=== PATIENT | male | born 1935 | race Caucasian/White ===

== ENCOUNTER → 2018-09-05 14:28 | Outpatient (CLI) | payer MEDICARE, OTHER, SELFPAY ==
[2018-09-05 14:57] LABS: Basophils % 0.4 % (0.1-2.0); Eosinophils # 0.2 K/mm3 (0.0-0.4); Eosinophils % 2.6 % (0.1-12.0); Hematocrit 44.5 % (42.0-52.0); Hemoglobin 15.3 g/dL (14.1-18.0); Lymphocytes # 1.6 K/mm3 (0.7-4.5); Lymphocytes % 26.3 % (10-50); Mean Corpuscular HGB Conc 34.3 g/dL (31.8-35.4); Mean Corpuscular Hemoglobin 29.5 pg (27.0-31.2); Mean Platelet Volume 7.3 fl (7.4-10.4); Monocytes # 0.4 K/mm3 (0.1-1.0); Monocytes % 6.8 % (1.7-9.3); Neutrophils % 63.9 % (37.0-80.0); Platelet Count 265 K/mm3 (142-424); Red Blood Count 5.18 M/mm3 (4.60-6.20); Red Cell Distribution Width 13.3 % (11.5-17.5); White Blood Count 6.2 K/mm3 (4.8-10.8)
== END ==
PROVIDERS: Visit Provider Otolaryngology
DX: Z01.818 Encounter for other preprocedural examination (principal); J35.8 Other chronic diseases of tonsils and adenoids
CPT/HCPCS: 36415; 85025; 93005

== ENCOUNTER 2021-12-20 19:02 | Observation (INO) | payer MEDICARE, SELFPAY ==
[2021-12-20 19:05] VITALS: BP 153/77; PULSE 71; RESP 24; TEMP 36.5; O2SAT 97; BMI 25.8
--- NOTE | 2021-12-20 19:18 | XR_ITS ---
PROCEDURE INFORMATION: Exam: XR Chest Exam date and time: 12/20/2021 7:20 PM Age: 86 years old Clinical indication: Other: Generalized weakness TECHNIQUE: Imaging protocol: XR of the chest. Views: 1 view. COMPARISON: No relevant prior studies available. FINDINGS: Airway: Patent Lungs: Low lung volumes causes crowding of the bronchovascular structures. No acute interstitial or airspace disease. Pleural spaces: Unremarkable. No pleural effusion. No pneumothorax. Heart/Mediastinum: The heart is moderately enlarged. Vasculature: Calcified aortic knob. Bones/joints: No acute skeletal abnormality or aggressive osseous lesion. IMPRESSION: No acute thoracic pathology.
--- NOTE | 2021-12-20 19:18 | ECG_ITS ---
APPROVED REPORT Exam: Resting ECG HR:66 bpm ECG Measurements Heart Rate 66 AXES QRSd 153 QRS 62 QT 450 T 37 QTc 463 Conclusion ATRIAL FIBRILLATION RIGHT BUNDLE BRANCH BLOCK [120+ ms QRS DURATION, UPRIGHT V1, 40+ ms S IN I/aVL/V4/V5/V6] ABNORMAL ECG UNCONFIRMED REPORT Electronically signed by : Artis Krause MD 12/21/2021 07:04:08
[2021-12-20 19:43] LABS: Basophils # 0.1 K/mm3 (0-0.2); Basophils % 1.3 % (0.1-2.0); Eosinophils % 0.6 % (0.1-12.0); Hematocrit 45.6 % (42.0-52.0); Hemoglobin 15.7 g/dL (14.1-18.0); Lymphocytes # 1.3 K/mm3 (0.7-4.5); Lymphocytes % 17.5 % (10-50); Mean Corpuscular HGB Conc 34.5 g/dL (31.8-35.4); Mean Corpuscular Hemoglobin 30.8 pg (27.0-31.2); Mean Corpuscular Volume 89.3 fl (80-94); Mean Platelet Volume 8.3 fl (7.4-10.4); Monocytes # 0.6 K/mm3 (0.1-1.0); Monocytes % 7.6 % (1.7-9.3); Neutrophils # 5.4 K/mm3 (1.8-7.8); Platelet Count 296 K/mm3 (142-424); Red Cell Distribution Width 13.7 % (11.5-17.5); White Blood Count 7.4 K/mm3 (4.8-10.8)
[2021-12-20 19:50] LABS: Alanine Aminotransferase 34 U/L (12-78); Albumin Level 4.2 g/dl (3.5-5.0); Albumin/Globulin Ratio 1.4 (1.1-1.8); Alkaline Phosphatase 104 U/L (38-126); Anion Gap 14.2 mEq/L (5-15); Aspartate Amino Transferase 40 U/L (17-59); Bilirubin,Total 0.3 mg/dl (0.2-1.3); Blood Urea Nitrogen 18 mg/dl (9-20); Calcium 9.3 mg/dl (8.4-10.2); Carbon Dioxide 25 mmol/L (22.0-30.0); Chloride 96 mmol/L (98-107); Creatinine Clearance Estimated 57 mL/min (50-200); Estimated Glomerular Filt Rate 71 ml/min (>60); GFR (African American) 86 ML/MIN (>60); Globulin 3.1 g/dL (1.3-3.2); Glucose 136 mg/dl (74-100); Lactic Acid 1.8 mmol/L (0.7-2.1); Potassium 3.2 mmoL/L (3.5-5.1); Sodium 132 mmol/L (136-145); Total Protein,Serum 7.3 g/dl (6.3-8.2)
[2021-12-20 19:55] LABS: C-Reactive Protein 1.6 mg/L (0-4)
[2021-12-20 20:08] LABS: Procalcitonin 0.057 ng/mL (0.0-2.0); Troponin I < 0.01 ng/ml (0.00-0.034)
[2021-12-20 20:12] LABS: Erythrocyte Sedimentation Rate 5 mm/hr (0-20)
[2021-12-20 20:47] VITALS: BP 142/80; BP 148/80; BP 154/81
--- NOTE | 2021-12-20 20:50 | HMH.EDWEAK ---
ED Disposition Clinical Impression: Syncope, near Chest pain Qualifiers: Chest pain type: precordial pain Qualified Code(s): R07.2 - Precordial pain Disposition: Admitted as Observation Condition on Discharge: Fair - Critical Care Critical Care Time: No Attestation: On 12/20/21, the high probability of a clinically significant, sudden or life threatening deterioration of the following system(s) required my full and direct attention, intervention and personal management. The time I documented below is in addition to time spent performing reported procedures but includes the following listed in this critical care notation. Medical Decision Making - Medical Records Medical records reviewed: Yes: I reviewed the patient's medical records. - Cuauhtemoc Inquiry Pt receiving controlled substance: No Vital Signs: 12/20/21 19:05 12/20/21 20:47 Temperature 97.7 F Temperature Source Oral Pulse Rate [Right] 71 Respiratory Rate 24 Blood Pressure [Orthostatic Lying] 148/80 H Blood Pressure [Orthostatic Sitting] 154/81 H Blood Pressure [Orthostatic Standing] 142/80 H Blood Pressure [Right Arm] 153/77 H Blood Pressure Mean [Right Arm] 102 02 Sat by Pulse Oximetry 97 - Lab Data Lab results reviewed: Yes: I reviewed the patient's lab results. Lab Results 12/20/21 19:30: WBC 7.4, RBC 5.10, Hgb 15.7, Hct 45.6, MCV 89.3, MCH 30.8, MCHC 34.5, RDW 13.7, Plt Count 296, MPV 8.3, Neut % (Auto) 73.0, Lymph % (Auto) 17.5, [place] % (Auto) 7.6, Eos % (Auto) 0.6, Baso % (Auto) 1.3, Neut # (Auto) 5.4, Lymph # (Auto) 1.3, [place] # (Auto) 0.6, Eos # (Auto) 0.0, Baso # (Auto) 0.1, ESR 5 12/20/21 19:30: Sodium 132 L, Potassium 3.2 L, Chloride 96 L, Carbon Dioxide 25, Anion Gap 14.2, BUN 18, Creatinine 1.00, Estimated Creat Clear 57, Estimated GFR 71, Est GFR ( Amer) 86, Glucose 136 H, Calcium 9.3, Total Bilirubin 0.3, AST 40, ALT 34, Alkaline Phosphatase 104, Troponin I < 0.01, C-Reactive Protein 1.6, Total Protein 7.3, Albumin 4.2, Globulin 3.1, Albumin/Globulin Ratio 1.4, Procalcitonin 0.057 12/20/21 19:30: Lactate 1.8 Result diagrams: 12/20/21 19:30 12/20/21 19:30 Orders (Tests/Meds): ORDERS Category Date Time Status Troponin I Q3H Lab 12/20/21 22:30 Ordered Troponin I Q3H Lab 12/21/21 01:30 Ordered Urinalysis and Microscopic Routine Lab 12/20/21 Ordered Blood Culture Stat Micro 12/20/21 19:30 Received - Radiology Data #1 Image(s): Chest Image Reviewed: Yes I have reviewed radiologist's interpretation Preliminary Findings: Normal/NAD - ECG Data Tracing #1 Arrhythmias present: afib Ischemic changes: non-specific ST-T wave changes Conduction abnormalities present: RBBB ECG compared to prior tracings: this ECG reveals significant changes - Physician Consults Physician Consulted: rachael Reason -: Admission - NATALIIA Score for Non-Stemi Age of Patient: 80-89 years old Heart Rate: 70-89 bpm Systolic Blood Pressure: 140-159 mmHg Serum Creatinine: 0.80-1.19 mg/dl CHF [place] Class: I-No CHF Other Risk Factors: None Non-Stemi Risk Score: 131 Medical Decision Narrative: pt with new onset of chest pain and sob and abn ekg - will admit for monitor and card enz Weakness HPI - General Chief complaint: Weakness Stated complaint: weak, dizzy Time Seen by Provider: 12/20/21 20:50 Mode of Arrival: Wheelchair Source of Information: Patient, Medical Record Limitations: No Limitations Description of Symptoms (Recalled from ER Triage Doc. by RN): pt c/o n/v/d, weak, and eariler today had epiosodes of chest pain but is not currently having it. - History of Present Illness HPI Narrative: pt with hx of chest pain over the last few days with walking and also feeling sob with min exertion - both of these sx are new - MD Complaint: generalized weakness Onset (ago): day(s) Duration: intermittent Location: generalized Migration: none Severity: moderate Associated symptoms: denies other symptoms
[2021-12-20 21:41] VITALS: BMI 25.8
[2021-12-20 22:00] VITALS: BP 141/78; PULSE 66; RESP 16; TEMP 36.6; O2SAT 96
[2021-12-20 22:09] LABS: Microscopic, Urine URINE MICROSCOPIC (MICROSCOPIC)
[2021-12-20 22:10] LABS: Appearance,Urine CLEAR (Clear); Bilirubin,Urine Negative (Negative); Blood, Urine 1+ (Negative); Color,Urine YELLOW (Yellow); Glucose,Urine (UA) Negative (Negative); Ketones,Urine Negative (Negative); Leukocyte Esterase,Urine Negative (Negative); Nitrate,Urine Negative (Negative); Protein,Urine Negative (Negative); Urobilinogen,Urine 0.2 EU/dl (0.2)
[2021-12-20 22:20] LABS: Bacteria,Urine Trace /lpf; Squamous Epithelial Cell,Urine Occasional #/hpf (0-5); WBC,Urine Occasional #/hpf (0-3)
--- NOTE | 2021-12-20 22:28 | PC.NURSE ---
Report called to [place]
--- NOTE | 2021-12-20 22:29 | PC.NURSE ---
patient up to floor via wheelchair.
[2021-12-20 22:30] VITALS: BP 141/78; PULSE 70; RESP 22; TEMP 36.5; O2SAT 97
[2021-12-20 22:44] LABS: Coronavirus 19, PCR Not Detected (NotDetected); Influenza A, PCR Not Detected (NotDetected); Influenza B, PCR Not Detected (NotDetected)
[2021-12-20 22:45] VITALS: PULSE 60
[2021-12-20 22:56] LABS: Thyroid Stimulating Hormone 3.65 uIU/mL (0.465-4.68)
[2021-12-20 23:00] VITALS: O2SAT 96
[2021-12-20 23:12] LABS: T4 (Thyroxine) 7.9 ug/dl (5.53-11.0)
[2021-12-20 23:39] LABS: Troponin I < 0.01 ng/ml (0.00-0.034)
[2021-12-21] VITALS: BP 138/70; PULSE 66; PULSE 70; RESP 16; TEMP 36.6
[2021-12-21 02:38] LABS: Troponin I < 0.01 ng/ml (0.00-0.034)
--- NOTE | 2021-12-21 04:51 | PC.NURSE ---
Patient has rested well this shift. Has been walking with standby assist to the bathroom. Continues on room air with no problems. Has had no c/o chest pain or discomfort, no c/o dizziness. Call light in place and working appropriately.
[2021-12-21 04:59] VITALS: BP 138/64; PULSE 68; RESP 16; TEMP 36.6; O2SAT 96
[2021-12-21 08:00] VITALS: BP 153/80; PULSE 70; PULSE 72; RESP 22; TEMP 36.6; O2SAT 98
[2021-12-21 08:21] LABS: Basophils # 0.1 K/mm3 (0-0.2); Basophils % 0.9 % (0.1-2.0); Eosinophils # 0.1 K/mm3 (0.0-0.4); Eosinophils % 0.6 % (0.1-12.0); Hemoglobin 16.2 g/dL (14.1-18.0); Lymphocytes # 1.5 K/mm3 (0.7-4.5); Lymphocytes % 18.9 % (10-50); Mean Corpuscular HGB Conc 33.8 g/dL (31.8-35.4); Mean Corpuscular Hemoglobin 30.1 pg (27.0-31.2); Monocytes # 0.6 K/mm3 (0.1-1.0); Neutrophils # 5.5 K/mm3 (1.8-7.8); Neutrophils % 71.6 % (37.0-80.0); Platelet Count 306 K/mm3 (142-424); Red Blood Count 5.39 M/mm3 (4.60-6.20); Red Cell Distribution Width 13.7 % (11.5-17.5); White Blood Count 7.7 K/mm3 (4.8-10.8)
[2021-12-21 08:28] LABS: Anion Gap 11.3 mEq/L (5-15); Blood Urea Nitrogen 15 mg/dl (9-20); Calcium 9.1 mg/dl (8.4-10.2); Carbon Dioxide 26 mmol/L (22.0-30.0); Chloride 101 mmol/L (98-107); Creatinine Clearance Estimated 57 mL/min (50-200); Estimated Glomerular Filt Rate 80 ml/min (>60); GFR (African American) 97 ML/MIN (>60); Glucose 124 mg/dl (74-100); Potassium 3.3 mmoL/L (3.5-5.1); Sodium 135 mmol/L (136-145)
--- NOTE | 2021-12-21 08:37 | HMH.HPDC ---
General - General Admission date:: 12/20/21 Discharge date: 12/21/21 *Admission Date: 12/20/21 *Chief complaint: Weakness and shortness of air *History of present illness: 86-year-old white male with history of hypertension, who has enjoyed very good functional status over the past several years. He has been seeing Dr. Clemens has not seen a physician since Dr. Clemens moved his practice. He was brought to the emergency department because of weakness and a feeling of progressive chest pressure when he has the shortness of air and weakness. Did not have any pain. In the emergency department he was found to have atrial fibrillation with controlled ventricular response. EKG done in 2019 showed sinus rhythm. Patient notes that he been feeling this way for several weeks. Denied any swelling, anginal type pain or actual syncope. Patient was admitted to hospital for further testing. [facility] History I have reviewed the patient's past medical history: Yes Medical History: Reports:: Heart Murmur, Hyperlipidemia, Hypertension Denies:: Cancer, Diabetes Mellitus Type 1, Diabetes Mellitus Type 2, Internal Pacemaker, MRSA, Seizures *Have you ever received a pneumonia vaccine?: No *Have you received a flu vaccine this season?: No Other Medical History: Reports: Arthritis, Cataracts. Denies: Blood Transfusion Reaction Laterality Cases: Left: Tonsillectomy, Bilateral: Other Other Surgeries: Yes: Colonoscopy, Hernia Repair, Other. No: Pacemaker Amputation: No - *Social History Last grade of school completed: 9th or 10th Smoking Status: Former smoker Tobacco Type: cigarettes, pipe, cigars # Packs/Day (cigarettes): 1 #Yrs smoked (if former smoker): 20 Alcohol Intake: former Alcohol Intake Frequency:: other Substance Use Type: denies use *Occupational Status:: retired Housing: house Household Members: family, children *Travel in the last 8 weeks: None Family Hx:: Hypertension Review of Systems - Review of Systems Review of systems:: pertinent systems reviewed and negative unless documented below - *Neurologic Denies headache(s), Denies seizure-like activity Exam Vital signs and Labs for Last 24 Hours: Temp Pulse Resp BP Pulse Ox 98 F 68 16 138/64 96 12/21/21 04:59 12/21/21 04:59 12/21/21 04:59 12/21/21 04:59 12/21/21 04:59 Laboratory Results - last 24 hr 12/20/21 19:30: WBC 7.4, RBC 5.10, Hgb 15.7, Hct 45.6, MCV 89.3, MCH 30.8, MCHC 34.5, RDW 13.7, Plt Count 296, MPV 8.3, Neut % (Auto) 73.0, Lymph % (Auto) 17.5, [place] % (Auto) 7.6, Eos % (Auto) 0.6, Baso % (Auto) 1.3, Neut # (Auto) 5.4, Lymph # (Auto) 1.3, [place] # (Auto) 0.6, Eos # (Auto) 0.0, Baso # (Auto) 0.1, ESR 5 12/20/21 19:30: Sodium 132 L, Potassium 3.2 L, Chloride 96 L, Carbon Dioxide 25, Anion Gap 14.2, BUN 18, Creatinine 1.00, Estimated Creat Clear 57, Estimated GFR 71, Est GFR ( Amer) 86, Glucose 136 H, Calcium 9.3, Total Bilirubin 0.3, AST 40, ALT 34, Alkaline Phosphatase 104, Troponin I < 0.01, C-Reactive Protein 1.6, Total Protein 7.3, Albumin 4.2, Globulin 3.1, Albumin/Globulin Ratio 1.4, Procalcitonin 0.057 12/20/21 19:30: Lactate 1.8 12/20/21 19:30: TSH 3.65, Thyroxine (T4) 7.9 12/20/21 20:53: SARS-CoV-2 (PCR) Not detected, Influenza A Untype (PCR) Not detected, Influenza Type B (PCR) Not detected 12/20/21 22:03: Urine Color Yellow, Urine Appearance Clear, Urine pH 6.0, Ur Specific [place] 1.020, Urine Protein Negative, Urine Glucose (UA) Negative, Urine Ketones Negative, Urine Blood 1+, Urine Nitrate Negative, Urine Bilirubin Negative, Urine Urobilinogen 0.2, Ur Leukocyte Esterase Negative, Urine RBC 3-5, Urine WBC Occasional, Ur Squamous Epith Cells Occasional, Urine Bacteria Trace 12/20/21 23:00: Troponin I < 0.01 12/21/21 02:05: Troponin I < 0.01 12/21/21 07:43: WBC 7.7, RBC 5.39, Hgb 16.2, Hct 48.0, MCV 89.0, MCH 30.1, MCHC 33.8, RDW 13.7, Plt Count 306, MPV 8.0, Neut % (Auto) 71.6, Lymph % (Auto) 18.9, [place] % (Auto) 8.0, Eos % (Auto) 0.6, Baso % (Auto)
--- NOTE | 2021-12-21 10:01 | PC.NURSE ---
pt discharge education completed. He and son @ bedside voiced understanding of discahrge education and follow up appts. IV discontinued and tele removed. pt has been up and ambulating around the room. I educated him on getting up slowly and allowing extra time for adls.
--- NOTE | 2021-12-21 10:22 | PC.NURSE ---
pt will be set up with monitor after discharge
--- NOTE | 2021-12-23 13:25 | CARE MANAGER ---
Contacted patient related to discharge from hospital. Patient states he was able to worm picker partial prescription of Eloquis. Instructed related to follow up appointment with Therese Azar on and stress test on Wednesday. RT states they will call him when Holter monitor is available.
== END 2021-12-21 10:20 | disposition home or self-care (01) ==
LOC: ER 19:57 → 2ND 22:06
PROVIDERS: Emergency Medicine; Admitting Provider Internal Medicine Adolescent Medicine; Emergency Provider Emergency Medicine; PCP Nurse Practitioner Family; Visit Provider Internal Medicine Adolescent Medicine
DX: I48.91 Unspecified atrial fibrillation (principal); R55 Syncope and collapse; R07.2 Precordial pain; E78.5 Hyperlipidemia, unspecified; I10 Essential (primary) hypertension; Z87.891 Personal history of nicotine dependence; Z20.822 Contact with and (suspected) exposure to COVID-19
CPT/HCPCS: G0378; 36415; 71045; 80048; 80053; 81001; 83605; 83735; 84145; 84436; 84443; 84484; 85025; 85651; 86140; 87040; 93005; 99285; C9803; U0003; U0005

== ENCOUNTER 2021-12-24 10:04 | Emergency (ER) | payer MEDICARE, SELFPAY ==
--- NOTE | 2021-12-24 10:08 | PC.NURSE ---
MAX Giron at BS
--- NOTE | 2021-12-24 10:13 | PC.NURSE ---
pt hooked up to monitor and warm blanket given; family at BS; no other needs at this time
[2021-12-24 10:20] VITALS: BP 151/82; PULSE 74; RESP 20; TEMP 36.6; O2SAT 94; BMI 25.8
--- NOTE | 2021-12-24 10:22 | PC.NURSE ---
ED MD at BS; family at BS
--- NOTE | 2021-12-24 10:27 | XR_ITS ---
FINAL REPORT CLINICAL HISTORY: cough, weakness, left arm numbness, patient states he feels good and after he takes his morning meds he starts to decline , noticed the arm numbness about 3 days ago COMPARISON: December 20, 2021 FINDINGS: Cardiomegaly is noted. There is persistent mild right lung base atelectasis or pneumonia. There is no pneumothorax. The bony thorax is intact. IMPRESSION: Persistent right lung base atelectasis or pneumonia. Reviewed, Interpreted and Dictated by Jordy Bello III, MD Transcribed by Lucila Otero Authenticated by Jordy Bello III, MD on 12/24/2021 12:45:45 PM [facility]
[2021-12-24 10:30] VITALS: BP 154/84; PULSE 66; O2SAT 96
--- NOTE | 2021-12-24 10:38 | ECG_ITS ---
APPROVED REPORT Exam: Resting ECG HR:66 bpm ECG Measurements Heart Rate 66 AXES QRSd 143 QRS 38 QT 435 T 78 QTc 449 Conclusion ATRIAL FIBRILLATION RIGHT BUNDLE BRANCH BLOCK [120+ ms QRS DURATION, UPRIGHT V1, 40+ ms S IN I/aVL/V4/V5/V6] ABNORMAL ECG UNCONFIRMED REPORT Electronically signed by : Artis Krause MD 12/25/2021 21:24:05
--- NOTE | 2021-12-24 10:46 | HMH.EDGENADL ---
ED Disposition Clinical Impression: Hypokalemia, Generalized weakness Disposition: Home, Self-Care Condition on Discharge: Good Instructions: DI for Hypokalemia Referrals: Breanna Griffiths MD [Primary Care Provider] - - Critical Care Critical Care Time: No Attestation: On 12/24/21, the high probability of a clinically significant, sudden or life threatening deterioration of the following system(s) required my full and direct attention, intervention and personal management. The time I documented below is in addition to time spent performing reported procedures but includes the following listed in this critical care notation. Medical Decision Making - Medical Records Medical records reviewed: Yes: I reviewed the patient's medical records. - Cuauhtemoc Inquiry Pt receiving controlled substance: No Vital Signs: 12/24/21 10:20 12/24/21 10:30 12/24/21 11:00 Temperature 97.9 F Temperature Source Oral Pulse Rate 66 68 Pulse Rate [Left Radial] 74 Respiratory Rate 20 20 Blood Pressure 154/84 H 144/76 H Blood Pressure [Right Arm] 151/82 H Blood Pressure Mean 111 121 Blood Pressure Mean [Right Arm] 105 02 Sat by Pulse Oximetry 94 L 96 97 Oxygen Delivery Method Room Air 12/24/21 11:31 Temperature Temperature Source Pulse Rate 80 Pulse Rate [Left Radial] Respiratory Rate 20 Blood Pressure 153/96 H Blood Pressure [Right Arm] Blood Pressure Mean 115 Blood Pressure Mean [Right Arm] 02 Sat by Pulse Oximetry 96 Oxygen Delivery Method - Lab Data Lab Results 12/24/21 10:55: WBC 7.2, RBC 5.32, Hgb 16.4, Hct 47.1, MCV 88.5, MCH 30.8, MCHC 34.8, RDW 13.8, Plt Count 320, MPV 7.8, Neut % (Auto) 71.7, Lymph % (Auto) 16.0, [place] % (Auto) 8.6, Eos % (Auto) 1.7, Baso % (Auto) 2.0, Neut # (Auto) 5.2, Lymph # (Auto) 1.2, [place] # (Auto) 0.6, Eos # (Auto) 0.1, Baso # (Auto) 0.2 12/24/21 10:55: Sodium 129 L, Potassium 3.2 L, Chloride 95 L, Carbon Dioxide 27, Anion Gap 10.2, BUN 12, Creatinine 1.10, Estimated Creat Clear 52, Estimated GFR 63, Est GFR ( Amer) 77, Glucose 129 H, Calcium 9.3, Total Bilirubin 0.6, AST 41, ALT 37, Alkaline Phosphatase 108, Troponin I < 0.01, Total Protein 7.2, Albumin 4.2, Globulin 3.0, Albumin/Globulin Ratio 1.4 Result diagrams: 12/24/21 10:55 12/24/21 10:55 Orders (Tests/Meds): ED MEDICATIONS Discontinued Medications Generic Name Dose Route Start Last Admin Trade Name Freq PRN Reason Stop Dose Admin Potassium Chloride 40 meq 12/24/21 11:30 Potassium Chloride 20meq Tab PO 12/24/21 11:31 ONCE ONE ORDERS Category Date Time Status XR chest portable Stat Exams 12/24/21 10:27 Taken Troponin I Q3H Lab 12/24/21 13:30 Ordered Troponin I Q3H Lab 12/24/21 16:30 Ordered - Radiology Data #1 Image(s): Chest Image Reviewed: Yes I reviewed the patient's radiology results, Yes I reviewed the patient's radiology image, Yes I have reviewed radiologist's interpretation No significant change from previous - ECG Data Tracing #1 I reviewed this ECG and interpreted as documented below: Normal ventricular rate of 66 bpm, atrial fibrillation with nonspecific ST changes. ECG initial impression date: 12/24/21 ECG initial impression time: 10:38 - Reevaluation(s) Time: 11:50 Reevaluation #1: On reevaluation, the patient is feeling better. Slightly hypokalemic. I do believe this is contributing to his generalized weakness. Patient symptoms do not seem consistent withPatient's effect. I do believe the importance of taking the medication outweighs the risk of discontinuing. Patient will follow up with PCP in 48 hours. Given strict return precautions. Verbalized understanding. Medical Decision Narrative: 86-year-old male presenting with some generalized weakness. Overall, the patient appears to be appropriate. He is in atrial fibrillation now, however his rate is controlled. Work-up initiated. General Adult HPI - General Chief com
[2021-12-24 11:00] VITALS: BP 144/76; PULSE 68; RESP 20; O2SAT 97
[2021-12-24 11:03] LABS: Basophils # 0.2 K/mm3 (0-0.2); Eosinophils # 0.1 K/mm3 (0.0-0.4); Eosinophils % 1.7 % (0.1-12.0); Hematocrit 47.1 % (42.0-52.0); Hemoglobin 16.4 g/dL (14.1-18.0); Lymphocytes # 1.2 K/mm3 (0.7-4.5); Mean Corpuscular HGB Conc 34.8 g/dL (31.8-35.4); Mean Corpuscular Hemoglobin 30.8 pg (27.0-31.2); Mean Corpuscular Volume 88.5 fl (80-94); Mean Platelet Volume 7.8 fl (7.4-10.4); Monocytes # 0.6 K/mm3 (0.1-1.0); Monocytes % 8.6 % (1.7-9.3); Neutrophils # 5.2 K/mm3 (1.8-7.8); Neutrophils % 71.7 % (37.0-80.0); Platelet Count 320 K/mm3 (142-424); Red Blood Count 5.32 M/mm3 (4.60-6.20); Red Cell Distribution Width 13.8 % (11.5-17.5); White Blood Count 7.2 K/mm3 (4.8-10.8)
[2021-12-24 11:09] LABS: Chloride 95 mmol/L (98-107); Potassium 3.2 mmoL/L (3.5-5.1); Sodium 129 mmol/L (136-145)
[2021-12-24 11:11] LABS: Alanine Aminotransferase 37 U/L (12-78); Aspartate Amino Transferase 41 U/L (17-59); Blood Urea Nitrogen 12 mg/dl (9-20); Creatinine Clearance Estimated 52 mL/min (50-200); Estimated Glomerular Filt Rate 63 ml/min (>60); GFR (African American) 77 ML/MIN (>60)
[2021-12-24 11:12] LABS: Albumin Level 4.2 g/dl (3.5-5.0); Albumin/Globulin Ratio 1.4 (1.1-1.8); Alkaline Phosphatase 108 U/L (38-126); Anion Gap 10.2 mEq/L (5-15); Bilirubin,Total 0.6 mg/dl (0.2-1.3); Calcium 9.3 mg/dl (8.4-10.2); Carbon Dioxide 27 mmol/L (22.0-30.0); Glucose 129 mg/dl (74-100); Total Protein,Serum 7.2 g/dl (6.3-8.2)
[2021-12-24 11:27] LABS: Troponin I < 0.01 ng/ml (0.00-0.034)
[2021-12-24 11:31] VITALS: BP 153/96; PULSE 80; RESP 20; O2SAT 96
[2021-12-24 12:24] VITALS: BP 153/96; PULSE 80; RESP 26; TEMP 36.6; O2SAT 96
== END 2021-12-24 12:25 | disposition home or self-care (01) ==
PROVIDERS: Emergency Provider Emergency Medicine; PCP Family Medicine
DX: E87.6 Hypokalemia (principal); I48.0 Paroxysmal atrial fibrillation; I10 Essential (primary) hypertension; R01.1 Cardiac murmur, unspecified; Z87.891 Personal history of nicotine dependence; Z79.899 Other long term (current) drug therapy
CPT/HCPCS: 71045; 80053; 84484; 85025; 93005; 99283

== ENCOUNTER → 2021-12-25 12:09 | Outpatient (CLI) | payer MEDICARE, SELFPAY | PROVIDERS: PCP Family Medicine; Visit Provider Internal Medicine Adolescent Medicine | DX: I48.91 Unspecified atrial fibrillation (principal) | CPT/HCPCS: 93225; 93226 ==

== ENCOUNTER 2021-12-31 13:58 | Emergency (ER) | payer MEDICARE, SELFPAY ==
--- NOTE | 2021-12-31 14:02 | HMH.EDGENADL ---
ED Disposition Clinical Impression: Generalized weakness Fall Qualifiers: Encounter type: initial encounter Qualified Code(s): W19.XXXA - Unspecified fall, initial encounter Disposition: Home, Self-Care Condition on Discharge: Fair Additional Instructions: I would like to have you seen by primary care physician, someone who can do the deeper dive on your health, and help you try to figure out why been having some increased weakness and more falls. [facility], or with a physician here. I would like you to call and make an appointment tomorrow morning. Referrals: Provider,Referral, [Primary Care Provider] - - Critical Care Critical Care Time: No Attestation: On , the high probability of a clinically significant, sudden or life threatening deterioration of the following system(s) required my full and direct attention, intervention and personal management. The time I documented below is in addition to time spent performing reported procedures but includes the following listed in this critical care notation. Medical Decision Making - Medical Records Medical records reviewed: Yes: I reviewed the patient's medical records. - Cuauhtemoc Inquiry Pt receiving controlled substance: No Cuauhtemoc was queried for this patient: No Vital Signs: 12/31/21 14:38 12/31/21 15:15 12/31/21 15:30 Temperature 98.5 F Temperature Source Oral Pulse Rate 74 65 Pulse Rate [Left Radial] 70 Respiratory Rate 18 Blood Pressure 148/83 H 153/79 H Blood Pressure [Right Arm] 145/88 H Blood Pressure Mean 106 99 Blood Pressure Mean [Right Arm] 107 02 Sat by Pulse Oximetry 97 96 96 Oxygen Delivery Method Room Air 12/31/21 16:00 Temperature Temperature Source Pulse Rate 82 Pulse Rate [Left Radial] Respiratory Rate Blood Pressure 158/80 H Blood Pressure [Right Arm] Blood Pressure Mean 106 Blood Pressure Mean [Right Arm] 02 Sat by Pulse Oximetry 96 Oxygen Delivery Method - Lab Data Lab results reviewed: Yes: I reviewed the patient's lab results. Lab Results 12/31/21 14:50: WBC 8.7, RBC 5.35, Hgb 16.5, Hct 47.8, MCV 89.2, MCH 30.9, MCHC 34.6, RDW 13.7, Plt Count 298, MPV 7.7, Neut % (Auto) 79.2, Lymph % (Auto) 12.0, [place] % (Auto) 7.0, Eos % (Auto) 0.9, Baso % (Auto) 1.0, Neut # (Auto) 6.9, Lymph # (Auto) 1.0, [place] # (Auto) 0.6, Eos # (Auto) 0.1, Baso # (Auto) 0.1 12/31/21 14:50: Sodium 130 L, Potassium 3.4 L, Chloride 95 L, Carbon Dioxide 25, Anion Gap 13.4, BUN 17, Creatinine 1.20, Estimated Creat Clear 47, Estimated GFR 57 L, Est GFR ( Amer) 69, Glucose 127 H, Calcium 9.2, Magnesium 1.9, Total Bilirubin 0.6, AST 36, ALT 37, Alkaline Phosphatase 131 H, Total Protein 7.2, Albumin 4.1, Globulin 3.1, Albumin/Globulin Ratio 1.3 Result diagrams: 12/31/21 14:50 12/31/21 14:50 Medical Decision Narrative: Patient is an 86-year-old male presenting to the emergency department with chief complaint of fall, overall weakness. Differential diagnosis for this patient includes electrolyte abnormality, subdural bleed, cervical spine fracture, and others. Patient is sitting up in bed, hemodynamically stable, without any acute symptoms. Patient has no recent history of fevers, chills, nausea vomiting or other concerning symptoms. We will order CBC, CMP, head CT, C-spine. He had mild hypokalemia, CT head did not show any intracranial bleeding, CT C-spine did not show any acute traumatic abnormality. Labs are otherwise within normal limits, discussed the findings with patient. As well as necessity for follow-up with his primary care physician. Patient states that [facility], but is also unassigned with a physician here, told patient he could follow-up with whoever as long as it was, someone who could follow his health, delve into additional reasons why patient is having increasing weakness. Laboratory Results - last 24 hr 12/31/21 14:50: WBC 8.7, RBC 5.35, Hgb 16.5, Hct 47.8, MCV
[2021-12-31 14:34] VITALS: BMI 25.8
--- NOTE | 2021-12-31 14:34 | CT_ITS ---
FINAL REPORT CLINICAL HISTORY: fall YESTERDAY, NO LOC, HEAD AND NECK PAIN, DIZZY FINDINGS: Axial images of the head were obtained without contrast. Coronal reformatted images were also obtained. This study was performed with techniques to keep radiation doses as low as reasonably achievable (ALARA). Individualized dose reduction techniques using automated exposure control or adjustment of mA and/or kV according to the patient''s size were employed. There is generalized age-appropriate atrophy. Periventricular low-attenuation areas are seen consistent with mild chronic ischemic changes. There is no evidence of intracranial hemorrhage or mass. There is no evidence of acute infarct. There is no evidence of shift of the midline structures. No skull abnormality is seen on the bone window images. IMPRESSION: Atrophy and mild periventricular chronic ischemic changes. No acute intracranial abnormality identified. Reviewed, Interpreted and Dictated by Jordy Bello III, MD Transcribed by Mary Valdez Authenticated and [facility]
--- NOTE | 2021-12-31 14:34 | CT_ITS ---
FINAL REPORT CLINICAL HISTORY: fall YESTERDAY, NO LOC, HEAD AND NECK PAIN, DIZZY FINDINGS: Axial CT images of the cervical spine were obtained without contrast. Sagittal and coronal reformatted images were also obtained. This study was performed with techniques to keep radiation doses as low as reasonably achievable (ALARA). Individualized dose reduction techniques using automated exposure control or adjustment of mA and/or kV according to the patient's size were employed. There is no evidence of fracture or dislocation. Mild degenerative changes are present. There is mild retrolisthesis of C4 on 5. IMPRESSION: No fracture or acute bony abnormality identified. Reviewed, Interpreted and Dictated by Jordy Bello III, MD Transcribed by Mary Valdez Authenticated and . [facility]
[2021-12-31 14:38] VITALS: BP 145/88; PULSE 70; RESP 18; TEMP 36.9; O2SAT 97; BMI 25.8
--- NOTE | 2021-12-31 14:43 | PC.NURSE ---
called lab for blood collection
[2021-12-31 15:04] LABS: Basophils # 0.1 K/mm3 (0-0.2); Eosinophils # 0.1 K/mm3 (0.0-0.4); Eosinophils % 0.9 % (0.1-12.0); Hematocrit 47.8 % (42.0-52.0); Hemoglobin 16.5 g/dL (14.1-18.0); Mean Corpuscular HGB Conc 34.6 g/dL (31.8-35.4); Mean Corpuscular Hemoglobin 30.9 pg (27.0-31.2); Mean Corpuscular Volume 89.2 fl (80-94); Mean Platelet Volume 7.7 fl (7.4-10.4); Monocytes # 0.6 K/mm3 (0.1-1.0); Neutrophils # 6.9 K/mm3 (1.8-7.8); Neutrophils % 79.2 % (37.0-80.0); Platelet Count 298 K/mm3 (142-424); Red Blood Count 5.35 M/mm3 (4.60-6.20); Red Cell Distribution Width 13.7 % (11.5-17.5); White Blood Count 8.7 K/mm3 (4.8-10.8)
[2021-12-31 15:08] LABS: Chloride 95 mmol/L (98-107)
--- NOTE | 2021-12-31 15:08 | PC.NURSE ---
pt returned from radiology by stretcher with clinical research tech; hooked back up to monitor
[2021-12-31 15:09] LABS: Potassium 3.4 mmoL/L (3.5-5.1); Sodium 130 mmol/L (136-145)
[2021-12-31 15:11] LABS: Alanine Aminotransferase 37 U/L (12-78); Aspartate Amino Transferase 36 U/L (17-59); Blood Urea Nitrogen 17 mg/dl (9-20); Creatinine Clearance Estimated 47 mL/min (50-200); Estimated Glomerular Filt Rate 57 ml/min (>60); GFR (African American) 69 ML/MIN (>60)
[2021-12-31 15:12] LABS: Albumin Level 4.1 g/dl (3.5-5.0); Albumin/Globulin Ratio 1.3 (1.1-1.8); Alkaline Phosphatase 131 U/L (38-126); Anion Gap 13.4 mEq/L (5-15); Bilirubin,Total 0.6 mg/dl (0.2-1.3); Calcium 9.2 mg/dl (8.4-10.2); Carbon Dioxide 25 mmol/L (22.0-30.0); Globulin 3.1 g/dL (1.3-3.2); Glucose 127 mg/dl (74-100); Magnesium 1.9 mg/dl (1.6-2.3); Total Protein,Serum 7.2 g/dl (6.3-8.2)
[2021-12-31 15:15] VITALS: BP 148/83; PULSE 74; O2SAT 96
[2021-12-31 15:30] VITALS: BP 153/79; PULSE 65; O2SAT 96
[2021-12-31 16:00] VITALS: BP 158/80; PULSE 82; O2SAT 96
[2021-12-31 16:31] VITALS: BP 180/90; PULSE 71; O2SAT 97
--- NOTE | 2021-12-31 17:18 | PC.NURSE ---
MAX Giron at BS
[2021-12-31 17:53] VITALS: BP 164/88; PULSE 74; RESP 18; TEMP 36.9; O2SAT 96
== END 2021-12-31 17:55 | disposition home or self-care (01) ==
PROVIDERS: Emergency Provider Emergency Medicine
DX: R53.1 Weakness (principal); W19.XXXA Unspecified fall, initial encounter; E87.6 Hypokalemia; M54.9 Dorsalgia, unspecified; Z87.891 Personal history of nicotine dependence; E78.5 Hyperlipidemia, unspecified; I10 Essential (primary) hypertension
CPT/HCPCS: 36415; 70450; 72125; 80053; 83735; 85025; 99283

== ENCOUNTER → 2022-01-06 11:48 | Outpatient (CLI) | payer MEDICARE, SELFPAY ==
--- NOTE | 2022-01-06 | CA_ITS ---
APPROVED REPORT Exam: Pharmacologic Technologist: Maria Del Carmen Oh, Ht: 5 ft 8 in Wt: 170 lbs BSA: 1.91 m2 HR: 61 bpm BP: 163/85 mmHg Rhythm: AFIB, RBBB Indications: Afib, Weakness Medical History Medical History: Hyperlipidemia, HTN Medications: Amlodipine,,,,, Lisinopril,,,,, Aspirin,,,,, Vit D3,,,,, OmeGA 3 Fish Oil,,,,, Allergies: JEKEYGT-EIR-AEY REDUCTASE INHIBITOR Cardiac Risk Factors: Smoking, HTN, Hyperlipidemia Stress Test Details Test: LEXISCAN HR Resting HR: 80 bpm Max Heart Rate (APMHR): 133 bpm Max HR Achieved: 93 bpm Target HR (85% APMHR): 113 bpm % of APMHR: 69 Recovery HR: 72 bpm BP Resting BP: 163/85 mmHg Max BP: 163/85 mmHg Recovery BP: 147.0/74.0 mmHg ECG Resting ECG: AFIB, RBBB Clinical Exercise duration: 04:03 min Highest Stage Achieved: Exercise capacity: 1.0 METs Stress ECG Conclusion PT HAD NO SYMPTOMS AFIB WITH CONTROLLED V RATE NO SIGNIFICANT CHANGES NON-DIAGNOSTIC LEXISCAN STRESS MYOVIEW UMAGES REPORTED SEPARATELY Electronically signed by : Russel Edward MD 01/06/2022 21:06:19
--- NOTE | 2022-01-06 12:07 | NM_ITS ---
APPROVED REPORT Exam: Nuclear Stress Test Indication: CHEST PAIN..SHORT OF BREATH Patient Location: Outpatient Stress Tech: Maria Del Carmen Oh NM Tech:Virginia Osborn ARRT, RT (R)(N) Ht: 5 ft 8 in Wt: 170 lbs HR: 80 bpm BP: 163/85 mmHg BSA: 1.91 m2 BMI: 25.8 History: CHEST PAIN..SHORT OF BREATH Procedure: Patient received a 0.4 mg of intravenous Lexiscan, resting heart rate 80 bpm, resting blood pressure 163/85 mmHg, with Lexiscan maximum heart rate achived was 93 bpm which is Less than 85 % of the maximum predicted heart rate and blood pressure was 163/85 mmHg. With Lexiscan, patient denied any complaint of chest pain. Electrocardiogram Resting electrocardiogram shows atrial fibrillation right ventricular conduction delay with Lexiscan there is less than 1.[address] segment depression noted from the baseline EKG. The EKG portion of the Lexiscan is nondiagnostic. Cardiac Stress and Resting SPECT Images: Cardiac Stress and Resting SPECT images were obtained using technetium 99m Myoview 31.4 mCi stress and 9.42 mCi at rest. Gated SPECT for analysis of segmental wall motion and calculation of the ejection fraction also done. Cardiac stress and resting SPECT, show uniform myocardial activity without segmental perfusion abnormality, computer derived ejection fraction is 54% with no regional wall motion abnormality, right ventricle is normal size and contractility. Conclusion: 1. The EKG portion of the Lexiscan is nondiagnostic. 2. No scintigraphic evidence of reversible ischemia seen, computer derived ejection fraction 54% with no regional wall motion abnormality, right ventricle is normal size and contractility. 3. Normal Lexiscan Myoview study. Electronically signed by : Russel Edward MD 01/06/2022 21:09:15
--- NOTE | 2022-01-06 13:47 | HMH.ITSHM ---
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 []VITAMIN B OMEGA 3 LISINOPRIL VITAMIN D3 ASA AMLODIPINE APIXABAN
== END ==
PROVIDERS: PCP Nurse Practitioner Family; Visit Provider Internal Medicine Adolescent Medicine
DX: I48.0 Paroxysmal atrial fibrillation (principal); R94.31 Abnormal electrocardiogram [ECG] [EKG]
CPT/HCPCS: 78452; 93017; A9502; J2785

== ENCOUNTER 2022-03-18 11:43 | Emergency (ER) | payer MEDICARE, SELFPAY ==
[2022-03-18] VITALS (12 sets, daily range): BP systolic 162–202; BP diastolic 99–118; PULSE 62–82; RESP 16–18; TEMP 36.7; O2SAT 95–98; BMI 25.8; BMI 24.3
--- NOTE | 2022-03-18 11:57 | PC.NURSE ---
pt to CT
--- NOTE | 2022-03-18 12:09 | CT_ITS ---
PROCEDURE INFORMATION: Exam: CT Head Without Contrast Exam date and time: 03/18/2022 12:03 PM Age: 86 years old Clinical indication: Stroke-like symptoms; Other: Confusion TECHNIQUE: Imaging protocol: Computed tomography of the head without contrast. Radiation optimization: All CT scans at this facility use at least one of these dose optimization techniques: automated exposure control; mA and/or kV adjustment per patient size (includes targeted exams where dose is matched to clinical indication); or iterative reconstruction. Other technique: STROKE PROTOCOL was implemented. COMPARISON: CT HEAD/BRAIN WO CON 12/31/2021 2:55 PM FINDINGS: Brain: There is no acute intracranial hemorrhage or mass effect. Moderate diffuse volume loss is within the range of normal for patient age. There are small vessel ischemic changes within the periventricular and subcortical white matter, but the normal [place]-white matter delineation is maintained. Cerebral ventricles: No ventriculomegaly. Paranasal sinuses: There is mild ethmoid mucosal thickening. Focal osteoma projects over left ethmoid air cells. Mastoid air cells: Visualized mastoid air cells are well aerated. Bones/joints: Unremarkable. No acute fracture. Soft tissues: Unremarkable. IMPRESSION: No acute hemorrhage or edema. ASSESSMENT: ASPECTS ([place] Stroke Program Early CT Score) is 10.
[2022-03-18 12:10] LABS: Basophils % 0.5 % (0.1-2.0); Eosinophils # 0.1 K/mm3 (0.0-0.4); Eosinophils % 0.8 % (0.1-12.0); Hemoglobin 16.1 g/dL (14.1-18.0); Lymphocytes # 1.2 K/mm3 (0.7-4.5); Lymphocytes % 14.4 % (10-50); Mean Platelet Volume 8.2 fl (7.4-10.4); Monocytes # 0.7 K/mm3 (0.1-1.0); Monocytes % 8.5 % (1.7-9.3); Neutrophils # 6.4 K/mm3 (1.8-7.8); Neutrophils % 75.8 % (37.0-80.0); Platelet Count 332 K/mm3 (142-424); Red Blood Count 5.38 M/mm3 (4.60-6.20); Red Cell Distribution Width 14.2 % (11.5-17.5); White Blood Count 8.4 K/mm3 (4.8-10.8)
[2022-03-18 12:15] LABS: Anion Gap 12.8 mEq/L (5-15); Blood Urea Nitrogen 10 mg/dl (9-20); Calcium 9.8 mg/dl (8.4-10.2); Carbon Dioxide 27 mmol/L (22.0-30.0); Chloride 100 mmol/L (98-107); Creatinine Clearance Estimated 52 mL/min (50-200); Estimated Glomerular Filt Rate 63 ml/min (>60); GFR (African American) 77 ML/MIN (>60); Glucose 100 mg/dl (74-100); Potassium 3.8 mmoL/L (3.5-5.1); Sodium 136 mmol/L (136-145)
[2022-03-18 12:20] LABS: INR 1.01 (0.9-1.1); Prothrombin Time 11.4 seconds (10.1-12.5)
--- NOTE | 2022-03-18 12:22 | PC.NURSE ---
pt reporting double vision x2 days.
--- NOTE | 2022-03-18 12:35 | PC.NURSE ---
FRANSISCO YANEZ speaking with Arleen
--- NOTE | 2022-03-18 15:47 | HMH.EDGENADL ---
Discharge Plan Disposition Patient Disposition: Home, Self-Care Condition: Fair Chief Complaint: Neuro Symptoms/Deficit Prescriptions Prescriptions: New amlodipine 5 mg tablet 5 mg PO DAILY Qty: 30 0RF No Action lisinopril 40 mg tablet 40 mg PO DAILY omega 6-pok-pws-fish oil [Fish Oil] 1,000 mg (120 mg-180 mg) capsule 1 cap PO DAILY aspirin 325 mg tablet 325 mg PO DAILY vitamin B complex [B Complex-Vitamin B12] tablet 1 tab PO DAILY cholecalciferol (vitamin D3) 50,000 unit tablet 50,000 unit PO QWEEK apixaban 5 MG tablet 5 mg PO BID Referrals Referrals: Artis Krause MD [Primary Care Provider] - Enter time for follow up Activity Restrictions/Add. Instructions Additional Instructions/Restrictions: Take amlodipine 5 mg tomorrow morning. See [facility] and Dr. Krause's office in [place] tomorrow morning at 10 AM. [address] Return to the emergency department if any new symptoms such as numbness or weakness of arms or legs or difficulty speaking. Clinical Impressions Clinical Impression: Lateral rectus palsy, Essential hypertension Instructions Patient Instructions: DI for High Blood Pressure, DI for Double Vision Discharge ED Provider: Joseluis Miller General Adult HPI General Chief complaint: Neuro Symptoms/Deficit Stated complaint: double vision, high bp Time Seen by Provider: 03/18/22 15:47 Mode of Arrival: Wheelchair Source of Information: Patient Limitations: No Limitations Description of Symptoms (Recalled from ER Triage Doc. by RN): Pt sent from PCP office for further evaluation. Pt reports double vision x2 days, reports woke up with double vision yesterday. Denies accident or injury. 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 Pt reports is on eliquis. Pt states was also seen by eye doctor this am and referred to pcp office. History of Present Illness HPI narrative: The patient is sent to the emergency department by Dr. Krause. The patient has had double vision, tciw-ps-ttqb but slightly skewed with the left image higher than the right, for 2 days constantly. Denies headache. No problems with new numbness or weakness of the extremities. No problems with speech or swallowing. No prior history of diplopia. He [place] [facility] Diagnosed with a lateral rectus palsy. Sent to his primary care provider due to elevated blood pressure. Dr. Krause subsequently sent him to the emergency room. He is on lisinopril for hypertension, he did take it this morning. He is also on Eliquis. Related Data Home Medications Medication Instructions Recorded Confirmed aspirin 325 mg tablet 325 mg PO DAILY Heart disease 09/05/18 12/20/21 cholecalciferol (vitamin D3) 1,250 50,000 unit PO QWEEK Supplement 09/05/18 12/20/21 mcg (50,000 unit) tablet lisinopril 40 mg tablet 40 mg PO DAILY blood pressure 09/05/18 03/18/22 omega 5-iqa-iez-fish oil 1,000 mg 1 cap PO DAILY Supplement 09/05/18 12/20/21 (120 mg-180 mg) capsule (Fish Oil) vitamin B complex (B 1 tab PO DAILY Supplement 09/05/18 12/20/21 Complex-Vitamin B12) apixaban 5 mg tablet 5 mg PO BID afib 03/18/22 03/18/22 Previous Rx's Medication Instructions Recorded amlodipine 5 mg tablet 5 mg PO DAILY #30 tabs 03/18/22 Allergies Allergy/AdvReac Type Severity Reaction Status Date / Time Cnmofxk-YHM-GkB Reductase Allergy Mild Verified 09/05/18 13:53 Inhibitor [Lcbeklo-Kjj-Kzk Reductase Inhibitor] [facility] Medical History (Updated 03/18/22 @ 16:16 by Joseluis Miller MD) A-fib Hypertension Surgical History (Updated 03/18/22 @ 12:23 by Yolette Layton RN) History of back surgery Social History Smoking Status: Never smoker alcohol intake: former substance use type: denies use current occupational status: retired household members: family and children housing: [facility]
== END 2022-03-18 16:50 | disposition home or self-care (01) ==
LOC: ER 16:16 → UTC 16:37 → ER 16:37
PROVIDERS: Emergency Provider Emergency Medicine; PCP Internal Medicine Adolescent Medicine
DX: H49.22 Sixth [abducent] nerve palsy, left eye (principal); I10 Essential (primary) hypertension; Z79.899 Other long term (current) drug therapy; Z88.8 Allergy status to other drugs, medicaments and biological substances; I48.91 Unspecified atrial fibrillation
CPT/HCPCS: 70450; 80048; 85025; 85610; 99284

== ENCOUNTER → 2022-03-21 11:16 | Outpatient (CLI) | payer MEDICARE, SELFPAY ==
[2022-03-21 11:44] LABS: Hemoglobin A1C 5.5 % (4.0-6.0)
[2022-03-21 13:44] LABS: Vitamin B12 > 1000 pg/mL (239-931)
== END ==
PROVIDERS: PCP Internal Medicine Adolescent Medicine; Visit Provider Internal Medicine Adolescent Medicine
DX: H49.11 Fourth [trochlear] nerve palsy, right eye (principal); Z79.899 Other long term (current) drug therapy
CPT/HCPCS: 36415; 82607; 83036; 84443

== ENCOUNTER 2022-04-20 09:30 | Emergency (ER) | payer MEDICARE, SELFPAY ==
[2022-04-20 09:30] VITALS: BP 147/88; PULSE 88; RESP 18; TEMP 36.4; O2SAT 97; BMI 25.8
--- NOTE | 2022-04-20 09:32 | HMH.EDGENADL ---
Discharge Plan Disposition Patient Disposition: Home, Self-Care Chief Complaint: Weakness Prescriptions Prescriptions: No Action lisinopril 40 mg tablet 40 mg PO DAILY omega 7-nbm-epv-fish oil [Fish Oil] 1,000 mg (120 mg-180 mg) capsule 1 cap PO DAILY vitamin B complex [B Complex-Vitamin B12] tablet 1 tab PO DAILY cholecalciferol (vitamin D3) 50,000 unit tablet 50,000 unit PO QWEEK apixaban 5 MG tablet 5 mg PO BID amlodipine 5 mg tablet 5 mg PO DAILY Qty: 30 0RF Referrals Follow up/Referrals: Artis Krause MD [Primary Care Provider] - See instructions Priti Jaramillo APRN [Nurse Practitioner] - See instructions Clinical Impressions Clinical Impression: Hypertension Instructions Patient Instructions: Essential Hypertension Discharge ED Provider: Haja Bui General Adult HPI General Chief complaint: Weakness Stated complaint: high blood pressure Time Seen by Provider: 04/20/22 09:32 History of Present Illness HPI narrative: 86-year-old male with history of Parkinson's, atrial fibrillation on Eliquis, hypertension, who upon review of medical records appears to been experiencing some functional decline over the past few months with new onset dizziness persistently. He presents today with chief complaint of elevated blood pressure. He states it was a routine check. He denies any current chest pain, shortness of breath, nausea, vomiting, headache, acute blurry or double vision or any other symptoms at this time. Son arrives after initial eval, relays that last night he had noticed some mild confusion and mildly slurred speech. No clear focal deficits, no facial asymmetry no aphasia or focal areas of weakness. [facility] and given the elevated blood pressure with diastolic over 100 with the previous symptoms they advised he present to the emergency department Related Data Home Medications Medication Instructions Recorded Confirmed cholecalciferol (vitamin D3) 1,250 50,000 unit PO QWEEK Supplement 09/05/18 04/06/22 mcg (50,000 unit) tablet lisinopril 40 mg tablet 40 mg PO DAILY blood pressure 09/05/18 04/06/22 omega 1-cxr-eud-fish oil 1,000 mg 1 cap PO DAILY Supplement 09/05/18 04/06/22 (120 mg-180 mg) capsule (Fish Oil) vitamin B complex (B 1 tab PO DAILY Supplement 09/05/18 04/06/22 Complex-Vitamin B12 tablet) apixaban 5 mg tablet 5 mg PO BID afib 03/18/22 04/06/22 Previous Rx's Medication Instructions Recorded amlodipine 5 mg tablet 5 mg PO DAILY #30 tabs 03/18/22 Allergies Allergy/AdvReac Type Severity Reaction Status Date / Time Ttfbjiu-RRU-ZxJ Reductase Allergy Mild Verified 04/06/22 09:40 Inhibitor [Qzgcoaz-Nsd-Cmo Reductase Inhibitor] [facility] Medical History A-fib Atrial fib/flutter, transient Heart palpitations History of BPH Hyperlipemia Hypertension Surgical History History of back surgery Social History (Updated 04/20/22 @ 09:54 by Roya Lott RN) Smoking Status: Former smoker pack-years: 20 alcohol intake: former substance use type: denies use current occupational status: retired Travel in the last 8 weeks: None household members: family and children housing: house current occupational exposures/hazards: No caffeine: Yes ROS Obtained: Yes Systems reviewed as appropriate & no additional complaints except as documented Constitutional Constitutional: Reports system reviewed and no additional complaints, except as documented Eyes Eyes: Reports system reviewed and no additional complaints, except as documented ENT Ears, Nose, Mouth, and Throat: Reports system reviewed and no additional complaints, except as documented Cardiovascular Cardiovascular: Reports system reviewed and no additional complaints, except as document
--- NOTE | 2022-04-20 09:40 | PC.NURSE ---
[id number] ED MD AT BEDSIDE FOR EVALUATION
--- NOTE | 2022-04-20 09:41 | ECG_ITS ---
APPROVED REPORT Exam: Resting ECG HR:85 bpm ECG Measurements Heart Rate 85 AXES QRSd 151 QRS 52 QT 402 T -5 QTc 445 Conclusion ATRIAL FIBRILLATION RIGHT BUNDLE BRANCH BLOCK [120+ ms QRS DURATION, UPRIGHT V1, 40+ ms S IN I/aVL/V4/V5/V6] ABNORMAL ECG UNCONFIRMED REPORT Electronically signed by : Artis Krause MD 04/23/2022 16:02:39
--- NOTE | 2022-04-20 09:48 | CT_ITS ---
FINAL REPORT TECHNIQUE: Axial images were performed through the brain.This study was performed with techniques to keep radiation doses as low as reasonably achievable, (ALARA). Individualized dose reduction techniques using automated exposure control or adjustment of mA and/or kV according to the patient''s size were employed. CLINICAL HISTORY: AMS COMPARISON: 03/18/2022 FINDINGS: There is moderate atrophy and chronic microvascular ischemic changes. The ventricles are normal in size for the degree of atrophy. There is no extra-axial fluid or midline shift. There is no evidence of acute hemorrhage or mass. IMPRESSION: Atrophy and chronic microvascular ischemic changes. No acute intracranial process. Reviewed, Interpreted and Dictated by Stewart Garcia MD Transcribed by Yenifer Sparrow Authenticated and [facility]
[2022-04-20 09:56] LABS: Basophils # 0.1 K/mm3 (0-0.2); Basophils % 1.2 % (0.1-2.0); Eosinophils # 0.1 K/mm3 (0.0-0.4); Eosinophils % 0.9 % (0.1-12.0); Hematocrit 50.3 % (42.0-52.0); Hemoglobin 17.2 g/dL (14.1-18.0); Lymphocytes # 1.6 K/mm3 (0.7-4.5); Lymphocytes % 17.5 % (10-50); Mean Corpuscular HGB Conc 34.3 g/dL (31.8-35.4); Mean Corpuscular Hemoglobin 30.7 pg (27.0-31.2); Mean Corpuscular Volume 89.5 fl (80-94); Mean Platelet Volume 7.8 fl (7.4-10.4); Monocytes # 0.8 K/mm3 (0.1-1.0); Monocytes % 8.3 % (1.7-9.3); Neutrophils # 6.5 K/mm3 (1.8-7.8); Neutrophils % 72.2 % (37.0-80.0); Platelet Count 405 K/mm3 (142-424); Red Blood Count 5.62 M/mm3 (4.60-6.20); Red Cell Distribution Width 13.7 % (11.5-17.5)
--- NOTE | 2022-04-20 09:56 | PC.NURSE ---
RADIOLOGY NOTIFIED OF CT
--- NOTE | 2022-04-20 09:57 | PC.NURSE ---
URINAL PROVIDED FOR URINE SPECIMEN
--- NOTE | 2022-04-20 10:00 | PC.NURSE ---
PT GOING TO CT VIA W/C
[2022-04-20 10:03] LABS: Chloride 93 mmol/L (98-107)
[2022-04-20 10:04] LABS: Potassium 3.4 mmoL/L (3.5-5.1); Sodium 134 mmol/L (136-145)
[2022-04-20 10:06] LABS: Alanine Aminotransferase 30 U/L (12-78); Alkaline Phosphatase 152 U/L (38-126); Aspartate Amino Transferase 36 U/L (17-59); Blood Urea Nitrogen 10 mg/dl (9-20); Creatinine Clearance Estimated 47 mL/min (50-200); Estimated Glomerular Filt Rate 57 ml/min (>60); GFR (African American) 69 ML/MIN (>60)
--- NOTE | 2022-04-20 10:06 | PC.NURSE ---
PT TO CT AT THIS TIME
[2022-04-20 10:07] LABS: Albumin Level 4.4 g/dl (3.5-5.0); Albumin/Globulin Ratio 1.4 (1.1-1.8); Anion Gap 16.4 mEq/L (5-15); Calcium 9.2 mg/dl (8.4-10.2); Carbon Dioxide 28 mmol/L (22.0-30.0); Globulin 3.2 g/dL (1.3-3.2); Glucose 129 mg/dl (74-100); Total Protein,Serum 7.6 g/dl (6.3-8.2)
--- NOTE | 2022-04-20 10:08 | PC.NURSE ---
URINE SENT TO LAB
[2022-04-20 10:11] LABS: Microscopic, Urine URINE MICROSCOPIC (MICROSCOPIC)
[2022-04-20 10:14] LABS: Appearance,Urine SL CLOUDY (Clear); Bilirubin,Urine Negative (Negative); Blood, Urine TRACE-L (Negative); Color,Urine YELLOW (Yellow); Glucose,Urine (UA) Negative (Negative); Ketones,Urine Negative (Negative); Leukocyte Esterase,Urine Negative (Negative); Nitrate,Urine Negative (Negative); PH,Urine 7.5 (5.0-8.5); Protein,Urine Negative (Negative)
--- NOTE | 2022-04-20 10:14 | PC.NURSE ---
PT BACK FROM CT
[2022-04-20 10:15] VITALS: BP 160/95; PULSE 75; RESP 24; O2SAT 99
[2022-04-20 10:23] LABS: Troponin I < 0.01 ng/ml (0.00-0.034)
[2022-04-20 10:27] LABS: Amorphous Sediment,Urine 3+ /lpf; Bacteria,Urine 2+ /lpf; RBC,Urine Occasional #/hpf (0-3); Squamous Epithelial Cell,Urine Occasional #/hpf (0-5); WBC,Urine Occasional #/hpf (0-3)
--- NOTE | 2022-04-20 10:38 | PC.NURSE ---
ED MD AT BEDSIDE TO DISCUSS POC WITH PT AND FAMILY
[2022-04-20 10:45] VITALS: BP 152/95; PULSE 80; RESP 18; TEMP 36.4; O2SAT 97
== END 2022-04-20 10:50 | disposition home or self-care (01) ==
PROVIDERS: Emergency Provider Emergency Medicine; PCP Internal Medicine Adolescent Medicine
DX: R53.1 Weakness (principal); I10 Essential (primary) hypertension; I48.91 Unspecified atrial fibrillation; I48.92 Unspecified atrial flutter; E78.5 Hyperlipidemia, unspecified; N40.0 Benign prostatic hyperplasia without lower urinary tract symptoms; Z79.01 Long term (current) use of anticoagulants; Z88.8 Allergy status to other drugs, medicaments and biological substances; Z87.891 Personal history of nicotine dependence
CPT/HCPCS: 70450; 80053; 81001; 84484; 85025; 87086; 93005; 99284

== ENCOUNTER 2022-04-29 13:19 | Emergency (ER) | payer MEDICARE, SELFPAY ==
[2022-04-29] VITALS (10 sets, daily range): BP systolic 114–160; BP diastolic 76–94; PULSE 63–74; RESP 16–20; TEMP 36.4; O2SAT 96–98; BMI 25.8
--- NOTE | 2022-04-29 13:14 | ECG_ITS ---
APPROVED REPORT Exam: Resting ECG HR:76 bpm ECG Measurements Heart Rate 76 AXES QRSd 148 QRS 5 QT 412 T 45 QTc 443 Conclusion ATRIAL FIBRILLATION RIGHT BUNDLE BRANCH BLOCK [120+ ms QRS DURATION, UPRIGHT V1, 40+ ms S IN I/aVL/V4/V5/V6] ABNORMAL ECG UNCONFIRMED REPORT Electronically signed by : Artis Krause MD 05/02/2022 17:45:21
--- NOTE | 2022-04-29 13:25 | HMH.EDCP ---
Discharge Plan Disposition Patient Disposition: Home, Self-Care Condition: Good Chief Complaint: Chest Pain Prescriptions Prescriptions: No Action lisinopril 40 mg tablet 40 mg PO DAILY omega 5-tiz-lti-fish oil [Fish Oil] 1,000 mg (120 mg-180 mg) capsule 1 cap PO DAILY vitamin B complex [B Complex-Vitamin B12] tablet 1 tab PO DAILY cholecalciferol (vitamin D3) 50,000 unit tablet 50,000 unit PO QWEEK apixaban 5 MG tablet 5 mg PO BID amlodipine 5 mg tablet 5 mg PO DAILY Qty: 30 0RF Activity Restrictions/Add. Instructions Additional Instructions/Restrictions: Follow-up with your primary care doctor in about 3 to 4 days if you do not feel any better. Return to the emergency department if you feel worse in any way. Clinical Impressions Clinical Impression: Chest pain, Atypical chest pain Instructions Patient Instructions: DI for Atypical Chest Pain Discharge ED Provider: Kelley Garcia Chest Pain HPI General Chief Complaint: Chest Pain Stated Complaint: CHEST PAIN Time Seen by Provider: 04/29/22 13:26 Mode of Arrival: Ambulatory Source of Information: Patient Limitations: No Limitations History of Present Illness HPI narrative: The patient presents to the emergency department complaining of bilateral lower chest pain that began approximately 20 minutes prior to arrival. The pain is not pleuritic in nature. Is not exacerbated by anything. The patient was not exerting himself when the pain began he was in a wheelchair paying bills at the hospital. He has a history of atrial fibrillation. He denies ever having had coronary artery disease. NATALIIA Score for Non-Stemi Age of Patient: 80-89 years old Heart Rate: 50-69 bpm Systolic Blood Pressure: 140-159 mmHg Serum Creatinine: 1.20-1.59 mg/dl CHF [place] Class: I-No CHF Other Risk Factors: None Non-Stemi Risk Score: 128 Related Data Home Medications Medication Instructions Recorded Confirmed cholecalciferol (vitamin D3) 1,250 50,000 unit PO QWEEK Supplement 09/05/18 04/06/22 mcg (50,000 unit) tablet lisinopril 40 mg tablet 40 mg PO DAILY blood pressure 09/05/18 04/06/22 omega 4-udy-osy-fish oil 1,000 mg 1 cap PO DAILY Supplement 09/05/18 04/06/22 (120 mg-180 mg) capsule (Fish Oil) vitamin B complex (B 1 tab PO DAILY Supplement 09/05/18 04/06/22 Complex-Vitamin B12 tablet) apixaban 5 mg tablet 5 mg PO BID afib 03/18/22 04/06/22 Previous Rx's Medication Instructions Recorded amlodipine 5 mg tablet 5 mg PO DAILY #30 tabs 03/18/22 Allergies Allergy/AdvReac Type Severity Reaction Status Date / Time Jxcgmnq-RPS-YyX Reductase Allergy Mild Verified 04/06/22 09:40 Inhibitor [Htvcvwm-Ayl-Cqu Reductase Inhibitor] [facility] Medical History A-fib Atrial fib/flutter, transient Heart palpitations History of BPH Hyperlipemia Hypertension Surgical History History of back surgery Social History Smoking Status: Never smoker alcohol intake: former substance use type: denies use current occupational status: retired Travel in the last 8 weeks: None household members: family and children housing: house current occupational exposures/hazards: No caffeine: Yes ROS Obtained: Yes All systems reviewed & no additional complaints except as documented Physical Exam General General appearance: alert and in no apparent distress Head Head exam: atraumatic, normocephalic and normal inspection Eye Eye exam: Present normal appearance, PERRL and EOMI ENT ENT exam: Present normal exam, normal oropharynx, mucous membranes moist, TM's normal bilaterally and normal external ear exam Neck Neck exam: Present normal inspection, full ROM and trachea midline; Absent meningismus or lymphadenopathy Chest Chest inspection: Present
--- NOTE | 2022-04-29 13:30 | PC.NURSE ---
ED MD AT BEDSIDE FOR EVALUATION
--- NOTE | 2022-04-29 13:52 | XR_ITS ---
FINAL REPORT CLINICAL HISTORY: CP COMPARISON: December 24, 2021 FINDINGS: A single portable view of the chest was obtained. There is cardiomegaly. The mediastinum is within normal limits. No acute pulmonary abnormality is identified. The bony thorax is intact. IMPRESSION: No active cardiopulmonary disease. Reviewed, Interpreted and Dictated by Jordy Bello III, MD Transcribed by Lucila Otero Authenticated and [facility]
[2022-04-29 14:00] LABS: Chloride 93 mmol/L (98-107)
[2022-04-29 14:01] LABS: Potassium 3.4 mmoL/L (3.5-5.1); Sodium 135 mmol/L (136-145)
[2022-04-29 14:03] LABS: Basophils # 0.2 K/mm3 (0-0.2); Basophils % 2.1 % (0.1-2.0); Eosinophils % 0.3 % (0.1-12.0); Hematocrit 47.5 % (42.0-52.0); Hemoglobin 16.3 g/dL (14.1-18.0); Lymphocytes # 1.2 K/mm3 (0.7-4.5); Lymphocytes % 14.4 % (10-50); Mean Corpuscular HGB Conc 34.3 g/dL (31.8-35.4); Mean Corpuscular Hemoglobin 30.6 pg (27.0-31.2); Mean Corpuscular Volume 89.1 fl (80-94); Mean Platelet Volume 8.1 fl (7.4-10.4); Monocytes # 0.7 K/mm3 (0.1-1.0); Monocytes % 8.2 % (1.7-9.3); Neutrophils # 6.4 K/mm3 (1.8-7.8); Platelet Count 375 K/mm3 (142-424); Red Blood Count 5.33 M/mm3 (4.60-6.20); Red Cell Distribution Width 13.7 % (11.5-17.5); White Blood Count 8.5 K/mm3 (4.8-10.8)
[2022-04-29 14:04] LABS: Anion Gap 16.4 mEq/L (5-15); Blood Urea Nitrogen 15 mg/dl (9-20); Calcium 9.4 mg/dl (8.4-10.2); Carbon Dioxide 29 mmol/L (22.0-30.0); Creatinine Clearance Estimated 47 mL/min (50-200); Estimated Glomerular Filt Rate 57 ml/min (>60); GFR (African American) 69 ML/MIN (>60); Glucose 135 mg/dl (74-100)
[2022-04-29 14:20] LABS: Troponin I < 0.01 ng/ml (0.00-0.034)
--- NOTE | 2022-04-29 16:40 | PC.NURSE ---
TROP COLLECTED AND SENT TO LAB PILLOW PROVIDED FOR PT, NO FURTHER NEEDS AT THIS TIME. SON AT BEDSIDE. CALL LIGHT WITHIN REACH
[2022-04-29 17:21] LABS: Troponin I < 0.01 ng/ml (0.00-0.034)
--- NOTE | 2022-04-29 17:33 | PC.NURSE ---
ED MD AT BEDSIDE TO DISCUSS POC
== END 2022-04-29 17:40 | disposition home or self-care (01) ==
PROVIDERS: Emergency Provider Emergency Medicine
DX: R07.89 Other chest pain (principal); I10 Essential (primary) hypertension; I48.91 Unspecified atrial fibrillation; I48.92 Unspecified atrial flutter; E78.5 Hyperlipidemia, unspecified; N40.0 Benign prostatic hyperplasia without lower urinary tract symptoms; Z99.3 Dependence on wheelchair; Z79.01 Long term (current) use of anticoagulants; Z79.899 Other long term (current) drug therapy; Z88.8 Allergy status to other drugs, medicaments and biological substances
CPT/HCPCS: 71045; 80048; 84484; 85025; 93005; 99284

== ENCOUNTER 2022-06-15 16:43 | Emergency (ER) | payer MEDICARE, SELFPAY ==
--- NOTE | 2022-06-15 17:50 | PC.NURSE ---
Addendum entered by Danielle Tong RN 06/15/22 18:30: V/S: B/P-143/76 HR 92 O2 sats 95% on room air Original Note: Brought pt into ED triage room to be assessed. Son advises pt has been weak over the past month with some falls. Advises it has gotten progressively worse over the past couple of days and today he has had two falls. The son advised the neighbors suggested he bring his father in for eval.
[2022-06-15 20:51] VITALS: BP 0/0; PULSE 0; RESP 0; TEMP -17.7; TEMP 0; O2SAT 0
== END 2022-06-15 21:07 | disposition left against medical advice (07) ==
LOC: ER 21:01
PROVIDERS: Emergency Provider Emergency Medicine; PCP Internal Medicine Adolescent Medicine
DX: Z53.21 Procedure and treatment not carried out due to patient leaving prior to being seen by health care provider (principal)

== ENCOUNTER 2022-06-21 06:42 | Inpatient (IN) | payer MEDICARE, SELFPAY ==
[2022-06-21] VITALS (12 sets, daily range): BP systolic 107–148; BP diastolic 68–95; PULSE 7–97; RESP 20–32; TEMP 36.7–39.1; O2SAT 93–97; BMI 27.3; BMI 26.0
--- NOTE | 2022-06-21 06:39 | ECG_ITS ---
APPROVED REPORT Exam: Resting ECG HR:98 bpm ECG Measurements Heart Rate 98 AXES QRSd 148 QRS 81 QT 370 T 28 QTc 425 Conclusion ATRIAL FIBRILLATION RIGHT BUNDLE BRANCH BLOCK [120+ ms QRS DURATION, UPRIGHT V1, 40+ ms S IN I/aVL/V4/V5/V6] ABNORMAL ECG UNCONFIRMED REPORT Electronically signed by : Artis Krause MD 06/22/2022 21:12:00
--- NOTE | 2022-06-21 06:45 | XR_ITS ---
PROCEDURE INFORMATION: Exam: XR Chest Exam date and time: 06/21/2022 7:04 AM Age: 86 years old Clinical indication: Chest wall pain; Additional info: Cp TECHNIQUE: Imaging protocol: Radiologic exam of the chest. Views: 1 view. COMPARISON: CR XR CHEST PORTABLE 04/29/2022 2:06 PM FINDINGS: Lungs: Mild opacities in the bases may represent atelectasis or pneumonia.. Pleural spaces: Unremarkable. No pleural effusion. No pneumothorax. Heart/Mediastinum: Cardiomegaly Bones/joints: Unremarkable. Gastrointestinal tract: Loops of bowel under the right hemidiaphragm IMPRESSION: Mild opacities in the bases may represent atelectasis or pneumonia..
[2022-06-21 06:58] LABS: Microscopic, Urine URINE MICROSCOPIC (MICROSCOPIC)
--- NOTE | 2022-06-21 07:00 | PC.NURSE ---
RAD at for CXR
[2022-06-21 07:08] LABS: Coronavirus 19, PCR Not Detected (NotDetected); Influenza A, PCR Not Detected (NotDetected); Influenza B, PCR Not Detected (NotDetected)
--- NOTE | 2022-06-21 07:08 | HMH.EDWEAK ---
Discharge Plan Disposition Patient Disposition: Admitted As Inpatient Chief Complaint: Weakness Prescriptions Prescriptions: No Action lisinopril 40 mg tablet 40 mg PO DAILY omega 2-kgc-jpi-fish oil [Fish Oil] 1,000 mg (120 mg-180 mg) capsule 1 cap PO DAILY vitamin B complex [B Complex-Vitamin B12] tablet 1 tab PO DAILY cholecalciferol (vitamin D3) 50,000 unit tablet 50,000 unit PO QWEEK apixaban 5 MG tablet 5 mg PO BID amlodipine 5 mg tablet 5 mg PO DAILY Qty: 30 0RF Referrals Follow up/Referrals: Artis Krause MD [Primary Care Provider] - See instructions Clinical Impressions Clinical Impression: Febrile illness, acute, A-fib, SIRS (systemic inflammatory response syndrome), Acute hypokalemia Discharge ED Provider: Dipak Fajardo Weakness HPI General Chief complaint: Weakness Stated complaint: Weakness Time Seen by Provider: 06/21/22 07:08 Mode of Arrival: EMS Source of Information: Patient, EMS and Medical Record Limitations: No Limitations Description of Symptoms (Recalled from ER Triage Doc. by RN): EMS called out for chest pain. pt states chest pain come and go, increasing weakness, and frequent urination History of Present Illness HPI Narrative: brought by ems with weakness and chest pain and altered mental status Complaint: generalized weakness Onset (ago): day(s) Duration: intermittent Location: generalized Migration: none Severity: moderate Associated symptoms: denies other symptoms Related Data Home Medications Medication Instructions Recorded Confirmed cholecalciferol (vitamin D3) 1,250 50,000 unit PO QWEEK Supplement 09/05/18 04/06/22 mcg (50,000 unit) tablet lisinopril 40 mg tablet 40 mg PO DAILY blood pressure 09/05/18 04/06/22 omega 9-acu-qzz-fish oil 1,000 mg 1 cap PO DAILY Supplement 09/05/18 04/06/22 (120 mg-180 mg) capsule (Fish Oil) vitamin B complex (B 1 tab PO DAILY Supplement 09/05/18 04/06/22 Complex-Vitamin B12 tablet) apixaban 5 mg tablet 5 mg PO BID afib 03/18/22 04/06/22 Previous Rx's Medication Instructions Recorded amlodipine 5 mg tablet 5 mg PO DAILY #30 tabs 03/18/22 Allergies Allergy/AdvReac Type Severity Reaction Status Date / Time Uaofpjo-WVX-EuH Reductase Allergy Mild Verified 04/06/22 09:40 Inhibitor [Xmwmppi-Xyh-Njx Reductase Inhibitor] [facility] Medical History A-fib Atrial fib/flutter, transient Heart palpitations History of BPH Hyperlipemia Hypertension Surgical History History of back surgery Social History Smoking Status: Never smoker alcohol intake: former substance use type: denies use current occupational status: retired Travel in the last 8 weeks: None household members: family and children housing: house current occupational exposures/hazards: No caffeine: Yes ROS Obtained: Yes All systems reviewed & no additional complaints except as documented Physical Exam General General appearance: alert Head Head exam: normocephalic Eye Eye exam: Present PERRL and EOMI; Absent scleral icterus ENT ENT exam: Present mucous membranes dry Neck Neck exam: Present trachea midline Respiratory Respiratory exam: Present other (dec bs bilat ) Cardiovascular Cardiovascular exam: Present irregular rhythm, systolic murmur and +S4 Abdominal Exam Abdominal exam: Present soft; Absent tenderness Extremities Exam Extremities exam: Absent joint swelling Neurological Exam Neurological exam: Present alert and CN II-XII intact Skin Skin exam: Absent rash Medical Decision Making Medical Records Medical records reviewed: Yes I reviewed the patient's medical records. [place] Inquiry Pt receiving controlled substance: No Vital Signs: 06/21/22 06:42 06/21/22 07:30 Temperature 102.3 F [address] Te
[2022-06-21 07:11] LABS: Alanine Aminotransferase 67 U/L (12-78); Albumin Level 3.9 g/dl (3.5-5.0); Albumin/Globulin Ratio 1.2 (1.1-1.8); Alkaline Phosphatase 294 U/L (38-126); Anion Gap 17.9 mEq/L (5-15); Aspartate Amino Transferase 58 U/L (17-59); Basophils % 0.1 % (0.1-2.0); Bilirubin,Total 1.6 mg/dl (0.2-1.3); Blood Urea Nitrogen 16 mg/dl (9-20); Carbon Dioxide 25 mmol/L (22.0-30.0); Chloride 87 mmol/L (98-107); Creatinine Clearance Estimated 50 mL/min (50-200); Estimated Glomerular Filt Rate 57 ml/min (>60); GFR (African American) 69 ML/MIN (>60); Globulin 3.2 g/dL (1.3-3.2); Glucose 138 mg/dl (74-100); Hematocrit 39.7 % (42.0-52.0); Hemoglobin 13.6 g/dL (14.1-18.0); Lymphocytes # 0.8 K/mm3 (0.7-4.5); Lymphocytes % 2.2 % (10-50); Mean Corpuscular HGB Conc 34.1 g/dL (31.8-35.4); Mean Corpuscular Hemoglobin 30.9 pg (27.0-31.2); Mean Corpuscular Volume 90.6 fl (80-94); Mean Platelet Volume 7.8 fl (7.4-10.4); Monocytes # 1.8 K/mm3 (0.1-1.0); Monocytes % 4.7 % (1.7-9.3); Neutrophils # 34.5 K/mm3 (1.8-7.8); Platelet Count 271 K/mm3 (142-424); Red Blood Count 4.39 M/mm3 (4.60-6.20); Red Cell Distribution Width 13.1 % (11.5-17.5); Sodium 127 mmol/L (136-145); Total Protein,Serum 7.1 g/dl (6.3-8.2); White Blood Count 37.1 K/mm3 (4.8-10.8)
[2022-06-21 07:12] LABS: Lactic Acid 1.4 mmol/L (0.7-2.1)
[2022-06-21 07:14] LABS: MANUAL DIFFERENTIAL MANUAL DIFFERENTIAL (MANUAL DIFF)
[2022-06-21 07:17] LABS: C-Reactive Protein 145.8 mg/L (0-4)
[2022-06-21 07:19] LABS: Potassium 2.9 mmoL/L (3.5-5.1)
--- NOTE | 2022-06-21 07:19 | PC.NURSE ---
notified ER of critical potassium
[2022-06-21 07:22] LABS: Appearance,Urine CLEAR (Clear); Bilirubin,Urine Negative (Negative); Blood, Urine 1+ (Negative); Color,Urine YELLOW (Yellow); Glucose,Urine (UA) TRACE (Negative); Ketones,Urine Negative (Negative); Leukocyte Esterase,Urine Negative (Negative); Nitrate,Urine Negative (Negative); PH,Urine 7.5 (5.0-8.5); Protein,Urine 1+ (Negative); Specific Gravity, Urine 1.015 (1.005-1.030); Urobilinogen,Urine >=8.0 EU/dl (0.2)
[2022-06-21 07:25] LABS: Troponin I 0.05 ng/ml (0.00-0.034)
[2022-06-21 07:30] LABS: Procalcitonin 0.836 ng/mL (0.0-2.0)
[2022-06-21 07:33] LABS: Erythrocyte Sedimentation Rate 26 mm/hr (0-20)
[2022-06-21 07:34] LABS: Amorphous Sediment,Urine Trace /lpf; Bacteria,Urine Trace /lpf; RBC,Urine Occasional #/hpf (0-3); Squamous Epithelial Cell,Urine Occasional #/hpf (0-5)
--- NOTE | 2022-06-21 07:36 | PC.NURSE ---
Dr Fajardo is speaking to admitting MD about pt.
--- NOTE | 2022-06-21 07:40 | PC.NURSE ---
TED NOTIFIED HOUSE OF ADMISSION.
--- NOTE | 2022-06-21 07:50 | PC.NURSE ---
helped pt to reposition pt in bed at this time
[2022-06-21 07:53] LABS: Lymphocytes % 2 % (10-50); Monocytes % 6 % (2-9); Neutrophils % 92 % (42-76); Platelet Estimate Normal; RBC Morphology Normal; Total Cells Counted 100
--- NOTE | 2022-06-21 08:06 | PC.NURSE ---
dr. upton ( hospitalist) at BS
--- NOTE | 2022-06-21 08:29 | PC.NURSE ---
report called to sal quintanilla on second floor at this time, states she will send staff down to transport pt.
--- NOTE | 2022-06-21 08:39 | PC.NURSE ---
pt given water at this time, pt sitting up in bed, notified pt and family staff should be down to transport pt to assigned room on second floor
[2022-06-21 08:54] LABS: NT Pro Brain Natriuretic Pep. 7340 pg/mL (0-450)
--- NOTE | 2022-06-21 09:18 | PC.NURSE ---
Pt arrived to the floor at this time
[2022-06-21 10:53] LABS: Troponin I 0.05 ng/ml (0.00-0.034)
[2022-06-21 14:19] LABS: Troponin I 0.04 ng/ml (0.00-0.034)
--- NOTE | 2022-06-21 15:23 | EXP.HP ---
History of Present Illness *Admission Date: 06/21/22 *Reason for visit:: Confusion *History of present illness: 86-year-old male who was evaluated in the emergency department today due to increased weakness and confusion. Patient reports having some chest pain that comes and go with inspiration. He is also been having frequent episodes of urination and occasional incontinence. Upon arrival to the emergency department patient was febrile and met SIRS criteria. He was started on fluid and antibiotics for presumptive UTI. Further history is unable to be obtained due to encephalopathy [facility] Medical History A-fib Atrial fib/flutter, transient Heart palpitations History of BPH Hyperlipemia Hypertension Surgical History History of back surgery Family History Other Family history of cancer Family history of myocardial infarction Social History Smoking Status: Never smoker alcohol intake: never substance use type: denies use current occupational status: retired Travel in the last 8 weeks: None household members: family and children housing: house current occupational exposures/hazards: No caffeine: Yes Review of Systems Review of Systems Review of systems:: unable to obtain Meds Home Medications and Allergies Home Medications Medication Instructions Recorded Confirmed Type cholecalciferol (vitamin D3) 1,250 50,000 unit PO QWEEK Supplement 09/05/18 06/21/22 History mcg (50,000 unit) tablet lisinopril 40 mg tablet 20 mg PO DAILY blood pressure 09/05/18 06/21/22 History omega 1-osm-rwn-fish oil 1,000 mg 1 cap PO DAILY Supplement 09/05/18 06/21/22 History (120 mg-180 mg) capsule (Fish Oil) vitamin B complex (B 1 tab PO DAILY Supplement 09/05/18 06/21/22 History Complex-Vitamin B12 tablet) apixaban 5 mg tablet 5 mg PO BID afib 03/18/22 06/21/22 History acetaminophen 500 mg tablet 500 mg PO Q6H PRN Pain 06/21/22 06/21/22 History amlodipine 5 mg tablet 5 mg PO DAILY Hypertension 06/21/22 06/21/22 History escitalopram oxalate 10 mg tablet 10 mg PO DAILY mood 06/21/22 06/21/22 History metoprolol succinate 25 mg 25 mg PO DAILY heart 06/21/22 06/21/22 History tablet,extended release 24 hr New Prescriptions to Start Prescriptions: Allergies Allergy/AdvReac Type Severity Reaction Status Date / Time Ignolcl-NKM-WkP Reductase Allergy Mild Verified 04/06/22 09:40 Inhibitor [Dthqdqn-Flq-Uhq Reductase Inhibitor] Exam Data for Last 24 hours Vital signs and Labs for Last 24 Hours: Temp Pulse Resp BP Pulse Ox 98.1 F 76 20 135/79 94 L 06/21/22 12:00 06/21/22 12:04 06/21/22 12:00 06/21/22 12:00 06/21/22 12:00 Laboratory Results - last 24 hr 06/21/22 06:15: NT-Pro-B Natriuret Pep 7340 H 06/21/22 06:45: Urine Color Yellow, Urine Appearance Clear, Urine pH 7.5, Ur Specific [place] 1.015, Urine Protein 1+, Urine Glucose (UA) Trace, Urine Ketones Negative, Urine Blood 1+, Urine Nitrate Negative, Urine Bilirubin Negative, Urine Urobilinogen >=8.0, Ur Leukocyte Esterase Negative, Urine RBC Occasional, Urine WBC 5-10, Ur Squamous Epith Cells Occasional, Amorphous Sediment Trace, Urine Bacteria Trace 06/21/22 06:45: WBC 37.1 H*, RBC 4.39 L, Hgb 13.6 L, Hct 39.7 L, MCV 90.6, MCH 30.9, MCHC 34.1, RDW 13.1, Plt Count 271, MPV 7.8, Neut % (Auto) 93.0 H, Lymph % (Auto) 2.2 L, Clark % (Auto) 4.7, Eos % (Auto) 0.0 L, Baso % (Auto) 0.1, Neut # (Auto) 34.5 H, Lymph # (Auto) 0.8, Clark # (Auto) 1.8 H, Eos # (Auto) 0.0, Baso # (Auto) 0.0, Total Counted 100, Neutrophils % (Manual) 92 H, Lymphocytes % (Manual) 2 L, Monocytes % (Manual) 6, Platelet Estimate Normal, RBC Morphology Normal, ESR 26 H 06/21/22 06:45: Sodium 127 L, Potassium 2.9 L*, Chloride 87 L, Carbon Diox
[2022-06-21 16:45] LABS: Chloride 97 mmol/L (98-107); Potassium 3.4 mmoL/L (3.5-5.1); Sodium 127 mmol/L (136-145)
[2022-06-21 16:48] LABS: Anion Gap 10.4 mEq/L (5-15); Blood Urea Nitrogen 19 mg/dl (9-20); Calcium 8.4 mg/dl (8.4-10.2); Carbon Dioxide 23 mmol/L (22.0-30.0); Creatinine Clearance Estimated 56 mL/min (50-200); Estimated Glomerular Filt Rate 71 ml/min (>60); GFR (African American) 86 ML/MIN (>60); Glucose 116 mg/dl (74-100)
--- NOTE | 2022-06-21 17:21 | PC.NURSE ---
PT IS RESTING IN BED WITH FAMILY AT BEDSIDE. PT HAS BEEN VERY DROWSY SINCE ARRIVING TO THE FLOOR. VSS. LUNG SOUNDS HAVE SCATTERED WHEEZES. ABDOMEN SOFT/NON TENDER WITH ACTIVE BOWEL SOUNDS. ALERT AND ORIENTED X2. PT IS CONFUSED ABOUT THE YEAR. REDNESS NOTED TO THE COCCYX. 2 SMALL ABRASIONS NOTED TO THE BACK. REDNESS NOTED TO THE RIGHT FOOT. AFIB ON TELEMETRY. WILL CONTINUE TO MONITOR.
--- NOTE | 2022-06-21 18:21 | PC.WOUNDNOTE ---
ABRASIONS NOTED TO THE BACK REDNESS NOTED TO THE BUTTOCKS REDNESS/SWELLING NOTED TO RIGHT FOOT
[2022-06-22] VITALS (7 sets, daily range): BP systolic 130–154; BP diastolic 73–81; PULSE 80–110; RESP 17–21; TEMP 36.6–36.9; O2SAT 94–96; BMI 26.7
--- NOTE | 2022-06-22 05:48 | PC.NURSE ---
pt has been pleasantly confused this shift, has refused to wear heart monitor this shift, pulled out an IV, huertas draining at bedside with 800 mL out so far this shift, has remained on room air with O2 sats 95%, respirations elevated at times this shift, as high as 32 at 0000, at 0400 respirations were 20, PRN medications given for temp of 100.6 at 0000, family remains at bedside
[2022-06-22 07:15] LABS: Basophils % 0.1 % (0.1-2.0); Hematocrit 40.1 % (42.0-52.0); Hemoglobin 13.6 g/dL (14.1-18.0); Lymphocytes # 0.9 K/mm3 (0.7-4.5); Lymphocytes % 2.9 % (10-50); Mean Corpuscular HGB Conc 33.9 g/dL (31.8-35.4); Mean Corpuscular Hemoglobin 30.4 pg (27.0-31.2); Mean Corpuscular Volume 89.7 fl (80-94); Mean Platelet Volume 8.5 fl (7.4-10.4); Monocytes # 1.3 K/mm3 (0.1-1.0); Monocytes % 4.3 % (1.7-9.3); Neutrophils % 92.6 % (37.0-80.0); Platelet Count 276 K/mm3 (142-424); Red Blood Count 4.47 M/mm3 (4.60-6.20); Red Cell Distribution Width 13.7 % (11.5-17.5); White Blood Count 29.1 K/mm3 (4.8-10.8)
[2022-06-22 07:20] LABS: MANUAL DIFFERENTIAL MANUAL DIFFERENTIAL (MANUAL DIFF)
[2022-06-22 07:22] LABS: Alanine Aminotransferase 49 U/L (12-78); Albumin Level 3.4 g/dl (3.5-5.0); Albumin/Globulin Ratio 1.1 (1.1-1.8); Alkaline Phosphatase 285 U/L (38-126); Anion Gap 21.2 mEq/L (5-15); Aspartate Amino Transferase 42 U/L (17-59); Bilirubin,Total 1.7 mg/dl (0.2-1.3); Blood Urea Nitrogen 21 mg/dl (9-20); Calcium 8.9 mg/dl (8.4-10.2); Carbon Dioxide 22 mmol/L (22.0-30.0); Chloride 91 mmol/L (98-107); Creatinine Clearance Estimated 52 mL/min (50-200); Estimated Glomerular Filt Rate 63 ml/min (>60); GFR (African American) 77 ML/MIN (>60); Globulin 3.2 g/dL (1.3-3.2); Glucose 105 mg/dl (74-100); Magnesium 1.7 mg/dl (1.6-2.3); Phosphorous 2.8 mg/dl (2.5-4.5); Potassium 3.2 mmoL/L (3.5-5.1); Sodium 131 mmol/L (136-145); Total Protein,Serum 6.6 g/dl (6.3-8.2)
[2022-06-22 07:40] LABS: Lymphocytes % 7 % (10-50); Monocytes % 4 % (2-9); Neutrophils % 89 % (42-76); Platelet Estimate Normal; RBC Morphology Normal; Total Cells Counted 100
--- NOTE | 2022-06-22 09:26 | CA_ITS ---
FINAL REPORT TECHNIQUE: Ultrasound images of the deep venous system were obtained from the right groin to the calf veins. CLINICAL HISTORY: EDEMA,REDNESS RT THIGH,OOZING FLUID RT FOOT,PAIN FINDINGS: The deep venous system is normally compressible. Normal flow is identified. Johnston's cyst noted. IMPRESSION: No evidence of right lower extremity DVT. Reviewed, Interpreted and Dictated by Stewart Garcia MD Transcribed by Kar Phipps Authenticated and [facility]
--- NOTE | 2022-06-22 09:27 | XR_ITS ---
FINAL REPORT CLINICAL HISTORY: swelling and redness FINDINGS: Two views of the right tibia-fibula demonstrate no acute fracture or dislocation. The joint spaces appear normal. The visualized bony structures are well aligned. No soft tissue abnormality is seen. IMPRESSION: No acute process. Reviewed, Interpreted and Dictated by Stewart Garcia MD Transcribed by Kar Phipps Authenticated and [facility]
--- NOTE | 2022-06-22 09:29 | XR_ITS ---
FINAL REPORT CLINICAL HISTORY: redness and swelling FINDINGS: 2 views of the right ankle were obtained. Mild degenerative change. Old avulsion fracture of the tip of the medial malleolus. Widening of the mortise probably due to old ligament injury. No bony destruction. IMPRESSION: No acute process. Reviewed, Interpreted and Dictated by Stewart Garcia MD Transcribed by Kar Phipps Authenticated and [facility]
--- NOTE | 2022-06-22 09:30 | XR_ITS ---
FINAL REPORT CLINICAL HISTORY: redness and swelling FINDINGS: 2 views of the right foot were obtained. There is no acute fracture or dislocation. Scattered degenerative changes. Old healed 4th metatarsal fracture. Mild hallux valgus. IMPRESSION: No acute process. Reviewed, Interpreted and Dictated by Stewart Garcia MD Transcribed by Kar Phipps Authenticated and [facility]
--- NOTE | 2022-06-22 09:41 | HMH.PTEV ---
Physical Therapy Evaluation Rehab PT IP Evaluation Start: 06/22/22 08:54 Freq: ONCE Status: Active Protocol: Document 06/22/22 09:35 [place] (Rec: 06/22/22 09:41 PHORNE [id number]) Subjective/History History History 86 yowm adm to [facility] with SIRS, weakness, confusion. He reports he lives with his son, 1 step to enter the home, uses a cane or walker for ambulation at baseline. Subjective Subjective Pt c/o significant pain and tenderness in the R foot this am, minimal weeping drainage noted laterally with increased erythema and calor. notified and scheduling a Doppler US to r/o DVT. Rehab PT IP Eval Objective Appearance Patient Behavior Appropriate Patient Orientation Person,Place,Time Difficulty following instructions none Speech Pattern Clear Ambulation Patient Able to Ambulate No Balance Ability to Arise Able, uses arms to help Sitting Balance Steady, safe Standing Balance Unsteady Dynamic Sitting Balance Ability Good Dynamic Standing Balance Ability Fair Transfers Bed Transfer Ability Contact Guard/Hand Hold Sit to Stand Bed Transfer Ability Moderate x 1 (50% assist) ROM RLE PT ROM Status ABN Abnormal ROM Comment Limited DF R foot due to pain. MMT RLE PT MMT ABN Abnormal MMT Grade R foot 2/5 due to pain Rehab PT IP prob,goals,plan Problems Date of Evaluation: 06/22/22 PT IP Problems Bed Mobility,Transfers,Gait Rehab Potential Rehab Potential Good Plan PT Intervention Plan Bed Mobility,Transfers,Gait, Therapeutic Exercise PT Plan Frequency BID Duration LOS Discharge Goals Bed Transfer Ability Supervision/Stand by Sit to Stand Chair Transfer Ability Minimal x 1 (25% assist) Ambulation Assistive Device Rolling Walker Ambulation Distance (feet) 10 Discharge Plan PT Discharge Plan Pt is appropriate to return home once medically stable if R foot pain and tenderness subsides. G -code Required No Eval Complexity Eval Charge Codes 48546 - Moderate Complexity PHYSICIAN CERTIFICATION: I certify the specified therapy services for N
--- NOTE | 2022-06-22 09:49 | P.CONPHA_ITS ---
Pharmacy Intervention Comments: Medication reconciliation completed via external fill history and patient interview. Of note, patient fills apixaban and lisinopril through the [place] in [place] ([facility]) from Dr. Borrego. -Blanca Deng, PharmD Candidate 2022
--- NOTE | 2022-06-22 09:49 | HMH.PHAINT1 ---
Pharmacy Intervention Comments: Medication reconciliation completed via external fill history and patient interview. Of note, patient fills apixaban and lisinopril through the [place] in [place] ([facility]) from Dr. Borrego. -Blanca Deng, PharmD Candidate 2022
--- NOTE | 2022-06-22 10:20 | HMH.OTEV ---
OT Inpatient Evaluation Rehab OT IP Evaluation Start: 06/22/22 08:54 Freq: ONCE Status: Complete Protocol: Document 06/22/22 10:11 [facility] (Rec: 06/22/22 10:20 [facility] [id number]) Rehab OT IP Assessment Subjective History Pt oriented x 3 on arrival. Pt agreeable to engage in therapy evaluation. Pt's son present during evaluation. Pt was admitted via ED on due to increased weakness and confusion. Prior to becoming ill, pt lived with his son. Pt claims normally when he is well he is independent with all ADLs. He does use a walker during ambulation. He is dependent upon son for completion of all IADLs. Son reports within the past week he has required a significant amount of help due to continued weakness. He was also receiving home health therapy services. Pt has a past medical history of: A-fib Atrial fib/flutter, transient Heart palpitations History of BPH Hyperlipemia Hypertension Subjective My foot hurts. Nursing and Physician notified of right foot swelling and yellow drainage. Pt reports his right foot is very tender. It does have redness and feels warm to the touch. He was unable to put weight through the foot while standing. Objective Patient Orientation Person,Place,Birthday Upper Extremity Gross ROM Min Limitation <25% Shoulder ROM Limitations Muscle Weakness Elbow ROM Limitations Muscle Weakness Wrist Limitations of Range of Motion Muscle Weakness Bed Mobility bed mobility-scooting,bed mobility - supine/sit,bed mobility - rolling Assist Level Contact Guard/Hand Hold Transfer Training Sit/Stand Transfer Assist Level
--- NOTE | 2022-06-22 15:28 | PC.NURSE ---
PT HAS BEEN ALERT AND ANSWERS ORIENTATION QUESTIONS APPROPRIATELY THIS SHIFT, EVIDENCE OF ATRIAL FIBRILLATION ON TELEMETRY. HE HAS REMAINED AFEBRILE, STARTED ELIQUIS THIS SHIFT.
--- NOTE | 2022-06-22 18:48 | EXP.ACUTE.PN ---
Subjective *Date: 06/22/22 *Time: 18:48 Interval history: No acute events overnight. Patient states that he feels like he is doing better. Bowel movements and urinating. Not as lightheaded. No other concerns or complaints Medical Exam Vital signs and Labs for Last 24 Hours: Vital Signs Temp Pulse Pulse Resp BP Pulse Ox 06/22/22 12:00 80 06/22/22 08:00 110 H 06/22/22 12:00 97.8 F 85 17 153/73 H 96 06/22/22 08:00 98.4 F 88 21 144/78 H 94 L 06/22/22 08:00 96 06/22/22 00:00 90 06/22/22 04:00 98.3 F 82 20 130/81 95 06/21/22 23:54 100.6 F H 90 32 H 148/80 H 95 06/21/22 20:00 85 06/21/22 20:00 95 06/21/22 20:00 98.0 F 97 H 20 143/86 H 95 Intake and Output 06/22/22 06/22/22 06/22/22 07:59 15:59 23:59 Intake Total 1042 / 1522 480 / 1522 Output Total 800 / 800 0 / 800 Balance 242 / 722 480 / 722 Intake: Intake, Oral Amount 480 / 480 Intake, Total IV Amount 1042 / 1042 0.9 % Sodium Chloride 1,000 ml 1042 / 1042 @ 100 mls/hr IV .Q10H [facility] Rx#: [id number] Output: Output, Urine Amount 800 / 800 0 / 800 Other: Number of Voids 0 Number of Bowel Movements 1 Weight 77.366 kg Patient Weight 06/22/22 23:59 Weight 77.366 kg Laboratory Results - last 24 hr 06/22/22 06:00: WBC 29.1 H*, RBC 4.47 L, Hgb 13.6 L, Hct 40.1 L, MCV 89.7, MCH 30.4, MCHC 33.9, RDW 13.7, Plt Count 276, MPV 8.5, Neut % (Auto) 92.6 H, Lymph % (Auto) 2.9 L, [place] % (Auto) 4.3, Eos % (Auto) 0.0 L, Baso % (Auto) 0.1, Neut # (Auto) 27.0 H, Lymph # (Auto) 0.9, [place] # (Auto) 1.3 H, Eos # (Auto) 0.0, Baso # (Auto) 0.0, Total Counted 100, Neutrophils % (Manual) 89 H, Lymphocytes % (Manual) 7 L, Monocytes % (Manual) 4, Platelet Estimate Normal, RBC Morphology Normal 06/22/22 06:00: Sodium 131 L, Potassium 3.2 L, Chloride 91 L, Carbon Dioxide 22, Anion Gap 21.2 H, BUN 21 H, Creatinine 1.10, Estimated Creat Clear 52, Estimated GFR 63, Est GFR ( Amer) 77, Glucose 105 H, Calcium 8.9, Phosphorus 2.8, Magnesium 1.7, Total Bilirubin 1.7 H, AST 42 D, ALT 49 D, Alkaline Phosphatase 285 H, Total Protein 6.6, Albumin 3.4 L D, Globulin 3.2, Albumin/Globulin Ratio 1.1 I & O for Labs for Last 24 Hours: Intake & Output 06/19/22 06/20/22 06/21/22 06/22/22 23:59 23:59 23:59 23:59 Intake Total 1120 / 1120 1522 / 1522 Output Total 0 / 0 800 / 800 Balance 1120 / 1120 722 / 722 Weight 75.523 kg 77.366 kg Microbiology Reports for the Last 24 Hours: Microbiology 06/21/22 06:45 Urine,Catheterized Urine Culture - Preliminary NO GROWTH AFTER 24 HOURS Head: Present atraumatic and normocephalic Neck: Present normal inspection Respiratory: Present wheezes; Absent accessory muscle use Cardiac: Present Reg Rate and Rhythm and S1/S2 GI: Present soft; Absent tenderness Rectal (male): Present deferred (male): Present normal inspection Extremities: Present normal inspection Skin: Present intact and dry Assessment and Plan *Assessment and plan (1) Febrile illness, acute: Status: Acute Category: Medical Code(s): R50.9 - Fever, unspecified (2) A-fib: Status: Acute Category: Medical Code(s): I48.91 - Unspecified atrial fibrillation (3) SIRS (systemic inflammatory response syndrome): Status: Acute Category: Medical Code(s): R65.10 - Systemic inflammatory response syndrome (SIRS) of non-infectious origin without acute organ dysfunction (4) Acute hypokalemia: Status: Acute Category: Medical Code(s): E87.6 - Hypokalemia (5) Hypertension: Status: Acute Category: Medical Code(s): I10 - Essential (primary) hypertension (6) Mild cognitive impairment with memory loss: Problem details: At risk for vascular dementia Status: Chronic Category: Medical Code(s): G31.84 - Mild cognitive impairme
--- NOTE | 2022-06-22 19:07 | HMH.ITSTN ---
spoke to Dr. Evin Murray said it is fine to do US tomorrow it was ordered routine and I don't need to call in a tech tomorrow is fine
[2022-06-23] VITALS (9 sets, daily range): BP systolic 126–150; BP diastolic 66–95; PULSE 70–114; RESP 18; TEMP 36.4–36.8; O2SAT 94–97; BMI 26.7
--- NOTE | 2022-06-23 05:45 | PC.NURSE ---
pt has been A&O this shift, son remains at bedside, has remained on room air with O2 sats 95-97%, expiratory wheezing heard on auscultation, telemetry shows a fib a rate of 80-95, pitting edema noted to R foot, no complaints of SOA or pain, has been NPO since midnight for US
[2022-06-23 07:26] LABS: Basophils % 0.1 % (0.1-2.0); Eosinophils % 0.1 % (0.1-12.0); Hematocrit 38.5 % (42.0-52.0); Hemoglobin 12.7 g/dL (14.1-18.0); Lymphocytes # 0.9 K/mm3 (0.7-4.5); Lymphocytes % 3.6 % (10-50); Mean Corpuscular HGB Conc 32.9 g/dL (31.8-35.4); Mean Corpuscular Hemoglobin 30.1 pg (27.0-31.2); Mean Corpuscular Volume 91.4 fl (80-94); Mean Platelet Volume 8.5 fl (7.4-10.4); Monocytes # 0.7 K/mm3 (0.1-1.0); Neutrophils # 22.6 K/mm3 (1.8-7.8); Neutrophils % 93.3 % (37.0-80.0); Platelet Count 280 K/mm3 (142-424); Red Blood Count 4.21 M/mm3 (4.60-6.20); Red Cell Distribution Width 13.6 % (11.5-17.5); White Blood Count 24.2 K/mm3 (4.8-10.8)
[2022-06-23 07:30] LABS: MANUAL DIFFERENTIAL MANUAL DIFFERENTIAL (MANUAL DIFF)
[2022-06-23 07:32] LABS: Alanine Aminotransferase 41 U/L (12-78); Albumin Level 3.2 g/dl (3.5-5.0); Alkaline Phosphatase 333 U/L (38-126); Anion Gap 17.4 mEq/L (5-15); Aspartate Amino Transferase 45 U/L (17-59); Bilirubin,Total 1.6 mg/dl (0.2-1.3); Blood Urea Nitrogen 25 mg/dl (9-20); Calcium 8.8 mg/dl (8.4-10.2); Carbon Dioxide 22 mmol/L (22.0-30.0); Chloride 93 mmol/L (98-107); Creatinine Clearance Estimated 57 mL/min (50-200); Estimated Glomerular Filt Rate 80 ml/min (>60); GFR (African American) 97 ML/MIN (>60); Globulin 3.3 g/dL (1.3-3.2); Glucose 92 mg/dl (74-100); Phosphorous 2.4 mg/dl (2.5-4.5); Potassium 3.4 mmoL/L (3.5-5.1); Sodium 129 mmol/L (136-145); Total Protein,Serum 6.5 g/dl (6.3-8.2)
--- NOTE | 2022-06-23 07:58 | EXP.ACUTE.PN ---
Subjective *Date: 06/23/22 *Time: 19:12 Interval history: Patient more alert today. Knows who he is and where he is. Denies shortness of breath or chest pain. Complaining of right lower extremity pain. Sons at bedside. They are concerned for his right leg/foot. Patient remains afebrile. Tolerating good p.o. intake. Denies abdominal pain, diarrhea, cough. Medical Exam Vital signs and Labs for Last 24 Hours: Vital Signs Temp Pulse Pulse Resp BP Pulse Ox 06/23/22 04:00 95 H 06/23/22 03:59 97.9 F 114 H 18 146/95 H 97 06/23/22 00:00 90 06/22/22 20:00 80 06/22/22 20:00 84 96 06/23/22 00:00 98.2 F 85 18 150/82 H 95 06/22/22 19:56 97.9 F 84 20 142/75 H 96 06/22/22 16:00 98.1 F 88 21 154/76 H 95 06/22/22 12:00 80 06/22/22 08:00 110 H 06/22/22 12:00 97.8 F 85 17 153/73 H 96 06/22/22 08:00 98.4 F 88 21 144/78 H 94 L 06/22/22 08:00 96 Intake and Output 06/22/22 06/22/22 06/23/22 15:59 23:59 07:59 Intake Total 480 / 1762 240 / 1762 647 / 647 Output Total 0 / 1400 400 / 1400 200 / 200 Balance 480 / 362 -160 / 362 447 / 447 Intake: Intake, Oral Amount 480 / 720 240 / 720 Intake, Total IV Amount 647 / 647 0.9 % Sodium Chloride 1,000 ml 647 / 647 @ 100 mls/hr IV .Q10H [facility] Rx#: [id number] Output: Output, Urine Amount 0 / 1200 400 / 1200 Output, Urine Amount (Catheter) 200 / 200 [place] 200 / 200 Other: Number of Voids 0 0 Number of Unmeasured Voids 0 Number of Bowel Movements 1 Laboratory Results - last 24 hr 06/23/22 06:50: WBC 24.2 H*, RBC 4.21 L, Hgb 12.7 L, Hct 38.5 L, MCV 91.4, MCH 30.1, MCHC 32.9, RDW 13.6, Plt Count 280, MPV 8.5, Neut % (Auto) 93.3 H, Lymph % (Auto) 3.6 L, Stokes % (Auto) 3.0, Eos % (Auto) 0.1, Baso % (Auto) 0.1, Neut # (Auto) 22.6 H, Lymph # (Auto) 0.9, Stokes # (Auto) 0.7, Eos # (Auto) 0.0, Baso # (Auto) 0.0 06/23/22 06:50: Sodium 129 L, Potassium 3.4 L, Chloride 93 L, Carbon Dioxide 22, Anion Gap 17.4 H, BUN 25 H, Creatinine 0.90, Estimated Creat Clear 57, Estimated GFR 80, Est GFR ( Amer) 97 D, Glucose 92, Calcium 8.8, Phosphorus 2.4 L, Magnesium 2.0 D, Total Bilirubin 1.6 H, AST 45, ALT 41, Alkaline Phosphatase 333 H, Total Protein 6.5, Albumin 3.2 L, Globulin 3.3 H, Albumin/Globulin Ratio 1.0 L I & O for Labs for Last 24 Hours: Intake & Output 06/20/22 06/21/22 06/22/22 06/23/22 23:59 23:59 23:59 23:59 Intake Total 1120 / 1120 1762 / 1762 647 / 647 Output Total 0 / 0 1200 / 1400 200 / 200 Balance 1120 / 1120 562 / 362 447 / 447 Weight 75.523 kg 77.366 kg Microbiology Reports for the Last 24 Hours: Microbiology 06/21/22 06:45 Blood Blood Culture - Preliminary NO GROWTH AFTER 48 HOURS 06/21/22 06:45 Blood Blood Culture - Preliminary NO GROWTH AFTER 48 HOURS 06/21/22 06:45 Urine,Catheterized Urine Culture - Preliminary NO GROWTH AFTER 24 HOURS Constitutional: Present no acute distress, average body habitus and chronically ill appearing Head: Present atraumatic and normocephalic Neck: Present normal inspection Respiratory: Present wheezes; Absent accessory muscle use or rhonchi Cardiac: Present Irregularly Regular and S1/S2 GI: Present soft; Absent tenderness Extremities: Present tenderness Comment:: Right lower extremity with 2+ edema, tender with erythema. Weeping from foot. Charcot deformity right foot Skin: Present intact and dry Neuro: Present alert, awake and oriented x 3 Assessment and Plan *Assessment and plan (1) Sepsis: Status: Acute Category: Medical Code(s): A41.9 - Sepsis, unspecified organism (2) Cellulitis of foot, right: Status: Acute Category: Medical Code(s): L03.115 - Cellulitis of right lower limb (3) A-fib: Status: Acute Category: Medical Code(s): I48
--- NOTE | 2022-06-23 08:00 | US_ITS ---
FINAL REPORT TECHNIQUE: Multiple transverse and longitudinal images CLINICAL HISTORY: Elevated alk phos FINDINGS: Visualized liver is unremarkable. Gallstones in the proximal gallbladder up to 13 mm without evidence of acute gallbladder disease. No biliary ductal dilatation is appreciated. Small right pleural effusion. Limited portions of the right kidney are unremarkable. IMPRESSION: Gallstones without evidence of acute gallbladder disease. Small right pleural effusion. Reviewed, Interpreted and Dictated by Stewart Garcia MD Transcribed by Kar Phipps Authenticated and . [facility]
[2022-06-23 08:04] LABS: Lymphocytes % 3 % (10-50); Monocytes % 2 % (2-9); Neutrophils % 95 % (42-76); RBC Morphology Normal; Total Cells Counted 100
[2022-06-23 08:05] LABS: Platelet Estimate Normal
--- NOTE | 2022-06-23 09:13 | HMH.PTEV ---
Physical Therapy Evaluation Rehab PT IP Evaluation Start: 06/22/22 08:54 Freq: ONCE Status: Active Protocol: Document 06/22/22 09:35 PHORNE (Rec: 06/22/22 09:41 PHORNE [id number]) Subjective/History History History 86 yowm adm to [facility] with SIRS, weakness, confusion. He reports he lives with his son, 1 step to enter the home, uses a cane or walker for ambulation at baseline. Subjective Subjective Pt c/o significant pain and tenderness in the R foot this am, minimal weeping drainage noted laterally with increased erythema and calor. notified and scheduling a Doppler US to r/o DVT. Rehab PT IP Eval Objective Appearance Patient Behavior Appropriate Patient Orientation Person,Place,Time Difficulty following instructions none Speech Pattern Clear Ambulation Patient Able to Ambulate No Balance Ability to Arise Able, uses arms to help Sitting Balance Steady, safe Standing Balance Unsteady Dynamic Sitting Balance Ability Good Dynamic Standing Balance Ability Fair Transfers Bed Transfer Ability Contact Guard/Hand Hold Sit to Stand Bed Transfer Ability Moderate x 1 (50% assist) ROM RLE PT ROM Status ABN Abnormal ROM Comment Limited DF R foot due to pain. MMT RLE PT MMT ABN Abnormal MMT Grade R foot 2/5 due to pain Rehab PT IP prob,goals,plan Problems Date of Evaluation: 06/22/22 PT IP Problems Bed Mobility,Transfers,Gait Rehab Potential Rehab Potential Good Plan PT Intervention Plan Bed Mobility,Transfers,Gait, Therapeutic Exercise PT Plan Frequency BID Duration LOS Discharge Goals Bed Transfer Ability Supervision/Stand by Sit to Stand Chair Transfer Ability Minimal x 1 (25% assist) Ambulation Assistive Device Rolling Walker Ambulation Distance (feet) 10 Discharge Plan PT Discharge Plan Pt is appropriate for short term rehab placement at this time, but could return to home once medically stable if R foot pain and tenderness subsides enough to allow increased mobility. G -code Required No Eval Comp
--- NOTE | 2022-06-23 11:10 | SW/DCPLANNER ---
Addendum entered by Kizzy Foote 06/25/22 11:41: Updated patient information has been faxed to Angelina palacio/ [facility]. Addendum entered by Kizzy Foote 06/24/22 11:28: After discussion with MD, patient and family: patient is agreeable to SNF level of care. Patient information has been faxed to [facility] at this time. I will follow up with Angelina at [facility] once information is reviewed. Original Note: I spoke with this patient and his son regarding plans once medically stable for discharge. Patient resides at home with his son and daughter in law and was recently set up with home health services. Patient stated that he intends to return home with family and home health services if foot pain resolves. Patient's son that he resides with will be here this afternoon: other son has requested that I return once he arrives and speak with patient and two sons together. Discharge date is unknown at this time.
--- NOTE | 2022-06-23 16:17 | CA_ITS ---
FINAL REPORT TECHNIQUE: Arterial duplex Doppler evaluation of the right lower extremity with spectral analysis. CLINICAL HISTORY: swelling, pain, mottling FINDINGS: Right lower extremity, flow velocities (cm per second): Common femoral artery: 233 Profunda: 127 Proximal SFA: 85 Distal SFA: 63 Popliteal: 159 Anterior tibial artery: 68 Posterior tibial artery: 39 IMPRESSION: Waveforms are monophasic throughout. 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 CTA would be of value to better assess the iliac vessels. Reviewed, Interpreted and Dictated by Tadeo Garvey MD Transcribed by Mary Valdez Authenticated and [facility]
--- NOTE | 2022-06-23 16:26 | EXP.PHA.CONS ---
Pharmacy Consult Date: 06/23/22 Time: 16:27 Referring provider: DR MEREDITH Reason for Consult:: VANCOMYCIN DOSING CONSULT Allergies Allergy/AdvReac Type Severity Reaction Status Date / Time Cmaemvg-HKW-KmU Reductase Allergy Mild Verified 04/06/22 09:40 Inhibitor [Engujvr-Lqs-Njw Reductase Inhibitor] Home Medications Medication Instructions Recorded Confirmed Type omega 0-jvs-vfo-fish oil 1,000 mg 1 cap PO DAILY Supplement 09/05/18 06/21/22 History (120 mg-180 mg) capsule (Fish Oil) vitamin B complex (B 1 tab PO DAILY Supplement 09/05/18 06/21/22 History Complex-Vitamin B12 tablet) apixaban 5 mg tablet 5 mg PO BID afib 03/18/22 06/21/22 History acetaminophen 500 mg tablet 500 mg PO Q6H PRN Pain 06/21/22 06/21/22 History amlodipine 5 mg tablet 5 mg PO DAILY Hypertension 06/21/22 06/21/22 History escitalopram oxalate 10 mg tablet 10 mg PO DAILY mood 06/21/22 06/21/22 History metoprolol succinate 25 mg 25 mg PO DAILY heart 06/21/22 06/21/22 History tablet,extended release 24 hr cholecalciferol (vitamin D3) 50 50 mcg PO DAILY Supplement 06/22/22 06/22/22 History mcg (2,000 unit) tablet lisinopril 20 mg tablet 20 mg PO DAILY Hypertension 06/22/22 06/22/22 History New Prescriptions to Start Prescriptions: Height: 1.7 m Weight: 77.36 kg Laboratory Results:: Laboratory Results - last 24 hr 06/23/22 06:50: WBC 24.2 H*, RBC 4.21 L, Hgb 12.7 L, Hct 38.5 L, MCV 91.4, MCH 30.1, MCHC 32.9, RDW 13.6, Plt Count 280, MPV 8.5, Neut % (Auto) 93.3 H, Lymph % (Auto) 3.6 L, [place] % (Auto) 3.0, Eos % (Auto) 0.1, Baso % (Auto) 0.1, Neut # (Auto) 22.6 H, Lymph # (Auto) 0.9, [place] # (Auto) 0.7, Eos # (Auto) 0.0, Baso # (Auto) 0.0, Total Counted 100, Neutrophils % (Manual) 95 H, Lymphocytes % (Manual) 3 L, Monocytes % (Manual) 2, Platelet Estimate Normal, RBC Morphology Normal 06/23/22 06:50: Sodium 129 L, Potassium 3.4 L, Chloride 93 L, Carbon Dioxide 22, Anion Gap 17.4 H, BUN 25 H, Creatinine 0.90, Estimated Creat Clear 57, Estimated GFR 80, Est GFR ( Amer) 97 D, Glucose 92, Calcium 8.8, Phosphorus 2.4 L, Magnesium 2.0 D, Total Bilirubin 1.6 H, AST 45, ALT 41, Alkaline Phosphatase 333 H, Total Protein 6.5, Albumin 3.2 L, Globulin 3.3 H, Albumin/Globulin Ratio 1.0 L Medical History: Medical History (Updated 06/22/22 @ 18:59 by Pete Murray MD) A-fib Atrial fib/flutter, transient Heart palpitations History of BPH Hyperlipemia Hypertension Assessment and Plan Assessment and plan all Dx Assessment and Plan for all problems:: Pharmacokinetic dosing service Date: Time: Objective: Age: 86 yo Serum creatinine: 1.0 mg/dL Height: 66.9 Inches Weight (kg): 77.36 Assessment: IBW (kg): 65.87 Dosing wt(kg): 77.36 Estimated Creatinine clearance (ml/min): 48.5 CRCL method: Cockcroft and Gault using ibw(default). Drug selected: Vancomycin Vd (liters): 54.2 (factor used: 0.7 L/kg) Alvaro (hr-1): 0.045 Half life (hrs): 15.40 CLvanco=?? 2.439 L/hr Recommended dose: 1250 mg Interval: 24 hrs Infusion time (hrs): 2.0 Predicted peak (mcg/mL): 33.4 Predicted trough (mcg/mL): 12.41 Total body weight is being used for vancomycin dosing. Recommendations: Give Vancomycin 1250 mg q 24 hrs with an expected Cpeak of 33.4 mcg/ml and an expected Ctrough of 12.41 mcg/ml AUC 0-24 /TAMIR Data: TAMIR 0.5 mcg/mL:?? AUC/TAMIR:? 1025.0 TAMIR 1.0 mcg/mL:?? AUC/TAMIR:? 512.5 --------- TAMIR 1.5 mcg/mL:?? AUC/TAMIR:? 341.7 TAMIR 2.0 mcg/mL:?? AUC/TAMIR:? 256.3 Thank you for the consult
--- NOTE | 2022-06-23 18:29 | ECG_ITS ---
APPROVED REPORT Exam: Resting ECG HR:76 bpm ECG Measurements Heart Rate 76 AXES QRSd 137 QRS 62 QT 399 T 34 QTc 430 Conclusion ATRIAL FIBRILLATION INTRAVENTRICULAR CONDUCTION DELAY [130+ ms QRS DURATION] POSSIBLE INFERIOR MYOCARDIAL INFARCTION , PROBABLY OLD [30 ms Q WAVE IN II/aVF] ABNORMAL ECG UNCONFIRMED REPORT Electronically signed by : Artis Krause MD 06/24/2022 13:14:46
[2022-06-24] VITALS (7 sets, daily range): BP systolic 142–185; BP diastolic 73–98; PULSE 69–96; RESP 18–26; TEMP 36.4–36.7; O2SAT 92–97
--- NOTE | 2022-06-24 04:22 | PC.NURSE ---
SON REMAINS AT BEDSIDE. PATIENT ORIENTED TO TIME AND PLACE BUT BECOMES INCREASINGLY CONFUSED NIGHT WEARS ON. HAS PULLED HIS TELEMETRY OFF AND HAS PULLED 2 IVs OUT. HAVE PUT MITTENS ON HIS HANDS TO PROTECT IV SITE. RIGHT FOOT SWOLLEN AND DRAINING LARGE AMTS OF SEROUS -YELLOW SECRETIONS. HAVE PERFORMED DRSG CHANGE TWICE. CHAUDHARI WAS REMOVED AT 2009 YESTERDAY AND PATIENT VOIDING PER URINAL.
[2022-06-24 07:03] LABS: Alanine Aminotransferase 51 U/L (12-78); Albumin Level 3.2 g/dl (3.5-5.0); Alkaline Phosphatase 399 U/L (38-126); Aspartate Amino Transferase 60 U/L (17-59); Bilirubin,Total 1.3 mg/dl (0.2-1.3); Blood Urea Nitrogen 25 mg/dl (9-20); Calcium 8.8 mg/dl (8.4-10.2); Carbon Dioxide 21 mmol/L (22.0-30.0); Chloride 104 mmol/L (98-107); Creatinine Clearance Estimated 57 mL/min (50-200); Estimated Glomerular Filt Rate 80 ml/min (>60); GFR (African American) 97 ML/MIN (>60); Globulin 3.2 g/dL (1.3-3.2); Glucose 97 mg/dl (74-100); Phosphorous 2.9 mg/dl (2.5-4.5); Sodium 131 mmol/L (136-145); Total Protein,Serum 6.4 g/dl (6.3-8.2)
[2022-06-24 07:04] LABS: Basophils % 0.2 % (0.1-2.0); Eosinophils # 0.1 K/mm3 (0.0-0.4); Eosinophils % 0.4 % (0.1-12.0); Hematocrit 38.6 % (42.0-52.0); Hemoglobin 12.1 g/dL (14.1-18.0); Lymphocytes # 0.9 K/mm3 (0.7-4.5); Lymphocytes % 4.8 % (10-50); Mean Corpuscular HGB Conc 31.4 g/dL (31.8-35.4); Mean Corpuscular Hemoglobin 29.6 pg (27.0-31.2); Mean Corpuscular Volume 94.2 fl (80-94); Mean Platelet Volume 8.7 fl (7.4-10.4); Monocytes # 0.7 K/mm3 (0.1-1.0); Monocytes % 4.1 % (1.7-9.3); Neutrophils # 16.5 K/mm3 (1.8-7.8); Neutrophils % 90.5 % (37.0-80.0); Platelet Count 290 K/mm3 (142-424); Red Cell Distribution Width 13.8 % (11.5-17.5); White Blood Count 18.2 K/mm3 (4.8-10.8)
[2022-06-24 07:09] LABS: MANUAL DIFFERENTIAL MANUAL DIFFERENTIAL (MANUAL DIFF)
[2022-06-24 07:48] LABS: Lymphocytes % 3 % (10-50); Monocytes % 1 % (2-9); Neutrophils % 96 % (42-76); Total Cells Counted 100
[2022-06-24 07:49] LABS: Platelet Estimate Normal; RBC Morphology Normal
[2022-06-24 08:26] LABS: C-Reactive Protein 194.8 mg/L (0-4)
--- NOTE | 2022-06-24 08:31 | CT_ITS ---
FINAL REPORT TECHNIQUE: Thin section axial CT images of the right foot with coronal and sagittal reformats were performed before and after administration of contrast. This study was performed with techniques to keep radiation doses as low as reasonably achievable (ALARA). Individualized dose reduction techniques using automated exposure control or adjustment of mA and/or kV according to the patient's size were employed. CLINICAL HISTORY: edema and swelling right foot FINDINGS: CT RIGHT FOOT W & W/O There are no fractures. There is no definite bony erosion. There are no masses or fluid collections. There is prominent subcutaneous soft tissue edema over the dorsum of the foot. There is soft tissue swelling over the lateral aspect of the ankle. No definite acute osteomyelitis There is no abnormal enhancement on the post contrast images. IMPRESSION: Soft tissue swelling over the dorsum of the foot and the lateral aspect of the ankle consistent with cellulitis. An MRI would be much more sensitive for detection of possible underlying osteomyelitis. Reviewed, Interpreted and Dictated by Tadeo Garvey MD Transcribed by Lucila Otero Authenticated and [facility]
[2022-06-24 08:37] LABS: Erythrocyte Sedimentation Rate 72 mm/hr (0-20)
--- NOTE | 2022-06-24 08:48 | EXP.ORTH.CON ---
Documented by User: Malena Choi, PATRIZIA 06/24/22 11:35 History of Present Illness *Admission Date: 06/21/22 *History of present illness: Patient is a 86-year-old male who was evaluated in the emergency department for increased weakness and confusion. He was admitted on 06/21/22. Podiatry was consulted for an evaluation and treatment of right foot swelling, pain, charcot deformity and wound. Patient is lying in bed awake, no acute distress noted. There is edema, cellulitis, and skin breakdown noted to right foot. There is clear/yellow drainage noted from right dorsal midfoot, wound culture obtained. We will keep NPO, get right foot CT scan w/wo contrast, DARRELL, stat labs esr and crp. Podiatry to review results and treat accordingly. [facility] Medical History A-fib Atrial fib/flutter, transient Heart palpitations History of BPH Hyperlipemia Hypertension Surgical History History of back surgery Family History Other Family history of cancer Family history of myocardial infarction Social History Smoking Status: Never smoker alcohol intake: never substance use type: denies use current occupational status: retired Travel in the last 8 weeks: None household members: family and children housing: house current occupational exposures/hazards: No caffeine: Yes Meds Home Medications and Allergies Home Medications Medication Instructions Recorded Confirmed Type omega 9-wxx-btj-fish oil 1,000 mg 1 cap PO DAILY Supplement 09/05/18 06/21/22 History (120 mg-180 mg) capsule (Fish Oil) vitamin B complex (B 1 tab PO DAILY Supplement 09/05/18 06/21/22 History Complex-Vitamin B12 tablet) apixaban 5 mg tablet 5 mg PO BID afib 03/18/22 06/21/22 History acetaminophen 500 mg tablet 500 mg PO Q6H PRN Pain 06/21/22 06/21/22 History amlodipine 5 mg tablet 5 mg PO DAILY Hypertension 06/21/22 06/21/22 History escitalopram oxalate 10 mg tablet 10 mg PO DAILY mood 06/21/22 06/21/22 History metoprolol succinate 25 mg 25 mg PO DAILY heart 06/21/22 06/21/22 History tablet,extended release 24 hr cholecalciferol (vitamin D3) 50 50 mcg PO DAILY Supplement 06/22/22 06/22/22 History mcg (2,000 unit) tablet lisinopril 20 mg tablet 20 mg PO DAILY Hypertension 06/22/22 06/22/22 History New Prescriptions to Start Prescriptions: Allergies Allergy/AdvReac Type Severity Reaction Status Date / Time Ujxknic-XKB-GaT Reductase Allergy Mild Verified 04/06/22 09:40 Inhibitor [Ybiduxs-Dao-Wgp Reductase Inhibitor] Ortho Exam (Inpt) Vital signs and Labs for Last 24 Hours: Temp Pulse Resp BP Pulse Ox 97.6 F 84 24 153/93 H 94 L 06/24/22 08:00 06/24/22 08:00 06/24/22 08:00 06/24/22 08:00 06/24/22 08:00 Laboratory Results - last 24 hr 06/24/22 06:15: WBC 18.2 H, RBC 4.10 L, Hgb 12.1 L, Hct 38.6 L, MCV 94.2 H, MCH 29.6, MCHC 31.4 L, RDW 13.8, Plt Count 290, MPV 8.7, Neut % (Auto) 90.5 H, Lymph % (Auto) 4.8 L, [place] % (Auto) 4.1, Eos % (Auto) 0.4, Baso % (Auto) 0.2, Neut # (Auto) 16.5 H, Lymph # (Auto) 0.9, [place] # (Auto) 0.7, Eos # (Auto) 0.1, Baso # (Auto) 0.0, Total Counted 100, Neutrophils % (Manual) 96 H, Lymphocytes % (Manual) 3 L, Monocytes % (Manual) 1 L, Platelet Estimate Normal, RBC Morphology Normal 06/24/22 06:15: Sodium 131 L, Potassium 4.0, Chloride 104, Carbon Dioxide 21 L, Anion Gap 10.0, BUN 25 H, Creatinine 0.90, Estimated Creat Clear 57, Estimated GFR 80, Est GFR ( Amer) 97, Glucose 97, Calcium 8.8, Phosphorus 2.9, Total Bilirubin 1.3, AST 60 H D, ALT 51, Alkaline Phosphatase 399 H, Total Protein 6.4, Albumin 3.2 L, Globulin 3.2, Albumin/Globulin Ratio 1.0 L 06/24/22 06:15: ESR 72 H 06/24/22 06:15: C-Reactive Protein 194.8 H I & O for Labs for Last 24
--- NOTE | 2022-06-24 10:32 | PC.NURSE ---
medications administered late r/t patient being off floor for ct scan
--- NOTE | 2022-06-24 12:18 | EXP.ACUTE.PN ---
Subjective *Date: 06/24/22 *Time: 18:07 Interval history: Family reports some confusion overnight. Patient recognizes that he is a little confused. Does state he feels better however. No chest pain, shortness of breath, nausea or vomiting. Still having pain in his right lower leg however swelling is marginally improved. Tolerating p.o. intake. Full assist (2 person max) for transfer from bed. Family at bedside, updated of plan discussed need for place, Medical Exam Vital signs and Labs for Last 24 Hours: Vital Signs Temp Pulse Pulse Resp BP Pulse Ox 06/24/22 08:00 95 06/24/22 08:00 97.6 F 84 24 153/93 H 94 L 06/24/22 04:00 97.5 F L 86 18 147/93 H 97 06/24/22 04:00 80 06/23/22 20:00 70 06/23/22 20:00 95 06/23/22 23:53 97.6 F 76 18 130/75 96 06/23/22 20:00 97.5 F L 85 18 126/66 95 06/23/22 15:32 98.2 F 83 18 140/67 94 L Intake and Output 06/23/22 06/24/22 06/24/22 23:59 07:59 15:59 Intake Total 480 / 1127 980 / 980 Output Total 400 / 600 100 / 100 Balance 80 / 527 880 / 880 Intake: Intake, Oral Amount 480 / 480 Intake, Total IV Amount 980 / 980 0.9 % Sodium Chloride 1,000 ml 980 / 980 @ 100 mls/hr IV .Q10H [facility] Rx#: [id number] Output: Output, Urine Amount 400 / 400 100 / 100 Other: Number of Unmeasured Voids 0 Number of Bowel Movements 1 Weight 77.36 kg Laboratory Results - last 24 hr 06/24/22 06:15: WBC 18.2 H, RBC 4.10 L, Hgb 12.1 L, Hct 38.6 L, MCV 94.2 H, MCH 29.6, MCHC 31.4 L, RDW 13.8, Plt Count 290, MPV 8.7, Neut % (Auto) 90.5 H, Lymph % (Auto) 4.8 L, [place] % (Auto) 4.1, Eos % (Auto) 0.4, Baso % (Auto) 0.2, Neut # (Auto) 16.5 H, Lymph # (Auto) 0.9, [place] # (Auto) 0.7, Eos # (Auto) 0.1, Baso # (Auto) 0.0, Total Counted 100, Neutrophils % (Manual) 96 H, Lymphocytes % (Manual) 3 L, Monocytes % (Manual) 1 L, Platelet Estimate Normal, RBC Morphology Normal 06/24/22 06:15: Sodium 131 L, Potassium 4.0, Chloride 104, Carbon Dioxide 21 L, Anion Gap 10.0, BUN 25 H, Creatinine 0.90, Estimated Creat Clear 57, Estimated GFR 80, Est GFR ( Amer) 97, Glucose 97, Calcium 8.8, Phosphorus 2.9, Total Bilirubin 1.3, AST 60 H D, ALT 51, Alkaline Phosphatase 399 H, Total Protein 6.4, Albumin 3.2 L, Globulin 3.2, Albumin/Globulin Ratio 1.0 L 06/24/22 06:15: ESR 72 H 06/24/22 06:15: C-Reactive Protein 194.8 H I & O for Labs for Last 24 Hours: Intake & Output 06/21/22 06/22/22 06/23/22 06/24/22 23:59 23:59 23:59 23:59 Intake Total 1120 / 1120 1762 / 1762 1127 / 1127 980 / 980 Output Total 0 / 0 1200 / 1400 600 / 600 100 / 100 Balance 1120 / 1120 562 / 362 527 / 527 880 / 880 Weight 75.523 kg 77.366 kg 77.36 kg Microbiology Reports for the Last 24 Hours: Microbiology 06/24/22 08:30 Foot,Right Gram Stain - Final 06/21/22 06:45 Urine,Catheterized Urine Culture - Final NO GROWTH AFTER 48 HOURS Constitutional: Present no acute distress, average body habitus and chronically ill appearing Head: Present atraumatic and normocephalic ENT: Present normal exam Neck: Present normal inspection Respiratory: Present wheezes; Absent accessory muscle use or rhonchi Cardiac: Present Irregularly Regular and S1/S2 GI: Present soft; Absent tenderness Extremities: Present tenderness Comment:: Right lower extremity with 2+ edema though marginally better, tender with improving erythema. Weeping from foot. Charcot deformity right foot Skin: Present intact and dry Neuro: Present alert and awake Comment:: oriented x 2 Assessment and Plan *Assessment and plan (1) Hematoma of right foot: Status: Acute Category: Medical Code(s): S90.31XA - Contusion of right foot, initial encounter (2) Cellulitis of foot, right: Status: Acute Category: Medical Code(s): L03.115 - Cellulitis of right lower limb (3) A-fib: Status: Acute Category: Medical
[2022-06-25] VITALS (16 sets, daily range): BP systolic 116–149; BP diastolic 62–94; PULSE 60–92; RESP 18–28; TEMP 36.1–36.6; O2SAT 90–97; BMI 28.3
--- NOTE | 2022-06-25 05:26 | PC.NURSE ---
pt is alert to self, pt is confused and son remains at bedside, inspiratory and expiratory wheezes noted, o2 sats 94% on room air, pt pulls at lines at times, pt is continent of urine, urine noted to be gabriel, cloudy and strong in odor, dressing remains intact to right foot, VSS, no acute distress noted, no other issues or concerns noted at this time.
[2022-06-25 07:21] LABS: Chloride 105 mmol/L (98-107)
[2022-06-25 07:22] LABS: Potassium 4.2 mmoL/L (3.5-5.1); Sodium 133 mmol/L (136-145)
[2022-06-25 07:24] LABS: Alanine Aminotransferase 45 U/L (12-78); Alkaline Phosphatase 358 U/L (38-126); Aspartate Amino Transferase 49 U/L (17-59); Bilirubin,Total 0.9 mg/dl (0.2-1.3); Blood Urea Nitrogen 22 mg/dl (9-20); Creatinine Clearance Estimated 60 mL/min (50-200); Estimated Glomerular Filt Rate 80 ml/min (>60); GFR (African American) 97 ML/MIN (>60)
[2022-06-25 07:25] LABS: Albumin Level 2.9 g/dl (3.5-5.0); Albumin/Globulin Ratio 0.9 (1.1-1.8); Anion Gap 12.2 mEq/L (5-15); Calcium 8.7 mg/dl (8.4-10.2); Carbon Dioxide 20 mmol/L (22.0-30.0); Globulin 3.4 g/dL (1.3-3.2); Glucose 85 mg/dl (74-100); Phosphorous 3.4 mg/dl (2.5-4.5); Total Protein,Serum 6.3 g/dl (6.3-8.2)
[2022-06-25 07:27] LABS: Basophils # 0.1 K/mm3 (0-0.2); Basophils % 0.5 % (0.1-2.0); Eosinophils # 0.1 K/mm3 (0.0-0.4); Eosinophils % 0.6 % (0.1-12.0); Hematocrit 35.4 % (42.0-52.0); Lymphocytes # 0.9 K/mm3 (0.7-4.5); Lymphocytes % 5.5 % (10-50); Mean Corpuscular HGB Conc 33.8 g/dL (31.8-35.4); Mean Corpuscular Volume 94.9 fl (80-94); Monocytes # 0.6 K/mm3 (0.1-1.0); Monocytes % 3.7 % (1.7-9.3); Neutrophils # 14.1 K/mm3 (1.8-7.8); Neutrophils % 89.7 % (37.0-80.0); Platelet Count 293 K/mm3 (142-424); Red Blood Count 3.74 M/mm3 (4.60-6.20); Red Cell Distribution Width 14.2 % (11.5-17.5); White Blood Count 15.7 K/mm3 (4.8-10.8)
[2022-06-25 07:30] LABS: C-Reactive Protein 152.5 mg/L (0-4)
[2022-06-25 07:32] LABS: MANUAL DIFFERENTIAL MANUAL DIFFERENTIAL (MANUAL DIFF)
[2022-06-25 07:33] LABS: Erythrocyte Sedimentation Rate 117 mm/hr (0-20)
--- NOTE | 2022-06-25 08:15 | EXP.ORTH.PN ---
Subjective *Date: 06/25/22 *Time: 11:34 Interval history: Patient is resting comfortably at bedside. Reports swelling and pain has somewhat improved since the bedside I&D yesterday however still notes throbbing pain to the outside of the foot. Dressing is clean dry and intact. There is strikethrough noted through the gauze and Kerlix a yellowish clear weeping fluid. Patient has been n.p.o. since midnight. MRI unsuccessful due to the patient moving too much and unable to tolerate lying still. Ortho Exam (Inpt) Vital signs and Labs for Last 24 Hours: Temp Pulse Resp BP Pulse Ox 97 F L 80 24 147/63 H 94 L 06/25/22 04:00 06/25/22 04:00 06/25/22 04:00 06/25/22 04:00 06/25/22 04:00 Laboratory Results - last 24 hr 06/24/22 06:15: ESR 72 H 06/24/22 06:15: C-Reactive Protein 194.8 H 06/25/22 06:30: WBC 15.7 H, RBC 3.74 L, Hgb 12.0 L, Hct 35.4 L, MCV 94.9 H, MCH 32.0 H, MCHC 33.8, RDW 14.2, Plt Count 293, MPV 9.0, Neut % (Auto) 89.7 H, Lymph % (Auto) 5.5 L, [place] % (Auto) 3.7, Eos % (Auto) 0.6, Baso % (Auto) 0.5, Neut # (Auto) 14.1 H, Lymph # (Auto) 0.9, [place] # (Auto) 0.6, Eos # (Auto) 0.1, Baso # (Auto) 0.1 06/25/22 06:30: Sodium 133 L, Potassium 4.2, Chloride 105, Carbon Dioxide 20 L, Anion Gap 12.2, BUN 22 H, Creatinine 0.90, Estimated Creat Clear 60, Estimated GFR 80, Est GFR ( Amer) 97, Glucose 85, Calcium 8.7, Phosphorus 3.4, Total Bilirubin 0.9, AST 49, ALT 45, Alkaline Phosphatase 358 H, C-Reactive Protein 152.5 H, Total Protein 6.3, Albumin 2.9 L, Globulin 3.4 H, Albumin/Globulin Ratio 0.9 L 06/25/22 06:30: ESR 117 H I & O for Labs for Last 24 Hours: Intake & Output 06/22/22 06/23/22 06/24/22 06/25/22 11:59 11:59 11:59 11:59 Intake Total 1402 / 1402 1127 / 1127 1460 / 1460 1319 / 1319 Output Total 800 / 800 600 / 600 900 / 900 800 / 800 Balance 602 / 602 527 / 527 560 / 560 519 / 519 Weight 170 lb 9 oz 170 lb 8.794 oz 180 lb 11.2 oz Microbiology Reports for the Last 24 Hours: Microbiology 06/24/22 08:30 Foot,Right Gram Stain - Final Constitutional: Present no acute distress Head: Present normocephalic Neck: Present normal inspection Respiratory: Present normal respiratory effort and able to speak in complete sentences Cardiac: Present Regular Rate and pedal pulses present (decreased left /right ) GI: Present other (no obesity) Rectal (male): Present deferred Extremities: Present tenderness, edema (right foot and ankle) and calf tenderness (no calf tenderness) Skin: Present erythema, dry, warm, lesions (callus left foot), wounds (right foot skin breakdown/ tear ) and ecchymosis (right foot dorsal) Comment:: Right foot has pitting edema with skin sloughing. There is serous fluid still noted to the right foot. 3 stab incisions noted from yesterday's bedside I&D. No tracee purulence expressed. There are some bruising and bluish discoloration noted to the dorsal lateral right foot over the fourth?fifth metatarsal region. Some pain to palpation of this area, patient unable to tolerate wound probe/exploration. Skin cleansed with Betadine and new dressing applied Neuro: Present alert, awake and moves all extremities Ankle: right: erythema, right: swelling, right: tenderness and right: pain with active ROM Feet/Toes: right: erythema, right: swelling (2+ pitting edema), right: tenderness and right: wound and bilateral: deformity, bilateral: nail abnormalities, bilateral: Ingrown Toenail and bilateral: onychomycosis Assessment and Plan *Assessment and plan (1) Hematoma of right foot: Status: Acute Category: Medical Code(s): S90.31XA - Contusion of right foot, initial encounter (2) Abscess of right foot: Status: Acute Category: Medical Code(s): L02.611 - Cutaneous abscess of right foot (3) Cellulitis of foot, right: Status: Acute Category: Medical Code(s): L03.115 - Cellulitis of right lower limb (4) Skin tear of right lower leg without complica
[2022-06-25 08:42] LABS: Lymphocytes % 3 % (10-50); Monocytes % 4 % (2-9); Myelocytes % 1 (0-1); Neutrophils % 92 % (42-76); RBC Morphology Normal; Total Cells Counted 100
[2022-06-25 08:43] LABS: Platelet Estimate Normal
--- NOTE | 2022-06-25 11:10 | MR_ITS ---
PROCEDURE INFORMATION: Exam: MR Right Lower Extremity Other Than Joint Without and With Contrast; Foot Exam date and time: 06/25/2022 3:32 PM Age: 86 years old Clinical indication: Pain; Foot; Right; Prior surgery; Surgery date: Post-operative (0-2 days); Additional info: Possible osteomyelitis. Best images sent over. Patient had a hard time staying still. TECHNIQUE: Imaging protocol: Magnetic resonance imaging of the Right lower extremity without and with contrast. Exam focused on the foot. Contrast material: ISOVUE; Contrast volume: 17 ml; Contrast route: IV; COMPARISON: CT FOOT RT WO/W CON 06/24/2022 9:08 AM FINDINGS: Limitations: Study is technically limited due to motion artifact demonstrated on multiple sequences as well as interval Letitia is fat suppression Bones and cartilage: There are no signal changes within the osseous structures that would be indicative of osteomyelitis. There is no cortical destruction. Joint surfaces are fairly well preserved. Alignment is maintained. Joint spaces: Unremarkable. No joint effusion. LIGAMENTS: Lisfranc ligament: Unremarkable. No evidence of tear. TENDONS: Flexor tendons of foot: Unremarkable. No evidence of tear. Tibialis posterior tendon: Unremarkable as visualized. Peroneal tendons: Unremarkable as visualized. Extensor tendons of foot: Unremarkable. No evidence of tear. Tibialis anterior tendon: Unremarkable as visualized. Tarsal canal (Sinus tarsi): Unremarkable. Tarsal tunnel: Unremarkable. Soft tissues: There are postsurgical changes along the lateral aspect of the hindfoot with and tubular shaped structure within the soft tissues below the lateral malleolus that is presumed iatrogenic likely representing a the drainage catheter. There is some soft tissue thickening and edema at this location extending to the dorsum of the midfoot. There is no abscess collection detected. Plantar fascia: Unremarkable as visualized. IMPRESSION: Technically limited but negative MRI examination of the right foot. No compelling evidence of osteomyelitis.
--- NOTE | 2022-06-25 13:57 | EXP.OP.NOTE ---
Date of procedure: 06/25/22 Pre-op Diagnosis:: Right foot infected hematoma Right foot abscess Right foot cellulitis Post-op Diagnosis:: Same Procedure performed:: Right foot incision and drainage Right foot deep wound cultures Right foot open bone biopsy Application of antibiotic beads Application of IVETTE drain Surgeon:: Christie Gallego DPM FREIGHT BRAKEMAN:: Other (Attila Villareal) Anesthesia: MAC and local (0.5% marcaine plain) Estimated blood loss (mL): 20 Clinical Note:: Patient is an 86-year-old male who was admitted 06/21/2022.? Podiatry was consulted yesterday for right foot pain and swelling.? Differential diagnosis: Traumatic bruising, hematoma, cellulitis versus osteomyelitis, abscess.? Bedside I&D attempted yesterday.? Foot still swollen and painful today.? ESR elevated more, CRP and white count have trended down slightly.? Still suspect hematoma infected or abscess. We discussed conservative versus surgical treatment options. Conservative treatment options include local wound care, oral and IV antibiotics, change in shoe wear, taping/padding, and off-loading. We discussed surgical intervention for right foot incision and drainage. Patient also understands that they could have wound healing complications including delayed healing and infection. We discussed that if the wound does not heal, it is possible that they may need a more proximal amputation and could result in further loss of digits, loss of partial foot or loss of leg. We discussed the risks and benefits in great detail. Other surgical risks include: prolonged pain and swelling, further infection requiring oral or IV antibiotics, delay in healing of soft tissue or bone, nerve or blood vessel damage, CRPS/RSD, DVT, anesthesia complications, and even . All questions answered. Patient verbalized understanding. Consent obtained by the patient and the son who was present at the bedside. Witnessed in front of myself and the nurse. Operative findings:: Right foot had edema and erythema noted. Serous draining consistent with lymphatic fluid secondary to swelling. Prior stab incisions noted. A 15 blade was used to make an incision over the fifth MPJ approximately 2 x 0.2 x 1 cm full-thickness down to the level of the fifth metatarsal head. Immediately creamy purulent thick drainage was expressed. A separate incision was made over the prior stab incision over the dorsal lateral fifth metatarsal toward the ankle. Incision was approximately 7 x 0.2 x 3 cm deep full-thickness through deep fascia into the fifth metatarsal bone. Bloody clot consistent with hematoma as well as creamy yellow purulent drainage was expressed. Deep wound cultures taken. A separate incision was then made over the dorsal medial second?third metatarsals full-thickness down to the deep fascia over the bone approximately 2 x 0.2 x 1 cm deep. Minimal serosanguineous drainage was expressed. A 15 blade was used to make a dorsal linear incision over the second metatarsal distally full-thickness about 3 x 0.2 x 1 cm down to the deep fascia over the bone. No purulence was expressed. This incision was extended and used to perform an open bone biopsy. Bone was hard with no obvious evidence of osteomyelitis. Purulence localized to the lateral aspect of the foot where the bruising and majority of the cellulitis was noted. There was some tracking between the right fifth MPJ and fifth metatarsal incisions. Area tracked about 5 cm toward the ankle. Fragile delicate skin with traumatic bruising. Operative note:: On this date and time the patient was deemed an appropriate surgical candidate. With informed consent time patient was transferred from the preoperative holding area to the operating theater placed on table in a normal supine position. MAC anesthesia induced. Right lower extremity was prepped and draped in normal sterile fashion. No tourniquet utilized. Getting IV cefepime, Vanco scheduled on floor. 20 cc of half percent Marcaine plain were in
--- NOTE | 2022-06-25 14:03 | P.PN_ITS ---
[facility] Disclaimer: The information contained in this section may have been updated after the patient was seen, as this information can be updated by other users. Medical History A-fib Atrial fib/flutter, transient Heart palpitations History of BPH Hyperlipemia Hypertension Surgical History History of back surgery Family History Other Family history of cancer Family history of myocardial infarction Social History Smoking Status: Never smoker alcohol intake: never substance use type: denies use current occupational status: retired Travel in the last 8 weeks: None household members: family and children housing: house current occupational exposures/hazards: No caffeine: Yes [facility] Anesthesia Checklist Patient Identification Patient Identification: Arm Band and Family Structural Data Admitted From: Inpatient Planned Operative Procedure/s: I and D Right foot with biopsies Consent for Planned Operative Procedure(s) Verified: Yes Verified Documents: Surgical Consent and History and Physical NPO Status Verified Time NPO: 00:00 Additional verifications Patient : No Anesthesia Reactions: No Hx Blood Transfusions: No Blood Transfusion Reaction: No Cephalosporin Allergy: No Airway Assessment C-Spine Mobility Assessed: Yes TMJ Mobility Assessed: Yes Dentition: Edentulous Neurological Assessment Level of Consciousness: Lethargic Hx Seizures: No Numbness or tingling in extremities: No Anesthesia Plan Anesthesia Risk discussed: Yes Anesthesia Plan: Patient unable to respond/answer ASA Class: III Anesthesia Type: MAC Preoperative Comments Pre-Operative Comments: Cardiac arrhythmias, aisha rhythms, irregular. Di fficult respirations, Difficulty in communication due to exhaustion. Unable to ambulate.
--- NOTE | 2022-06-25 14:09 | P.PNANES_ITS ---
[facility] Anesthesia Record Part I Anesthesia Record I Intake, IV Amount: 600 Estimated blood loss (mL): 20 Urine output (mL): 0 Blood Products used (#): none Blood Pressure: 116/71 SaO2: 97 Pulse Rate: 74 Respiratory Rate: 26 Temperature: 97.5 F Patient is:: Stable and Somnolent Stable to PACU at:: 13:55
[2022-06-25 18:20] LABS: Vancomycin,Trough 5.7 ug/mL (5.0-10.0)
--- NOTE | 2022-06-25 19:44 | PC.NURSE ---
Pt is A/Ox3. He was RA prior to I&D then came back on 6L NC has weaned down to 3LNC. He went down for an MRI after surgery. He tolerated dinner well. He has not complained of much pain.
--- NOTE | 2022-06-25 19:53 | EXP.ACUTE.PN ---
Subjective *Date: 06/25/22 *Time: 11:53 Interval history: Patient slept better last night according to family. Pain improved in leg on exam. Afebrile and hemodynamically stable. N.p.o. in anticipation of going back to the OR today. Denies chest pain, shortness of breath, vomiting or diarrhea Medical Exam Vital signs and Labs for Last 24 Hours: Vital Signs Temp Pulse Pulse Resp BP BP BP 06/25/22 17:35 97.5 F L 75 18 129/71 06/25/22 14:50 97.7 F 68 20 149/75 H 06/25/22 14:35 97.7 F 68 18 141/70 H 06/25/22 08:00 80 06/25/22 14:25 97.5 F L 74 22 126/91 H 06/25/22 14:15 69 22 131/80 06/25/22 14:05 68 22 118/62 06/25/22 13:55 97.5 F L 60 20 116/71 06/25/22 11:31 97.6 F 92 H 24 149/74 H 06/25/22 10:01 78 06/25/22 10:01 83 06/25/22 04:00 65 06/25/22 08:00 97.8 F 75 28 H 142/83 H 06/25/22 04:00 97 F L 80 24 147/63 H 06/24/22 23:46 97.7 F 69 22 142/85 H 06/24/22 20:00 70 06/24/22 20:00 70 06/24/22 20:12 97.5 F L 70 20 147/73 H 06/25/22 14:16 97.5 F L 74 26 H 116/71 Pulse Ox 06/25/22 17:35 94 L 06/25/22 14:50 93 L 06/25/22 14:35 06/25/22 08:00 06/25/22 14:25 91 L 06/25/22 14:15 92 L 06/25/22 14:05 92 L 06/25/22 13:55 93 L 06/25/22 11:31 91 L 06/25/22 10:01 06/25/22 10:01 06/25/22 04:00 06/25/22 08:00 90 L 06/25/22 04:00 94 L 06/24/22 23:46 94 L 06/24/22 20:00 92 L 06/24/22 20:00 06/24/22 20:12 92 L 06/25/22 14:16 Intake and Output 06/25/22 06/25/22 06/25/22 07:59 15:59 23:59 Intake Total 1079 / 1679 600 / 1679 Output Total 450 / 900 200 / 900 250 / 900 Balance 629 / 779 400 / 779 -250 / 779 Intake: Intake, Total IV Amount 1079 / 1679 600 / 1679 0.9 % Sodium Chloride 1,000 ml 829 / 829 @ 100 mls/hr IV .Q10H [facility] Rx#: [id number] Vancomycin/Water For Inj (Peg) 250 / 250 1.25 gm In 250 ml @ 125 mls/hr IV Q24H [facility] Rx#:[id number] Output: Output, Urine Amount 450 / 900 200 / 900 250 / 900 Other: Number of Unmeasured Voids 0 Weight 81.964 kg Patient Weight 06/25/22 23:59 Weight 81.964 kg Laboratory Results - last 24 hr 06/25/22 06:30: WBC 15.7 H, RBC 3.74 L, Hgb 12.0 L, Hct 35.4 L, MCV 94.9 H, MCH 32.0 H, MCHC 33.8, RDW 14.2, Plt Count 293, MPV 9.0, Neut % (Auto) 89.7 H, Lymph % (Auto) 5.5 L, [place] % (Auto) 3.7, Eos % (Auto) 0.6, Baso % (Auto) 0.5, Neut # (Auto) 14.1 H, Lymph # (Auto) 0.9, [place] # (Auto) 0.6, Eos # (Auto) 0.1, Baso # (Auto) 0.1, Total Counted 100, Neutrophils % (Manual) 92 H, Lymphocytes % (Manual) 3 L, Monocytes % (Manual) 4, Myelocytes % 1, Platelet Estimate Normal, RBC Morphology Normal 06/25/22 06:30: Sodium 133 L, Potassium 4.2, Chloride 105, Carbon Dioxide 20 L, Anion Gap 12.2, BUN 22 H, Creatinine 0.90, Estimated Creat Clear 60, Estimated GFR 80, Est GFR ( Amer) 97, Glucose 85, Calcium 8.7, Phosphorus 3.4, Total Bilirubin 0.9, AST 49, ALT 45, Alkaline Phosphatase 358 H, C-Reactive Protein 152.5 H, Total Protein 6.3, Albumin 2.9 L, Globulin 3.4 H, Albumin/Globulin Ratio 0.9 L 06/25/22 06:30: ESR 117 H 06/25/22 16:30: Vancomycin Trough 5.7 I & O for Labs for Last 24 Hours: Intake & Output 06/22/22 06/23/22 06/24/22 06/25/22 23:59 23:59 23:59 23:59 Intake Total 1762 / 1762 1127 / 1127 1220 / 1220 1679 / 1679 Output Total 1200 / 1400 600 / 600 850 / 850 900 / 900 Balance 562 / 362 527 / 527 370 / 370 779 / 779 Weight 77.366 kg 77.36 kg 81.964 kg Microbiology Reports for the Last 24 Hours: Microbiology 06/24/22 08:30 Foot,Right Gram Stain - Final 06/24/22 08:30 Foot,Right Wound Culture - Preliminary NO GROWTH AFTER 24 HOURS Constitutional: Present no acute distress, average body habitus and chronically ill appearing Head: Present atraumatic and normocephalic ENT: Present normal exam Neck: Present
[2022-06-25 20:26] LABS: Vancomycin,Peak 5.4 ug/ml (11-39)
--- NOTE | 2022-06-25 21:32 | PC.NURSE ---
CLARIFIED WITH NIGHT WATCH PHARMACIST HUNTER FISHER VANCOMYCIN DOSE. INSTRUCTED TO GIVE SAME VANCOMYCIN DOSE AT THIS TIME. NO PEAK AND TROUGH ORDERED AT THIS TIME. MED IS LATE DUE TO PATIENT S SURGICAL PROCEDURE ON DAYSHIFT.
[2022-06-26] VITALS (10 sets, daily range): BP systolic 126–165; BP diastolic 72–95; PULSE 74–117; RESP 22; TEMP 36.4–37.1; O2SAT 90–92; BMI 27.8
--- NOTE | 2022-06-26 04:48 | PC.NURSE ---
PLEASANTLY CONFUSED. ORIENTED TO PERSON AND PLACE. SURGICAL DRSG C/D/I TO RIGHT FOOT. IVETTE DRAIN IN PLACE, SMALL AMTS SANGUINOUS DRAINAGE. NO C/O PAIN. VITAL SIGNS STABLE/AFEBRILE. BARRIER CREAM APPLIED TO EXCORIATION AT COCCYX AND BETWEEN BUTTOCKS. BED ALARM IN USE. SON AT BEDSIDE.
[2022-06-26 06:39] LABS: Basophils # 0.1 K/mm3 (0-0.2); Basophils % 0.4 % (0.1-2.0); Eosinophils % 0.2 % (0.1-12.0); Hematocrit 35.7 % (42.0-52.0); Hemoglobin 11.9 g/dL (14.1-18.0); Lymphocytes # 0.8 K/mm3 (0.7-4.5); Lymphocytes % 3.8 % (10-50); Mean Corpuscular HGB Conc 33.4 g/dL (31.8-35.4); Mean Corpuscular Hemoglobin 30.6 pg (27.0-31.2); Mean Corpuscular Volume 91.7 fl (80-94); Mean Platelet Volume 8.7 fl (7.4-10.4); Monocytes % 4.7 % (1.7-9.3); Neutrophils # 19.3 K/mm3 (1.8-7.8); Platelet Count 369 K/mm3 (142-424); Red Blood Count 3.89 M/mm3 (4.60-6.20); Red Cell Distribution Width 14.3 % (11.5-17.5); White Blood Count 21.2 K/mm3 (4.8-10.8)
[2022-06-26 06:53] LABS: Chloride 104 mmol/L (98-107)
[2022-06-26 06:54] LABS: Potassium 4.2 mmoL/L (3.5-5.1); Sodium 133 mmol/L (136-145)
[2022-06-26 06:56] LABS: Alanine Aminotransferase 46 U/L (12-78); Alkaline Phosphatase 332 U/L (38-126); Aspartate Amino Transferase 47 U/L (17-59); Bilirubin,Total 1.1 mg/dl (0.2-1.3); Blood Urea Nitrogen 17 mg/dl (9-20); Creatinine Clearance Estimated 59 mL/min (50-200); Estimated Glomerular Filt Rate 80 ml/min (>60); GFR (African American) 97 ML/MIN (>60)
[2022-06-26 06:57] LABS: Albumin Level 3.3 g/dl (3.5-5.0); Anion Gap 14.2 mEq/L (5-15); Calcium 9.2 mg/dl (8.4-10.2); Carbon Dioxide 19 mmol/L (22.0-30.0); Globulin 3.4 g/dL (1.3-3.2); Glucose 95 mg/dl (74-100); Total Protein,Serum 6.7 g/dl (6.3-8.2)
[2022-06-26 06:59] LABS: MANUAL DIFFERENTIAL MANUAL DIFFERENTIAL (MANUAL DIFF)
[2022-06-26 07:02] LABS: C-Reactive Protein 219.1 mg/L (0-4)
--- NOTE | 2022-06-26 07:24 | P.PNANES_ITS ---
[facility] Anesthesia Record Part II Anesthesia Record Part II Discharge Time: 14:25 Destination: Surgical Day Care (OP Surgery) PACU nurse assessment reviewed?: Yes Patient Condition:: Good Anesthesia Complications:: None Swallowing reflex intact?: Yes Cyanosis?: No Blood Pressure: 126/91 Pulse Rate: 74 Temperature: 97.5 F Mental Status: Alert & Oriented Pain level:: 0 Nausea and/or vomitting:: None Intake, IV Amount: 0
[2022-06-26 08:10] LABS: Lymphocytes % 6 % (10-50); Monocytes % 2 % (2-9); Neutrophils % 92 % (42-76); Platelet Estimate Normal; RBC Morphology Normal; Total Cells Counted 100
--- NOTE | 2022-06-26 08:32 | EXP.ACUTE.PN ---
Subjective *Date: 06/26/22 *Time: 08:32 Medical Exam Vital signs and Labs for Last 24 Hours: Vital Signs Temp Pulse Pulse Pulse Resp BP BP 06/26/22 08:00 97.7 F 117 H 22 165/95 H 06/26/22 06:40 92 H 06/26/22 06:40 97 H 06/26/22 06:40 06/26/22 04:00 97.5 F L 78 22 147/72 H 06/26/22 03:53 90 06/26/22 00:00 90 06/25/22 20:00 80 06/25/22 23:30 06/25/22 23:36 97.3 F L 80 22 144/87 H 06/25/22 20:00 75 06/25/22 20:00 97.2 F L 85 22 149/94 H 06/25/22 17:35 97.5 F L 75 18 129/71 06/25/22 14:50 97.7 F 68 20 149/75 H 06/25/22 14:35 97.7 F 68 18 141/70 H 06/25/22 14:25 97.5 F L 74 22 126/91 H 06/25/22 14:15 69 22 131/80 06/25/22 14:05 68 22 118/62 06/25/22 13:55 97.5 F L 60 20 116/71 06/25/22 11:31 97.6 F 92 H 24 149/74 H 06/25/22 10:01 78 06/25/22 10:01 83 06/26/22 07:25 97.5 F L 74 126/91 H 06/25/22 14:16 97.5 F L 74 26 H 116/71 Pulse Ox 06/26/22 08:00 90 L 06/26/22 06:40 06/26/22 06:40 06/26/22 06:40 90 L 06/26/22 04:00 92 L 06/26/22 03:53 06/26/22 00:00 06/25/22 20:00 06/25/22 23:30 93 L 06/25/22 23:36 93 L 06/25/22 20:00 92 L 06/25/22 20:00 92 L 06/25/22 17:35 94 L 06/25/22 14:50 93 L 06/25/22 14:35 06/25/22 14:25 91 L 06/25/22 14:15 92 L 06/25/22 14:05 92 L 06/25/22 13:55 93 L 06/25/22 11:31 91 L 06/25/22 10:01 06/25/22 10:01 06/26/22 07:25 06/25/22 14:16 Intake and Output 06/25/22 06/26/22 06/26/22 23:59 07:59 15:59 Intake Total 350 / 470 120 / 470 Output Total 625 / 1275 690 / 740 50 / 740 Balance -625 / 404 -340 / -270 70 / -270 Intake: Intake, Oral Amount 120 / 120 Intake, Total IV Amount 350 / 350 Cefepime HCl 2 gm In 0.9 % 100 / 100 Sodium Chloride 100 ml @ 200 mls/hr IV Q12H [facility] Rx#:[id number] Vancomycin/Water For Inj (Peg) 250 / 250 1.25 gm In 250 ml @ 125 mls/hr IV Q24H [facility] Rx#:[id number] Output: Output, Urine Amount 625 / 1275 675 / 725 50 / 725 Output, Drainage Amount 15 / 15 Right Foot 15 Other: Weight 80.331 kg Patient Weight 06/26/22 23:59 Weight 80.331 kg Laboratory Results - last 24 hr 06/25/22 06:30: Total Counted 100, Neutrophils % (Manual) 92 H, Lymphocytes % (Manual) 3 L, Monocytes % (Manual) 4, Myelocytes % 1, Platelet Estimate Normal, RBC Morphology Normal 06/25/22 16:30: Vancomycin Trough 5.7 06/25/22 19:35: Vancomycin Peak 5.4 L 06/26/22 06:25: WBC 21.2 H* D, RBC 3.89 L, Hgb 11.9 L, Hct 35.7 L, MCV 91.7, MCH 30.6, MCHC 33.4, RDW 14.3, Plt Count 369 D, MPV 8.7, Neut % (Auto) 91.0 H, Lymph % (Auto) 3.8 L, [place] % (Auto) 4.7, Eos % (Auto) 0.2, Baso % (Auto) 0.4, Neut # (Auto) 19.3 H, Lymph # (Auto) 0.8, [place] # (Auto) 1.0, Eos # (Auto) 0.0, Baso # (Auto) 0.1, Total Counted 100, Neutrophils % (Manual) 92 H, Lymphocytes % (Manual) 6 L, Monocytes % (Manual) 2, Platelet Estimate Normal, RBC Morphology Normal 06/26/22 06:25: Sodium 133 L, Potassium 4.2, Chloride 104, Carbon Dioxide 19 L, Anion Gap 14.2, BUN 17, Creatinine 0.90, Estimated Creat Clear 59, Estimated GFR 80, Est GFR ( Amer) 97, Glucose 95, Calcium 9.2, Total Bilirubin 1.1, AST 47, ALT 46, Alkaline Phosphatase 332 H, C-Reactive Protein 219.1 H, Total Protein 6.7, Albumin 3.3 L D, Globulin 3.4 H, Albumin/Globulin Ratio 1.0 L I & O for Labs for Last 24 Hours: Intake & Output 06/23/22 06/24/22 06/25/22 06/26/22 23:59 23:59 23:59 23:59 Intake Total 1127 / 1127 1220 / 1220 1679 / 1679 470 / 470 Output Total 600 / 600 850 / 850 1275 / 1275 740 / 740 Balance 527 / 527 370 / 370 404 / 404 -270 / -270 Weight 77.36 kg 81.964 kg 80.331 kg Microbiology Reports for the Last 24 Hours: Microbiology 06/21/22 06:45 Blood Blood Culture - Final NO GROWTH AFTER 5 DAYS 06/21/22 06:45
--- NOTE | 2022-06-26 09:07 | EXP.PHA.PN ---
Subjective *Date: 06/26/22 *Time: 09:07 Medical Exam Vital signs and Labs for Last 24 Hours: Vital Signs Temp Pulse Pulse Pulse Resp BP BP 06/26/22 08:00 97.7 F 117 H 22 165/95 H 06/26/22 06:40 92 H 06/26/22 06:40 97 H 06/26/22 06:40 06/26/22 04:00 97.5 F L 78 22 147/72 H 06/26/22 03:53 90 06/26/22 00:00 90 06/25/22 20:00 80 06/25/22 23:30 06/25/22 23:36 97.3 F L 80 22 144/87 H 06/25/22 20:00 75 06/25/22 20:00 97.2 F L 85 22 149/94 H 06/25/22 17:35 97.5 F L 75 18 129/71 06/25/22 14:50 97.7 F 68 20 149/75 H 06/25/22 14:35 97.7 F 68 18 141/70 H 06/25/22 14:25 97.5 F L 74 22 126/91 H 06/25/22 14:15 69 22 131/80 06/25/22 14:05 68 22 118/62 06/25/22 13:55 97.5 F L 60 20 116/71 06/25/22 11:31 97.6 F 92 H 24 149/74 H 06/25/22 10:01 78 06/25/22 10:01 83 06/26/22 07:25 97.5 F L 74 126/91 H 06/25/22 14:16 97.5 F L 74 26 H 116/71 Pulse Ox 06/26/22 08:00 90 L 06/26/22 06:40 06/26/22 06:40 06/26/22 06:40 90 L 06/26/22 04:00 92 L 06/26/22 03:53 06/26/22 00:00 06/25/22 20:00 06/25/22 23:30 93 L 06/25/22 23:36 93 L 06/25/22 20:00 92 L 06/25/22 20:00 92 L 06/25/22 17:35 94 L 06/25/22 14:50 93 L 06/25/22 14:35 06/25/22 14:25 91 L 06/25/22 14:15 92 L 06/25/22 14:05 92 L 06/25/22 13:55 93 L 06/25/22 11:31 91 L 06/25/22 10:01 06/25/22 10:01 06/26/22 07:25 06/25/22 14:16 Intake and Output 06/25/22 06/26/22 06/26/22 23:59 07:59 15:59 Intake Total 350 / 470 120 / 470 Output Total 625 / 1275 690 / 740 50 / 740 Balance -625 / 404 -340 / -270 70 / -270 Intake: Intake, Oral Amount 120 / 120 Intake, Total IV Amount 350 / 350 Cefepime HCl 2 gm In 0.9 % 100 / 100 Sodium Chloride 100 ml @ 200 mls/hr IV Q12H [facility] Rx#:[id number] Vancomycin/Water For Inj (Peg) 250 / 250 1.25 gm In 250 ml @ 125 mls/hr IV Q24H [facility] Rx#:[id number] Output: Output, Urine Amount 625 / 1275 675 / 725 50 / 725 Output, Drainage Amount 15 / 15 Right Foot Other: Weight 80.331 kg Patient Weight 06/26/22 23:59 Weight 80.331 kg Laboratory Results - last 24 hr 06/25/22 16:30: Vancomycin Trough 5.7 06/25/22 19:35: Vancomycin Peak 5.4 L 06/26/22 06:25: WBC 21.2 H* D, RBC 3.89 L, Hgb 11.9 L, Hct 35.7 L, MCV 91.7, MCH 30.6, MCHC 33.4, RDW 14.3, Plt Count 369 D, MPV 8.7, Neut % (Auto) 91.0 H, Lymph % (Auto) 3.8 L, [place] % (Auto) 4.7, Eos % (Auto) 0.2, Baso % (Auto) 0.4, Neut # (Auto) 19.3 H, Lymph # (Auto) 0.8, [place] # (Auto) 1.0, Eos # (Auto) 0.0, Baso # (Auto) 0.1, Total Counted 100, Neutrophils % (Manual) 92 H, Lymphocytes % (Manual) 6 L, Monocytes % (Manual) 2, Platelet Estimate Normal, RBC Morphology Normal 06/26/22 06:25: Sodium 133 L, Potassium 4.2, Chloride 104, Carbon Dioxide 19 L, Anion Gap 14.2, BUN 17, Creatinine 0.90, Estimated Creat Clear 59, Estimated GFR 80, Est GFR ( Amer) 97, Glucose 95, Calcium 9.2, Total Bilirubin 1.1, AST 47, ALT 46, Alkaline Phosphatase 332 H, C-Reactive Protein 219.1 H, Total Protein 6.7, Albumin 3.3 L D, Globulin 3.4 H, Albumin/Globulin Ratio 1.0 L I & O for Labs for Last 24 Hours: Intake & Output 06/23/22 06/24/22 06/25/22 06/26/22 23:59 23:59 23:59 23:59 Intake Total 1127 / 1127 1220 / 1220 1679 / 1679 470 / 470 Output Total 600 / 600 850 / 850 1275 / 1275 740 / 740 Balance 527 / 527 370 / 370 404 / 404 -270 / -270 Weight 77.36 kg 81.964 kg 80.331 kg Microbiology Reports for the Last 24 Hours: Microbiology 06/24/22 08:30 Foot,Right Gram Stain - Final 06/24/22 08:30 Foot,Right Wound Culture - Preliminary NO GROWTH AFTER 48 HOURS 06/21/22 06:45 Blood Blood Culture - Final NO GROWTH AFTER 5 DAYS 06/21/22 06:45 Blood Blood Cu
--- NOTE | 2022-06-26 09:14 | EXP.PHA.CONS ---
Pharmacy Consult Date: 06/26/22 Time: 09:14 Referring provider: DR. MEREDITH Reason for Consult:: VANCOMYCIN LEVELS AND DOSING CHANGE Allergies Allergy/AdvReac Type Severity Reaction Status Date / Time [id number] Reductase Allergy Mild Verified 04/06/22 09:40 Inhibitor [Qqkilgi-Uyq-Ecv Reductase Inhibitor] Home Medications Medication Instructions Recorded Confirmed Type omega 1-hnb-cpf-fish oil 1,000 mg 1 cap PO DAILY Supplement 09/05/18 06/21/22 History (120 mg-180 mg) capsule (Fish Oil) vitamin B complex (B 1 tab PO DAILY Supplement 09/05/18 06/21/22 History Complex-Vitamin B12 tablet) apixaban 5 mg tablet 5 mg PO BID afib 03/18/22 06/21/22 History acetaminophen 500 mg tablet 500 mg PO Q6H PRN Pain 06/21/22 06/21/22 History amlodipine 5 mg tablet 5 mg PO DAILY Hypertension 06/21/22 06/21/22 History escitalopram oxalate 10 mg tablet 10 mg PO DAILY mood 06/21/22 06/21/22 History metoprolol succinate 25 mg 25 mg PO DAILY heart 06/21/22 06/21/22 History tablet,extended release 24 hr cholecalciferol (vitamin D3) 50 50 mcg PO DAILY Supplement 06/22/22 06/22/22 History mcg (2,000 unit) tablet lisinopril 20 mg tablet 20 mg PO DAILY Hypertension 06/22/22 06/22/22 History New Prescriptions to Start Prescriptions: Height: 1.7 m Weight: 80.331 kg Laboratory Results:: Laboratory Results - last 24 hr 06/25/22 16:30: Vancomycin Trough 5.7 06/25/22 19:35: Vancomycin Peak 5.4 L 06/26/22 06:25: WBC 21.2 H* D, RBC 3.89 L, Hgb 11.9 L, Hct 35.7 L, MCV 91.7, MCH 30.6, MCHC 33.4, RDW 14.3, Plt Count 369 D, MPV 8.7, Neut % (Auto) 91.0 H, Lymph % (Auto) 3.8 L, [place] % (Auto) 4.7, Eos % (Auto) 0.2, Baso % (Auto) 0.4, Neut # (Auto) 19.3 H, Lymph # (Auto) 0.8, [place] # (Auto) 1.0, Eos # (Auto) 0.0, Baso # (Auto) 0.1, Total Counted 100, Neutrophils % (Manual) 92 H, Lymphocytes % (Manual) 6 L, Monocytes % (Manual) 2, Platelet Estimate Normal, RBC Morphology Normal 06/26/22 06:25: Sodium 133 L, Potassium 4.2, Chloride 104, Carbon Dioxide 19 L, Anion Gap 14.2, BUN 17, Creatinine 0.90, Estimated Creat Clear 59, Estimated GFR 80, Est GFR ( Amer) 97, Glucose 95, Calcium 9.2, Total Bilirubin 1.1, AST 47, ALT 46, Alkaline Phosphatase 332 H, C-Reactive Protein 219.1 H, Total Protein 6.7, Albumin 3.3 L D, Globulin 3.4 H, Albumin/Globulin Ratio 1.0 L Medical History: Medical History (Updated 06/25/22 @ 08:19 by Christie Gallego DPM) A-fib Atrial fib/flutter, transient Heart palpitations History of BPH Hyperlipemia Hypertension Assessment and Plan Assessment and plan all Dx Assessment and Plan for all problems:: PATIENT HAD VANCOMYCIN TROUGH LEVEL OF 5.7 MCG/ML AT 1630 YESTERDAY. FOLLOW UP LEVEL WAS 5.4 MCG/ML (NOT TROUGH LEVEL) AT 1935. PATIENT WAS IN SURGERY AND DOWN FOR MRI. DOSE NOT GIVEN UNTIL 2205. RECOMMEND AT THIS TIME TO CHANGE TO VANCOMYCIN 1250 MG Q18H WITH NEXT DOSE TO BE STARTED AT 1300 TODAY.
--- NOTE | 2022-06-26 09:31 | EXP.ORTH.PN ---
Subjective *Date: 06/26/22 *Time: 09:00 Interval history: Patient is resting comfortably in bed. Reports the right foot pain has improved. Ortho Exam (Inpt) Vital signs and Labs for Last 24 Hours: Temp Pulse Resp BP Pulse Ox 97.7 F 117 H 22 165/95 H 90 L 06/26/22 08:00 06/26/22 08:00 06/26/22 08:00 06/26/22 08:00 06/26/22 08:00 Laboratory Results - last 24 hr 06/25/22 16:30: Vancomycin Trough 5.7 06/25/22 19:35: Vancomycin Peak 5.4 L 06/26/22 06:25: WBC 21.2 H* D, RBC 3.89 L, Hgb 11.9 L, Hct 35.7 L, MCV 91.7, MCH 30.6, MCHC 33.4, RDW 14.3, Plt Count 369 D, MPV 8.7, Neut % (Auto) 91.0 H, Lymph % (Auto) 3.8 L, [place] % (Auto) 4.7, Eos % (Auto) 0.2, Baso % (Auto) 0.4, Neut # (Auto) 19.3 H, Lymph # (Auto) 0.8, [place] # (Auto) 1.0, Eos # (Auto) 0.0, Baso # (Auto) 0.1, Total Counted 100, Neutrophils % (Manual) 92 H, Lymphocytes % (Manual) 6 L, Monocytes % (Manual) 2, Platelet Estimate Normal, RBC Morphology Normal 06/26/22 06:25: Sodium 133 L, Potassium 4.2, Chloride 104, Carbon Dioxide 19 L, Anion Gap 14.2, BUN 17, Creatinine 0.90, Estimated Creat Clear 59, Estimated GFR 80, Est GFR ( Amer) 97, Glucose 95, Calcium 9.2, Total Bilirubin 1.1, AST 47, ALT 46, Alkaline Phosphatase 332 H, C-Reactive Protein 219.1 H, Total Protein 6.7, Albumin 3.3 L D, Globulin 3.4 H, Albumin/Globulin Ratio 1.0 L I & O for Labs for Last 24 Hours: Intake & Output 06/23/22 06/24/22 06/25/22 06/26/22 11:59 11:59 11:59 11:59 Intake Total 1127 / 1127 1460 / 1460 1319 / 1319 1070 / 1070 Output Total 600 / 600 900 / 900 1000 / 1000 1365 / 1365 Balance 527 / 527 560 / 560 319 / 319 -295 / -295 Weight 170 lb 8.794 oz 180 lb 11.2 oz 177 lb 1.6 oz Microbiology Reports for the Last 24 Hours: Microbiology 06/24/22 08:30 Foot,Right Gram Stain - Final 06/24/22 08:30 Foot,Right Wound Culture - Preliminary NO GROWTH AFTER 48 HOURS 06/21/22 06:45 Blood Blood Culture - Final NO GROWTH AFTER 5 DAYS 06/21/22 06:45 Blood Blood Culture - Final NO GROWTH AFTER 5 DAYS 06/25/22 12:57 Foot,Right - Abscess Gram Stain - Final Constitutional: Present no acute distress Head: Present normocephalic Neck: Present normal inspection Respiratory: Present normal respiratory effort and able to speak in complete sentences Cardiac: Present Regular Rate and pedal pulses present (decreased left /right ) GI: Present other (no obesity) Rectal (male): Present deferred Extremities: Present tenderness and edema (right foot and ankle) Skin: Present erythema, dry, warm, wounds (right foot skin breakdown/ tear ) and ecchymosis (right foot dorsal) Comment:: S/p right foot I&D x4. Sutures intact. IVETTE drain intact to right lateral foot/ankle. Right foot has pitting edema with ecchymosis noted. All incisions and by the tenderness there is traumatic ecchymosis noted. Fragile skin with some sloughing noted. No serous fluid noted to the right foot. Wounds were flushed with saline and explored. Antibiotic beads intact in wound beds. No tracee purulence expressed. There are some bruising and bluish discoloration noted to the dorsal lateral right foot over the fourth?fifth metatarsal region. Some pain to palpation of this area, patient reports less now than before surgery. Skin cleansed with Betadine and new dressing applied Neuro: Present Motor Function Intact, alert, awake and moves all extremities Ankle: right: erythema, right: swelling, right: tenderness and right: pain with active ROM Feet/Toes: left: foot drop, right: erythema, right: swelling (2+ pitting edema), right: tenderness and right: wound and bilateral: deformity, bilateral: nail abnormalities, bilateral: Ingrown Toenail and bilateral: onychomycosis Assessment and Plan *Assessment and plan (1) Hematoma of right foot: Status: Acute Category: Medical Code(s): S90.31XA - Contusion of right foot, initial enco
--- NOTE | 2022-06-26 10:54 | HMH.PTEV ---
Physical Therapy Evaluation Rehab PT IP Evaluation Start: 06/22/22 08:54 Freq: ONCE Status: Active Protocol: Document 06/22/22 09:35 PHORNE (Rec: 06/22/22 09:41 PHORNE [id number]) Subjective/History History History 86 yowm adm to [facility] with SIRS, weakness, confusion. He reports he lives with his son, 1 step to enter the home, uses a cane or walker for ambulation at baseline. Subjective Subjective Pt c/o significant pain and tenderness in the R foot this am, minimal weeping drainage noted laterally with increased erythema and calor. notified and scheduling a Doppler US to r/o DVT. Rehab PT IP Eval Objective Appearance Patient Behavior Appropriate Patient Orientation Person,Place,Time Difficulty following instructions none Speech Pattern Clear Ambulation Patient Able to Ambulate No Balance Ability to Arise Able, uses arms to help Sitting Balance Steady, safe Standing Balance Unsteady Dynamic Sitting Balance Ability Good Dynamic Standing Balance Ability Fair Transfers Bed Transfer Ability Contact Guard/Hand Hold Sit to Stand Bed Transfer Ability Moderate x 1 (50% assist) ROM RLE PT ROM Status ABN Abnormal ROM Comment Limited DF R foot due to pain. MMT RLE PT MMT ABN Abnormal MMT Grade R foot 2/5 due to pain Rehab PT IP prob,goals,plan Problems Date of Evaluation: 06/22/22 PT IP Problems Bed Mobility,Transfers,Gait Rehab Potential Rehab Potential Good Plan PT Intervention Plan Bed Mobility,Transfers,Gait, Therapeutic Exercise PT Plan Frequency BID Duration LOS Discharge Goals Bed Transfer Ability Supervision/Stand by Sit to Stand Chair Transfer Ability Minimal x 1 (25% assist) Ambulation Assistive Device Rolling Walker Ambulation Distance (feet) 10 Discharge Plan PT Discharge Plan Pt is appropriate for short term rehab placement at this time, but could return to home once medically stable if R foot pain and tenderness subsides enough to allow increased mobility. G -code Required No Eval Comp
[2022-06-26 13:35] LABS: Erythrocyte Sedimentation Rate 77 mm/hr (0-20)
--- NOTE | 2022-06-26 14:04 | EXP.DC.SUM ---
General Admission date:: 06/21/22 Discharge date: 06/26/22 HPI HPI HPI: Patient is a 86-year-old male who was evaluated in the emergency department for increased weakness and confusion. He was admitted on 06/21/22. Podiatry was consulted for an evaluation and treatment of right foot swelling, pain, charcot deformity and wound. Patient is lying in bed awake, no acute distress noted. There is edema, cellulitis, and skin breakdown noted to right foot. There is clear/yellow drainage noted from right dorsal midfoot, wound culture obtained. We will keep NPO, get right foot CT scan w/wo contrast, DARRELL, stat labs esr and crp. Podiatry to review results and treat accordingly. Hospital Course Hospital Course Hospital Course: 86-year-old male admitted for acute encephalopathy likely secondary to infection.? Fluid status is difficult to ascertain at this time however encephalopathy is improving and his fluid status is also improving in addition to hyponatremia.? Concerning for cellulitis of right foot.? Imaging negative for arterial or venous abnormalities. No DVTs. CT of foot with no osteomyelitis however recommended MRI, negative yesterday on MRI for osteomyelitis. Podiatry was consulted, patient had abscess deep to hematoma necessitating incision and drainage. Symptoms have defervesced during hospitalization. Plan to continue antibiotics, transitioned to oral for discharge, for total of 14 days. Will need follow-up with podiatry. See their notes for full details on dressing changes. Problems addressed during hospitalization as follows: Sepsis present on admission, resolved Cellulitis versus infected hematoma -Started on broad-spectrum antibiotics, symptoms gradually improved with defervescence of white cell count. Podiatry consulted for swelling of foot and hematoma. I&D performed with drainage of abscess. Imaging (CT and MRI of right foot) negative for osteomyelitis. Initially on vancomycin and cefepime. Will transition to oral Zyvox and Levaquin to complete 14-day total therapy. Needs 10 more days of oral antibiotics. Urine cultures and blood cultures were negative. Per podiatry notes: -Increased bruising at the area of the I&D sites and where the IVETTE drain was inserted/sucking along the skin, likely secondary to thin fragile skin and being on blood thinners -Incisions flushed with saline.? Wound re-explored and no purulence expressed. -MRI reviewed with patient/family. No evidence of abscess post op or OM. -Labs reviewed: wbc, crp elevated but likely reactive from surgery and anesthesia. -PWB in post op shoe, walker. Will need post op shoe. -IVETTE drain mgmt per nursing. -Will plan for daily dressing changes via nursing: cleanse skin with saline/betadine. Dry. Apply betadine soaked gauze, dry gauze, Kerlix, Juan Carlos. -Plan for close follow-up the beginning of the week with podiatry Yasmin -Family reports patient has been having memory troubles for a while, gets confused but is easily redirectable. -Appears to be at baseline at this time Hypokalemia: Repleted as needed Chronic medical problems A. fib-Eliquis, metoprolol Hypertension-amlodipine, lisinopril Depression-citalopram Stable for discharge to [place] for wound care and therapy. Exam Data for Last 24 hours Vital signs and Labs for Last 24 Hours: Temp Pulse Resp BP Pulse Ox 98.8 F 93 H 22 143/74 H 90 L 06/26/22 12:00 06/26/22 12:00 06/26/22 12:00 06/26/22 12:00 06/26/22 12:00 Laboratory Results - last 24 hr 06/25/22 16:30: Vancomycin Trough 5.7 06/25/22 19:35: Vancomycin Peak 5.4 L 06/26/22 06:25: WBC 21.2 H* D, RBC 3.89 L, Hgb 11.9 L, Hct 35.7 L, MCV 91.7, MCH 30.6, MCHC 33.4, RDW 14.3, Plt Count 369 D, MPV 8.7, Neut % (Auto) 91.0 H, Lymph % (Auto) 3.8 L, [place] % (Auto) 4.7, Eos % (Auto) 0.2, Baso % (Auto) 0.4, Neut # (Auto) 19.3 H, Lymph # (Auto) 0.8, [place] # (Auto) 1.0, Eos # (Auto) 0.0, Baso # (Auto) 0.1, Total Counted 100, Neutrophils % (Manual) 92 H, Lymphocyt
[2022-06-26 14:54] LABS: Coronavirus 19, PCR Not Detected (NotDetected); Influenza A, PCR Not Detected (NotDetected); Influenza B, PCR Not Detected (NotDetected)
--- NOTE | 2022-06-29 14:39 | CARE MANAGER ---
Contacted [facility] related to hospital discharge. They stated patient ended up on 4 LPM/NC. He has been altered mentally and the IVETTE drain came out. They talked to Dr. Gallego and to Dr. Krause. He does seem improved today and they will continue to monitor. They didn't have any questions or concerns. MAX Rivas
== END 2022-06-26 17:40 | DRG 854 ==
LOC: ER 07:42 → 2ND 06-22 00:05
PROVIDERS: Nurse Practitioner Family; Podiatrist; Admitting Provider Student in an Organized Health Care Education/Training Program; Emergency Provider Emergency Medicine; PCP Internal Medicine Adolescent Medicine; Visit Provider Internal Medicine Adolescent Medicine
PROC: 0J9Q00Z Drainage of Right Foot Subcutaneous Tissue and Fascia with Drainage Device, Open Approach (ICD-10-PCS; principal; 2022-06-25 12:00)
DX: A41.9 Sepsis, unspecified organism (principal); E87.1 Hypo-osmolality and hyponatremia; G93.40 Encephalopathy, unspecified; L03.115 Cellulitis of right lower limb; L02.611 Cutaneous abscess of right foot; I48.20 Chronic atrial fibrillation, unspecified; F05 Delirium due to known physiological condition; I10 Essential (primary) hypertension; R29.6 Repeated falls; M21.372 Foot drop, left foot; Z79.899 Other long term (current) drug therapy; E87.6 Hypokalemia; Z79.01 Long term (current) use of anticoagulants; S90.31XA Contusion of right foot, initial encounter; F32.A Depression, unspecified
CPT/HCPCS: 10061; 20240; 36415; 51702; 71045; 73590; 73600; 73620; 73702; 73720; 76705; 80048; 80053; 80202; 81001; 83605; 83735; 83880; 84100; 84145; 84484; 85007; 85025; 85651; 86140; 87040; 87070; 87075; 87077; 87086; 87186; 87205; 88304; 93005; 93926; 93971; 94640; 94761; 97110; 97162; 97166; 97530; 99285; A9576; C1713; C9803; J0696; J3370; Q9967; U0003; U0005

== ENCOUNTER → 2022-06-28 09:58 | Outpatient (CLI) | payer MEDICARE, SELFPAY ==
[2022-06-28 10:16] LABS: Basophils # 0.1 K/mm3 (0-0.2); Basophils % 0.5 % (0.1-2.0); Eosinophils % 0.1 % (0.1-12.0); Hematocrit 35.4 % (42.0-52.0); Hemoglobin 11.4 g/dL (14.1-18.0); Lymphocytes # 0.9 K/mm3 (0.7-4.5); Lymphocytes % 5.6 % (10-50); Mean Corpuscular HGB Conc 32.3 g/dL (31.8-35.4); Mean Corpuscular Hemoglobin 30.5 pg (27.0-31.2); Mean Corpuscular Volume 94.4 fl (80-94); Mean Platelet Volume 8.3 fl (7.4-10.4); Monocytes # 0.6 K/mm3 (0.1-1.0); Monocytes % 3.9 % (1.7-9.3); Neutrophils # 13.4 K/mm3 (1.8-7.8); Neutrophils % 89.8 % (37.0-80.0); Platelet Count 436 K/mm3 (142-424); Red Blood Count 3.75 M/mm3 (4.60-6.20); Red Cell Distribution Width 14.5 % (11.5-17.5)
[2022-06-28 10:18] LABS: MANUAL DIFFERENTIAL MANUAL DIFFERENTIAL (MANUAL DIFF)
[2022-06-28 10:27] LABS: Chloride 100 mmol/L (98-107)
[2022-06-28 10:28] LABS: Sodium 129 mmol/L (136-145)
[2022-06-28 10:30] LABS: Blood Urea Nitrogen 20 mg/dl (9-20); Estimated Glomerular Filt Rate 80 ml/min (>60); GFR (African American) 97 ML/MIN (>60)
[2022-06-28 10:31] LABS: Calcium 8.9 mg/dl (8.4-10.2); Carbon Dioxide 22 mmol/L (22.0-30.0); Glucose 106 mg/dl (74-100)
[2022-06-28 11:14] LABS: Lymphocytes % 12 % (10-50); Monocytes % 15 % (2-9); Neutrophils % 73 % (42-76); Platelet Estimate Slight Increase; RBC Morphology Normal; Total Cells Counted 100
== END ==
PROVIDERS: PCP Internal Medicine Adolescent Medicine; Visit Provider Internal Medicine Adolescent Medicine
DX: L02.611 Cutaneous abscess of right foot (principal)
CPT/HCPCS: 80048; 85007; 85025

== ENCOUNTER 2022-06-30 15:27 | Inpatient (IN) | payer MEDICARE, SELFPAY ==
--- NOTE | 2022-06-30 15:33 | XR_ITS ---
FINAL REPORT CLINICAL HISTORY: infection COMPARISON: June 24 and June 22, 2022 FINDINGS: 3 views of the right foot were obtained. There is no acute fracture or dislocation. There is a chronic fracture of the 4th metatarsal. There are multiple presumed antibiotic beads in the mid and forefoot greatest laterally. IMPRESSION: Multiple antibiotic beads. Chronic fracture of the 4th metatarsal. Reviewed, Interpreted and Dictated by Jordy Bello III, MD Transcribed by Kar Phipps Authenticated and [facility]
--- NOTE | 2022-06-30 15:33 | XR_ITS ---
FINAL REPORT CLINICAL HISTORY: INFECTION COMPARISON: June 22, 2022 FINDINGS: Two views of the right tibia-fibula demonstrate no acute fracture or dislocation. The joint spaces appear normal. The visualized bony structures are well aligned. No soft tissue abnormality is seen. IMPRESSION: No acute process. Reviewed, Interpreted and Dictated by Jordy Bello III, MD Transcribed by Kar Phipps Authenticated and [facility]
[2022-06-30 15:35] VITALS: BP 151/82; PULSE 92; RESP 20; TEMP 37.1; O2SAT 92
--- NOTE | 2022-06-30 15:35 | XR_ITS ---
FINAL REPORT CLINICAL HISTORY: dyspnea COMPARISON: June 21, 2022 FINDINGS: SINGLE VIEW CHEST The heart size is enlarged. The mediastinum is within normal limits. There is worsening right upper lobe opacity worrisome for pneumonia.. There is no evidence of pneumothorax. The bony thorax is intact. IMPRESSION: Worsening right upper lobe opacity worrisome for pneumonia.. Reviewed, Interpreted and Dictated by Jordy Bello III, MD Transcribed by Kar Phipps Authenticated and [facility]
[2022-06-30 15:45] LABS: Coronavirus 19, PCR Not Detected (NotDetected); Influenza A, PCR Not Detected (NotDetected); Influenza B, PCR Not Detected (NotDetected)
[2022-06-30 15:48] LABS: Basophils # 0.1 K/mm3 (0-0.2); Basophils % 0.5 % (0.1-2.0); Eosinophils # 0.1 K/mm3 (0.0-0.4); Eosinophils % 0.5 % (0.1-12.0); Hematocrit 37.7 % (42.0-52.0); Hemoglobin 12.1 g/dL (14.1-18.0); Lymphocytes # 0.8 K/mm3 (0.7-4.5); Lymphocytes % 7.7 % (10-50); Mean Corpuscular HGB Conc 32.1 g/dL (31.8-35.4); Mean Corpuscular Hemoglobin 29.8 pg (27.0-31.2); Mean Corpuscular Volume 92.8 fl (80-94); Mean Platelet Volume 8.1 fl (7.4-10.4); Monocytes # 0.5 K/mm3 (0.1-1.0); Monocytes % 4.6 % (1.7-9.3); Neutrophils # 9.2 K/mm3 (1.8-7.8); Neutrophils % 86.7 % (37.0-80.0); Platelet Count 472 K/mm3 (142-424); Red Blood Count 4.06 M/mm3 (4.60-6.20); Red Cell Distribution Width 14.3 % (11.5-17.5); White Blood Count 10.6 K/mm3 (4.8-10.8)
[2022-06-30 15:51] LABS: Chloride 100 mmol/L (98-107); MANUAL DIFFERENTIAL MANUAL DIFFERENTIAL (MANUAL DIFF); Potassium 3.2 mmoL/L (3.5-5.1); Sodium 134 mmol/L (136-145)
[2022-06-30 15:54] LABS: Alanine Aminotransferase 61 U/L (12-78); Albumin Level 3.4 g/dl (3.5-5.0); Albumin/Globulin Ratio 0.9 (1.1-1.8); Alkaline Phosphatase 290 U/L (38-126); Anion Gap 8.2 mEq/L (5-15); Aspartate Amino Transferase 72 U/L (17-59); Bilirubin,Total 0.9 mg/dl (0.2-1.3); Blood Urea Nitrogen 22 mg/dl (9-20); Carbon Dioxide 29 mmol/L (22.0-30.0); Creatinine Clearance Estimated 2 mL/min (50-200); Estimated Glomerular Filt Rate 71 ml/min (>60); GFR (African American) 86 ML/MIN (>60); Globulin 3.9 g/dL (1.3-3.2); Total Protein,Serum 7.3 g/dl (6.3-8.2)
[2022-06-30 15:54] LABS: ABG Base Excess 2.6 mmol/L (-2.4-2.3); ABG HCO3 25.7 mmhg (22.0-26.0); ABG Oxygen Saturation 91 % (90-100); ABG PCO2 33.2 mmhg (35.0-45.0); ABG PH 7.51 mmol/L (7.35-7.45); ABG PO2 56.3 mmhg (80-100); ABG TCO2 26.7 mmhg (23-27)
--- NOTE | 2022-06-30 15:54 | HMH.EDGENADL ---
Discharge Plan Disposition Patient Disposition: Admitted As Inpatient Clinical Impressions Clinical Impression: Pneumonia, Acute respiratory failure with hypoxia Discharge ED Provider: Elba Corley Adult HPI General Chief complaint: Weakness Stated complaint: soa Time Seen by Provider: 06/30/22 15:30 Mode of Arrival: Wheelchair Source of Information: Patient Limitations: No Limitations Description of Symptoms (Recalled from ER Triage Doc. by RN): pt to ed c/o weakness and shortness of air. pt was being seen for wound care and was brought to ed for eval. History of Present Illness HPI narrative: Mr. 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 Patient was at wound clinic getting his dressing changed on chronic (R) foot wound, however due to labored breathing was informed to come to ED for evaluation. On arrival patient has generalized weakness and labored breathing which family at bedside reports has been present for multiple weeks, but progressively worsened over the last few days. Of Note patient currently on 5L NC, which is baseline for him. No notable fevers, abdominal pain, chest pain, N/V/D or other symptoms noted. Patient is not verbal at this time but will nod yes and no to questions. Appears lethargic. MD complaint: generalized weakness and dyspnea. Onset (ago): day(s) Related Data Home Medications Medication Instructions Recorded Confirmed omega 0-icc-uve-fish oil 1,000 mg 1 cap PO DAILY Supplement 09/05/18 06/30/22 (120 mg-180 mg) capsule (Fish Oil) vitamin B complex (B 1 tab PO DAILY Supplement 09/05/18 06/30/22 Complex-Vitamin B12 tablet) apixaban 5 mg tablet 5 mg PO BID afib 03/18/22 06/30/22 acetaminophen 500 mg tablet 500 mg PO Q6H PRN Pain 06/21/22 06/30/22 amlodipine 5 mg tablet 5 mg PO DAILY Hypertension 06/21/22 06/30/22 escitalopram oxalate 10 mg tablet 10 mg PO DAILY mood 06/21/22 06/30/22 metoprolol succinate 25 mg 25 mg PO DAILY Hypertension 06/21/22 06/30/22 tablet,extended release 24 hr cholecalciferol (vitamin D3) 50 50 mcg PO DAILY Supplement 06/22/22 06/30/22 mcg (2,000 unit) tablet lisinopril 20 mg tablet 20 mg PO DAILY Hypertension 06/22/22 06/30/22 fluticasone 250 mcg-salmeterol 50 1 puff inhalation BIDRT Asthma 06/30/22 06/30/22 mcg/dose blistr powdr for inhalation (Advair Diskus) gabapentin 100 mg capsule 100 mg PO BID Pain 06/30/22 06/30/22 levofloxacin 750 mg tablet 750 mg PO DAILY Infection 06/30/22 06/30/22 linezolid 600 mg tablet (Zyvox) 600 mg PO BID Infection 06/30/22 06/30/22 Previous Rx's Medication Instructions Recorded hydrocodone 5 mg-acetaminophen 325 1 tab PO BID PRN pain #10 tabs 06/26/22 mg tablet ipratropium 0.5 mg-albuterol 3 mg 3 ml inhalation Q6HP PRN Wheezing 06/26/22 (2.5 mg base)/3 mL nebulization #0 mL soln Allergies Allergy/AdvReac Type Severity Reaction Status Date / Time Sasqxvd-CXR-AgQ Reductase Allergy Mild Verified 06/30/22 13:31 Inhibitor [Qqlrdcu-Zps-Zro Reductase Inhibitor] [facility] Disclaimer: The information contained in this section may have been updated after the patient was seen, as this information can be updated by other users. Medical History A-fib Atrial fib/flutter, transient Heart palpitations History of BPH Hyperlipemia Hypertension Surgical History History of back surgery Family History Other Family history of cancer Family history of myocardial infarction Social History Smoking Status: Never smoker alcohol intake: never substance use type: denies use current occupational status: retired Travel in the last 8 weeks: None
[2022-06-30 15:55] LABS: Allen's Test Acceptable; Source Left Radial
[2022-06-30 15:55] LABS: Calcium 9.3 mg/dl (8.4-10.2); Glucose 102 mg/dl (74-100)
[2022-06-30 15:56] LABS: Lactic Acid 1.1 mmol/L (0.7-2.1)
[2022-06-30 16:00] LABS: C-Reactive Protein 145.8 mg/L (0-4)
[2022-06-30 16:14] LABS: Troponin I 0.01 ng/ml (0.00-0.034)
[2022-06-30 16:21] LABS: Erythrocyte Sedimentation Rate 106 mm/hr (0-20)
[2022-06-30 16:43] VITALS: BP 151/90; PULSE 84; RESP 20; O2SAT 87
--- NOTE | 2022-06-30 17:11 | PC.NURSE ---
HOUSE CALLED FOR BED
[2022-06-30 17:18] LABS: Eosinophils % 1 % (0-3); Lymphocytes % 9 % (10-50); Monocytes % 3 % (2-9); Neutrophils % 87 % (42-76); Total Cells Counted 100
[2022-06-30 17:19] LABS: Platelet Estimate Slight Increase; RBC Morphology Normal
--- NOTE | 2022-06-30 17:55 | PC.NURSE ---
called report to clark brink rn
[2022-06-30 17:57] VITALS: BP 142/84; PULSE 90; RESP 20; TEMP 37.1; O2SAT 93
[2022-06-30 17:57] LABS: Microscopic, Urine URINE MICROSCOPIC (MICROSCOPIC)
[2022-06-30 18:01] LABS: Appearance,Urine CLEAR (Clear); Blood, Urine 1+ (Negative); Color,Urine YELLOW (Yellow); Glucose,Urine (UA) Negative (Negative); Ketones,Urine 1+ (Negative); Leukocyte Esterase,Urine Negative (Negative); Nitrate,Urine Negative (Negative); Protein,Urine 1+ (Negative); Specific Gravity, Urine >= 1.030 (1.005-1.030)
[2022-06-30 18:18] LABS: Bacteria,Urine 1+ /lpf; Squamous Epithelial Cell,Urine Occasional #/hpf (0-5); WBC,Urine Occasional #/hpf (0-3)
[2022-06-30 18:19] LABS: Bilirubin,Urine 1+ (Negative)
[2022-06-30 18:49] VITALS: BP 163/93; PULSE 94; RESP 26; TEMP 36.8; O2SAT 93; BMI 25.0
--- NOTE | 2022-06-30 19:00 | EXP.ACUTE.PN ---
Subjective *Date: 06/30/22 *Time: 19:00 Interval history: This 86-year-old white male is a patient of Dr. Solomon. He is admitted to the emergency room with evidence of a right upper lobe pneumonia and shortness of breath. He was transferred to the emergency room for evaluation after being seen for wound care of his right foot. He was found to be hypoxic at the time of his evaluation for his wound care. Medical Exam Vital signs and Labs for Last 24 Hours: Vital Signs Temp Pulse Pulse Resp BP BP Pulse Ox 06/30/22 18:49 98.2 F 94 H 26 H 163/93 H 93 L 06/30/22 17:57 98.7 F 90 20 142/84 H 06/30/22 16:43 84 20 151/90 H 87 L 06/30/22 15:35 98.7 F 92 H 20 151/82 H 92 L Intake and Output 06/30/22 06/30/22 06/30/22 03:59 11:59 19:59 Other: Weight 160 lb 3 oz Patient Weight 07/01/22 11:59 Weight 160 lb 3 oz Laboratory Results - last 24 hr 06/30/22 15:30: WBC 10.6 D, RBC 4.06 L, Hgb 12.1 L, Hct 37.7 L, MCV 92.8, MCH 29.8, MCHC 32.1, RDW 14.3, Plt Count 472 H, MPV 8.1, Neut % (Auto) 86.7 H, Lymph % (Auto) 7.7 L, [place] % (Auto) 4.6, Eos % (Auto) 0.5, Baso % (Auto) 0.5, Neut # (Auto) 9.2 H, Lymph # (Auto) 0.8, [place] # (Auto) 0.5, Eos # (Auto) 0.1, Baso # (Auto) 0.1, Total Counted 100, Neutrophils % (Manual) 87 H, Lymphocytes % (Manual) 9 L, Monocytes % (Manual) 3, Eosinophils % (Manual) 1, Platelet Estimate Slight increase, RBC Morphology Normal, ESR 106 H 06/30/22 15:30: Sodium 134 L, Potassium 3.2 L, Chloride 100, Carbon Dioxide 29, Anion Gap 8.2, BUN 22 H, Creatinine 1.00, Estimated Creat Clear 2, Estimated GFR 71, Est GFR ( Amer) 86, Glucose 102 H, Calcium 9.3, Total Bilirubin 0.9, AST 72 H, ALT 61, Alkaline Phosphatase 290 H, Troponin I 0.01, C-Reactive Protein 145.8 H, Total Protein 7.3, Albumin 3.4 L, Globulin 3.9 H, Albumin/Globulin Ratio 0.9 L 06/30/22 15:30: Lactate 1.1 06/30/22 15:30: SARS-CoV-2 (PCR) Not detected, Influenza A Untype (PCR) Not detected, Influenza Type B (PCR) Not detected 06/30/22 15:39: Specimen Source Left radial, O2 % 5 lpm, ABG pH 7.51 H, ABG pCO2 33.2 L, ABG pO2 56.3 L, ABG HCO3 25.7, ABG Total CO2 26.7, ABG O2 Saturation 91, ABG Base Excess 2.6 H, [place] Test Acceptable 06/30/22 17:15: Urine Color Yellow, Urine Appearance Clear, Urine pH 6.0, Ur Specific [place] >= 1.030, Urine Protein 1+, Urine Glucose (UA) Negative, Urine Ketones 1+, Urine Blood 1+, Urine Nitrate Negative, Urine Bilirubin 1+ A, Urine Urobilinogen 1.0, Ur Leukocyte Esterase Negative, Urine RBC 3-5, Urine WBC Occasional, Ur Squamous Epith Cells Occasional, Urine Bacteria 1+ I & O for Labs for Last 24 Hours: Intake & Output 06/28/22 06/29/22 06/30/22 07/01/22 11:59 11:59 11:59 11:59 Weight 160 lb 3 oz Head: Present normocephalic Neck: Present normal inspection Respiratory: Present decreased breath sounds and rales (Rales and wheezes in the right upper lobe consistent with the picture on x-ray) Comment:: Seems to be in atrial fibrillation with controlled rate. GI: Present soft; Absent tenderness Rectal (male): Present deferred (male): Present deferred Comment:: Dressings on the right foot is intact. There is no significant leg edema. Skin: Present lesions Comment:: His lips are dry and excoriated. His tongue is dry. His skin is dry. Neuro: Present awake Comment:: He seems uncomfortable. Assessment and Plan *Assessment and plan (1) Right upper lobe pneumonia: Status: Acute Category: Medical Code(s): J18.9 - Pneumonia, unspecified organism (2) Acute respiratory failure with hypoxia: Status: Acute Category: Medical Code(s): J96.01 - Acute respiratory failure with hypoxia (3) Cellulitis of foot, right: Status: Acute Category: Medical Code(s): L03.115 - Cellulitis of right lower limb (4) Atrial fibrillation: Problem Comment: Currently on apixaban Status: Chronic Category: Medical Code(s)
[2022-06-30 19:51] VITALS: BP 151/85; PULSE 89; RESP 24; TEMP 36.9; O2SAT 91
[2022-06-30 19:51] LABS: Troponin I < 0.01 ng/ml (0.00-0.034)
[2022-06-30 20:00] VITALS: PULSE 70
[2022-06-30 23:24] LABS: Troponin I < 0.01 ng/ml (0.00-0.034)
[2022-07-01] VITALS (10 sets, daily range): BP systolic 150–169; BP diastolic 72–98; PULSE 70–93; RESP 18–24; TEMP 36.6–37.1; O2SAT 91–94; BMI 26.9; BMI 26.6
--- NOTE | 2022-07-01 05:24 | PC.NURSE ---
Pt has remained restless this shift. family at bedside. pt remains on vapotherm with sats maintaining above 90%. breath sounds are diminished throughout. respiratory rate remains 20-24, labored at times. BM noted this shift. pt has voided per urinal but incontinent at times. dressing to right foot remains c/d/i. pt is alert and oriented with periods of confusion. VSS. pt has been repositioned throughout shift. afib on telemetry. pt has had no complaints this shift.
--- NOTE | 2022-07-01 08:30 | HMH.PHAINT1 ---
Pharmacy Intervention Comments: MEDICATION RECONCILIATION COMPLETED ON PATIENT USING DISCHARGE SUMMARY FROM PREVIOUS ADMISSION. -BENJY SAHNI, WILLD
--- NOTE | 2022-07-01 08:32 | XR_ITS ---
FINAL REPORT CLINICAL HISTORY: pain FINDINGS: LEFT ANKLE 2 views were obtained. There is no acute fracture or dislocation. There are mild degenerative changes. There is no soft tissue abnormality. IMPRESSION: Mild degenerative change with no acute bony abnormality. Reviewed, Interpreted and Dictated by Jordy Bello III, MD Transcribed by Lucila Otero Authenticated and [facility]
--- NOTE | 2022-07-01 08:32 | XR_ITS ---
FINAL REPORT CLINICAL HISTORY: pain FINDINGS: LEFT TIBIA FIBULA 2 views were obtained. There is no acute fracture or dislocation. The joint spaces are intact. There is no soft tissue abnormality. IMPRESSION: No acute fracture Reviewed, Interpreted and Dictated by Jordy Bello III, MD Transcribed by Lucila Otero Authenticated and [facility]
--- NOTE | 2022-07-01 08:35 | EXP.HP ---
History of Present Illness *Admission Date: 06/30/22 *Reason for visit:: Worsening respiratory status *History of present illness: 86-year-old male with long history of chronic A. fib, very mild cognitive impairment of dementia and recent admission to [facility] last week with infected foot in the right foot that required operative debridement and a IVETTE drain. Was found during the hospitalization of a community-acquired pneumonia. Was transferred to a local skilled care rehab facility near the end of last week with p.o. linezolid and Levaquin for pneumonia and foot infection respectively. Unfortunately over the next 24 hours he began to decompensate with increasing respiratory distress and oxygen requirement. Chest x-ray at the skilled care facility revealed pulmonary edema and we gave him some Lasix which improved his situation and he stabilized. He came to see podiatry yesterday and the shelter and sent him with an empty oxygen tank. During the visit with podiatry his oxygen saturations worsened and he was sent to the ER. Repeat x-ray here revealed worsening right upper lung opacity consistent with worsening pneumonia and he was admitted to hospital for further evaluation and escalation of IV antibiotics. This morning he states that he feels better. His only complaint this morning is of left tibia pain. [facility] Disclaimer: The information contained in this section may have been updated after the patient was seen, as this information can be updated by other users. Medical History A-fib Atrial fib/flutter, transient Heart palpitations History of BPH Hyperlipemia Hypertension Surgical History History of back surgery Family History Other Family history of cancer Family history of myocardial infarction Social History Smoking Status: Never smoker alcohol intake: never substance use type: denies use current occupational status: retired Travel in the last 8 weeks: None household members: family and children housing: house current occupational exposures/hazards: No caffeine: Yes Review of Systems Review of Systems Review of systems:: pertinent systems reviewed and negative unless documented below Meds Home Medications and Allergies Home Medications Medication Instructions Recorded Confirmed Type omega 5-oaz-eze-fish oil 1,000 mg 1 cap PO DAILY Supplement 09/05/18 06/30/22 History (120 mg-180 mg) capsule (Fish Oil) vitamin B complex (B 1 tab PO DAILY Supplement 09/05/18 06/30/22 History Complex-Vitamin B12 tablet) apixaban 5 mg tablet 5 mg PO BID afib 03/18/22 06/30/22 History acetaminophen 500 mg tablet 500 mg PO Q6H PRN Pain 06/21/22 06/30/22 History amlodipine 5 mg tablet 5 mg PO DAILY Hypertension 06/21/22 06/30/22 History escitalopram oxalate 10 mg tablet 10 mg PO DAILY mood 06/21/22 06/30/22 History metoprolol succinate 25 mg 25 mg PO DAILY Hypertension 06/21/22 06/30/22 History tablet,extended release 24 hr cholecalciferol (vitamin D3) 50 50 mcg PO DAILY Supplement 06/22/22 06/30/22 History mcg (2,000 unit) tablet lisinopril 20 mg tablet 20 mg PO DAILY Hypertension 06/22/22 06/30/22 History hydrocodone 5 mg-acetaminophen 325 1 tab PO BID PRN pain #10 tabs 06/26/22 06/30/22 Rx mg tablet ipratropium 0.5 mg-albuterol 3 mg 3 ml inhalation Q6HP PRN Wheezing 06/26/22 06/30/22 Rx (2.5 mg base)/3 mL nebulization #0 mL soln fluticasone 250 mcg-salmeterol 50 1 puff inhalation BIDRT Asthma 06/30/22 06/30/22 History mcg/dose blistr powdr for inhalation (Advair Diskus) gabapentin 100 mg capsule 100 mg PO BID Pain 06/30/22 06/30/22 History levofloxacin 750 mg tablet 750 mg PO DAILY Infection 06/30/22 06/30/22 History linezolid 600 mg tablet (Zyvox) 600 mg
--- NOTE | 2022-07-01 09:24 | SW/DCPLANNER ---
Addendum entered by [facility] 07/07/22 13:17: Patient has been approved to discharge to [facility] level of care today. COVID swab is negative. Addendum entered by [facility] 07/07/22 09:55: Updated patient information has been faxed to Angelina palacio/ Donell Jensen. Patient is medically stable for discharge today. Precert is pending and COVID swab will need to be collected prior to discharge. Addendum entered by [facility] 07/06/22 09:03: Updated patient information has been faxed to Angelina Jensen. Addendum entered by [facility] 07/03/22 09:43: Updated patient information has been faxed to Angelina palacio/ Donell Jensen. Addendum entered by [facility] 07/02/22 09:54: Updated patient information has been faxed to Angelina palacio/ Donell Jensen. Original Note: This patient currently resides at [facility] level of care. Discharge date is unknown at this time. I will continue to follow up with patient/family/[place].
--- NOTE | 2022-07-01 09:24 | DIET.NUTRFU ---
Addendum entered by Dianelys Worthington RD, LD 07/01/22 09:44: diet was just downgraded to pureed yesterday with overall decline. Prior to that was on regular consistency Original Note: SCHOOL LEADER consulted for oral diet, patient is on pureed diet at [place] but reported to provider he refuses to eat. SCHOOL LEADER evaluated patient was able to fed self and follow direction. Tolerated justin crackers and thin liquids but not with straw. He should also alternate solids and liquids.
--- NOTE | 2022-07-01 09:58 | HMH.SLDYSPHA ---
Speech & Language Evaluation Speech/Language Dysphagia Evaluation Start: 07/01/22 09:30 Freq: ONCE Status: Active Protocol: Document 07/01/22 09:30 MICK (Rec: 07/01/22 09:58 MICK [id number]) Dysphagia Assess/Goals/Plan Assessment Date of Evaluation: 07/01/22 Evaluation Type Initial Certification Assessment/Problems Pt assessed 2' recurrent PNA per MD order. Does Patient Qualify for Service Yes Qualify/Failure Comment Pt demonstrated no overt s/sxs of aspiration during CSE, but will continue to f/u for diet tolerance as bedside was completed following meal and pt was resistant to multiple trials. Recommendations PHYSICIAN CERTIFICATION: The specified therapy services are required, authorized, and reviewed every 30 days. Pt will be seen # times/week 1 for # weeks 1 Diet Recommendations Mechanical Soft Liquid Type Recommendations Normal/Thin SL Swallow Guidelines High aspiration risk,Eat at slow rate Dysphagia Swallow Precautions/Strategies Sitting Upright (90 deg),No Straw,Small Bites and Sips, Alternate Liquids/Solids Plan Anticipate reaching STG in # weeks 1 Anticipate reaching LTG in # weeks 1 Pt/Guardian verbally ack understanding Yes of dx/prognosis/goals G -code Required No STG-Other Comment/Non-Specific Pt will demonstrate diet tolerance of recommended diet consistency with no overt s/ sxs of aspiration with 100% accuracy via clinical observation and pt/family report. [employer] Goals Diet [facility]. soft/ground with Liquids Thin Liquids Education Instructions provided Discussed CSE results, diet recommendations, aspiration precautions and risk of aspiration PNA, and plan for f /u with nursing, dietcian, care management, pt and pt's family all of which expressed understanding. Pt/Caregiver able to recall information Able to recall/restate Reinforcement needed No Speech & Language HPI History Present Illness Description of Patient Problem Per ER report, pt is an 86- year-old male with long history o
--- NOTE | 2022-07-01 21:06 | PC.NURSE ---
Pt is A/Ox4. He cannot tell you the year, but can tell you the president. He has moments of confusion once he goes to sleep. He has moments of tremors and agitaion like he is trying to pull off gown and vapotherm. It progressively gets worse as the day goes on. He has eating a little today not much. He has not complained of any pain or needs at this time. Son is at bedside.
[2022-07-02] VITALS (9 sets, daily range): BP systolic 132–172; BP diastolic 68–95; PULSE 72–94; RESP 17–26; TEMP 35.8–36.7; O2SAT 89–93; BMI 26.6
--- NOTE | 2022-07-02 04:53 | PC.NURSE ---
Notified Dr Krause of patient having nausea and stomach cramps. See new order for Pepcid 20mg IV BID prn
--- NOTE | 2022-07-02 05:00 | PC.NURSE ---
Pt in bed awake at this time. Pt alert to person and place. Restless throughout the night. Pt took vapo Therm off his face several times. oxygen drops to the 70's on room air. lungs has rhonchi bilat, labored breathing on exertion. pt has dressing to right foot. pt has a rash on groin area. skin cleaned and applied moister barrier. Had a large loose BM this shift. Pt is redirectable at this time. Bed is locked in low position, side rails up x 2, call light in reach. Pt educated on Plan of care, will reeducate as needed.
--- NOTE | 2022-07-02 05:31 | PC.NURSE ---
pt lung sounds are wet, notified Dr Krause, no new order at this time.
[2022-07-02 07:36] LABS: Basophils % 0.3 % (0.1-2.0); Eosinophils # 0.1 K/mm3 (0.0-0.4); Eosinophils % 0.5 % (0.1-12.0); Hematocrit 34.7 % (42.0-52.0); Hemoglobin 11.4 g/dL (14.1-18.0); Lymphocytes % 7.5 % (10-50); Mean Corpuscular HGB Conc 32.9 g/dL (31.8-35.4); Mean Corpuscular Hemoglobin 30.6 pg (27.0-31.2); Mean Corpuscular Volume 92.8 fl (80-94); Mean Platelet Volume 8.2 fl (7.4-10.4); Monocytes # 0.6 K/mm3 (0.1-1.0); Monocytes % 4.8 % (1.7-9.3); Neutrophils # 11.7 K/mm3 (1.8-7.8); Neutrophils % 86.9 % (37.0-80.0); Platelet Count 426 K/mm3 (142-424); Red Blood Count 3.74 M/mm3 (4.60-6.20); Red Cell Distribution Width 14.1 % (11.5-17.5); White Blood Count 13.4 K/mm3 (4.8-10.8)
[2022-07-02 07:39] LABS: MANUAL DIFFERENTIAL MANUAL DIFFERENTIAL (MANUAL DIFF)
[2022-07-02 07:42] LABS: Chloride 101 mmol/L (98-107); Potassium 3.5 mmoL/L (3.5-5.1); Sodium 133 mmol/L (136-145)
[2022-07-02 07:45] LABS: Anion Gap 11.5 mEq/L (5-15); Blood Urea Nitrogen 19 mg/dl (9-20); Carbon Dioxide 24 mmol/L (22.0-30.0); Creatinine Clearance Estimated 57 mL/min (50-200); Estimated Glomerular Filt Rate 91 ml/min (>60); GFR (African American) 111 ML/MIN (>60)
[2022-07-02 07:46] LABS: Calcium 8.5 mg/dl (8.4-10.2); Glucose 95 mg/dl (74-100)
--- NOTE | 2022-07-02 08:21 | EXP.ACUTE.PN ---
Subjective *Date: 07/02/22 *Time: 08:21 Interval history: Through the day yesterday in the evening Mr. Roach has become progressively more agitated, and less communicative. His son notices that he is thrashing around and has been kicking and striking the side of the bed. Did have echocardiogram yesterday. Preliminary report shows preserved ejection fraction. Labs reviewed this morning. Mr. Roach is able to hear me and follow commands minimally and give me some minimal responses. He denies that he is having pain. He does report that he is short of air and is coughing. Medical Exam Vital signs and Labs for Last 24 Hours: Vital Signs Temp Pulse Resp BP Pulse Ox FiO2 07/02/22 07:52 96.7 F L 87 18 172/92 H 92 L 07/02/22 04:00 97.8 F 72 26 H 162/89 H 92 L 07/02/22 00:00 98.0 F 83 22 157/81 H 91 L 07/01/22 20:00 98.4 F 76 24 150/81 H 92 L 07/01/22 18:48 93 L 50 07/01/22 15:15 98.1 F 78 18 169/96 H 93 L 07/01/22 11:58 94 L 50 07/01/22 11:05 97.8 F 83 18 162/78 H 91 L Intake and Output 07/01/22 07/02/22 07/02/22 19:59 03:59 11:59 Intake Total 296 / 1406 1110 / 1406 Output Total 0 / 0 0 / 0 Balance 296 / 1406 1110 / 1406 Intake: Intake, Oral Amount 60 / 60 0 / 60 Intake, Other Amount 236 / 236 Intake, Total IV Amount 1110 / 1110 Sodium Chloride 0.45 % 1,000 ml 1110 / 1110 @ 125 mls/hr IV .Q8H [facility] Rx#: [id number] Output: Output, Urine Amount 0 / 0 0 / 0 Other: Number of Unmeasured Voids 1 0 1 Number of Urine Attends/Diapers 1 Weight 170 lb 2 oz Patient Weight 07/02/22 11:59 Weight 170 lb 2 oz Laboratory Results - last 24 hr 07/02/22 07:05: WBC 13.4 H D, RBC 3.74 L, Hgb 11.4 L, Hct 34.7 L, MCV 92.8, MCH 30.6, MCHC 32.9, RDW 14.1, Plt Count 426 H, MPV 8.2, Neut % (Auto) 86.9 H, Lymph % (Auto) 7.5 L, [place] % (Auto) 4.8, Eos % (Auto) 0.5, Baso % (Auto) 0.3, Neut # (Auto) 11.7 H, Lymph # (Auto) 1.0, [place] # (Auto) 0.6, Eos # (Auto) 0.1, Baso # (Auto) 0.0 07/02/22 07:05: Sodium 133 L, Potassium 3.5, Chloride 101, Carbon Dioxide 24, Anion Gap 11.5, BUN 19, Creatinine 0.80, Estimated Creat Clear 57, Estimated GFR 91, Est GFR ( Amer) 111 D, Glucose 95, Calcium 8.5 I & O for Labs for Last 24 Hours: Intake & Output 06/29/22 06/30/22 07/01/22 07/02/22 11:59 11:59 11:59 11:59 Intake Total 0 / 0 1406 / 1406 Output Total 0 / 0 0 / 0 Balance 0 / 0 1406 / 1406 Weight 169 lb 12.095 oz 170 lb 2 oz Comment:: Somewhat agitated with moving his arms and legs about, but is able to focus and stop this when redirected. He has rhonchorous sounds in his lungs even without the stethoscope. Has fairly symmetric air entry, heart rate is regular although limited exam because of his lung sounds. Abdomen is soft, feet are wrapped from podiatry. He is on high flow nasal cannula with Vapotherm. Assessment and Plan *Assessment and plan (1) Right upper lobe pneumonia: Status: Acute Category: Medical Code(s): J18.9 - Pneumonia, unspecified organism (2) Acute respiratory failure with hypoxia: Status: Acute Category: Medical Code(s): J96.01 - Acute respiratory failure with hypoxia (3) Cellulitis of foot, right: Status: Acute Category: Medical Code(s): L03.115 - Cellulitis of right lower limb (4) Atrial fibrillation: Problem Comment: Currently on apixaban Status: Chronic Category: Medical Code(s): I48.91 - Unspecified atrial fibrillation (5) Dehydration: Status: Acute Category: Medical Code(s): E86.0 - Dehydration Plan Agree with admission for [facility] acquired pneumonia protocol. Await culture results. Patient appears to be better from a respiratory standpoint today. Check echo given pulmonary edema and his A. fib and high risk of heart failure. Check x-ray of leg and ankle. Continue podiatry
[2022-07-02 08:40] LABS: Magnesium 1.9 mg/dl (1.6-2.3)
[2022-07-02 09:13] LABS: Thyroid Stimulating Hormone 0.49 uIU/mL (0.465-4.68)
[2022-07-02 09:37] LABS: Vitamin B12 > 1000 pg/mL (239-931)
[2022-07-02 09:40] LABS: Ammonia 13 umol/L (9-30)
[2022-07-02 10:01] LABS: Lymphocytes % 14 % (10-50); Monocytes % 3 % (2-9); Neutrophils % 83 % (42-76); Platelet Estimate Normal; RBC Morphology Normal; Total Cells Counted 100
--- NOTE | 2022-07-02 10:22 | DIET.NUTRFU ---
Addendum entered by Dianelys Worthington RD, LD 07/02/22 16:08: Patient has been refusing to eat, showing a overall decline. Family has been present most of day. He is also noted to have skin breakdown to top and side of R foot. Dr. Gallego was consulted. Supplements have already been added to tray. Original Note: Meal intake was good yesterday breakfast but refused to eat lunch and dinner not good either. [employer] O[employer]ATOR saw patient this AM and feels he is worse today. Will include supplements on tray to help meet nutritional needs.
--- NOTE | 2022-07-02 15:01 | PC.WOUNDNOTE ---
Pt's r foot. Have notified PATRIZIA Plummer of wound apperance. She stated to do soaked betadine dsg change and to change packing on on the top r side of foot.
--- NOTE | 2022-07-02 19:30 | PC.NURSE ---
Vapotherm remains on 30 L and 40 %. Pt alert to self. Have turned and repositioned pt this shift and wedge in use. Did call and speak to PATRIZIA Plummer in podiatry, she stated Dr. Gallego was out of office today, uploaded pic on chart for Kavitha to see. PATRIZIA Plummer stated to change packing and do betadine soaked gauze, which has been done this shift.
[2022-07-03] VITALS (13 sets, daily range): BP systolic 136–155; BP diastolic 75–90; PULSE 66–90; RESP 18–28; TEMP 35.1–37; O2SAT 91–96; BMI 27.1
--- NOTE | 2022-07-03 06:51 | PC.NURSE ---
NO ACUTE CHANGES SINCE PREVIOUS ASSESSMENT. PT SLEPT BVETTER THIS SHIFT. VAPOTHERM REMAINS IN PLACE AT 30LPM AT 45%. PT HAS BEEN CONFUSED THIS SHIFT. BED ALARM IN PLACE. VSS. FAMILY AT BEDSIDE. LUNG SOUNDS HAVE RHONCHI BILATERALLY.
[2022-07-03 07:54] LABS: Basophils % 0.4 % (0.1-2.0); Eosinophils # 0.1 K/mm3 (0.0-0.4); Eosinophils % 0.9 % (0.1-12.0); Hematocrit 36.1 % (42.0-52.0); Hemoglobin 11.7 g/dL (14.1-18.0); Lymphocytes # 0.8 K/mm3 (0.7-4.5); Lymphocytes % 9.2 % (10-50); Mean Corpuscular HGB Conc 32.3 g/dL (31.8-35.4); Mean Corpuscular Hemoglobin 29.9 pg (27.0-31.2); Mean Corpuscular Volume 92.6 fl (80-94); Mean Platelet Volume 8.2 fl (7.4-10.4); Monocytes # 0.6 K/mm3 (0.1-1.0); Monocytes % 6.6 % (1.7-9.3); Neutrophils # 7.3 K/mm3 (1.8-7.8); Neutrophils % 82.9 % (37.0-80.0); Platelet Count 374 K/mm3 (142-424); Red Cell Distribution Width 14.2 % (11.5-17.5); White Blood Count 8.8 K/mm3 (4.8-10.8)
[2022-07-03 07:57] LABS: Chloride 99 mmol/L (98-107); Potassium 3.2 mmoL/L (3.5-5.1); Sodium 134 mmol/L (136-145)
[2022-07-03 08:00] LABS: Anion Gap 11.2 mEq/L (5-15); Blood Urea Nitrogen 13 mg/dl (9-20); Calcium 8.4 mg/dl (8.4-10.2); Carbon Dioxide 27 mmol/L (22.0-30.0); Creatinine Clearance Estimated 58 mL/min (50-200); Estimated Glomerular Filt Rate 107 ml/min (>60); GFR (African American) 129 ML/MIN (>60); Glucose 79 mg/dl (74-100)
--- NOTE | 2022-07-03 08:44 | EXP.ACUTE.PN ---
Subjective *Date: 07/03/22 *Time: 08:44 Interval history: Overnight patient was much [place] and less agitated with respite all according to his son. He was able to drink some milk and some coffee this morning. Has been able to take his medications. Remains on Vapotherm with lots of rhonchi audibly. Medical Exam Vital signs and Labs for Last 24 Hours: Vital Signs Temp Pulse Resp BP Pulse Ox FiO2 07/03/22 06:35 96 45 07/03/22 04:00 97.5 F L 79 18 155/83 H 91 L 07/02/22 23:45 93 L 45 07/02/22 23:50 97.5 F L 76 18 157/68 H 93 L 07/02/22 20:00 45 07/02/22 19:35 97.5 F L 81 20 156/93 H 93 L 07/02/22 18:09 89 L 40 07/02/22 15:13 97.1 F L 83 18 132/72 90 L 07/02/22 11:16 96.5 F L 94 H 17 153/95 H 91 L Intake and Output 07/02/22 07/03/22 07/03/22 19:59 03:59 11:59 Intake Total 130 / 130 Output Total 0 / 0 0 / 0 Balance 130 / 130 0 / 130 Intake: Intake, Oral Amount 30 / 30 Intake, Total IV Amount 100 / 100 Piperacillin/Tazo 3.375 gm In 0 100 / 100 .9 % Sodium Chloride 50 ml @ 100 mls/hr IV Q8H [facility]PLACED BY [facility] Rx#: [id number] Output: Output, Urine Amount 0 / 0 0 / 0 Other: Number of Unmeasured Voids 1 1 Number of Urine Attends/Diapers 1 Weight 173 lb 1.006 oz Patient Weight 07/03/22 11:59 Weight 173 lb 1.006 oz Laboratory Results - last 24 hr 07/02/22 07:05: Total Counted 100, Neutrophils % (Manual) 83 H, Lymphocytes % (Manual) 14, Monocytes % (Manual) 3, Platelet Estimate Normal, RBC Morphology Normal 07/02/22 07:25: Vitamin B12 > 1000 H, TSH 0.49 07/02/22 09:18: Ammonia 13 07/03/22 07:21: WBC 8.8 D, RBC 3.90 L, Hgb 11.7 L, Hct 36.1 L, MCV 92.6, MCH 29.9, MCHC 32.3, RDW 14.2, Plt Count 374, MPV 8.2, Neut % (Auto) 82.9 H, Lymph % (Auto) 9.2 L, [place] % (Auto) 6.6, Eos % (Auto) 0.9, Baso % (Auto) 0.4, Neut # (Auto) 7.3, Lymph # (Auto) 0.8, [place] # (Auto) 0.6, Eos # (Auto) 0.1, Baso # (Auto) 0.0 07/03/22 07:21: Sodium 134 L, Potassium 3.2 L, Chloride 99, Carbon Dioxide 27, Anion Gap 11.2, BUN 13 D, Creatinine 0.70, Estimated Creat Clear 58, Estimated GFR 107, Est GFR ( Amer) 129, Glucose 79, Calcium 8.4 I & O for Labs for Last 24 Hours: Intake & Output 06/30/22 07/01/22 07/02/22 07/03/22 11:59 11:59 11:59 11:59 Intake Total 0 / 0 1406 / 1406 130 / 130 Output Total 0 / 0 0 / 0 0 / 0 Balance 0 / 0 1406 / 1406 130 / 130 Weight 169 lb 12.095 oz 170 lb 2 oz 173 lb 1.006 oz Microbiology Reports for the Last 24 Hours: Microbiology 06/30/22 15:30 Blood Blood Culture - Preliminary NO GROWTH AFTER 48 HOURS 06/30/22 15:30 Blood Blood Culture - Preliminary NO GROWTH AFTER 48 HOURS Comment:: Patient is minimally responsive to verbal stimuli. Lots of rhonchorous changes in his chest. Symmetric air entry with crackles and rhonchi throughout. Vapotherm settings noted. Heart rate regular. Extremities are warm and well-perfused. Abdomen soft, foot dressing noted per podiatry. Assessment and Plan *Assessment and plan (1) Right upper lobe pneumonia: Status: Acute Category: Medical Code(s): J18.9 - Pneumonia, unspecified organism (2) Acute respiratory failure with hypoxia: Status: Acute Category: Medical Code(s): J96.01 - Acute respiratory failure with hypoxia (3) Cellulitis of foot, right: Status: Acute Category: Medical Code(s): L03.115 - Cellulitis of right lower limb (4) Atrial fibrillation: Problem Comment: Currently on apixaban Status: Chronic Category: Medical Code(s): I48.91 - Unspecified atrial fibrillation (5) Dehydration: Status: Acute Category: Medical Code(s): E86.0 - Dehydration Plan Agree with admission for detention acquired pneumonia protocol. Await culture results. Patient appears to be better
--- NOTE | 2022-07-03 08:56 | EXP.PHA.PN ---
Subjective *Date: 07/03/22 *Time: 08:56 Medical Exam Vital signs and Labs for Last 24 Hours: Vital Signs Temp Pulse Resp BP Pulse Ox FiO2 07/03/22 06:35 96 45 07/03/22 04:00 97.5 F L 79 18 155/83 H 91 L 07/02/22 23:45 93 L 45 07/02/22 23:50 97.5 F L 76 18 157/68 H 93 L 07/02/22 20:00 45 07/02/22 19:35 97.5 F L 81 20 156/93 H 93 L 07/02/22 18:09 89 L 40 07/02/22 15:13 97.1 F L 83 18 132/72 90 L 07/02/22 11:16 96.5 F L 94 H 17 153/95 H 91 L Intake and Output 07/02/22 07/03/22 07/03/22 23:59 07:59 15:59 Intake Total 100 / 1240 Output Total 0 / 0 0 / 0 Balance 100 / 1240 0 / 0 Intake: Intake, Oral Amount 0 / 30 Intake, Total IV Amount 100 / 1210 Piperacillin/Tazo 3.375 gm In 0 100 / 100 .9 % Sodium Chloride 50 ml @ 100 mls/hr IV Q8H [facility] Rx#: [id number] Output: Output, Urine Amount 0 / 0 0 / 0 Other: Number of Unmeasured Voids 1 1 Number of Urine Attends/Diapers 1 Weight 78.5 kg Patient Weight 07/03/22 23:59 Weight 78.5 kg Laboratory Results - last 24 hr 07/02/22 07:05: Total Counted 100, Neutrophils % (Manual) 83 H, Lymphocytes % (Manual) 14, Monocytes % (Manual) 3, Platelet Estimate Normal, RBC Morphology Normal 07/02/22 07:25: Vitamin B12 > 1000 H, TSH 0.49 07/02/22 09:18: Ammonia 13 07/03/22 07:21: WBC 8.8 D, RBC 3.90 L, Hgb 11.7 L, Hct 36.1 L, MCV 92.6, MCH 29.9, MCHC 32.3, RDW 14.2, Plt Count 374, MPV 8.2, Neut % (Auto) 82.9 H, Lymph % (Auto) 9.2 L, [place] % (Auto) 6.6, Eos % (Auto) 0.9, Baso % (Auto) 0.4, Neut # (Auto) 7.3, Lymph # (Auto) 0.8, [place] # (Auto) 0.6, Eos # (Auto) 0.1, Baso # (Auto) 0.0 07/03/22 07:21: Sodium 134 L, Potassium 3.2 L, Chloride 99, Carbon Dioxide 27, Anion Gap 11.2, BUN 13 D, Creatinine 0.70, Estimated Creat Clear 58, Estimated GFR 107, Est GFR ( Amer) 129, Glucose 79, Calcium 8.4 I & O for Labs for Last 24 Hours: Intake & Output 06/30/22 07/01/22 07/02/22 07/03/22 23:59 23:59 23:59 23:59 Intake Total 296 / 296 1240 / 1240 Output Total 0 / 0 0 / 0 0 / 0 Balance 296 / 296 1240 / 1240 0 / 0 Weight 72.66 kg 77 kg 77.167 kg 78.5 kg Microbiology Reports for the Last 24 Hours: Microbiology 06/30/22 15:30 Blood Blood Culture - Preliminary NO GROWTH AFTER 48 HOURS 06/30/22 15:30 Blood Blood Culture - Preliminary NO GROWTH AFTER 48 HOURS The patient's infection will respond to the chosen ABx?: Yes (STREP WOUND INFXN SENSITIVE TO PENICILLIN) Is the patient receiving the right drug, dose, and route?: Yes Could a more targeted ABx be ordered?: No
--- NOTE | 2022-07-03 09:08 | XR_ITS ---
FINAL REPORT CLINICAL HISTORY: f/u icu exam, sob COMPARISON: June 30, 2022 FINDINGS: A single portable view of the chest was obtained. There is cardiomegaly. The mediastinum is within normal limits. There are bilateral pulmonary opacities, worse in the bases since the prior exam, which is consistent with worsening pneumonia or atelectasis. There is also persistent right upper lobe opacity consistent with pneumonia. There is a small partially loculated right pleural effusion. The bony thorax is intact. IMPRESSION: Bilateral pulmonary opacities consistent with pneumonia or atelectasis, worse in the bases since the prior exam. Persistent right upper lobe pneumonia. Small partially loculated right pleural effusion. Reviewed, Interpreted and Dictated by Jordy Bello III, MD Transcribed by Lucila Otero Authenticated and [facility]
--- NOTE | 2022-07-03 10:00 | EXP.PULM.CON ---
History of Present Illness History of present illness: Mr. Roach is 86-year-old male presents hospital with worsening mentation and respiratory distress noted to have increasing oxygen per month and pulmonary was called for further evaluation. Patient admits shortness of breath along with cough and productive phlegm. [facility] Disclaimer: The information contained in this section may have been updated after the patient was seen, as this information can be updated by other users. Medical History (Updated 07/03/22 @ 11:30 by Olu Mendez MD) A-fib Acute respiratory failure with hypoxia Atrial fib/flutter, transient HAP (hospital-acquired pneumonia) Heart palpitations History of BPH Hyperlipemia Hypertension Surgical History History of back surgery Family History Other Family history of cancer Family history of myocardial infarction Social History Smoking Status: Never smoker alcohol intake: never substance use type: denies use current occupational status: retired Travel in the last 8 weeks: None household members: family and children housing: house current occupational exposures/hazards: No caffeine: Yes Review of Systems Review of Systems Review of systems (narrative): Review of systems limited given patient's mentation Constitutional Constitutional: Reports body ache(s) Eyes Eyes: Denies eye discharge, Reports dry eyes, Reports irritation and Reports itchy eyes ENT Ears, Nose, Mouth, and Throat: Reports throat swelling *Cardiovascular Cardiovascular: Reports dyspnea and Reports dyspnea on exertion *Respiratory Respiratory: Reports chest congestion, Reports cough, Reports dyspnea, Reports dyspnea on exertion, Reports excessive phlegm production and Denies hemoptysis *Gastrointestinal Gastrointestinal: Denies abdominal pain *Musculoskeletal Musculoskeletal: Reports back pain, Reports myalgias and Reports other (No small joint swelling or Pain) Psychiatric Psychiatric: Denies homicidal ideation and Denies suicidal ideation Endocrine Endocrine: Denies heat intolerance Hematologic/Lymphatic Hematologic/Lymphatic: Denies easy bleeding and Denies lymphadenopathy Allergic/Immunologic Allergic/Immunologic: Reports itchy eyes and Reports throat swelling Pulmonology Exam Inpatient Vital signs and Labs for Last 24 Hours: Temp Pulse Resp BP Pulse Ox FiO2 97.5 F L 79 18 155/83 H 96 45 07/03/22 04:00 07/03/22 04:00 07/03/22 04:00 07/03/22 04:00 07/03/22 06:35 07/03/22 06:35 Laboratory Results - last 24 hr 07/02/22 07:05: Total Counted 100, Neutrophils % (Manual) 83 H, Lymphocytes % (Manual) 14, Monocytes % (Manual) 3, Platelet Estimate Normal, RBC Morphology Normal 07/03/22 07:21: WBC 8.8 D, RBC 3.90 L, Hgb 11.7 L, Hct 36.1 L, MCV 92.6, MCH 29.9, MCHC 32.3, RDW 14.2, Plt Count 374, MPV 8.2, Neut % (Auto) 82.9 H, Lymph % (Auto) 9.2 L, [place] % (Auto) 6.6, Eos % (Auto) 0.9, Baso % (Auto) 0.4, Neut # (Auto) 7.3, Lymph # (Auto) 0.8, [place] # (Auto) 0.6, Eos # (Auto) 0.1, Baso # (Auto) 0.0 07/03/22 07:21: Sodium 134 L, Potassium 3.2 L, Chloride 99, Carbon Dioxide 27, Anion Gap 11.2, BUN 13 D, Creatinine 0.70, Estimated Creat Clear 58, Estimated GFR 107, Est GFR ( Amer) 129, Glucose 79, Calcium 8.4 I & O for Labs for Last 24 Hours: Intake & Output 06/30/22 07/01/22 07/02/22 07/03/22 23:59 23:59 23:59 23:59 Intake Total 296 / 296 1240 / 1240 Output Total 0 / 0 0 / 0 0 / 0 Balance 296 / 296 1240 / 1240 0 / 0 Weight 160 lb 3 oz 169 lb 12.095 oz 170 lb 2 oz 173 lb 1.006 oz Microbiology Reports for the Last 24 Hours: Microbiology 06/30/22 15:30 Blood Blood Culture - Preliminary NO GROWTH AFTER 48 HOURS 06/30/22 15:30 Blood Blood Culture - Preliminary NO GROWT
[2022-07-03 11:11] LABS: ABG Base Excess 2.2 mmol/L (-2.4-2.3); ABG HCO3 26.2 mmhg (22.0-26.0); ABG Oxygen Saturation 93 % (90-100); ABG PCO2 38.6 mmhg (35.0-45.0); ABG PH 7.45 mmol/L (7.35-7.45); ABG PO2 65.3 mmhg (80-100); ABG TCO2 27.4 mmhg (23-27)
[2022-07-03 11:14] LABS: Allen's Test ACCEPTABLE; Oxygen 50% %; Source R RADIAL
--- NOTE | 2022-07-03 11:34 | CT_ITS ---
FINAL REPORT TECHNIQUE: Thin section axial CT images were obtained from the lung apices to the upper abdomen. IV contrast was administered. MIP 3-D reformats were obtained. This study was performed with techniques to keep radiation doses as low as reasonably achievable (ALARA). Individualized dose reduction techniques using automated exposure control or adjustment of mA and/or kV according to the patient's size were employed. CLINICAL HISTORY: Hypoxia FINDINGS: Motion on many of the images decreases exam sensitivity. The heart size is normal. There is no adenopathy. There is no filling defect to suggest PE. There is no aortic dissection. There is no pericardial effusion. There is a large right pleural effusion measuring up to 7.3 cm in thickness. A small left pleural effusion measures up to 1.7 cm in thickness. There is bilateral lower lobe atelectasis. There are bilateral upper lobe opacities, right greater than left, worrisome for pneumonia. Limited images of the upper abdomen demonstrate mild anasarca. IMPRESSION: No pulmonary embolism or aortic dissection. Right greater than left pleural effusions. Right worse than left upper lobe opacities worrisome for pneumonia. Reviewed, Interpreted and Dictated by Jordy Bello III, MD Transcribed by Kar Phipps Authenticated and [facility]
--- NOTE | 2022-07-03 12:03 | DIET.NUTRFU ---
Addendum entered by Dianelys Worthington RD, LD 07/03/22 13:51: saw patient during lunch rounds. Family was able to get him to eat couple bites of ground chicken with gravy and couple sips of shake. They were pleased with intake. When asked patient if he wanted another shake with dinner he replied no. He is ordered to have ground hamburger with ketchup and sherbert with diner Original Note: RD consult this morning for diet instruction. Saw family at bedside and reviewed diet plan for patient. Patient was asleep for visit. Current diet is MSOFT ground with no straws. Family is normally present to assist with meal intake. Nursing has noted he has been refusing most meals. Overall health has shown a decline, family changed code to DNR but not ready for hospice care. Family said they were not ready to give up. Reviewed food always available on floor. Family has been filling out menu preferences. Ensure was ordered with trays, family does not seem to think he likes it, agreed to try a high protein homemade shake with lunch and sherbert with dinner. Kitchen aware of changes. No BM noted since admit on 06/30, intake has been poor with only one good meal since admit, will review with nursing.
--- NOTE | 2022-07-03 13:05 | PC.NURSE ---
Spoke with Dr Krause about rectal temp pf 95.1.
--- NOTE | 2022-07-03 14:51 | PC.NURSE ---
[place] rectal temp still 95.[address] Krause aware.
--- NOTE | 2022-07-03 16:19 | PC.NURSE ---
Rectal temp 97.1
--- NOTE | 2022-07-03 16:21 | ECG_ITS ---
APPROVED REPORT Exam: Resting ECG HR:79 bpm ECG Measurements Heart Rate 79 AXES QRSd 150 QRS 92 QT 424 T 23 QTc 459 Conclusion ATRIAL FIBRILLATION RIGHT BUNDLE BRANCH BLOCK [120+ ms QRS DURATION, UPRIGHT V1, 40+ ms S IN I/aVL/V4/V5/V6] MODERATE T-WAVE ABNORMALITY, CONSIDER LATERAL ISCHEMIA [-0.1+ mV T-WAVE IN I/aVL/V5/V6] ABNORMAL ECG UNCONFIRMED REPORT Electronically signed by : Artis Krause MD 07/04/2022 10:07:56
--- NOTE | 2022-07-03 16:21 | PC.NURSE ---
Pt complained of chest pain and did an EKG. I made Dr. Krause aware. EKG showed controlled rate afib. Looked at by carter.
--- NOTE | 2022-07-03 17:47 | PC.NURSE ---
Rectal 98.2
--- NOTE | 2022-07-03 19:29 | PC.NURSE ---
tech note; notified nurse of low rectal temp at 1400.
--- NOTE | 2022-07-03 20:41 | PC.NURSE ---
I did a dressing change on pts LE.
[2022-07-04] VITALS (17 sets, daily range): BP systolic 120–151; BP diastolic 72–91; PULSE 60–91; RESP 18–26; TEMP 36.1–36.9; O2SAT 93–100; BMI 26.7
--- NOTE | 2022-07-04 06:45 | PC.NURSE ---
PATIENT HAS NOT REQUIRED USE OF BAIRHUGGER. VITAL SIGNS STABLE. ALERT AND ORIENTED TO PERSON/PLACE. IS CONFUSED BUT COOPERATIVE. TOLERATING IVABs. DRSG TO RIGHT FOOT C/D/I. 02 AT 20 L HI FLOW.TELE MONITORING AFIB CONTROLLED RATE/BBB. SON AT BEDSIDE. NO C/O PAIN. NO RESP DISTRESS.
[2022-07-04 07:50] LABS: Basophils % 0.3 % (0.1-2.0); Eosinophils # 0.1 K/mm3 (0.0-0.4); Eosinophils % 0.6 % (0.1-12.0); Hematocrit 35.1 % (42.0-52.0); Hemoglobin 11.9 g/dL (14.1-18.0); Lymphocytes # 0.9 K/mm3 (0.7-4.5); Mean Corpuscular HGB Conc 33.8 g/dL (31.8-35.4); Mean Corpuscular Hemoglobin 30.1 pg (27.0-31.2); Mean Corpuscular Volume 89.1 fl (80-94); Mean Platelet Volume 8.5 fl (7.4-10.4); Monocytes # 0.7 K/mm3 (0.1-1.0); Monocytes % 7.2 % (1.7-9.3); Neutrophils # 7.6 K/mm3 (1.8-7.8); Neutrophils % 81.9 % (37.0-80.0); Platelet Count 399 K/mm3 (142-424); Red Blood Count 3.94 M/mm3 (4.60-6.20); Red Cell Distribution Width 14.4 % (11.5-17.5); White Blood Count 9.3 K/mm3 (4.8-10.8)
[2022-07-04 07:57] LABS: Chloride 100 mmol/L (98-107); Sodium 133 mmol/L (136-145)
[2022-07-04 08:00] LABS: Blood Urea Nitrogen 10 mg/dl (9-20); Calcium 8.3 mg/dl (8.4-10.2); Carbon Dioxide 28 mmol/L (22.0-30.0); Creatinine Clearance Estimated 57 mL/min (50-200); Estimated Glomerular Filt Rate 91 ml/min (>60); GFR (African American) 111 ML/MIN (>60); Glucose 90 mg/dl (74-100)
--- NOTE | 2022-07-04 09:26 | EXP.ACUTE.PN ---
Subjective *Date: 07/04/22 *Time: 09:26 Interval history: Patient is a little bit more responsive this morning. Respite all seem to help with his agitation. Pulmonary consultation note reviewed and appreciated. Son at bedside, long discussion about ongoing diagnoses. Medical Exam Vital signs and Labs for Last 24 Hours: Vital Signs Temp Pulse Pulse Pulse Resp BP Pulse Ox 07/04/22 06:12 78 07/04/22 06:12 79 07/04/22 06:12 97 07/04/22 06:00 97.9 F 74 20 142/84 H 96 07/04/22 04:00 97.7 F 60 20 127/73 95 07/04/22 04:00 70 07/04/22 02:00 98.4 F 80 20 141/91 H 96 07/04/22 00:00 75 07/04/22 00:00 98.0 F 78 20 135/73 93 L 07/03/22 20:00 80 07/03/22 23:54 83 07/03/22 23:54 85 07/03/22 22:00 98.6 F 89 20 136/75 94 L 07/03/22 20:00 91 L 07/03/22 20:00 98.5 F 78 20 150/80 H 91 L 07/03/22 17:30 98.5 F 07/03/22 18:00 70 28 H 142/82 H 94 L 07/03/22 14:00 95.1 F L 67 25 H 142/80 H 91 L 07/03/22 16:00 97.1 F L 66 24 153/90 H 92 L 07/03/22 18:37 90 07/03/22 18:37 87 07/03/22 18:37 93 L 07/03/22 16:00 80 07/03/22 12:00 70 07/03/22 12:00 96.0 F L 73 22 142/78 H 95 07/03/22 14:25 67 25 H 07/03/22 14:25 85 07/03/22 14:25 67 07/03/22 14:25 92 L FiO2 07/04/22 06:12 07/04/22 06:12 07/04/22 06:12 50 07/04/22 06:00 07/04/22 04:00 07/04/22 04:00 07/04/22 02:00 07/04/22 00:00 07/04/22 00:00 07/03/22 20:00 07/03/22 23:54 07/03/22 23:54 07/03/22 22:00 07/03/22 20:00 07/03/22 20:00 07/03/22 17:30 07/03/22 18:00 07/03/22 14:00 07/03/22 16:00 07/03/22 18:37 07/03/22 18:37 07/03/22 18:37 50 07/03/22 16:00 07/03/22 12:00 07/03/22 12:00 07/03/22 14:25 07/03/22 14:25 07/03/22 14:25 07/03/22 14:25 50 Intake and Output 07/03/22 07/04/22 07/04/22 19:59 03:59 11:59 Intake Total 2098 / 2498 400 / 2499 Output Total Balance 2098 / 249 -2497 400 / 2498 Intake: Intake, Oral Amount 60 / 60 Intake, Other Amount 2038 Intake, Total IV Amount 400 / 400 Cefepime HCl 2 gm In 0.9 % 100 / 100 Sodium Chloride 100 ml @ 200 mls/hr IV Q12H [facility] Rx#:[id number] Linezolid 600 mg In 300 ml @ 300 / 300 300 mls/hr IV Q12H [facility] Rx#: [id number] Output: Output, Urine Amount Other: Number of Unmeasured Voids 1 1 Weight 170 lb 6.4 oz Patient Weight 07/04/22 11:59 Weight 170 lb 6.4 oz Laboratory Results - last 24 hr 07/03/22 11:09: Specimen Source R radial, O2 % 50%, ABG pH 7.45, ABG pCO2 38.6, ABG pO2 65.3 L, ABG HCO3 26.2 H, ABG Total CO2 27.4 H, ABG O2 Saturation 93, ABG Base Excess 2.2, [place] Test Acceptable 07/04/22 06:28: WBC 9.3, RBC 3.94 L, Hgb 11.9 L, Hct 35.1 L, MCV 89.1, MCH 30.1, MCHC 33.8, RDW 14.4, Plt Count 399, MPV 8.5, Neut % (Auto) 81.9 H, Lymph % (Auto) 10.0, [place] % (Auto) 7.2, Eos % (Auto) 0.6, Baso % (Auto) 0.3, Neut # (Auto) 7.6, Lymph # (Auto) 0.9, [place] # (Auto) 0.7, Eos # (Auto) 0.1, Baso # (Auto) 0.0 07/04/22 06:28: Sodium 133 L, Potassium 3.0 L, Chloride 100, Carbon Dioxide 28, Anion Gap 8.0, BUN 10, Creatinine 0.80, Estimated Creat Clear 57, Estimated GFR 91, Est GFR ( Amer) 111, Glucose 90, Calcium 8.3 L I & O for Labs for Last 24 Hours: Intake & Output 07/01/22 07/02/22 07/03/22 07/04/22 11:59 11:59 11:59 11:59 Intake Total 0 / 0 1406 / 1406 130 / 130 2499 / 2499 Output Total 0 / 0 0 / 0 0 / 0 1 / Balance 0 / 0 1406 / 1406 130 / 130 2498 / 2498 Weight 169 lb 12.095 oz 170 lb 2 oz 173 lb 1.006 oz 170 lb 6.4 oz Comment:: Slightly more alert. Some responsiveness. Lungs with dense rhonchi throughout. Heart rate irregular. Abdomen soft. Left foot looks good, right foot remains in bandage. Extremities are warm and well-perfused.
--- NOTE | 2022-07-04 18:49 | PC.NURSE ---
tech note; breathing treatment in progress when I took oxygen sat at 1800.
--- NOTE | 2022-07-04 18:58 | PC.NURSE ---
Pt today has been A/Ox3. He has been weaned down to 5L NC with o2 sat at 97. He has eaten a little more today, and has been more alert today since the past few. I placed a huertas cath today. I did his dressing change on his LE. Has no complaints or needs at this time.
[2022-07-05] VITALS (13 sets, daily range): BP systolic 118–141; BP diastolic 66–96; PULSE 64–87; RESP 18–22; TEMP 35.6–36.7; O2SAT 90–98; BMI 25.3
--- NOTE | 2022-07-05 03:53 | PC.NURSE ---
No changes noted since previous assessment. Pt rested most of the night. Pt alert to person, place, and situation. Remains on 5L NC, tolerating well with O2 sat 95-97%. LS diminished. BS active. Redness and excoriation noted to groin area and buttocks. Brewster catheter in place draining clear, yellow urine. Pt bathed this shift and turned in bed q2hr. Family member at bedside
--- NOTE | 2022-07-05 06:27 | PC.NURSE ---
pt weaned to 1L NC O2 sats 99%
--- NOTE | 2022-07-05 09:04 | EXP.ACUTE.PN ---
Subjective *Date: 07/05/22 *Time: 09:04 Interval history: Patient responded very well to Lasix and diuresed about a liter of fluid. He is much more restful, down on nasal cannula. Much more responsive to commands Medical Exam Vital signs and Labs for Last 24 Hours: Vital Signs Temp Pulse Pulse Pulse Resp BP Pulse Ox 07/05/22 08:00 97.6 F 71 18 129/73 92 L 07/05/22 06:00 97.8 F 73 20 132/84 94 L 07/05/22 06:37 75 07/05/22 06:37 75 07/05/22 06:37 90 L 07/05/22 04:00 97.8 F 73 20 135/76 96 07/04/22 23:30 78 07/04/22 23:15 71 07/05/22 02:00 98.0 F 78 20 137/96 H 96 07/05/22 00:00 97.9 F 87 20 141/79 H 97 07/04/22 22:00 97.9 F 91 H 20 120/78 97 07/04/22 20:00 97.6 F 79 18 133/72 95 07/04/22 18:50 74 07/04/22 18:50 76 07/04/22 18:00 97.0 F L 71 26 H 134/74 100 07/04/22 16:00 97.6 F 74 24 142/77 H 96 07/04/22 14:00 98.0 F 83 24 140/73 94 L 07/04/22 12:00 97.8 F 80 26 H 140/78 95 07/04/22 11:43 79 07/04/22 11:43 79 07/04/22 11:43 98 07/04/22 10:00 97.3 F L 81 26 H 151/79 H 96 FiO2 07/05/22 08:00 07/05/22 06:00 07/05/22 06:37 07/05/22 06:37 07/05/22 06:37 07/05/22 04:00 07/04/22 23:30 07/04/22 23:15 07/05/22 02:00 07/05/22 00:00 07/04/22 22:00 07/04/22 20:00 07/04/22 18:50 07/04/22 18:50 07/04/22 18:00 07/04/22 16:00 07/04/22 14:00 07/04/22 12:00 07/04/22 11:43 07/04/22 11:43 07/04/22 11:43 45 07/04/22 10:00 Intake and Output 07/04/22 07/05/22 07/05/22 19:59 03:59 11:59 Intake Total 360 / 760 400 / 760 Output Total 1100 / 2625 900 / 2625 625 / 2625 Balance -740 / -1865 -900 / -1865 -225 / -1865 Intake: Intake, Oral Amount 360 / 360 Intake, Total IV Amount 400 / 400 Cefepime HCl 2 gm In 0.9 % 100 / 100 Sodium Chloride 100 ml @ 200 mls/hr IV Q12H GEOVANI Rx#:[id number] Linezolid 600 mg In 300 ml @ 300 / 300 300 mls/hr IV Q12H GEOVANI Rx#: [id number] Output: Output, Urine Amount 1100 / 1725 625 / 1725 Output, Urine Amount (Catheter) 900 / 900 Brewster 900 / 900 Other: Number of Unmeasured Voids 0 0 Number of Bowel Movements 1 Weight 161 lb 9.6 oz Patient Weight 07/05/22 11:59 Weight 161 lb 9.6 oz I & O for Labs for Last 24 Hours: Intake & Output 07/02/22 07/03/22 07/04/22 07/05/22 11:59 11:59 11:59 11:59 Intake Total 1406 / 1406 130 / 130 2499 / 2499 760 / 760 Output Total 0 / 0 0 / 0 1 / 2625 / 2625 Balance 1406 / 1406 130 / 130 2498 / 2498 -1865 / -1865 Weight 170 lb 2 oz 173 lb 1.006 oz 170 lb 6.4 oz 161 lb 9.6 oz Comment:: Resting. Heart rate irregular. Lungs have better air movement. Oxygen requirement is lowered. Responds to commands, opens eyes, states that he is and not pain abdomen soft, perfusion good Assessment and Plan *Assessment and plan (1) Right upper lobe pneumonia: Status: Acute Qualifiers: Pneumonia type: due to unspecified organism Qualified Code(s): J18.9 - Pneumonia, unspecified organism Category: Medical Code(s): J18.9 - Pneumonia, unspecified organism (2) Acute respiratory failure with hypoxia: Status: Acute Category: Medical Code(s): J96.01 - Acute respiratory failure with hypoxia (3) Cellulitis of foot, right: Status: Acute Category: Medical Code(s): L03.115 - Cellulitis of right lower limb (4) Atrial fibrillation: Problem Comment: Currently on apixaban Status: Chronic Category: Medical Code(s): I48.91 - Unspecified atrial fibrillation (5) Dehydration: Status: Acute Category: Medical Code(s): E86.0 - Dehydration (6) Hypokalemia: Status: Acute Category: Medical Code(s): E87.6 - Hypokalemia Plan Pulmonary edema and respir
[2022-07-05 09:43] LABS: Basophils % 0.4 % (0.1-2.0); Eosinophils # 0.1 K/mm3 (0.0-0.4); Eosinophils % 1.1 % (0.1-12.0); Hematocrit 35.8 % (42.0-52.0); Hemoglobin 12.1 g/dL (14.1-18.0); Lymphocytes % 9.9 % (10-50); Mean Corpuscular HGB Conc 33.7 g/dL (31.8-35.4); Mean Corpuscular Volume 89.1 fl (80-94); Mean Platelet Volume 8.5 fl (7.4-10.4); Monocytes # 0.9 K/mm3 (0.1-1.0); Monocytes % 8.2 % (1.7-9.3); Neutrophils # 8.4 K/mm3 (1.8-7.8); Neutrophils % 80.4 % (37.0-80.0); Platelet Count 397 K/mm3 (142-424); Red Blood Count 4.02 M/mm3 (4.60-6.20); Red Cell Distribution Width 14.6 % (11.5-17.5); White Blood Count 10.4 K/mm3 (4.8-10.8)
[2022-07-05 09:48] LABS: Blood Urea Nitrogen 10 mg/dl (9-20); Calcium 8.6 mg/dl (8.4-10.2); Carbon Dioxide 28 mmol/L (22.0-30.0); Chloride 101 mmol/L (98-107); Creatinine Clearance Estimated 54 mL/min (50-200); Estimated Glomerular Filt Rate 71 ml/min (>60); GFR (African American) 86 ML/MIN (>60); Glucose 94 mg/dl (74-100); Sodium 134 mmol/L (136-145)
[2022-07-05 10:36] LABS: Anion Gap 8.4 mEq/L (5-15); Potassium 3.4 mmoL/L (3.5-5.1)
--- NOTE | 2022-07-05 11:37 | PC.NURSE ---
Paged Dr. Coffey as he is mechanic general operational test for Dr. Krause. Patient's son brought in patient's latanoprost eye drops
--- NOTE | 2022-07-05 17:24 | PC.NURSE ---
Patient alert and oriented during shift. Patient sleeping for most of shift but easily aroused. Turned q2, oral care q2. Patient weaned to room air and VS stable. Dressing change completed on right foot. Lung sounds diminished on ascultation.
--- NOTE | 2022-07-05 20:00 | PC.NURSE ---
Patients temp was 96.1 we placed warm blankets to raise temp will recheck within the hour
[2022-07-06] VITALS (11 sets, daily range): BP systolic 111–142; BP diastolic 63–88; PULSE 71–96; RESP 18–30; TEMP 35.7–36.9; O2SAT 91–97; BMI 25.2
--- NOTE | 2022-07-06 05:55 | PC.NURSE ---
NO ACUTE CHANGES SINCE PERVIOUS ASSESSMENT. LUNG SOUNDS ARE DIMINISHED ON THE LEFT SIDE. PT HAS SLEPT WELL THIS SHIFT. CHAUDHARI REMAINS IN PLACE. NO C/O PAIN OR SOB THIS SHIFT. BEING TURNED Q2HRS. O2 HAS REMAINED GREATER THAN 92% THIS SHIFT ON ROOM AIR. CALL PEDERSON WITHIN REACH. BED ALARM IN PLACE. FAMILY AT BEDSIDE.
[2022-07-06 07:54] LABS: Basophils % 0.5 % (0.1-2.0); Eosinophils # 0.1 K/mm3 (0.0-0.4); Eosinophils % 1.3 % (0.1-12.0); Hematocrit 36.9 % (42.0-52.0); Hemoglobin 12.4 g/dL (14.1-18.0); Lymphocytes # 1.1 K/mm3 (0.7-4.5); Lymphocytes % 11.9 % (10-50); Mean Corpuscular HGB Conc 33.5 g/dL (31.8-35.4); Mean Corpuscular Hemoglobin 30.1 pg (27.0-31.2); Mean Platelet Volume 8.1 fl (7.4-10.4); Monocytes # 0.7 K/mm3 (0.1-1.0); Monocytes % 7.6 % (1.7-9.3); Neutrophils # 7.4 K/mm3 (1.8-7.8); Neutrophils % 78.8 % (37.0-80.0); Platelet Count 403 K/mm3 (142-424); Red Cell Distribution Width 14.8 % (11.5-17.5); White Blood Count 9.4 K/mm3 (4.8-10.8)
[2022-07-06 07:56] LABS: Chloride 101 mmol/L (98-107); Potassium 3.9 mmoL/L (3.5-5.1); Sodium 133 mmol/L (136-145)
[2022-07-06 07:59] LABS: Anion Gap 9.9 mEq/L (5-15); Blood Urea Nitrogen 12 mg/dl (9-20); Calcium 8.7 mg/dl (8.4-10.2); Carbon Dioxide 26 mmol/L (22.0-30.0); Creatinine Clearance Estimated 54 mL/min (50-200); Estimated Glomerular Filt Rate 80 ml/min (>60); GFR (African American) 97 ML/MIN (>60); Glucose 92 mg/dl (74-100)
--- NOTE | 2022-07-06 08:28 | EXP.ACUTE.PN ---
Subjective *Date: 07/06/22 *Time: 08:28 Interval history: Overall patient did well overnight, rested well, he has been able to be weaned off of his oxygen after an excellent diuresis. Continues to tolerate antibiotics well. Alert and responsive today. Medical Exam Vital signs and Labs for Last 24 Hours: Vital Signs Temp Pulse Pulse Pulse Resp BP Pulse Ox 07/06/22 06:20 88 07/06/22 06:20 91 H 07/06/22 06:20 96 07/06/22 04:00 97.8 F 85 18 142/85 H 93 L 07/06/22 00:00 97.6 F 81 20 142/88 H 92 L 07/05/22 21:00 97.6 F 07/05/22 20:00 96.1 F L 75 18 125/68 92 L 07/05/22 23:12 71 07/05/22 23:12 68 07/05/22 23:12 96 07/05/22 17:45 69 07/05/22 17:45 66 07/05/22 17:45 92 L 07/05/22 16:00 97.6 F 84 22 129/77 94 L 07/05/22 12:00 97.6 F 67 18 118/66 95 07/05/22 11:57 64 07/05/22 11:57 65 07/05/22 11:57 98 Intake and Output 07/05/22 07/06/22 07/06/22 19:59 03:59 11:59 Intake Total 585 / 585 Output Total 375 / 675 300 / 675 Balance 210 / -90 -300 / -90 Intake: Intake, Oral Amount 40 / 40 Intake, Total IV Amount 545 / 545 Cefepime HCl 2 gm In 0.9 % 100 / 100 Sodium Chloride 100 ml @ 200 mls/hr IV Q12H GEOVANI Rx#:[id number] Linezolid 600 mg In 300 ml @ 300 / 300 300 mls/hr IV Q12H GEOVANI Rx#: [id number] Sodium Chloride 0.45 % 1,000 ml 145 / 145 @ 125 mls/hr IV .Q8H GEOVANI Rx#: [id number] Output: Output, Urine Amount 375 / 675 300 / 675 Other: Number of Unmeasured Voids 0 Weight 160 lb 6.4 oz Patient Weight 07/06/22 11:59 Weight 160 lb 6.4 oz Laboratory Results - last 24 hr 07/05/22 08:27: WBC 10.4, RBC 4.02 L, Hgb 12.1 L, Hct 35.8 L, MCV 89.1, MCH 30.0, MCHC 33.7, RDW 14.6, Plt Count 397, MPV 8.5, Neut % (Auto) 80.4 H, Lymph % (Auto) 9.9 L, Sierra % (Auto) 8.2, Eos % (Auto) 1.1, Baso % (Auto) 0.4, Neut # (Auto) 8.4 H, Lymph # (Auto) 1.0, Sierra # (Auto) 0.9, Eos # (Auto) 0.1, Baso # (Auto) 0.0 07/05/22 08:27: Sodium 134 L, Potassium 3.4 L, Chloride 101, Carbon Dioxide 28, Anion Gap 8.4, BUN 10, Creatinine 1.00 D, Estimated Creat Clear 54, Estimated GFR 71, Est GFR ( Amer) 86 D, Glucose 94, Calcium 8.6 07/06/22 07:30: WBC 9.4, RBC 4.10 L, Hgb 12.4 L, Hct 36.9 L, MCV 90.0, MCH 30.1, MCHC 33.5, RDW 14.8, Plt Count 403, MPV 8.1, Neut % (Auto) 78.8, Lymph % (Auto) 11.9, Sierra % (Auto) 7.6, Eos % (Auto) 1.3, Baso % (Auto) 0.5, Neut # (Auto) 7.4, Lymph # (Auto) 1.1, Sierra # (Auto) 0.7, Eos # (Auto) 0.1, Baso # (Auto) 0.0 07/06/22 07:30: Sodium 133 L, Potassium 3.9, Chloride 101, Carbon Dioxide 26, Anion Gap 9.9, BUN 12, Creatinine 0.90, Estimated Creat Clear 54, Estimated GFR 80, Est GFR ( Amer) 97, Glucose 92, Calcium 8.7 I & O for Labs for Last 24 Hours: Intake & Output 07/03/22 07/04/22 07/05/22 07/06/22 11:59 11:59 11:59 11:59 Intake Total 130 / 130 2499 / 2499 760 / 760 585 / 585 Output Total 0 / 0 2625 / 2625 675 / 675 Balance 130 / 130 2498 / 2498 -1865 / -1865 -90 / -90 Weight 173 lb 1.006 oz 170 lb 6.4 oz 161 lb 9.6 oz 160 lb 6.4 oz Microbiology Reports for the Last 24 Hours: Microbiology 06/30/22 15:30 Blood Blood Culture - Final NO GROWTH AFTER 5 DAYS 06/30/22 15:30 Blood Blood Culture - Final NO GROWTH AFTER 5 DAYS 07/04/22 11:12 Urine,Catheterized Urine Culture - Preliminary NO GROWTH AFTER 24 HOURS Comment:: Resting. Heart rate irregular. Lungs have better air movement. Oxygen requirement is lowered. Responds to commands, opens eyes, states that he is and not pain abdomen soft, perfusion good Assessment and Plan *Assessment and plan (1) Right upper lobe pneumonia: Status: Acute Qualifiers: Pneumonia type: due to unspecified organism Qualified Cod
--- NOTE | 2022-07-06 09:12 | PC.NURSE ---
pt in room at this time
--- NOTE | 2022-07-06 09:14 | HMH.PTEV ---
Physical Therapy Evaluation Rehab PT IP Evaluation Start: 07/05/22 09:06 Freq: ONCE Status: Active Protocol: Document 07/06/22 08:00 PHOMarlynIDA (Rec: 07/06/22 09:14 PHORNE [id number]) Subjective/History History History 86 yowm adm to [facility] with resp failure, PNA, prior I&D of R foot due to infection. He was [facility] [place] [facility] prior to this adm. He has 1 step at home and lives with son. Subjective Subjective Pt with no c/o other than feeling tired this am. Rehab PT IP Eval Objective Appearance Patient Behavior Appropriate Patient Orientation Person,Place Difficulty following instructions none Speech Pattern Clear Ambulation Patient Able to Ambulate Yes Ambulation Observation IP General Gait Pattern Observation Shuffling Step Ambulation Distance (feet) 3 Ambulation Assistive Device None Ambulation Ability Moderate x 1 (50% assist) Balance Ability to Arise Able, uses arms to help Sitting Balance Steady, safe Standing Balance Unsteady Dynamic Sitting Balance Ability Good Dynamic Standing Balance Ability Poor Transfers Bed Transfer Ability Minimal x 1 (25% assist) Chair Transfer Ability Moderate x 1 (50% assist) Sit to Stand Bed Transfer Ability Moderate x 1 (50% assist) Sit to Stand Chair Transfer Ability Moderate x 1 (50% assist) Rehab PT IP prob,goals,plan Problems Date of Evaluation: 07/06/22 PT IP Problems Bed Mobility,Transfers,Gait Rehab Potential Rehab Potential Good Plan PT Intervention Plan Bed Mobility,Transfers,Gait, Therapeutic Exercise PT Plan Frequency BID Duration LOS Discharge Goals Bed Transfer Ability Contact Guard/Hand Hold Sit to Stand Chair Transfer Ability Minimal x 2 (25% assist) Ambulation Assistive Device Rolling Walker Ambulation Distance (feet) 10 Discharge Plan PT Discharge Plan Pt is most appropriate to return to rehab once medcially stable. G -code Required No Eval Complexity Eval Charge Codes 65344 - Moderate Complexity PHYSICIAN CERTIFICATION: I certify the specified therapy services for Onur Roach are required, authorized, and reviewed every 30 days.
--- NOTE | 2022-07-06 09:28 | HMH.OTEV ---
OT Inpatient Evaluation Rehab OT IP Evaluation Start: 07/05/22 09:06 Freq: ONCE Status: Active Protocol: Document 07/06/22 09:22 SABINA (Rec: 07/06/22 09:28 [facility] [id number]) Rehab OT IP Assessment Subjective History Pt oriented x 3 on arrival. Pt agreeable to engage in therapy services. Pt's son present and supportive. 86 yowm adm to [facility] with resp failure, PNA, prior I&D of R foot due to infection. He was at [facility] for rehab prior to this adm. Prior to being at assisted he was living with his son. Pt and son report he was independent with all ADLs. He ambulated with a walker or a cane. Son reports he was able to complete IADLs if needed, but usually he completed most of the cooking and cleaning. Pt has a past medical history of: A-fib Atrial fib/flutter, transient Heart palpitations History of BPH Hyperlipemia Hypertension Subjective I am feeling a little bit better. Objective Patient Orientation Person,Place,Birthday Upper Extremity Gross ROM WFL Transfer Training Sit/Stand/Pivot Transfer Assist Level Moderate x 2 (50% assist) Rehab OT IP prob,goals,plan Problems Date of Evaluation: 07/06/22 OT IP Problems Bed Mobility,Transfers,Balance ,Self care,Safety Rehab Potential Rehab Potential Good Equipment Needs Assistive Devices Rolling / Wheeled Walker Plan OT intervention Plan Bed Mobility,Transfers,Balance ,Self care,Safety,Therapeutic Exercise OT Plan Frequency BID Duration LOS Discharge Goals Bed Mobility Ability Assistance x1 Sit to Stand Chair Transfer Ability Minimal x 2 (25% assist) Chair Transfer Ability Minimal x 2 (25% assist) Chair Transfer Technique Sit to/from Ambulatory Chair Transfer Assistive Devices Rolling Walker Feeding Ability Assist with Tray Set Up Lower Body
--- NOTE | 2022-07-06 10:02 | EXP.ORTH.CON ---
History of Present Illness *Admission Date: 06/30/22 *Reason for visit:: Right foot wound *History of present illness: 86-year-old male with long history of chronic A. fib, very mild cognitive impairment of dementia and recent admission to [facility] last week with infected foot in the right foot that required operative debridement and a IVETTE drain. Was found during the hospitalization of a community-acquired pneumonia. Was transferred to a local skilled care rehab facility near the end of last week with p.o. linezolid and Levaquin for pneumonia and foot infection respectively. Unfortunately over the next 24 hours he began to decompensate with increasing respiratory distress and oxygen requirement. Chest x-ray at the skilled care facility revealed pulmonary edema and we gave him some Lasix which improved his situation and he stabilized. He came to see podiatry yesterday and the senior living and sent him with an empty oxygen tank. During the visit with podiatry his oxygen saturations worsened and he was sent to the ER. Repeat x-ray here revealed worsening right upper lung opacity consistent with worsening pneumonia and he was admitted to hospital for further evaluation and escalation of IV antibiotics. 07/06/22: Podiatry consulted for reevaluation of the right foot prior to possible discharge back to SNF tomorrow. Patient is resting comfortably in the chair. Reports pain less than 3/10 to the foot. Betadine dressing clean dry and intact. [facility] Disclaimer: The information contained in this section may have been updated after the patient was seen, as this information can be updated by other users. Medical History (Updated 07/06/22 @ 10:07 by Christie Gallego DPM) A-fib Acute respiratory failure with hypoxia Atrial fib/flutter, transient HAP (hospital-acquired pneumonia) Heart palpitations History of BPH Hyperlipemia Hypertension Surgical History History of back surgery Family History Other Family history of cancer Family history of myocardial infarction Social History Smoking Status: Never smoker alcohol intake: never substance use type: denies use current occupational status: retired Travel in the last 8 weeks: None household members: family and children housing: house current occupational exposures/hazards: No caffeine: Yes Review of Systems Review of Systems Review of systems:: pertinent systems reviewed and negative unless documented below Review of systems (narrative): Review of systems limited given patient's mentation Constitutional Constitutional: Reports body ache(s) and Reports weakness Eyes Eyes: Reports system reviewed and no additional complaints, except as documented, Denies eye discharge, Reports dry eyes and Reports itchy eyes ENT Ears, Nose, Mouth, and Throat: Reports system reviewed and no additional complaints, except as documented *Cardiovascular Cardiovascular: Reports dyspnea and Reports dyspnea on exertion *Respiratory Respiratory: Reports dyspnea, Reports dyspnea on exertion and Reports excessive phlegm production *Gastrointestinal Gastrointestinal: Reports system reviewed and no additional complaints, except as documented and Denies abdominal pain *Genitourinary Genitourinary: Reports system reviewed and no additional complaints, except as documented *Musculoskeletal Musculoskeletal: Reports system reviewed and no additional complaints, except as documented, Reports back pain and Reports joint swelling Integumentary/Breasts Skin/Breast: Reports skin ulcer, Reports skin swelling and Reports wounds (right foot) *Neurologic Neurologic: Reports system reviewed and no additional complaints, except as documented and Reports weakness Psychiatric Psychiatric: Denies homicidal ideation and Denies suicidal ideation Endocrine Endocrine: Den
--- NOTE | 2022-07-06 10:05 | XR_ITS ---
FINAL REPORT CLINICAL HISTORY: pnm FINDINGS: A single portable view of the chest was obtained. The heart size and pulmonary vascularity are within normal limits. The mediastinum is within normal limits. There are bibasilar opacities consistent with pneumonia. There is a small left pleural effusion. The bony thorax is intact. IMPRESSION: Bibasilar pneumonia. Small left pleural effusion. Reviewed, Interpreted and Dictated by Jordy Bello III, MD Transcribed by Lucila Otero Authenticated and [facility]
--- NOTE | 2022-07-06 10:19 | EXP.PULM.PN ---
Subjective *Date: 07/06/22 *Time: 11:58 Interval history: No acute respiratory vents over the weekend. Patient admits continued improvement in his respiratory symptoms. Pulmonology Exam Inpatient Vital signs and Labs for Last 24 Hours: Temp Pulse Resp BP Pulse Ox FiO2 98.4 F 94 H 24 128/71 91 L 45 07/06/22 08:00 07/06/22 08:00 07/06/22 08:00 07/06/22 08:00 07/06/22 08:00 07/04/22 11:43 Laboratory Results - last 24 hr 07/05/22 08:27: Potassium 3.4 L, Anion Gap 8.4 07/06/22 07:30: WBC 9.4, RBC 4.10 L, Hgb 12.4 L, Hct 36.9 L, MCV 90.0, MCH 30.1, MCHC 33.5, RDW 14.8, Plt Count 403, MPV 8.1, Neut % (Auto) 78.8, Lymph % (Auto) 11.9, [place] % (Auto) 7.6, Eos % (Auto) 1.3, Baso % (Auto) 0.5, Neut # (Auto) 7.4, Lymph # (Auto) 1.1, [place] # (Auto) 0.7, Eos # (Auto) 0.1, Baso # (Auto) 0.0 07/06/22 07:30: Sodium 133 L, Potassium 3.9, Chloride 101, Carbon Dioxide 26, Anion Gap 9.9, BUN 12, Creatinine 0.90, Estimated Creat Clear 54, Estimated GFR 80, Est GFR ( Amer) 97, Glucose 92, Calcium 8.7 I & O for Labs for Last 24 Hours: Intake & Output 07/03/22 07/04/22 07/05/22 07/06/22 23:59 23:59 23:59 23:59 Intake Total 2098 760 / 760 985 / 985 Output Total 1999 1000 / 1000 300 / 300 Balance 2097 -1240 / -1240 -15 / -15 -300 / -300 Weight 173 lb 1.006 oz 170 lb 6.4 oz 161 lb 9.6 oz 160 lb 6.4 oz Microbiology Reports for the Last 24 Hours: Microbiology 06/30/22 15:30 Blood Blood Culture - Final NO GROWTH AFTER 5 DAYS 06/30/22 15:30 Blood Blood Culture - Final NO GROWTH AFTER 5 DAYS 07/04/22 11:12 Urine,Catheterized Urine Culture - Preliminary NO GROWTH AFTER 24 HOURS Constitutional: Present moderate distress Head: Present normocephalic and atraumatic ENT: Present normal exam, normal oropharynx and mucous membranes moist Neck: Present normal inspection and trachea midline Respiratory: Present respiratory distress, rhonchi, crackles and able to speak in complete sentences Cardiac: Present S1/S2, Tachycardia and radial pulses present GI: Present soft and distention; Absent tenderness or guarding Skin: Present intact; Absent cyanosis or jaundice Neuro: Present awake; Absent alert or oriented x 3 Extremities: Present normal inspection; Absent clubbing or cyanosis Psychiatric: Present normal affect and cooperative Assessment and Plan *Assessment and plan (1) Right upper lobe pneumonia: Status: Acute Qualifiers: Pneumonia type: due to unspecified organism Qualified Code(s): J18.9 - Pneumonia, unspecified organism Category: Medical Code(s): J18.9 - Pneumonia, unspecified organism (2) HAP (hospital-acquired pneumonia): Status: Acute Category: Medical Code(s): J18.9 - Pneumonia, unspecified organism; Y95 - Nosocomial condition (3) Acute respiratory failure with hypoxia: Status: Acute Category: Medical Code(s): J96.01 - Acute respiratory failure with hypoxia Plan Admitted to the hospital 06/21 as per the notes secondary increased weakness and confusion along with chest pain with breathing patient has met SIRS criteria for presumed UTI and was initiated on ceftriaxone. Chest x-ray on admission showed dense right lower lobe consolidation. And upon admission to the floor, patient antibiotics were escalated to vancomycin and cefepime concerning for cellulitis and was eventually transition to oral Zyvox and levofloxacin to complete a total of 14-day course urine and blood cultures were negative on that admission. Abscess cultures from the admission grew strep pyogenes. Patient discharge and presented again to the hospital on 06/30/2022 with worsening respiratory distress. Patient needing nasal cannula from 2-6 on admission with progressively worsening respiratory distress and increasing oxygen requirements. Blood cultures from this admissio
--- NOTE | 2022-07-06 13:46 | PC.NURSE ---
lying in bed asleep
--- NOTE | 2022-07-06 18:40 | PC.NURSE ---
Patient more alert during shift than previous. Patient able to sit in chair for a couple of hours during the day. Patient had a bowel movement during shift. VS stable and patient remained on room air with no SOB reported.
[2022-07-07] VITALS: BP 133/83; PULSE 80; RESP 18; TEMP 36.1; O2SAT 99
[2022-07-07 04:00] VITALS: BP 152/87; PULSE 93; RESP 28; TEMP 37.3; O2SAT 94
[2022-07-07 04:20] VITALS: BMI 25.7
--- NOTE | 2022-07-07 05:32 | PC.NURSE ---
NO ACUTE CHANGES SINCE SINCE PREVIOUS ASSESSMENT. PT HAS RESTED WELL THIS SHIFT. REMAINS ON ROOM AIR. PT'S TEMP DROPPED TO 96.2 THIS SHIFT AND PT WAS COVERED WITH BLANKETS AND TEMP RECHECKED. PTS TEMP WAS STILL LOW SO HE WAS PLACED ON THE BARE PAWS. TEMP IS NOW WNL. PT HAS BEEN TURNED Q2HRS. CALL PEDERSON WITHIN REACH. FAMILY REMAINS AT BEDSIDE.
[2022-07-07 06:31] VITALS: PULSE 101; PULSE 94; O2SAT 94
--- NOTE | 2022-07-07 07:49 | EXP.DC.SUM ---
General Admission date:: 06/30/22 Discharge date: 07/07/22 HPI HPI HPI: 86-year-old male with long history of chronic A. fib, very mild cognitive impairment of dementia and recent admission to [facility] week with infected foot in the right foot that required operative debridement and a IVETTE drain. Was found during the hospitalization of a community-acquired pneumonia. Was transferred to a local skilled care rehab facility near the end of last week with p.o. linezolid and Levaquin for pneumonia and foot infection respectively. Unfortunately over the next 24 hours he began to decompensate with increasing respiratory distress and oxygen requirement. Chest x-ray at the skilled care facility revealed pulmonary edema and we gave him some Lasix which improved his situation and he stabilized. He came to see podiatry [facility]. During the visit with podiatry his oxygen saturations worsened and he was sent to the ER. Repeat x-ray here revealed worsening right upper lung opacity consistent with worsening pneumonia and he was admitted to hospital for further evaluation and escalation of IV antibiotics. 07/06/22: Podiatry consulted for reevaluation of the right foot prior to possible discharge back to SNF tomorrow. Patient is resting comfortably in the chair. Reports pain less than 3/10 to the foot. Betadine dressing clean dry and intact. Hospital Course Hospital Course Hospital Course: [facility] after recent hospital stay for healthcare acquired pneumonia and slight worsening of his foot infection. He was placed on Zyvox initially, over the next couple days he really failed to improve and had more pulmonary congestion. Pulmonary was consulted recommended expanding antibiotic coverage to cefepime and linezolid and we also diuresed him because of his history of CHF and pleural effusions. He diuresed about a liter and a half, and drastically improved his respiratory status came off his Vapotherm and actually was able to progress to room air. Over the next couple days he maintained this room air status and was able to do physical therapy. Podiatry recommended no further need for antibiotics from a foot perspective and continue dressing changes and follow-up in the clinic. Given his improvement, need for ongoing physical therapy will be transferred back to [facility] today. On a social work note: I would like to express my extreme disappointment with the [facility]-they told the patient's family that they will hold the would be applicable in this case and the family has paid several hundred dollars over the past week to keep his bed at [facility]. However now they are telling our social workers that he requires a pre-CERT. This is unethical and disingenuous to the family and to the hospital. I have instructed the family to request a full refund of the bed hold money if [facility] pre-CERT his insurance again to maximize their income. If [facility] does not readmit the patient today or requires the family to pay the bed hold money I plan on reporting them to the state authorities for unethical behavior and quite frankly lying to the family. On his medical note: Patient will be sent back on Augmentin and Bactrim to complete his course for hospital/nursing required pneumonia. He will need follow-up with podiatry in 1 week. We will follow-up at [facility] rounds. Given his CARLOS A inhibitor and Bactrim therapy together he will need a BMP in 2 days to monitor potassium. Patient maintains a DNR status and we will continue to respect this. Exam Data for Last 24 hours Vital signs and Labs for Last 24 Hours: Temp Pulse Resp BP Pulse Ox FiO2 99.1 F 94 H 28 H 152/87 H 94 L 45 07/07/22 04:00 07/07/22 06:31 07/07/22 04:00 07/07/22 04:00 07/07/22 06:31 07/04/22 11:43 Laboratory Results - last 24 hr
[2022-07-07 08:00] VITALS: BP 125/72; PULSE 95; RESP 19; TEMP 36.6; O2SAT 94
--- NOTE | 2022-07-07 08:24 | EXP.ORTH.PN ---
Subjective *Date: 07/07/22 *Time: 08:05 Interval history: Patient is resting comfortably on the bed eating breakfast. He reports minimal to no pain currently to the right foot. Dressing is clean dry intact. Ortho Exam (Inpt) Vital signs and Labs for Last 24 Hours: Temp Pulse Resp BP Pulse Ox FiO2 99.1 F 94 H 28 H 152/87 H 94 L 45 07/07/22 04:00 07/07/22 06:31 07/07/22 04:00 07/07/22 04:00 07/07/22 06:31 07/04/22 11:43 Temp Pulse Resp BP Pulse Ox FiO2 98.4 F 94 H 24 128/71 91 L 45 07/06/22 08:00 07/06/22 08:00 07/06/22 08:00 07/06/22 08:00 07/06/22 08:00 07/04/22 11:43 Laboratory Results - last 24 hr 07/05/22 08:27: Potassium 3.4 L, Anion Gap 8.4 07/06/22 07:30: WBC 9.4, RBC 4.10 L, Hgb 12.4 L, Hct 36.9 L, MCV 90.0, MCH 30.1, MCHC 33.5, RDW 14.8, Plt Count 403, MPV 8.1, Neut % (Auto) 78.8, Lymph % (Auto) 11.9, [place] % (Auto) 7.6, Eos % (Auto) 1.3, Baso % (Auto) 0.5, Neut # (Auto) 7.4, Lymph # (Auto) 1.1, [place] # (Auto) 0.7, Eos # (Auto) 0.1, Baso # (Auto) 0.0 07/06/22 07:30: Sodium 133 L, Potassium 3.9, Chloride 101, Carbon Dioxide 26, Anion Gap 9.9, BUN 12, Creatinine 0.90, Estimated Creat Clear 54, Estimated GFR 80, Est GFR ( Amer) 97, Glucose 92, Calcium 8.7 I & O for Labs for Last 24 Hours: Intake & Output 07/04/22 07/05/22 07/06/22 07/07/22 11:59 11:59 11:59 11:59 Intake Total 2499 / 2499 760 / 760 585 / 585 1120 / 1120 Output Total 2625 / 2625 675 / 675 1000 / 1000 Balance 2498 / 2498 -1865 / -1865 -90 / -90 120 / 120 Weight 170 lb 6.4 oz 161 lb 9.6 oz 160 lb 6.4 oz 164 lb Intake & Output 07/03/22 07/04/22 07/05/22 07/06/22 11:59 11:59 11:59 11:59 Intake Total 130 / 130 2499 / 2499 760 / 760 585 / 585 Output Total 0 / 0 2625 / 2625 675 / 675 Balance 130 / 130 2498 / 2498 -1865 / -1865 -90 / -90 Weight 173 lb 1.006 oz 170 lb 6.4 oz 161 lb 9.6 oz 160 lb 6.4 oz Microbiology Reports for the Last 24 Hours: Microbiology 07/04/22 11:12 Urine,Catheterized Urine Culture - Final NO GROWTH AFTER 48 HOURS Microbiology 06/30/22 15:30 Blood Blood Culture - Final NO GROWTH AFTER 5 DAYS 06/30/22 15:30 Blood Blood Culture - Final NO GROWTH AFTER 5 DAYS 07/04/22 11:12 Urine,Catheterized Urine Culture - Preliminary NO GROWTH AFTER 24 HOURS Constitutional: Present no acute distress Head: Present normocephalic Neck: Present normal inspection Respiratory: Present wheezes Cardiac: Present pedal pulses present (decreased left /right ) GI: Present soft Extremities: Present tenderness (right foot) and edema (right foot and ankle); Absent normal capillary refill Skin: Present erythema, dry, warm, wounds (right foot skin breakdown/ tear ) and ecchymosis (right foot dorsal) Comment:: S/p right foot I&D x4 on 06/25/22. 07/07/22: Sutures intact. IVETTE drain was previously pulled out at [facility] from right lateral foot/ankle. Open wound from IVETTE drain site ~0.3x0.3x0.3cm with no serosanginous drainage. Right foot has pitting edema with ecchymosis noted to all incisions.?Fragile skin with some sloughing noted.?Antibiotic beads intact in wound beds. No tracee purulence expressed.?Dorsal wounds x2 with sutures intact and yellow fibrotic tissue noted. There is bluish-black discoloration and dry black eschar noted to the dorsal lateral right foot over the fourth?fifth metatarsal region. Skin cleansed with Betadine. 11' blade used to sharply incisionally debride lateral wound thru skin/eschar. Post: ~10x7x0.1cm. Skin appears to have gangrenous changes. Neuro: Present Motor Function Intact, alert, awake and moves all extremities Ankle: right: erythema and right: swelling Feet/Toes: left: foot drop, right: erythema, right: swelling (2+ pitting edema), right: tenderness and right: wound (sutures intact to right foot) and bilateral: deformity, bilateral: nail abnormalities, bilatera
--- NOTE | 2022-07-07 09:42 | EXP.PULM.PN ---
Subjective *Date: 07/07/22 *Time: 11:14 Interval history: No acute respiratory vents overnight. Continues to remain on room air. Continued to complain of cough with scant productive phlegm. Pulmonology Exam Inpatient Vital signs and Labs for Last 24 Hours: Temp Pulse Resp BP Pulse Ox FiO2 98 F 95 H 19 125/72 94 L 45 07/07/22 08:00 07/07/22 08:00 07/07/22 08:00 07/07/22 08:00 07/07/22 08:00 07/04/22 11:43 I & O for Labs for Last 24 Hours: Intake & Output 07/04/22 07/05/22 07/06/22 07/07/22 23:59 23:59 23:59 23:59 Intake Total 760 / 760 985 / 985 1120 / 1120 Output Total 2000 / 2000 1000 / 1000 600 / 800 700 / 700 Balance -1240 / -1240 -15 / -15 520 / 320 -700 / -700 Weight 170 lb 6.4 oz 161 lb 9.6 oz 160 lb 6.4 oz 164 lb Microbiology Reports for the Last 24 Hours: Microbiology 07/04/22 11:12 Urine,Catheterized Urine Culture - Final NO GROWTH AFTER 48 HOURS Constitutional: Present moderate distress Head: Present normocephalic and atraumatic ENT: Present normal exam, normal oropharynx and mucous membranes moist Neck: Present normal inspection and trachea midline Respiratory: Present rhonchi and able to speak in complete sentences; Absent respiratory distress Cardiac: Present S1/S2, Tachycardia and radial pulses present GI: Present soft and distention; Absent tenderness or guarding Skin: Present intact; Absent cyanosis or jaundice Neuro: Present awake; Absent alert or oriented x 3 Extremities: Present normal inspection; Absent clubbing or cyanosis Psychiatric: Present normal affect and cooperative Assessment and Plan *Assessment and plan (1) Right upper lobe pneumonia: Status: Acute Qualifiers: Pneumonia type: due to unspecified organism Qualified Code(s): J18.9 - Pneumonia, unspecified organism Category: Medical Code(s): J18.9 - Pneumonia, unspecified organism (2) HAP (hospital-acquired pneumonia): Status: Acute Category: Medical Code(s): J18.9 - Pneumonia, unspecified organism; Y95 - Nosocomial condition (3) Acute respiratory failure with hypoxia: Status: Acute Category: Medical Code(s): J96.01 - Acute respiratory failure with hypoxia Plan Admitted to the hospital 06/21 as per the notes secondary increased weakness and confusion along with chest pain with breathing patient has met SIRS criteria for presumed UTI and was initiated on ceftriaxone. Chest x-ray on admission showed dense right lower lobe consolidation. And upon admission to the floor, patient antibiotics were escalated to vancomycin and cefepime concerning for cellulitis and was eventually transition to oral Zyvox and levofloxacin to complete a total of 14-day course urine and blood cultures were negative on that admission. Abscess cultures from the admission grew strep pyogenes. Patient discharge and presented again to the hospital on 06/30/2022 with worsening respiratory distress. Patient needing nasal cannula from -6 on admission with progressively worsening respiratory distress and increasing oxygen requirements. Blood cultures from this admission no growth 48 hours. No sputum cultures available for review. Afebrile on this admission. Hemodynamically stable. Leukocytosis improving. Renal function stable. On Eliquis twice daily Chest x-ray from 06/30 and from today showed improvement in the right lower lobe but however noted to have new predominant right upper lobe infiltrate progressively getting worse. Patient was initiated on Zosyn on this admission Speech evaluated - feeding with assistance. CTA reviewed, no pulmonary embolism, large right-sided pleural effusion and airspace disease. Patient antibiotics were escalated to cefepime and linezolid and has been diuresed over the weekend. Significant improvement in his oxygen status. Leukocytosis stable. Hemodynamically stable. Chest x-ray from 07/06/22 reviewed, continued improve
[2022-07-07 10:37] LABS: Coronavirus 19, PCR Not Detected (NotDetected); Influenza A, PCR Not Detected (NotDetected); Influenza B, PCR Not Detected (NotDetected)
[2022-07-07 11:14] VITALS: PULSE 3; PULSE 74
[2022-07-07 12:00] VITALS: BP 145/85; PULSE 81; RESP 20; TEMP 36.4; O2SAT 92
--- NOTE | 2022-07-08 13:16 | CARE MANAGER ---
Spoke with patient nurse , Lina at [facility]. She states that patient is dong well and has no issues at this time.
[2022-07-11 22:54] LABS: MRSA DNA PCR NEGATIVE
== END 2022-07-07 14:25 | DRG 166 ==
LOC: ER 15:59 → 2ND 17:58
PROVIDERS: Internal Medicine Pulmonary Disease; Admitting Provider Family Medicine; Emergency Provider Student in an Organized Health Care Education/Training Program; PCP Internal Medicine Adolescent Medicine; Visit Provider Internal Medicine Adolescent Medicine
DX: J18.9 Pneumonia, unspecified organism (principal); J96.01 Acute respiratory failure with hypoxia; L03.115 Cellulitis of right lower limb; I48.20 Chronic atrial fibrillation, unspecified; J81.1 Chronic pulmonary edema; I96 Gangrene, not elsewhere classified; G20 Parkinson's disease; E78.5 Hyperlipidemia, unspecified; I10 Essential (primary) hypertension; N40.0 Benign prostatic hyperplasia without lower urinary tract symptoms; F03.90 Unspecified dementia, unspecified severity, without behavioral disturbance, psychotic disturbance, mood disturbance, and anxiety; E86.0 Dehydration; Y95 Nosocomial condition; E87.6 Hypokalemia; R68.0 Hypothermia, not associated with low environmental temperature; L97.519 Non-pressure chronic ulcer of other part of right foot with unspecified severity
CPT/HCPCS: 11042; 11045 ×3; 36415; 71045; 71275; 73590; 73600; 73630; 80048; 80053; 81001; 82140; 82607; 82803; 83605; 83735; 84443; 84484; 85007; 85025; 85651; 86140; 87040; 87086; 87641; 92526; 92610; 93005; 93306; 94640; 94760; 94761; 97162; 97166; 97530; 99285; C9803; J2020; J2543; Q9967; U0003; U0005

== ENCOUNTER 2022-07-14 07:25 | Inpatient (IN) | payer MEDICARE, SELFPAY ==
[2022-07-14] VITALS (13 sets, daily range): BP systolic 123–171; BP diastolic 64–95; PULSE 68–87; RESP 16–22; TEMP 36.3–36.9; O2SAT 94–98; BMI 21.5
[2022-07-14 07:47] LABS: Basophils # 0.1 K/mm3 (0-0.2); Basophils % 0.6 % (0.1-2.0); Eosinophils % 0.4 % (0.1-12.0); Hematocrit 36.7 % (42.0-52.0); Hemoglobin 12.3 g/dL (14.1-18.0); Mean Corpuscular HGB Conc 33.6 g/dL (31.8-35.4); Mean Corpuscular Hemoglobin 30.3 pg (27.0-31.2); Mean Corpuscular Volume 90.2 fl (80-94); Monocytes # 0.7 K/mm3 (0.1-1.0); Monocytes % 7.4 % (1.7-9.3); Neutrophils # 7.7 K/mm3 (1.8-7.8); Neutrophils % 81.5 % (37.0-80.0); Platelet Count 270 K/mm3 (142-424); Red Blood Count 4.07 M/mm3 (4.60-6.20); Red Cell Distribution Width 15.3 % (11.5-17.5); White Blood Count 9.5 K/mm3 (4.8-10.8)
[2022-07-14 07:55] LABS: Alanine Aminotransferase 76 U/L (12-78); Albumin/Globulin Ratio 1.1 (1.1-1.8); Alkaline Phosphatase 228 U/L (38-126); Anion Gap 11.8 mEq/L (5-15); Aspartate Amino Transferase 66 U/L (17-59); Bilirubin,Total 0.5 mg/dl (0.2-1.3); Blood Urea Nitrogen 15 mg/dl (9-20); Calcium 9.8 mg/dl (8.4-10.2); Carbon Dioxide 25 mmol/L (22.0-30.0); Chloride 99 mmol/L (98-107); Creatinine Clearance Estimated 38 mL/min (50-200); Estimated Glomerular Filt Rate 48 ml/min (>60); GFR (African American) 58 ML/MIN (>60); Globulin 3.6 g/dL (1.3-3.2); Glucose 83 mg/dl (74-100); Lactic Acid 1.2 mmol/L (0.7-2.1); Potassium 3.8 mmoL/L (3.5-5.1); Sodium 132 mmol/L (136-145); Total Protein,Serum 7.6 g/dl (6.3-8.2)
--- NOTE | 2022-07-14 08:15 | CT_ITS ---
FINAL REPORT CLINICAL HISTORY: [facility] COMPARISON: March 2022 FINDINGS: Axial images of the head were obtained without contrast. Coronal reformatted images were also obtained. This study was performed with techniques to keep radiation doses as low as reasonably achievable (ALARA). Individualized dose reduction techniques using automated exposure control or adjustment of mA and/or kV according to the patient''s size were employed. There is generalized age-appropriate atrophy. Periventricular low-attenuation areas are seen consistent with mild chronic ischemic changes. There is no evidence of intracranial hemorrhage or mass. There is no evidence of acute infarct. There is no evidence of shift of the midline structures. No skull abnormality is seen on the bone window images. IMPRESSION: Atrophy and mild periventricular chronic ischemic changes. No acute intracranial abnormality identified. Reviewed, Interpreted and Dictated by Jordy Bello III, MD Transcribed by Kar Phipps Authenticated and [facility]
--- NOTE | 2022-07-14 08:15 | XR_ITS ---
FINAL REPORT CLINICAL HISTORY: pain, post-op, AMS FINDINGS: Right foot Two views were obtained. There is a chronic fracture of the 4th metatarsal. There is chronic deformity of the 3rd metatarsal, may represent a chronic fracture. There are postoperative changes in the lateral foot with presumed antibiotic beads. Note is made of cavus deformity of the foot. There are mild degenerative changes. IMPRESSION: Chronic and postoperative changes as detailed above. Reviewed, Interpreted and Dictated by Jordy Bello III, MD Transcribed by Mary Valdez Authenticated and [facility]
--- NOTE | 2022-07-14 08:15 | CT_ITS ---
FINAL REPORT TECHNIQUE: Axial images through the abdomen and pelvis were performed without contrast. This study was performed with techniques to keep radiation doses as low as reasonably achievable, (ALARA). Individualized dose reduction techniques using automated exposure control or adjustment of mA and/or kV according to the patient's size were employed. CLINICAL HISTORY: AMS, abdominal pain FINDINGS: ABDOMEN: Motion artifact is identified on many of the images. There are moderate right and small left pleural effusions with bibasilar atelectasis. There is a gallstone in the gallbladder. The heart size is normal. Limited images of the liver are unremarkable. The spleen is normal. There is left adrenal gland enlargement, favor hyperplasia or an adenoma. The aorta is normal in caliber. There is no significant free fluid or adenopathy. There is no nephrolithiasis. There is no hydronephrosis. PELVIS: The appendix is not identified. There is diffuse prostate gland enlargement. There is a moderate L3 compression fracture with 50% loss of height, may be acute or subacute. There is a moderate to large amount of retained stool throughout the colon. There is no significant free fluid or adenopathy. IMPRESSION: Cholelithiasis. Bilateral pleural effusions. Acute or subacute L3 compression fracture. Moderate to large stool burden. Reviewed, Interpreted and Dictated by Jordy Bello III, MD Transcribed by Mary Valdez Authenticated and [facility]
--- NOTE | 2022-07-14 08:15 | XR_ITS ---
FINAL REPORT CLINICAL HISTORY: AMS COMPARISON: July 06, 2022 FINDINGS: The heart size is normal. The mediastinum is within normal limits. There are worsening bilateral pulmonary opacities consistent with worsening pneumonia. There is no pneumothorax. The bony thorax is intact. IMPRESSION: Worsening bilateral pneumonia. Reviewed, Interpreted and Dictated by Jordy Bello III, MD Transcribed by Kar Phipps Authenticated and [facility]
[2022-07-14 08:30] LABS: C-Reactive Protein 36.9 mg/L (0-4)
[2022-07-14 08:44] LABS: Erythrocyte Sedimentation Rate 89 mm/hr (0-20)
--- NOTE | 2022-07-14 08:44 | PC.NURSE ---
family member said his dad keeps getting his foot down in between mattress and rail. Pt has stitches in foot. placed seizure pads on bed and also a couple blankets on bed.
--- NOTE | 2022-07-14 08:45 | HMH.EDGENADL ---
Discharge Plan Disposition Patient Disposition: Admitted As Inpatient Condition: Good Clinical Impressions Clinical Impression: HUGO (acute kidney injury), Acute UTI, Infection of right foot, Acute alteration in mental status Pneumonia Qualifiers: Pneumonia type: due to unspecified organism Laterality: bilateral Lung location: lower lobe of lung Qualified Code(s): J18.9 - Pneumonia, unspecified organism Discharge ED Provider: Viviane Almonte General Adult HPI General Chief complaint: Recheck/Abnormal Lab/Rx Stated complaint: ams Time Seen by Provider: 07/14/22 07:58 Mode of Arrival: EMS Source of Information: Patient and EMS Limitations: No Limitations Description of Symptoms (Recalled from ER Triage Doc. by RN): pt to ed via ems from snf. per snf staff pt was unresponsive, shaking and septic. on arrival to ed pt answers all questions appropriately, denies pain and reports he is tired. pt arrives with blood in his huertas bag; snf staff states pt tugged on his huertas this morning and had blood in his urine. pt has a hx of a recent foot surgery with dr sandhu. History of Present Illness HPI narrative: This patient is an 86-year-old male with a history of chronic right foot wound, left foot drop, atrial fibrillation on Eliquis, and parkinsonism presenting to the emergency department for evaluation of confusion and shaking at the alf. They report that they were concerned that he may be septic from his foot wound given the shaking and confusion. Patient also has blood in his Huertas bag, and nursing facility notes that he had tugged on his Huertas by accident this morning. He had recent right foot surgery with Dr. Sandhu. His son reports that currently, he feels that his father is confused. He states that he had intermittently been confused at night since the surgery, but now he has been confused most of the time. No recent fevers noted. No cough, congestion, trouble breathing, vomiting, or changes in bowel movements noted. Patient does complain of lower abdominal pain at this time. On my assessment, he does not answer questions appropriately. Related Data Home Medications Medication Instructions Recorded Confirmed omega 1-zzd-fto-fish oil 1,000 mg 1 cap PO DAILY Supplement 09/05/18 06/30/22 (120 mg-180 mg) capsule (Fish Oil) vitamin B complex (B 1 tab PO DAILY Supplement 09/05/18 06/30/22 Complex-Vitamin B12 tablet) apixaban 5 mg tablet 5 mg PO BID afib 03/18/22 06/30/22 acetaminophen 500 mg tablet 500 mg PO Q6H PRN Pain 06/21/22 06/30/22 amlodipine 5 mg tablet 5 mg PO DAILY Hypertension 06/21/22 06/30/22 escitalopram oxalate 10 mg tablet 10 mg PO DAILY mood 06/21/22 06/30/22 metoprolol succinate 25 mg 25 mg PO DAILY Hypertension 06/21/22 06/30/22 tablet,extended release 24 hr cholecalciferol (vitamin D3) 50 50 mcg PO DAILY Supplement 06/22/22 06/30/22 mcg (2,000 unit) tablet lisinopril 20 mg tablet 20 mg PO DAILY Hypertension 06/22/22 06/30/22 fluticasone 250 mcg-salmeterol 50 1 puff inhalation BIDRT Asthma 06/30/22 06/30/22 mcg/dose blistr powdr for inhalation (Advair Diskus) latanoprost 0.005 % eye drops 1 drp Eye-Both HS glaucoma 07/05/22 07/05/22 Previous Rx's Medication Instructions Recorded ipratropium 0.5 mg-albuterol 3 mg 3 ml inhalation Q6HP PRN Wheezing 06/26/22 (2.5 mg base)/3 mL nebulization #0 mL soln amoxicillin 500 mg-potassium 1 tab PO TID 7 days #21 tabs 07/07/22 clavulanate 125 mg tablet (Augmentin) furosemide 20 mg tablet 20 mg PO DAILY #30 tabs 07/07/22 gabapentin 100 mg capsule 100 mg PO BID Pain 30 days #60 caps 07/07/22 sulfamethoxazole 800 1 tab PO BID 7 days #14 tabs 07/07/22 mg-trimethoprim 160 mg tablet (Bactrim DS) Allergies Allergy/AdvReac Type Severity Reaction Status Date / Time Kugnprr-XSG-DuN Reductase Allergy Mild Verified 06/30/22 13:31 Inhibitor [Pvekqar-Lum-Kar Reductase Inhibitor] [facility] Disclaimer: The information co
[2022-07-14 09:03] LABS: Ammonia < 9 umol/L (9-30)
[2022-07-14 09:26] LABS: Microscopic, Urine URINE MICROSCOPIC (MICROSCOPIC)
[2022-07-14 09:33] LABS: VBG Base Excess -1.9 mmol/L (-2.4-2.3); VBG HCO3 23.5 mmol/L (23-30); VBG Oxygen Saturation 84.5 % (50-70); VBG PH 7.37 mmol/L (7.31-7.41); VBG PO2 50.1 mmol/L (28-40); VBG Total CO2 24.8 mmol/L (23-27)
[2022-07-14 09:34] LABS: Appearance,Urine TURBID (Clear); Bilirubin,Urine Negative (Negative); Blood, Urine 3+ (Negative); Color,Urine BROWN (Yellow); Glucose,Urine (UA) Negative (Negative); Ketones,Urine TRACE (Negative); Leukocyte Esterase,Urine TRACE (Negative); Nitrate,Urine POSITIVE (Negative); Protein,Urine 2+ (Negative); Specific Gravity, Urine 1.025 (1.005-1.030)
--- NOTE | 2022-07-14 09:41 | PC.NURSE ---
Patient is heading to CT
[2022-07-14 09:51] LABS: Bacteria,Urine 4+ /lpf; RBC,Urine TNTC #/hpf (0-3)
--- NOTE | 2022-07-14 10:01 | EXP.PHA.CONS ---
Pharmacy Consult Date: 07/14/22 Time: 10:01 Referring provider: DR ZAMORANO Reason for Consult:: VANCOMYCIN DOSE CONSULT Allergies Allergy/AdvReac Type Severity Reaction Status Date / Time Ghbixyo-JSP-EvO Reductase Allergy Mild Verified 06/30/22 13:31 Inhibitor [Qvnfnza-Ess-Nlp Reductase Inhibitor] Home Medications Medication Instructions Recorded Confirmed Type omega 7-lmk-ekh-fish oil 1,000 mg 1 cap PO DAILY Supplement 09/05/18 06/30/22 History (120 mg-180 mg) capsule (Fish Oil) vitamin B complex (B 1 tab PO DAILY Supplement 09/05/18 06/30/22 History Complex-Vitamin B12 tablet) apixaban 5 mg tablet 5 mg PO BID afib 03/18/22 06/30/22 History acetaminophen 500 mg tablet 500 mg PO Q6H PRN Pain 06/21/22 06/30/22 History amlodipine 5 mg tablet 5 mg PO DAILY Hypertension 06/21/22 06/30/22 History escitalopram oxalate 10 mg tablet 10 mg PO DAILY mood 06/21/22 06/30/22 History metoprolol succinate 25 mg 25 mg PO DAILY Hypertension 06/21/22 06/30/22 History tablet,extended release 24 hr cholecalciferol (vitamin D3) 50 50 mcg PO DAILY Supplement 06/22/22 06/30/22 History mcg (2,000 unit) tablet lisinopril 20 mg tablet 20 mg PO DAILY Hypertension 06/22/22 06/30/22 History ipratropium 0.5 mg-albuterol 3 mg 3 ml inhalation Q6HP PRN Wheezing 06/26/22 06/30/22 Rx (2.5 mg base)/3 mL nebulization #0 mL soln fluticasone 250 mcg-salmeterol 50 1 puff inhalation BIDRT Asthma 06/30/22 06/30/22 History mcg/dose blistr powdr for inhalation (Advair Diskus) latanoprost 0.005 % eye drops 1 drp Eye-Both HS glaucoma 07/05/22 07/05/22 History amoxicillin 500 mg-potassium 1 tab PO TID 7 days #21 tabs 07/07/22 Rx clavulanate 125 mg tablet (Augmentin) furosemide 20 mg tablet 20 mg PO DAILY #30 tabs 07/07/22 Rx gabapentin 100 mg capsule 100 mg PO BID Pain 30 days #60 caps 07/07/22 Rx sulfamethoxazole 800 1 tab PO BID 7 days #14 tabs 07/07/22 Rx mg-trimethoprim 160 mg tablet (Bactrim DS) New Prescriptions to Start Prescriptions: Height: 1.83 m Weight: 72.121 kg Laboratory Results:: Laboratory Results - last 24 hr 07/14/22 07:30: WBC 9.5, RBC 4.07 L, Hgb 12.3 L, Hct 36.7 L, MCV 90.2, MCH 30.3, MCHC 33.6, RDW 15.3, Plt Count 270, MPV 9.0, Neut % (Auto) 81.5 H, Lymph % (Auto) 10.0, [place] % (Auto) 7.4, Eos % (Auto) 0.4, Baso % (Auto) 0.6, Neut # (Auto) 7.7, Lymph # (Auto) 1.0, [place] # (Auto) 0.7, Eos # (Auto) 0.0, Baso # (Auto) 0.1 07/14/22 07:30: Sodium 132 L, Potassium 3.8, Chloride 99, Carbon Dioxide 25, Anion Gap 11.8, BUN 15, Creatinine 1.40 H, Estimated Creat Clear 38, Estimated GFR 48 L, Est GFR ( Amer) 58 L, Glucose 83, Calcium 9.8, Total Bilirubin 0.5, AST 66 H, ALT 76, Alkaline Phosphatase 228 H, Total Protein 7.6, Albumin 4.0, Globulin 3.6 H, Albumin/Globulin Ratio 1.1 07/14/22 07:30: Lactate 1.2 07/14/22 07:30: ESR 89 H 07/14/22 07:30: C-Reactive Protein 36.9 H 07/14/22 08:25: Ammonia < 9 L 07/14/22 09:07: VBG pH 7.37, VBG pCO2 42.0, VBG pO2 50.1 H, VBG HCO3 23.5, VBG Total CO2 24.8, VBG O2 Saturation 84.5 H, VBG Base Excess -1.9 07/14/22 09:16: Urine Color Brown, Urine Appearance Turbid, Urine pH 7.0, Ur Specific [place] 1.025, Urine Protein 2+, Urine Glucose (UA) Negative, Urine Ketones Trace, Urine Blood 3+, Urine Nitrate Positive, Urine Bilirubin Negative, Urine Urobilinogen 1.0, Ur Leukocyte Esterase Trace, Urine RBC Tntc, Urine WBC 10-20, Ur Squamous Epith Cells None, Urine Bacteria 4+ Medical History: Medical History (Updated 07/11/22 @ 00:01 by Background Daemon) A-fib Acute respiratory failure with hypoxia Atrial fib/flutter, transient HAP (hospital-acquired pneumonia) Heart palpitations History of BPH Hyperlipemia Hypertension Assessment and Plan Assessment and plan all Dx Assessment and Plan for all problems:: Pharmacokinetic dosing service Objective: Age: 86 yo Serum creatinine: 1.4 mg/dL Height: 72
--- NOTE | 2022-07-14 11:17 | PC.NURSE ---
speaking to hospitalist about admission
--- NOTE | 2022-07-14 11:20 | PC.NURSE ---
spoke with jose david in care management for admission
--- NOTE | 2022-07-14 11:28 | PC.NURSE ---
Case management has been called about patient needing a room
[2022-07-14 11:52] LABS: Coronavirus 19, PCR Not Detected (NotDetected); Influenza A, PCR Not Detected (NotDetected); Influenza B, PCR Not Detected (NotDetected)
--- NOTE | 2022-07-14 12:48 | PC.NURSE ---
Patient arrived to floor at this time
--- NOTE | 2022-07-14 13:18 | SW/DCPLANNER ---
Addendum entered by Kizzy Foote 07/16/22 08:07: Per Angelina precert was started yesterday 07/15/22: patient is not ready for discharge today. The plan for this patient is to return tomorrow pending no setbacks. Addendum entered by Kizzy Foote 07/15/22 10:37: Updated patient information has been faxed to Angelina at [facility]. I have requested that precert be started today in preparation of possible discharge tomorrow. PT/OT evaluation will be completed and faxed today. Original Note: Patient currently resides at [facility] level of care. Per Angelina w/ [facility] patient's family is agreeable to paying bedhold for this patient. Patient will require a prior auth prior to returning to [facility].
--- NOTE | 2022-07-14 16:15 | PC.NURSE ---
pt alert to self only. pt came to me with dsg cdi on right foot. bed alarm in place for pt safety. pt will sporadically kick rt foot in air. lung sounds diminishes, ra with sats at 96%. huertas in place with dark red tinged urine. children at bedside, no questions or concerns voiced.
--- NOTE | 2022-07-14 17:17 | EXP.ORTH.CON ---
History of Present Illness *Admission Date: 07/14/22 *Reason for visit:: Rigth foot wounds *History of present illness: 86-year-old male who is well-known to the podiatry team. He had right foot I&D by myself. He was admitted for altered mental status. Imaging showed worsening pneumonia. Foot x-rays showed no acute fracture or bone infection. Patient is confused at the bedside. His sons are present. Compared to his previous admission 06/30/2022, patient looks like he has decompensated. [facility] Disclaimer: The information contained in this section may have been updated after the patient was seen, as this information can be updated by other users. Medical History A-fib Acute respiratory failure with hypoxia Atrial fib/flutter, transient HAP (hospital-acquired pneumonia) Heart palpitations History of BPH Hyperlipemia Hypertension Surgical History History of back surgery Family History Other Family history of cancer Family history of myocardial infarction Social History Smoking Status: Never smoker alcohol intake: never substance use type: denies use current occupational status: retired Travel in the last 8 weeks: None household members: family and children housing: house current occupational exposures/hazards: No caffeine: Yes Review of Systems Review of Systems Review of systems:: pertinent systems reviewed and negative unless documented below Review of systems (narrative): Review of systems limited given patient's mentation Constitutional Constitutional: Reports body ache(s) and Reports weakness Eyes Eyes: Reports system reviewed and no additional complaints, except as documented, Denies eye discharge, Reports dry eyes and Reports itchy eyes ENT Ears, Nose, Mouth, and Throat: Reports system reviewed and no additional complaints, except as documented *Cardiovascular Cardiovascular: Reports dyspnea and Reports dyspnea on exertion *Respiratory Respiratory: Reports dyspnea, Reports dyspnea on exertion and Reports excessive phlegm production *Gastrointestinal Gastrointestinal: Reports system reviewed and no additional complaints, except as documented and Denies abdominal pain *Genitourinary Genitourinary: Reports system reviewed and no additional complaints, except as documented *Musculoskeletal Musculoskeletal: Reports system reviewed and no additional complaints, except as documented, Reports back pain and Reports joint swelling Integumentary/Breasts Skin/Breast: Reports skin ulcer, Reports skin swelling and Reports wounds (right foot) *Neurologic Neurologic: Reports system reviewed and no additional complaints, except as documented and Reports weakness Psychiatric Psychiatric: Denies homicidal ideation and Denies suicidal ideation Endocrine Endocrine: Denies heat intolerance Hematologic/Lymphatic Hematologic/Lymphatic: Denies easy bleeding and Denies lymphadenopathy Allergic/Immunologic Allergic/Immunologic: Reports itchy eyes Meds Home Medications and Allergies Home Medications Medication Instructions Recorded Confirmed Type omega 4-yng-iop-fish oil 1,000 mg 1 cap PO DAILY Supplement 09/05/18 07/14/22 History (120 mg-180 mg) capsule (Fish Oil) vitamin B complex (B 1 tab PO DAILY Supplement 09/05/18 07/14/22 History Complex-Vitamin B12 tablet) apixaban 5 mg tablet 5 mg PO BID afib 03/18/22 07/14/22 History acetaminophen 500 mg tablet 500 mg PO Q6H PRN Pain 06/21/22 07/14/22 History amlodipine 5 mg tablet 5 mg PO DAILY Hypertension 06/21/22 07/14/22 History escitalopram oxalate 10 mg tablet 10 mg PO DAILY mood 06/21/22 07/14/22 History metoprolol succinate 25 mg 25 mg PO DAILY Hypertension 06/21/22 07/14/22 History tablet,extended release 24 hr cholecalciferol (vitamin D3)
--- NOTE | 2022-07-14 17:36 | EXP.HP ---
History of Present Illness *Admission Date: 07/14/22 *Reason for visit:: mental status changes *History of present illness: 86-year-old male with long history of chronic a. fib, mild dementia, HTN, right foot abscess s/p I&D on 06/25 who had recent back to back admissions for cellulitis/abscess of right foot followed by [facility], [place] [facility] [place] for evaluation of mental status changes. Son at bedside reports significant change from Wednesday evening visit. He was alert and mostly oriented at that time. Last evening at he complained of abdomen pain, was more confused and pulled out his huertas catheter. Symptoms worsened through the night which led to his transfer to the ED. In the ED, found to have HUGO, creatinine 1.4, nitrate + UTI. WBC normal. CXR concern for worsening infiltrates, however patient recently finished empiric treatment of pneumonia with Augmentin and Bactrim, has no oxygen requirement and improved lung exam, likely resolving from previous infection. CT head unremarkble. Right foot dressing in place, xray in ED unremarkable. Dr. Gallego has been consulted for further recommendations. Admitted to [facility] for IVF's, rocephin for UTI and further evaluation. [facility] Disclaimer: The information contained in this section may have been updated after the patient was seen, as this information can be updated by other users. Medical History A-fib Acute respiratory failure with hypoxia Atrial fib/flutter, transient HAP (hospital-acquired pneumonia) Heart palpitations History of BPH Hyperlipemia Hypertension Surgical History History of back surgery Family History Other Family history of cancer Family history of myocardial infarction Social History Smoking Status: Never smoker alcohol intake: never substance use type: denies use current occupational status: retired Travel in the last 8 weeks: None household members: family and children housing: house current occupational exposures/hazards: No caffeine: Yes Review of Systems Review of Systems Review of systems:: pertinent systems reviewed and negative unless documented below Constitutional Constitutional: Reports poor appetite and Reports weakness *Musculoskeletal Musculoskeletal: Denies other Comments: right foot wound s/p I&D *Neurologic Neurologic: Reports abnormal movements, Reports confusion, Reports memory loss and Reports weakness Psychiatric Psychiatric: Reports confusion and Reports memory loss Meds Home Medications and Allergies Home Medications Medication Instructions Recorded Confirmed Type omega 8-dca-zpm-fish oil 1,000 mg 1 cap PO DAILY Supplement 09/05/18 07/14/22 History (120 mg-180 mg) capsule (Fish Oil) vitamin B complex (B 1 tab PO DAILY Supplement 09/05/18 07/14/22 History Complex-Vitamin B12 tablet) apixaban 5 mg tablet 5 mg PO BID afib 03/18/22 07/14/22 History acetaminophen 500 mg tablet 500 mg PO Q6H PRN Pain 06/21/22 07/14/22 History amlodipine 5 mg tablet 5 mg PO DAILY Hypertension 06/21/22 07/14/22 History escitalopram oxalate 10 mg tablet 10 mg PO DAILY mood 06/21/22 07/14/22 History metoprolol succinate 25 mg 25 mg PO DAILY Hypertension 06/21/22 07/14/22 History tablet,extended release 24 hr cholecalciferol (vitamin D3) 50 50 mcg PO DAILY Supplement 06/22/22 07/14/22 History mcg (2,000 unit) tablet lisinopril 20 mg tablet 20 mg PO DAILY Hypertension 06/22/22 07/14/22 History ipratropium 0.5 mg-albuterol 3 mg 3 ml inhalation Q6HP PRN Wheezing 06/26/22 07/14/22 Rx (2.5 mg base)/3 mL nebulization #0 mL soln fluticasone 250 mcg-salmeterol 50 1 puff inhalation BIDRT Asthma 06/30/22 07/14/22 History mcg/dose blistr powdr for inhalation (Advair Diskus)
--- NOTE | 2022-07-14 18:43 | PC.NURSE ---
pt family refused sputum induction
[2022-07-15 00:17] VITALS: BP 166/82
--- NOTE | 2022-07-15 02:19 | PC.NURSE ---
Notified Dr Coffey of pt being very anxious, agitated, respirations 30, See new order for Visteril 25mg po x 1.
[2022-07-15 04:00] VITALS: BP 144/64; PULSE 64; RESP 18; TEMP 36.9; O2SAT 93; BMI 21.7
--- NOTE | 2022-07-15 04:08 | PC.NURSE ---
Pt has been awake through the night, short naps. Pt has been confused, anxious and agitated easily. Pt has had Bilat wheezes at times. pt has been turned but moves back to his back. was pulling at huertas earlier in shift. Pt was able to tell this bond writer he had a headache, tylenol was given. Son has been at bedside. IV is patent, huertas secured to bedside. Encouraged son to use call light for any needs. Bed is locked in low position side rails up x 2, call light in reach.
[2022-07-15 07:24] LABS: Chloride 102 mmol/L (98-107); Sodium 134 mmol/L (136-145)
[2022-07-15 07:25] LABS: Potassium 3.6 mmoL/L (3.5-5.1)
[2022-07-15 07:28] LABS: Anion Gap 13.6 mEq/L (5-15); Blood Urea Nitrogen 15 mg/dl (9-20); Calcium 9.1 mg/dl (8.4-10.2); Carbon Dioxide 22 mmol/L (22.0-30.0); Creatinine Clearance Estimated 49 mL/min (50-200); Estimated Glomerular Filt Rate 63 ml/min (>60); GFR (African American) 77 ML/MIN (>60); Glucose 61 mg/dl (74-100)
[2022-07-15 08:00] VITALS: BP 166/79; PULSE 79; RESP 18; TEMP 36.3; O2SAT 97
--- NOTE | 2022-07-15 08:02 | EXP.ACUTE.PN ---
Subjective *Date: 07/15/22 *Time: 08:02 Interval history: Patient is a little bit less agitated than yesterday. HUGO is slightly improved. However, he is certainly nowhere near his baseline mental status when I saw him at the longterm last week. Medical Exam Vital signs and Labs for Last 24 Hours: Vital Signs Temp Pulse Pulse Resp BP BP Pulse Ox 07/15/22 04:00 98.4 F 64 18 144/64 H 93 L 07/15/22 00:17 166/82 H 07/14/22 23:46 97.7 F 87 20 171/87 H 97 07/14/22 16:00 97.3 F L 71 16 152/80 H 98 07/14/22 13:09 97.6 F 82 20 138/80 07/14/22 13:03 97.6 F 81 18 149/78 H 96 07/14/22 12:00 84 20 134/87 98 07/14/22 11:30 68 20 134/95 H 95 07/14/22 11:10 71 22 130/82 94 L 07/14/22 11:01 72 20 127/64 95 07/14/22 10:30 73 18 138/84 94 L 07/14/22 09:01 20 143/81 H 98 07/14/22 08:31 70 18 123/68 94 L Intake and Output 07/14/22 07/15/22 07/15/22 19:59 03:59 11:59 Intake Total 771 / 771 Output Total 0 / 1800 1800 / 1800 Balance 0 / -1029 -1800 / -1029 771 / -1029 Intake: Intake, Other Amount 771 / 771 Output: Output, Urine Amount 0 / 900 900 / 900 Output, Urine Amount (Catheter) 900 / 900 Brewster 900 / 900 Other: Intake, Other Source Saline Solution Number of Unmeasured Voids 0 Weight 159 lb 1 oz 160 lb 3 oz Patient Weight 07/15/22 11:59 Weight 160 lb 3 oz Laboratory Results - last 24 hr 07/14/22 07:30: ESR 89 H 07/14/22 07:30: C-Reactive Protein 36.9 H 07/14/22 08:25: Ammonia < 9 L 07/14/22 09:07: VBG pH 7.37, VBG pCO2 42.0, VBG pO2 50.1 H, VBG HCO3 23.5, VBG Total CO2 24.8, VBG O2 Saturation 84.5 H, VBG Base Excess -1.9 07/14/22 09:16: Urine Color Brown, Urine Appearance Turbid, Urine pH 7.0, Ur Specific Leming 1.025, Urine Protein 2+, Urine Glucose (UA) Negative, Urine Ketones Trace, Urine Blood 3+, Urine Nitrate Positive, Urine Bilirubin Negative, Urine Urobilinogen 1.0, Ur Leukocyte Esterase Trace, Urine RBC Tntc, Urine WBC 10-20, Ur Squamous Epith Cells None, Urine Bacteria 4+ 07/14/22 11:37: SARS-CoV-2 (PCR) Not detected, Influenza A Untype (PCR) Not detected, Influenza Type B (PCR) Not detected 07/15/22 06:53: Sodium 134 L, Potassium 3.6, Chloride 102, Carbon Dioxide 22, Anion Gap 13.6, BUN 15, Creatinine 1.10 D, Estimated Creat Clear 49, Estimated GFR 63, Est GFR ( Amer) 77 D, Glucose 61 L D, Calcium 9.1 I & O for Labs for Last 24 Hours: Intake & Output 07/12/22 07/13/22 07/14/22 07/15/22 11:59 11:59 11:59 11:59 Intake Total 771 / 771 Output Total 1800 / 1800 Balance -1029 / -1029 Weight 159 lb 160 lb 3 oz Comment:: Patient is minimally responsive to verbal and tactile stimuli. Much less purposeless movement of hands and feet. Lungs have some rhonchi but good air movement. Heart rate irregular but rate controlled. Blood pressures are acceptable, extremities are warm and well-perfused. Foot exam is really unchanged from baseline in the right foot status postdebridement from podiatry several days ago. Brewster catheter draining cloudy yellow urine. Assessment and Plan *Assessment and plan (1) HUGO (acute kidney injury): Status: Acute Category: Medical Code(s): N17.9 - Acute kidney failure, unspecified (2) Acute UTI: Status: Acute Category: Medical Code(s): N39.0 - Urinary tract infection, site not specified (3) Non-healing ulcer of right foot: Status: Acute Qualifiers: Non-pressure ulcer stage: unspecified non-pressure ulcer stage Qualified Code(s): L97.519 - Non-pressure chronic ulcer of other part of right foot with unspecified severity Category: Medical Code(s): L97.519 - Non-pressure chronic ulcer of other part of right foot with unspecified severity (4) Hypertension: Status: Acute Category: Medical Code(s): I10 - Essential (primary) hypertensio
--- NOTE | 2022-07-15 09:43 | HMH.OTEV ---
OT Inpatient Evaluation Rehab OT IP Evaluation Start: 07/15/22 08:00 Freq: ONCE Status: Active Protocol: Document 07/15/22 09:36 [id number] (Rec: 07/15/22 09:43 [facility] [id number]) Rehab OT IP Assessment Subjective History Pt oriented to self on arrival . Pt was admitted via ED on 07/14/22 due to mental status change. 86-year-old male with long history of chronic a. fib, mild dementia, HTN, right foot abscess s/p I&D on 06/25 who had recent back to back admissions for cellulitis/ abscess of right foot followed by [facility], was sent from [facility] [place] where he resides to ED for evaluation of mental status changes. Prior to being admitted to hospital and [facility], pt was living with son. Son reports he was independent with all ADLs such as dressing , feeding, and bathing. He did use a walker during ambulation. He was dependent upon son for completion of IADLs. Subjective I need this off. Pt appears very confused. He is continuously scooting down in bed and trying to take his gown off. He does have a mitten on right hand to prevent him pulling IV out. Objective Patient Orientation Person Upper Extremity Gross ROM Min Limitation <25% Shoulder ROM Limitations Muscle Weakness Elbow ROM Limitations Muscle Weakness Wrist Limitations of Range of Motion Muscle Weakness Bed Mobility bed mobility-scooting,bed mobility - supine/sit,bed mobility - rolling Assist Level Minimal x 1 (25% assist) Rehab OT IP prob,goals,plan Problems Date of Evaluation: 07/15/22 OT IP Problems Bed Mobility,Transfers,Balance ,Self care,Safety Rehab Potential Rehab Potential Good Equipment Needs Assistive Devices Rolling / Wheeled Walker Plan OT intervention Plan Bed Mobility,Transfers,Balance
--- NOTE | 2022-07-15 10:30 | PC.NURSE ---
courtesy tech round: pt linens were changed and a brief was put on. Call light is within reach.
--- NOTE | 2022-07-15 11:36 | HMH.PTEV ---
Physical Therapy Evaluation Rehab PT IP Evaluation Start: 07/15/22 08:00 Freq: ONCE Status: Active Protocol: Document 07/15/22 11:24 LINDA (Rec: 07/15/22 11:36 LINDA [id number]) Subjective/History History History Patient is an 86 year old male admitted to [facility] 07/14/22 secondary to pneumonia and UTI . Patient was previously living at [facility]. Patient was experiencing significant mental decline prior to being admitted to [facility] ED. Subjective Subjective I'm just really tired. Rehab PT IP Eval Objective Appearance Patient Behavior Fatigued Patient Orientation Person,Place,Name,Birthday Difficulty following instructions mild Speech Pattern Delayed Ambulation Patient Able to Ambulate No Balance Ability to Arise Able, uses arms to help Sitting Balance Leans or slides in chair Dynamic Sitting Balance Ability Good Transfers Bed Transfer Ability Minimal x 1 (25% assist) ROM All Extremities PT ROM Status WFL MMT All Extremities PT MMT WFL Rehab PT IP prob,goals,plan Problems Date of Evaluation: 07/15/22 PT IP Problems Bed Mobility,Transfers,Gait, Balance,Self care,Safety Rehab Potential Rehab Potential Fair Equipment Needs Assistive Devices Rolling / Wheeled Walker Plan PT Intervention Plan Bed Mobility,Transfers,Gait, Balance,Self care,Safety, Therapeutic Exercise PT Plan Frequency BID Duration LOS Discharge Goals Bed Transfer Ability Contact Guard/Hand Hold Sit to Stand Chair Transfer Ability Contact Guard/Hand Hold Ambulation Distance (feet) 20 Discharge Plan PT Discharge Plan PT suggests patient is good to discharge back to [facility] for further rehab once found medically stable by MD. G -code Required Yes Eval Complexity Eval Charge Codes 50356 - High Complexity G Codes PT Current Status Mobility PT Current Status Modifier CK-At least 40% but less than 60% impaired, limited or restricted PT Goal Status Mobility PT Goal Status Modifer CK-At least 40% but less than 60% impaired, limited or
--- NOTE | 2022-07-15 13:00 | PC.NURSE ---
PER JERRY VILLAR PT WILL NOT BE ABLE TO COME BACK TO FACILITY UNTIL HE HAS NOT WORN MITS FOR 24 HOURS. ATTEMPTED TO REMOVE MITTS FROM PT, W/IN 15 MIN PT HAD BEGAN TO TUG AT [facility] CATH AND HAD CAUSED TRAUMA/ BLEEDING. NOTIFIED DR MORTON OF THISE, NEW ORDERS TO REMOVE [facility] CATH.
[2022-07-15 16:00] VITALS: BP 137/77; PULSE 60; RESP 20; TEMP 36.4; O2SAT 98
--- NOTE | 2022-07-15 18:35 | PC.NURSE ---
SINCE [facility] CATH REMOVED PER MD ORDERS PT HAS HAD BLEEDING W/ CLOTS NOTED FROM [facility], MD AWARE OF THIS. DR MORTON DID COME TO BEDSIDE THIS AFTERNOON TO ROUND ON PT AND SPEAK TO FAMILY ABOUT PLANNED POC. PT IS INCONTINENT OF BOWEL AND BLADDERS.PT CURRENTLY HAS A MALE PUREWICK IN PLACE. MOMO CARE PERFORMED PRIOR TO APPLICATION. HE HAS HAD NUMEROUS BM'S THIS SHIFT, (SOFT, BROWN). PT RECEIVED BATH THIS SHIFT. HAS BEEN TURNED Q2H. BARRIER CREAM APPLIED MULTIPLE TIMES THROUGHOUT SHIFT. ORAL CARE PERFORMED Q2H WELL. ENCOURAGED FLUIDS. PT DID DRINK A PROTEIN SHAKE BUT HAS REFUSED ALL MEALS. PT HAS NOT REQUIRED MITTS FOR SAFETY SINCE REMOVAL OF CATHETER @ 1315. BED ALARM REMAINS IN PLACE. FAMILY HAS BEEN PRESENT AT BEDSIDE @ INTERVALS. CALL DACIA W/IN REACH.
[2022-07-15 20:18] VITALS: BP 145/74; PULSE 76; RESP 20; TEMP 36.3; O2SAT 95
--- NOTE | 2022-07-15 22:26 | PC.NURSE ---
Notified Dr Coffey at 2148 of patient having bleeding from penus, pt took purwick off, had 200ml of bloody urine in canister. Pt had large blood clotts in purwick bag. Pt bladder distended, done a bladder scan, showed 79 ml in bladder. MD order to place ice pack to scrotum and keep purwick on if bladder had less than 400. If bladder has greater than 600ml to reinsert Indwelling catheter.
[2022-07-16] VITALS (9 sets, daily range): BP systolic 105–137; BP diastolic 56–76; PULSE 62–91; RESP 16–20; TEMP 34.6–36.9; O2SAT 95–100; BMI 21.8
--- NOTE | 2022-07-16 03:47 | PC.NURSE ---
Pt in bed resting this shift, has been more alert and able to answer questions. Pt has been incontinent of stool x 2. Pt has a Purwick in place, urine is bloody, has had big clotts in the bag. Pt has rest better the past few hours, no longer complaining of abdomen pain. Pt IV is patent, no s/sx of infection at site. Pt bed locked in low position, side rails up x 2, safety alarm on, call madrigal in reach.
[2022-07-16 07:41] LABS: Basophils % 0.3 % (0.1-2.0); Hematocrit 26.4 % (42.0-52.0); Hemoglobin 8.9 g/dL (14.1-18.0); Lymphocytes # 1.1 K/mm3 (0.7-4.5); Lymphocytes % 10.9 % (10-50); Mean Corpuscular HGB Conc 33.8 g/dL (31.8-35.4); Mean Corpuscular Hemoglobin 30.8 pg (27.0-31.2); Mean Platelet Volume 8.8 fl (7.4-10.4); Monocytes # 0.5 K/mm3 (0.1-1.0); Neutrophils # 8.1 K/mm3 (1.8-7.8); Neutrophils % 83.9 % (37.0-80.0); Platelet Count 233 K/mm3 (142-424); Red Cell Distribution Width 15.8 % (11.5-17.5); White Blood Count 9.6 K/mm3 (4.8-10.8)
[2022-07-16 08:06] LABS: Chloride 103 mmol/L (98-107); Potassium 3.8 mmoL/L (3.5-5.1); Sodium 135 mmol/L (136-145)
[2022-07-16 08:09] LABS: Blood Urea Nitrogen 21 mg/dl (9-20); Calcium 9.1 mg/dl (8.4-10.2); Carbon Dioxide 19 mmol/L (22.0-30.0); Creatinine Clearance Estimated 32 mL/min (50-200); Estimated Glomerular Filt Rate 38 ml/min (>60); GFR (African American) 46 ML/MIN (>60); Glucose 106 mg/dl (74-100)
[2022-07-16 08:10] LABS: Anion Gap 16.8 mEq/L (5-15)
--- NOTE | 2022-07-16 08:10 | EXP.ACUTE.PN ---
Subjective *Date: 07/16/22 *Time: 08:10 Interval history: Overnight patient did well. His mental status is improving. He continues to have some blood from his urine output but no obstructive clots. Urine culture pending. Blood pressure has been a little bit soft but this morning is above 100 systolic. Medical Exam Vital signs and Labs for Last 24 Hours: Vital Signs Temp Pulse Resp BP Pulse Ox 07/16/22 04:00 98.5 F 62 16 121/59 L 100 07/16/22 00:00 97.2 F L 70 18 137/76 97 07/15/22 20:18 97.3 F L 76 20 145/74 H 95 07/15/22 16:00 97.5 F L 60 20 137/77 98 Intake and Output 07/15/22 07/16/22 07/16/22 19:59 03:59 11:59 Intake Total 278 / 278 Output Total 900 / 1775 650 / 1775 225 / 1775 Balance -900 / -1497 -372 / -1497 -225 / -1497 Intake: Intake, Oral Amount 0 / 0 Intake, Other Amount 278 / 278 Output: Output, Urine Amount 900 / 1775 650 / 1775 225 / 1775 Other: Intake, Other Source Saline Solution Number of Unmeasured Voids 1 1 0 Number of Bowel Movements 1 1 Weight 161 lb 6.054 oz Patient Weight 07/16/22 11:59 Weight 161 lb 6.054 oz Laboratory Results - last 24 hr 07/16/22 07:03: WBC 9.6, RBC 2.90 L D, Hgb 8.9 L, Hct 26.4 L, MCV 91.0, MCH 30.8, MCHC 33.8, RDW 15.8, Plt Count 233, MPV 8.8, Neut % (Auto) 83.9 H, Lymph % (Auto) 10.9, Hockley % (Auto) 5.0, Eos % (Auto) 0.0 L, Baso % (Auto) 0.3, Neut # (Auto) 8.1 H, Lymph # (Auto) 1.1, Hockley # (Auto) 0.5, Eos # (Auto) 0.0, Baso # (Auto) 0.0 07/16/22 07:03: Sodium 135 L, Potassium 3.8, Chloride 103, Carbon Dioxide 19 L, Anion Gap 16.8 H, BUN 21 H D, Creatinine 1.70 H D, Estimated Creat Clear 32, Estimated GFR 38 L, Est GFR ( Amer) 46 L D, Glucose 106 H, Calcium 9.1 I & O for Labs for Last 24 Hours: Intake & Output 07/13/22 07/14/22 07/15/22 07/16/22 11:59 11:59 11:59 11:59 Intake Total 771 / 771 278 / 278 Output Total 1800 / 1800 1775 / 1775 Balance -1029 / -1029 -1497 / -1497 Weight 159 lb 160 lb 3 oz 161 lb 6.054 oz Microbiology Reports for the Last 24 Hours: Microbiology 07/14/22 09:16 Urine,Catheterized Urine Culture - Preliminary Comment:: Heart rate regular. Lungs are clear, abdomen soft, pure wick is draining some bloody urine but flow seems to be good. He has no bladder swelling. Distal extremities are warm and well-perfused. Neurologically he is much improved, able to respond to questions. Oriented x2 Assessment and Plan *Assessment and plan (1) HUGO (acute kidney injury): Status: Acute Category: Medical Code(s): N17.9 - Acute kidney failure, unspecified (2) Acute UTI: Status: Acute Category: Medical Code(s): N39.0 - Urinary tract infection, site not specified (3) Non-healing ulcer of right foot: Status: Acute Qualifiers: Non-pressure ulcer stage: unspecified non-pressure ulcer stage Qualified Code(s): L97.519 - Non-pressure chronic ulcer of other part of right foot with unspecified severity Category: Medical Code(s): L97.519 - Non-pressure chronic ulcer of other part of right foot with unspecified severity (4) Hypertension: Status: Acute Category: Medical Code(s): I10 - Essential (primary) hypertension (5) A-fib: Status: Acute Category: Medical Code(s): I48.91 - Unspecified atrial fibrillation (6) Mild cognitive impairment with memory loss: Problem Comment: At risk for vascular dementia Status: Chronic Category: Medical Code(s): G31.84 - Mild cognitive impairment of uncertain or unknown etiology Plan Admit to Medsurg. Gently hydrate with IVF's. Rocephin daily for UTI. Will repeat labs again in the am. Plan addendum for 07/15/2022-PT/OT evaluation to reevaluate suitability for long-term care. We will continue to respect DNR status is confirmed by his family. HUGO is improving. Continue antibiotics and await cultures f
--- NOTE | 2022-07-16 09:14 | PC.NURSE ---
late entry: Jack garza applied at [phone]
--- NOTE | 2022-07-16 11:01 | DIET.NUTRFU ---
RD consulted d/t lack of intake. During rounds today patient appeared gamez in color and had not eaten anything. Spoke to nursing aid, was going to try to assist him in meal intake. Later reviewed and he only ate couple bites on yogurt. Meal intake has been poor since admit, refusing to eat most of his meals. He is ordered a homemade shake at lunch and sherbert at dinner, these are the items he successfully consumed last admit. Patient has a UTI- with blood in urine, ABT tx started. he is also on dextrose/zofran and protonix. Labs today BUN 21H/Cr 1.7H/Na 135L/BS 106H. Staff to continue to encourage and assist with meal intake
--- NOTE | 2022-07-16 11:55 | HMH.PTEV ---
Physical Therapy Evaluation Rehab PT IP Evaluation Start: 07/15/22 08:00 Freq: ONCE Status: Active Protocol: Document 07/15/22 11:24 LINDA (Rec: 07/15/22 11:36 LINDA [id number]) Subjective/History History History Patient is an 86 year old male admitted to [facility] 07/14/22 secondary to pneumonia and UTI . Patient was previously living at [facility]. Patient was experiencing significant mental decline prior to being admitted to [facility] ED. Subjective Subjective I'm just really tired. Rehab PT IP Eval Objective Appearance Patient Behavior Fatigued Patient Orientation Person,Place,Name,Birthday Difficulty following instructions mild Speech Pattern Delayed Ambulation Patient Able to Ambulate No Balance Ability to Arise Able, uses arms to help Sitting Balance Leans or slides in chair Dynamic Sitting Balance Ability Good Transfers Bed Transfer Ability Minimal x 1 (25% assist) ROM All Extremities PT ROM Status WFL MMT All Extremities PT MMT WFL Rehab PT IP prob,goals,plan Problems Date of Evaluation: 07/15/22 PT IP Problems Bed Mobility,Transfers,Gait, Balance,Self care,Safety Rehab Potential Rehab Potential Fair Equipment Needs Assistive Devices Rolling / Wheeled Walker Plan PT Intervention Plan Bed Mobility,Transfers,Gait, Balance,Self care,Safety, Therapeutic Exercise PT Plan Frequency BID Duration LOS Discharge Goals Bed Transfer Ability Contact Guard/Hand Hold Sit to Stand Chair Transfer Ability Contact Guard/Hand Hold Ambulation Distance (feet) 20 Discharge Plan PT Discharge Plan PT suggests patient is good to discharge back to [facility] for further rehab once found medically stable by MD. G -code Required Yes Eval Complexity Eval Charge Codes 01893 - High Complexity G Codes PT Current Status Mobility PT Current Status Modifier CK-At least 40% but less than 60% impaired, limited or restricted PT Goal Status Mobility PT Goal Status Modifer CK-At least 40% but less than 60% impaired, limited or
--- NOTE | 2022-07-16 17:50 | PC.NURSE ---
PT HAS BEEN ALERT TO SELF ONLY TODAY, WITH SOME AGITATION T/O SHIFT. PT UNABLE TO FOLLOW COMMANDS OR TAKE PO MEDS IN THE AM. MALE PUREWICK IN PLACE WITH DARK BLOOD TINGLED URINE. HAD DIFFICULTY THIS MORNING WITH MAINTAINING PTS BODY TEMP, DALTON HUGGER APPLIED IN THE AM. PTS 1630 ORAL TEMP 97.9. NO PROBLEMS SINCE. VSS. DSG TO RT FOOT CDI. SON AT BEDSIDE, QUESTIONS AND CONCERNS VOICED WITH DR. MORTON AT [facility] THIS MORNING. NO CONCERNS AT THIS TIME. BED ALARM AND SIDE RAILS X2 UP FOR PT SAFETY.
[2022-07-17] VITALS (9 sets, daily range): BP systolic 107–136; BP diastolic 57–72; PULSE 73–94; RESP 18–22; TEMP 34.4–37.2; O2SAT 92–98; BMI 21.2
--- NOTE | 2022-07-17 05:07 | PC.NURSE ---
PATIENT HAS RESTED WELL MOST OF THIS SHIFT. SON LEFT EARLY AT 1900. NEW IV PLACED RFA. STILL NEED SPUTUM SPECIMEN. NO COUGH NOTED. LUNGS DIMINISHED.
--- NOTE | 2022-07-17 08:15 | HMH.PTWOUND ---
Rehab Inpt Wound Evaluation Rehab IP Wound Evaluation Start: 07/16/22 08:08 Freq: NEEDED Status: Complete Protocol: Document 07/16/22 10:00 TIP (Rec: 07/16/22 11:55 TIP [id number]) Rehab PT Wound Assessment Subjective Subjective 86 yowm adm to [facility] with PNA, HUGO, UTI, AMS. He has been working with PT fo mobility, now with possible sacral wound / pressure injury. Wound Sacrum Wound Type Pressure Ulcer Is This a Chronic Wound No Wound Staging Stage I Query Text:Stage I - Unbroken, red skin, no blanching. Stage II - Skin broken, superficial skin loss involving epidermis alone or also dermis. Partial loss of skin layers. Stage III - Pressure area involves epidermis, dermis and subcutaneous tissue, full thickness skin loss. Stage IV - Pressure area involves epidermis, subcutaneous tissue, bone and other supportive tissue. Full thickness skin loss with extensive destruction of underlying tissue and structures. Wound Length (cm) 2.0 Wound Width (cm) 3.0 Wound Bed Appearance [place] Wound Margins Description Well Defined Drainage Amount None Dressing Change Patient Tolerance Tolerated Well Plan/Recommendation Comment Pt has Stage I pressure injury at this time with no open skin and no drainage. Appropriate pressure relief and skin care being performed by [facility] staff. No current dressing needs and no needs for inpatient wound care at this time in regards to sacral area. Eval Complexity Eval Charge Codes 73357 - Low Complexity PHYSICIAN CERTIFICATION: I certify the specified therapy services for Onur Roach are required, authorized, and reviewed every 30 days.
--- NOTE | 2022-07-17 09:40 | EXP.ACUTE.PN ---
Subjective *Date: 07/17/22 *Time: 09:40 Interval history: Patient has been medically stable overnight but continues to be very lethargic, although will wake up and talk especially later in the day. His urine output is good but still bloody. Biggest concern is lack of oral intake. Medical Exam Vital signs and Labs for Last 24 Hours: Vital Signs Temp Pulse Resp BP Pulse Ox 07/17/22 09:17 95.3 F L 07/17/22 08:00 94.0 F L 83 18 118/57 L 93 L 07/17/22 03:48 98.0 F 73 22 107/64 L 92 L 07/16/22 20:00 96 07/16/22 19:51 97.6 F 88 20 112/76 96 07/16/22 15:28 97.9 F 91 H 18 137/59 L 97 07/16/22 12:30 96.3 F L 07/16/22 10:24 94.3 F L Intake and Output 07/16/22 07/17/22 07/17/22 19:59 03:59 11:59 Intake Total 110 / 1302 1192 / 1302 Output Total 500 / 500 0 / 500 Balance -390 / 802 0 / 802 1192 / 802 Intake: Intake, Oral Amount 110 / 110 Intake, Total IV Amount 1192 / 1192 Dextrose 5 % and 0.9 % NaCl 1, 1192 / 1192 000 ml @ 75 mls/hr IV .[id number] [facility] Rx#:[id number] Output: Output, Urine Amount 500 / 500 0 / 500 Other: Weight 156 lb 7 oz Patient Weight 07/17/22 11:59 Weight 156 lb 7 oz Laboratory Results - last 24 hr 07/14/22 09:16: Urine Color Brown, Urine Appearance Turbid, Urine pH 7.0, Ur Specific [place] 1.025, Urine Protein 2+, Urine Glucose (UA) Negative, Urine Ketones Trace, Urine Blood 3+, Urine Nitrate Positive, Urine Bilirubin Negative, Urine Urobilinogen 1.0, Ur Leukocyte Esterase Trace, Urine RBC Tntc, Urine WBC 10-20, Ur Squamous Epith Cells None, Urine Bacteria 4+ I & O for Labs for Last 24 Hours: Intake & Output 07/14/22 07/15/22 07/16/22 07/17/22 11:59 11:59 11:59 11:59 Intake Total 771 / 771 328 / 328 1302 / 1302 Output Total 1800 / 1800 1775 / 1775 500 / 500 Balance -1029 / -1029 -1447 / -1447 802 / 802 Weight 159 lb 160 lb 3 oz 161 lb 6.054 oz 156 lb 7 oz Microbiology Reports for the Last 24 Hours: Microbiology 07/14/22 09:16 Urine,Catheterized Urine Culture - Preliminary Gram Positive Cocci Comment:: Alert when vigorous stimuli given. Lungs have good air movement. Heart rate irregular. Murmur as previously noted. Perfusion is good, pure wick catheter draining bloody urine Assessment and Plan *Assessment and plan (1) HUGO (acute kidney injury): Status: Acute Category: Medical Code(s): N17.9 - Acute kidney failure, unspecified (2) Acute UTI: Status: Acute Category: Medical Code(s): N39.0 - Urinary tract infection, site not specified (3) Non-healing ulcer of right foot: Status: Acute Qualifiers: Non-pressure ulcer stage: unspecified non-pressure ulcer stage Qualified Code(s): L97.519 - Non-pressure chronic ulcer of other part of right foot with unspecified severity Category: Medical Code(s): L97.519 - Non-pressure chronic ulcer of other part of right foot with unspecified severity (4) Hypertension: Status: Acute Category: Medical Code(s): I10 - Essential (primary) hypertension (5) A-fib: Status: Acute Category: Medical Code(s): I48.91 - Unspecified atrial fibrillation (6) Mild cognitive impairment with memory loss: Problem Comment: At risk for vascular dementia Status: Chronic Category: Medical Code(s): G31.84 - Mild cognitive impairment of uncertain or unknown etiology Plan Admit to [facility]. Gently hydrate with IVF's. Rocephin daily for UTI. Will repeat labs again in the am. Plan addendum for 07/15/2022-PT/OT evaluation to reevaluate suitability for long-term care. We will continue to respect DNR status is confirmed by his family. HUGO is improving. Continue antibiotics and await cultures from urine and blood. We had kept his [place] catheter and on transfer to snf because of skin breakdown around his
--- NOTE | 2022-07-17 10:09 | PC.NURSE ---
pt low temp reported to RN. new heated blankets placed and joanie hugger is on with two hoses instead of just one.
--- NOTE | 2022-07-17 10:12 | P.CONPHA_ITS ---
Pharmacy Consult Date: 07/17/22 Time: 10:12 Referring provider: DR. MORTON Reason for Consult:: VANCOMYCIN DOSING Allergies Allergy/AdvReac Type Severity Reaction Status Date / Time Cvtnfvr-JRU-VoK Reductase Allergy Mild Verified 06/30/22 13:31 Inhibitor [Cigqgvz-Bmf-Tmq Reductase Inhibitor] Home Medications Medication Instructions Recorded Confirmed Type omega 0-slj-hba-fish oil 1,000 mg 1 cap PO DAILY Cholesterol 09/05/18 07/14/22 History (120 mg-180 mg) capsule (Fish Oil) vitamin B complex (B 1 tab PO DAILY Supplement 09/05/18 07/14/22 History Complex-Vitamin B12 tablet) apixaban 5 mg tablet 5 mg PO BID Atrial fib/blood 03/18/22 07/14/22 History thinner acetaminophen 500 mg tablet 500 mg PO Q6H PRN Pain 06/21/22 07/14/22 History amlodipine 5 mg tablet 5 mg PO DAILY Hypertension 06/21/22 07/14/22 History escitalopram oxalate 10 mg tablet 10 mg PO DAILY mood 06/21/22 07/14/22 History cholecalciferol (vitamin D3) 50 50 mcg PO DAILY Supplement 06/22/22 07/14/22 History mcg (2,000 unit) tablet lisinopril 20 mg tablet 20 mg PO DAILY Hypertension 06/22/22 07/14/22 History ipratropium 0.5 mg-albuterol 3 mg 3 ml inhalation Q6HP PRN Wheezing 06/26/22 07/14/22 Rx (2.5 mg base)/3 mL nebulization #0 mL soln fluticasone 250 mcg-salmeterol 50 1 puff inhalation BIDRT Asthma 06/30/22 07/14/22 History mcg/dose blistr powdr for inhalation (Advair Diskus) latanoprost 0.005 % eye drops 1 drp Eye-Both HS glaucoma 07/05/22 07/14/22 History gabapentin 100 mg capsule 100 mg PO BID Pain 30 days #60 caps 07/07/22 07/14/22 Rx furosemide 20 mg tablet 20 mg PO DAILY DIURETIC 07/14/22 07/14/22 History metoprolol tartrate 25 mg tablet 12.5 mg PO BID Hypertension 07/15/22 07/15/22 History New Prescriptions to Start Prescriptions: Height: 1.83 m Weight: 70.959 kg Laboratory Results:: Laboratory Results - last 24 hr 07/14/22 09:16: Urine Color Brown, Urine Appearance Turbid, Urine pH 7.0, Ur Specific [place] 1.025, Urine Protein 2+, Urine Glucose (UA) Negative, Urine Ketones Trace, Urine Blood 3+, Urine Nitrate Positive, Urine Bilirubin Negative, Urine Urobilinogen 1.0, Ur Leukocyte Esterase Trace, Urine RBC Tntc, Urine WBC 10-20, Ur Squamous Epith Cells None, Urine Bacteria 4+ Medical History: Medical History (Updated 07/14/22 @ 17:36 by Christie Gallego DPM) A-fib Acute respiratory failure with hypoxia Atrial fib/flutter, transient HAP (hospital-acquired pneumonia) Heart palpitations History of BPH Hyperlipemia Hypertension Assessment and Plan Assessment and plan all Dx Assessment and Plan for all problems:: BASED ON PATIENT FACTORS, RECOMMEND STARTING VANCOMYCIN 1 GM IV Q24H. THANK YOU FOR THE CONSULT.
--- NOTE | 2022-07-17 10:21 | DIET.NUTRFU ---
Addendum entered by Dianelys Worthington RD, LD 07/17/22 13:31: spoke to nursing and he refused lunch, would not wake up for them. they also reported a temp climbing was up to 97. Therapy has also been on hold today d/t temperature. Staff to continue to offer and encourage meal intake Original Note: patient seemed very lethargic again today, refused to eat for breakfast. Nursing noted 10% for all three meals yesterday, which is probably a couple bites. He is totally dependent on staff for meals. No new labs to review. He is noted to have a stage 1 to sacral area and chronic ulcer to right foot, at risk to continue to deteriorate d/t poor nutrition. UTI showed gram negative cultures, ABT tx changed. Patient is DNR, last admit provider touched based on hospice and family was not ready, patient perked up prior to discharge last time. Family hopes he will perk up again this time. He is ordered milkshake with lunch and sherbert with dinner, did not consume yesterday. In the past he disliked the ensure and family did not want it sent. LBM noted 07/16, good urine output yesterday of 1175ml. Had Lactated ringers and NaCl on 07/14 and today dextrose was ordered. Will continue to follow with meal intake. Discharge plan when ready is [place]
--- NOTE | 2022-07-17 10:56 | CARE MANAGER ---
Rounded with Dr. Krause this am, patient is non-responsive at this time. [place] did get approval on him today but Dr. Krause does not feel like he is ready to move today. This information was relayed to patient son, Adam by Dr. Krause.
[2022-07-18] VITALS (23 sets, daily range): BP systolic 120–156; BP diastolic 58–90; PULSE 62–85; RESP 16–18; TEMP 35–37.3; O2SAT 95–98; BMI 21.6
--- NOTE | 2022-07-18 04:24 | PC.NURSE ---
AT 0330 PATIENT HAD BEEN PASSING WHAT LOOKED TO BE BLOODY URINE EXCEPT ABDOMEN WAS FIRM AND TENDER AND DISTENDED AT THE BLADDER AREA. MR SCARLET NP CALLED AND DISCUSSED PATIENTS CONDITION. PATIENT PULLED HIS CHAUDHARI OUT A COUPLE OF DAYS AGO AND HAS HAD BLOODY URINE. LES TOLD IN REPORT THAT PATIENT WAS HAVING LARGE CLOTS FROM HIS PENIS. # 16 CHINESE F/C INSERTED AND BLADDER IRRIGATED WITH 200 ML STERLIE SALINE. ZEYNEP BLOOD RETURNED. N.P. INSTRUCTED TO PASS THIS ON TO LES N.P. SO THEY COULD DISCUSS WITH FAMILY NO FAMILY PRESENT THIS SHIFT.
--- NOTE | 2022-07-18 04:28 | EXP.PN ---
Subjective *Date: 07/18/22 *Time: 07:32 Interval history: patient had pulled out old catheter , had some blood clots removed from penis. now in [place] , abdominal exam indicates enlarged bladder Exam Data for Last 24 hours Vital signs and Labs for Last 24 Hours: Temp Pulse Resp BP Pulse Ox 97.5 F L 89 20 111/67 94 L 07/17/22 20:00 07/17/22 20:00 07/17/22 20:00 07/17/22 20:00 07/17/22 20:00 Laboratory Results - last 24 hr 07/14/22 09:16: Urine Color Brown, Urine Appearance Turbid, Urine pH 7.0, Ur Specific [place] 1.025, Urine Protein 2+, Urine Glucose (UA) Negative, Urine Ketones Trace, Urine Blood 3+, Urine Nitrate Positive, Urine Bilirubin Negative, Urine Urobilinogen 1.0, Ur Leukocyte Esterase Trace, Urine RBC Tntc, Urine WBC 10-20, Ur Squamous Epith Cells None, Urine Bacteria 4+ I & O for Last 24 hours: Intake & Output 07/15/22 07/16/22 07/17/22 07/18/22 23:59 23:59 23:59 23:59 Intake Total 771 / 771 438 / 438 1252 / 1252 Output Total 2900 / 2900 1175 / 1175 0 / 0 Balance -2129 / -2129 -737 / -737 1252 / 1252 Weight 72.66 kg 73.2 kg 70.959 kg Microbiology Reports for the Last 24 Hours: Microbiology 07/14/22 09:16 Urine,Catheterized Urine Culture - Preliminary Gram Positive Cocci *Routine Exam Patient deferred: penile exam Comments: blood from penis, mixed with some blood and urine in diaper Assessment and Plan *Assessment and plan (1) HUGO (acute kidney injury): Status: Acute Category: Medical Code(s): N17.9 - Acute kidney failure, unspecified (2) Acute UTI: Status: Acute Category: Medical Code(s): N39.0 - Urinary tract infection, site not specified (3) Non-healing ulcer of right foot: Status: Acute Qualifiers: Non-pressure ulcer stage: unspecified non-pressure ulcer stage Qualified Code(s): L97.519 - Non-pressure chronic ulcer of other part of right foot with unspecified severity Category: Medical Code(s): L97.519 - Non-pressure chronic ulcer of other part of right foot with unspecified severity (4) Hypertension: Status: Acute Category: Medical Code(s): I10 - Essential (primary) hypertension (5) A-fib: Status: Acute Category: Medical Code(s): I48.91 - Unspecified atrial fibrillation (6) Mild cognitive impairment with memory loss: Problem Comment: At risk for vascular dementia Status: Chronic Category: Medical Code(s): G31.84 - Mild cognitive impairment of uncertain or unknown etiology Plan exam indicated urinary retention, he had pulled out last huertas, on inserting this huertas amount of blood noted, slow drainage , irrigation used. over 400cc out very slowly , mixed of urine and blood , possible clots in bladder.
--- NOTE | 2022-07-18 07:42 | PC.NURSE ---
notified MD of pt lethargy and blood in cath.
[2022-07-18 08:11] LABS: Basophils # 0.1 K/mm3 (0-0.2); Basophils % 1.1 % (0.1-2.0); Eosinophils # 0.2 K/mm3 (0.0-0.4); Lymphocytes # 1.1 K/mm3 (0.7-4.5); Lymphocytes % 22.6 % (10-50); Mean Corpuscular HGB Conc 33.1 g/dL (31.8-35.4); Mean Corpuscular Hemoglobin 30.5 pg (27.0-31.2); Mean Platelet Volume 8.7 fl (7.4-10.4); Monocytes # 0.4 K/mm3 (0.1-1.0); Monocytes % 8.4 % (1.7-9.3); Neutrophils # 3.1 K/mm3 (1.8-7.8); Neutrophils % 63.9 % (37.0-80.0); Platelet Count 203 K/mm3 (142-424); Red Blood Count 2.13 M/mm3 (4.60-6.20); Red Cell Distribution Width 16.7 % (11.5-17.5); White Blood Count 4.9 K/mm3 (4.8-10.8)
[2022-07-18 08:19] LABS: Chloride 114 mmol/L (98-107); Sodium 142 mmol/L (136-145)
[2022-07-18 08:22] LABS: Alanine Aminotransferase 26 U/L (12-78); Albumin Level 2.5 g/dl (3.5-5.0); Alkaline Phosphatase 98 U/L (38-126); Aspartate Amino Transferase 28 U/L (17-59); Bilirubin,Total 0.3 mg/dl (0.2-1.3); Blood Urea Nitrogen 29 mg/dl (9-20); Carbon Dioxide 22 mmol/L (22.0-30.0); Creatinine Clearance Estimated 18 mL/min (50-200); Estimated Glomerular Filt Rate 21 ml/min (>60); GFR (African American) 25 ML/MIN (>60); Globulin 2.5 g/dL (1.3-3.2)
[2022-07-18 08:23] LABS: Calcium 8.6 mg/dl (8.4-10.2); Glucose 104 mg/dl (74-100)
[2022-07-18 08:29] LABS: Hematocrit 19.6 % (42.0-52.0); Hemoglobin 6.5 g/dL (14.1-18.0)
--- NOTE | 2022-07-18 08:36 | CT_ITS ---
PROCEDURE INFORMATION: Exam: CT Abdomen And Pelvis Without Contrast Exam date and time: 07/18/2022 9:18 AM Age: 86 years old Clinical indication: Bloating; Additional info: Ab pain with gi bleed TECHNIQUE: Imaging protocol: Computed tomography of the abdomen and pelvis without contrast. Radiation optimization: All CT scans at this facility use at least one of these dose optimization techniques: automated exposure control; mA and/or kV adjustment per patient size (includes targeted exams where dose is matched to clinical indication); or iterative reconstruction. COMPARISON: CT ABDOMEN PELVIS WO CON 07/14/2022 9:49 AM FINDINGS: Tubes, catheters and devices: Urinary bladder catheter in place. Lungs: Bibasilar subsegmental atelectasis. Pleural spaces: Small to moderate right and small left pleural effusions. Heart: Small pericardial effusion. Liver: Unenhanced liver unremarkable. Gallbladder and bile ducts: Gallstones without gallbladder wall thickening or pericholecystic fluid collection. Pancreas: Normal. No ductal dilation. Spleen: Unenhanced spleen unremarkable. Unenhanced spleen unremarkable. Adrenal glands: Unenhanced adrenal glands unremarkable. Kidneys and ureters: Unenhanced kidneys unremarkable. Stomach and bowel: Nonobstructive bowel gas pattern. Appendix: No evidence of appendicitis. Intraperitoneal space: No intra abdominopelvic free fluid. No intra abdominopelvic free air. Vasculature: Atherosclerotic calcification of aortoiliac arteries. Lymph nodes: No lymphadenopathy. Urinary bladder: Air within urinary bladder lumen. Heterogeneous, high density fluid collection within urinary bladder. Reproductive: Unremarkable as visualized. Bones/joints: Age-indeterminate L3 vertebral body compression fracture with no bony retropulsion. Approximate 40% height loss. Age-indeterminate L5 inferior endplate osteoporotic fracture without height loss. Degenerative changes of spine, sacroiliac joints, hips. Osteopenia. Soft tissues: Unremarkable. IMPRESSION: 1. Small pericardial effusion. 2. Bilateral pleural effusions, right greater than left. 3. Cholelithiasis. 4. High density material in urinary bladder lumen with urinary bladder catheter grossly in place. Indeterminate, high density material within urinary bladder lumen. Can not exclude blood product. Air in urinary bladder lumen, likely related to instrumentation. 5. Age-indeterminate vertebral body compression fractures of L3 and L5.
--- NOTE | 2022-07-18 08:58 | PC.NURSE ---
contacted pts NOK to update him on pts condition.
--- NOTE | 2022-07-18 09:10 | P.PN_ITS ---
Subjective *Date: 07/18/22 *Time: 09:10 Medical Exam Vital signs and Labs for Last 24 Hours: Vital Signs Temp Pulse Resp BP Pulse Ox 07/18/22 04:00 98.0 F 85 18 127/59 L 97 07/17/22 20:00 97.5 F L 89 20 111/67 94 L 07/17/22 20:00 98 07/17/22 16:12 97.4 F L 94 H 18 136/72 98 07/17/22 13:41 99.0 F 07/17/22 12:12 97.4 F L 07/17/22 11:32 97.8 F 07/17/22 10:00 95.3 F L 07/17/22 09:17 95.3 F L Intake and Output 07/17/22 07/18/22 07/18/22 23:59 07:59 15:59 Intake Total 60 / 1252 825 / 825 Output Total 600 / 600 Balance 60 / 1252 225 / 225 Intake: Intake, Oral Amount 60 / 60 Intake, Total IV Amount 825 / 825 Dextrose 5 % and 0.9 % NaCl 1, 825 / 825 000 ml @ 75 mls/hr IV .[id number] COUNTS INCLUDE 234 BEDS AT THE [facility] Rx#:[id number] Output: Output, Urine Amount 600 / 600 Other: Weight 72.348 kg Patient Weight 07/18/22 23:59 Weight 72.348 kg Laboratory Results - last 24 hr 07/18/22 07:57: WBC 4.9 D, RBC 2.13 L D, Hgb 6.5 L*, Hct 19.6 L*, MCV 92.0, MCH 30.5, MCHC 33.1, RDW 16.7, Plt Count 203, MPV 8.7, Neut % (Auto) 63.9, Lymph % (Auto) 22.6, [place] % (Auto) 8.4, Eos % (Auto) 4.0, Baso % (Auto) 1.1, Neut # (Auto) 3.1, Lymph # (Auto) 1.1, [place] # (Auto) 0.4, Eos # (Auto) 0.2, Baso # (Auto) 0.1 07/18/22 07:57: Sodium 142, Potassium 3.0 L D, Chloride 114 H, Carbon Dioxide 22, Anion Gap 9.0, BUN 29 H D, Creatinine 2.90 H D, Estimated Creat Clear 18, Estimated GFR 21 L, Est GFR ( Amer) 25 L D, Glucose 104 H, Calcium 8.6, Total Bilirubin 0.3, AST 28, ALT 26, Alkaline Phosphatase 98, Total Protein 5.0 L D, Albumin 2.5 L, Globulin 2.5, Albumin/Globulin Ratio 1.0 L I & O for Labs for Last 24 Hours: Intake & Output 07/15/22 07/16/22 07/17/22 07/18/22 23:59 23:59 23:59 23:59 Intake Total 771 / 771 438 / 438 1252 / 1252 825 / 825 Output Total 2900 / 2900 1175 / 1175 0 / 0 600 / 600 Balance -2129 / -2129 -737 / -737 1252 / 1252 225 / 225 Weight 72.66 kg 73.2 kg 70.959 kg 72.348 kg Microbiology Reports for the Last 24 Hours: Microbiology 07/14/22 09:16 Urine,Catheterized Urine Culture - Preliminary Gram Positive Cocci The patient's infection will respond to the chosen ABx?: Yes (GRAM + COCCI IN URINE CX. PATIENT CURRENTLY TAKING VANCO AND CEFTRIAXONE. ) Is the patient receiving the right drug, dose, and route?: Yes Could a more targeted ABx be ordered?: No
[2022-07-18 09:24] LABS: INR 1.11 (0.9-1.1); Prothrombin Time 11.9 seconds (10.1-12.5)
--- NOTE | 2022-07-18 11:14 | EXP.PN ---
Subjective *Date: 07/18/22 *Time: 11:14 Interval history: A Brewster catheter was placed yesterday and this has been draining tracee blood. Otherwise patient has been relatively calm, comfortable, and resting overnight. This morning patient was alert and talkative, although very groggy appearing. He denied any pain anywhere although he did report feeling cold. Exam Data for Last 24 hours Vital signs and Labs for Last 24 Hours: Temp Pulse Resp BP Pulse Ox 95.3 F L 64 18 129/60 97 07/18/22 10:30 07/18/22 10:40 07/18/22 10:40 07/18/22 10:40 07/18/22 10:40 Laboratory Results - last 24 hr 07/18/22 07:57: WBC 4.9 D, RBC 2.13 L D, Hgb 6.5 L*, Hct 19.6 L*, MCV 92.0, MCH 30.5, MCHC 33.1, RDW 16.7, Plt Count 203, MPV 8.7, Neut % (Auto) 63.9, Lymph % (Auto) 22.6, [place] % (Auto) 8.4, Eos % (Auto) 4.0, Baso % (Auto) 1.1, Neut # (Auto) 3.1, Lymph # (Auto) 1.1, [place] # (Auto) 0.4, Eos # (Auto) 0.2, Baso # (Auto) 0.1 07/18/22 07:57: Sodium 142, Potassium 3.0 L D, Chloride 114 H, Carbon Dioxide 22, Anion Gap 9.0, BUN 29 H D, Creatinine 2.90 H D, Estimated Creat Clear 18, Estimated GFR 21 L, Est GFR ( Amer) 25 L D, Glucose 104 H, Calcium 8.6, Total Bilirubin 0.3, AST 28, ALT 26, Alkaline Phosphatase 98, Total Protein 5.0 L D, Albumin 2.5 L, Globulin 2.5, Albumin/Globulin Ratio 1.0 L 07/18/22 09:03: Blood Type B Negative, Antibody Screen Negative, Crossmatch (AHG) See Detail 07/18/22 09:03: PT 11.9, INR 1.11 H I & O for Last 24 hours: Intake & Output 07/15/22 07/16/22 07/17/2207/18/22 23:59 23:59 23:59 23:59 Intake Total 771 / 771 438 / 438 1252 / 1252 825 / 825 Output Total 2900 / 2900 1175 / 1175 0 / 0 600 / 600 Balance -2129 / -2129 -737 / -737 1252 / 1252 225 / 225 Weight 72.66 kg 73.2 kg 70.959 kg 72.348 kg Microbiology Reports for the Last 24 Hours: Microbiology 07/14/22 09:16 Urine,Catheterized Urine Culture - Preliminary Gram Positive Cocci Constitutional Constitutional: moderate distress (Fatigue), average body habitus, thin, chronically ill appearing and cooperative (Calm) *Routine HEENT Exam Head: Present normocephalic Eye: Present EOMI and PERRL ENT: Present mucous membranes dry *Routine Neck Exam Neck: Present supple; Absent lymphadenopathy *Routine Respiratory Exam Respiratory: Present CTA bilaterally, distant breath sounds and normal respiratory effort; Absent accessory muscle use, rhonchi, wheezes or crackles *Routine Cardiovascular Exam Cardiovascular: Present RRR; Absent murmur *Routine Abdominal Exam Abdominal: Present soft, normoactive bowel sounds and distended (Slightly, soft); Absent tenderness, rebound, guarding or firm *Routine Rectal Exam Patient deferred: visual exam *Routine Exam Patient deferred: penile exam *Routine Extremities Exam Extremities: Absent cyanosis, clubbing or edema *Routine Skin Exam Skin: Present intact, dry and pallor; Absent cyanosis, erythema or rash *Routine Neurological Exam Neurological: Present alert and moving all extremities; Absent altered mental status Comments: Oriented x2, at baseline, very groggy but answers questions appropriately Routine Psychiatric Exam Psychiatric: Present normal affect, normal thought process and cooperative Comments: Very groggy, on reexamination patient was sleeping and difficult to arouse. Assessment and Plan *Assessment and plan (1) HUGO (acute kidney injury): Status: Acute Category: Medical Code(s): N17.9 - Acute kidney failure, unspecified (2) Acute UTI: Status: Acute Category: Medical Code(s): N39.0 - Urinary tract infection, site not specified (3) Non-healing ulcer of right foot: Status: Acute Qualifiers: Non-pressure ulcer stage: unspecified non-pressure ulcer stage Qualified Code(s): L97.519 - Non-pressure chronic ulcer of other part of right foot with unspecified severity Category: Medical Code(s): L97.519 -
--- NOTE | 2022-07-18 12:20 | PC.NURSE ---
CBI initiated per MD order. 18 g initiated. bloody drainage noted. large clots present. pt rectal temp was 95 so initiated joanie kayla per protocol
[2022-07-18 17:07] LABS: Chloride 114 mmol/L (98-107); Potassium 3.2 mmoL/L (3.5-5.1); Sodium 142 mmol/L (136-145)
[2022-07-18 17:10] LABS: Alanine Aminotransferase 30 U/L (12-78); Alkaline Phosphatase 116 U/L (38-126); Anion Gap 11.2 mEq/L (5-15); Aspartate Amino Transferase 34 U/L (17-59); Bilirubin,Total 0.5 mg/dl (0.2-1.3); Blood Urea Nitrogen 26 mg/dl (9-20); Carbon Dioxide 20 mmol/L (22.0-30.0); Creatinine Clearance Estimated 21 mL/min (50-200); Estimated Glomerular Filt Rate 25 ml/min (>60); GFR (African American) 30 ML/MIN (>60); Globulin 2.9 g/dL (1.3-3.2); Total Protein,Serum 5.9 g/dl (6.3-8.2)
[2022-07-18 17:11] LABS: Calcium 8.9 mg/dl (8.4-10.2)
--- NOTE | 2022-07-18 17:12 | PC.NURSE ---
contacted regarding diet order
[2022-07-18 17:13] LABS: Hematocrit 29.9 % (42.0-52.0); Hemoglobin 10.2 g/dL (14.1-18.0)
[2022-07-18 17:14] LABS: Glucose 81 mg/dl (74-100)
[2022-07-19] VITALS (9 sets, daily range): BP systolic 133–158; BP diastolic 62–77; PULSE 61–87; RESP 16–20; TEMP 33.4–37.9; O2SAT 92–98; BMI 21.4
--- NOTE | 2022-07-19 05:39 | PC.NURSE ---
pt is receiving continuous bladder irrigation. he has had 10,000 mL in this shift and 11,100 mL drained. pt has complained of his bladder feeling full and hurting multiple times this shift. some clots were removed, tubing was checked for kinks, and pt stated that he felt better. son has been at bedside t/o the night, call light is in reach.
[2022-07-19 08:08] LABS: Basophils % 0.4 % (0.1-2.0); Eosinophils # 0.2 K/mm3 (0.0-0.4); Eosinophils % 2.9 % (0.1-12.0); Hematocrit 31.2 % (42.0-52.0); Hemoglobin 10.7 g/dL (14.1-18.0); Lymphocytes # 1.3 K/mm3 (0.7-4.5); Lymphocytes % 18.7 % (10-50); Mean Corpuscular HGB Conc 34.3 g/dL (31.8-35.4); Mean Corpuscular Hemoglobin 30.8 pg (27.0-31.2); Mean Corpuscular Volume 89.8 fl (80-94); Mean Platelet Volume 8.5 fl (7.4-10.4); Monocytes # 0.5 K/mm3 (0.1-1.0); Monocytes % 6.4 % (1.7-9.3); Neutrophils % 71.6 % (37.0-80.0); Platelet Count 203 K/mm3 (142-424); Red Blood Count 3.48 M/mm3 (4.60-6.20); Red Cell Distribution Width 15.8 % (11.5-17.5)
[2022-07-19 08:12] LABS: Chloride 110 mmol/L (98-107); Sodium 142 mmol/L (136-145)
[2022-07-19 08:15] LABS: Alanine Aminotransferase 30 U/L (12-78); Albumin Level 2.9 g/dl (3.5-5.0); Alkaline Phosphatase 123 U/L (38-126); Anion Gap 8.9 mEq/L (5-15); Aspartate Amino Transferase 38 U/L (17-59); Bilirubin,Total 0.5 mg/dl (0.2-1.3); Blood Urea Nitrogen 20 mg/dl (9-20); Carbon Dioxide 26 mmol/L (22.0-30.0); Creatinine Clearance Estimated 26 mL/min (50-200); Estimated Glomerular Filt Rate 32 ml/min (>60); GFR (African American) 38 ML/MIN (>60); Globulin 2.9 g/dL (1.3-3.2); Total Protein,Serum 5.8 g/dl (6.3-8.2)
[2022-07-19 08:16] LABS: Glucose 88 mg/dl (74-100)
[2022-07-19 08:29] LABS: Potassium 2.9 mmoL/L (3.5-5.1)
--- NOTE | 2022-07-19 11:42 | PC.NURSE ---
0830-dr valentin made aware of k level 2.9
--- NOTE | 2022-07-19 12:40 | EXP.PN ---
Subjective *Date: 07/19/22 *Time: 12:40 Interval history: No acute events overnight. Patient was awake and alert this morning, eating breakfast, he did fall back asleep later in the morning. Exam Data for Last 24 hours Vital signs and Labs for Last 24 Hours: Temp Pulse Resp BP Pulse Ox 97.3 F L 61 17 133/64 98 07/19/22 12:16 07/19/22 07:51 07/19/22 07:51 07/19/22 07:51 07/19/22 07:51 Laboratory Results - last 24 hr 07/18/22 09:03: Blood Type B Negative, Antibody Screen Negative, Crossmatch (AHG) See Detail 07/18/22 16:55: Hgb 10.2 L D, Hct 29.9 L 07/18/22 16:55: Sodium 142, Potassium 3.2 L, Chloride 114 H, Carbon Dioxide 20 L, Anion Gap 11.2, BUN 26 H, Creatinine 2.50 H, Estimated Creat Clear 21, Estimated GFR 25 L, Est GFR ( Amer) 30 L, Glucose 81 D, Calcium 8.9, Total Bilirubin 0.5, AST 34, ALT 30, Alkaline Phosphatase 116, Total Protein 5.9 L, Albumin 3.0 L D, Globulin 2.9, Albumin/Globulin Ratio 1.0 L 07/19/22 07:01: WBC 7.0 D, RBC 3.48 L D, Hgb 10.7 L, Hct 31.2 L, MCV 89.8, MCH 30.8, MCHC 34.3, RDW 15.8, Plt Count 203, MPV 8.5, Neut % (Auto) 71.6, Lymph % (Auto) 18.7, [place] % (Auto) 6.4, Eos % (Auto) 2.9, Baso % (Auto) 0.4, Neut # (Auto) 5.0, Lymph # (Auto) 1.3, [place] # (Auto) 0.5, Eos # (Auto) 0.2, Baso # (Auto) 0.0 07/19/22 07:01: Sodium 142, Potassium 2.9 L*, Chloride 110 H, Carbon Dioxide 26, Anion Gap 8.9, BUN 20, Creatinine 2.00 H, Estimated Creat Clear 26, Estimated GFR 32 L, Est GFR ( Amer) 38 L D, Glucose 88, Calcium 9.0, Total Bilirubin 0.5, AST 38, ALT 30, Alkaline Phosphatase 123, Total Protein 5.8 L, Albumin 2.9 L, Globulin 2.9, Albumin/Globulin Ratio 1.0 L I & O for Last 24 hours: Intake & Output 07/16/22 07/17/22 07/18/22 07/19/22 23:59 23:59 23:59 23:59 Intake Total 438 / 438 1252 / 1252 1474 / 1474 240 / 240 Output Total 1175 / 1175 0 / 0 4100 / 4100 4000 / 4000 Balance -737 / -737 1252 / 1252 -2626 / -2626 -3760 / -3760 Weight 73.2 kg 70.959 kg 72.348 kg 71.838 kg Microbiology Reports for the Last 24 Hours: Microbiology 07/14/22 09:16 Urine,Catheterized Urine Culture - Preliminary Gram Positive Cocci Constitutional Constitutional: moderate distress (Fatigue), average body habitus, thin, chronically ill appearing and cooperative (Calm) *Routine HEENT Exam Head: Present normocephalic Eye: Present EOMI and PERRL ENT: Present mucous membranes dry *Routine Neck Exam Neck: Present supple; Absent lymphadenopathy *Routine Respiratory Exam Respiratory: Present CTA bilaterally, distant breath sounds and normal respiratory effort; Absent accessory muscle use, rhonchi, wheezes or crackles *Routine Cardiovascular Exam Cardiovascular: Present RRR; Absent murmur *Routine Abdominal Exam Abdominal: Present soft, normoactive bowel sounds and distended (Slightly, soft); Absent tenderness, rebound, guarding or firm *Routine Rectal Exam Patient deferred: visual exam *Routine Exam Patient deferred: penile exam *Routine Extremities Exam Extremities: Absent cyanosis, clubbing or edema *Routine Skin Exam Skin: Present intact, dry and pallor; Absent cyanosis, erythema or rash *Routine Neurological Exam Neurological: Present alert and moving all extremities; Absent altered mental status or normal tone (Decreased muscle tone) Comments: very groggy but answers questions appropriately Routine Psychiatric Exam Psychiatric: Present normal affect, normal thought process and cooperative Comments: Very sleepy Assessment and Plan *Assessment and plan (1) HUGO (acute kidney injury): Status: Acute Category: Medical Code(s): N17.9 - Acute kidney failure, unspecified (2) Acute UTI: Status: Acute Category: Medical Code(s): N39.0 - Urinary tract infection, site not specified (3) Non-healing ulcer of right foot: Status: Acute Qualifiers: Non-pressure ulcer stage: unspecified non-pressure ulcer stage Quali
--- NOTE | 2022-07-19 15:12 | PC.NURSE ---
1337- h[place]land kayla removed r/t temp
[2022-07-20] VITALS (7 sets, daily range): BP systolic 134–159; BP diastolic 63–80; PULSE 59–71; RESP 16–18; TEMP 35.6–36.5; O2SAT 94–98; BMI 21.1
[2022-07-20 07:12] LABS: Basophils % 0.3 % (0.1-2.0); Eosinophils # 0.3 K/mm3 (0.0-0.4); Eosinophils % 4.7 % (0.1-12.0); Hematocrit 29.9 % (42.0-52.0); Hemoglobin 10.2 g/dL (14.1-18.0); Lymphocytes # 1.4 K/mm3 (0.7-4.5); Lymphocytes % 19.1 % (10-50); Mean Corpuscular HGB Conc 34.3 g/dL (31.8-35.4); Mean Corpuscular Volume 90.4 fl (80-94); Mean Platelet Volume 8.4 fl (7.4-10.4); Monocytes # 0.5 K/mm3 (0.1-1.0); Monocytes % 7.4 % (1.7-9.3); Neutrophils # 4.8 K/mm3 (1.8-7.8); Neutrophils % 68.5 % (37.0-80.0); Platelet Count 217 K/mm3 (142-424); Red Blood Count 3.31 M/mm3 (4.60-6.20); Red Cell Distribution Width 15.7 % (11.5-17.5)
[2022-07-20 07:16] LABS: Chloride 108 mmol/L (98-107); Sodium 137 mmol/L (136-145)
[2022-07-20 07:18] LABS: Blood Urea Nitrogen 15 mg/dl (9-20); Creatinine Clearance Estimated 35 mL/min (50-200); Estimated Glomerular Filt Rate 44 ml/min (>60); GFR (African American) 54 ML/MIN (>60)
[2022-07-20 07:19] LABS: Alanine Aminotransferase 29 U/L (12-78); Albumin Level 2.6 g/dl (3.5-5.0); Alkaline Phosphatase 106 U/L (38-126); Anion Gap 7.8 mEq/L (5-15); Aspartate Amino Transferase 32 U/L (17-59); Bilirubin,Total 0.5 mg/dl (0.2-1.3); Calcium 8.4 mg/dl (8.4-10.2); Carbon Dioxide 24 mmol/L (22.0-30.0); Globulin 2.7 g/dL (1.3-3.2); Glucose 93 mg/dl (74-100); Total Protein,Serum 5.3 g/dl (6.3-8.2)
[2022-07-20 07:25] LABS: Potassium 2.8 mmoL/L (3.5-5.1)
[2022-07-20 07:53] LABS: Magnesium 1.5 mg/dl (1.6-2.3)
--- NOTE | 2022-07-20 07:58 | PC.NURSE ---
pedror notified of k-2.8. po potassium ordered.
--- NOTE | 2022-07-20 08:04 | PC.NURSE ---
Pt did not voice any c/o to staff. CBI in place, urine is pinkish/orange, no clots noted. Son at bedside. Son states pt is doing better tonight. Pt has had adequate PO intake. Call light within reach.
--- NOTE | 2022-07-20 10:19 | SW/DCPLANNER ---
Addendum entered by Kizzy Foote 07/21/22 10:48: Patient will return to [facility] level of care today. I have updated patient's nurse regarding bus availability. COVID swab has been ordered. Addendum entered by Kizzy Foote 07/20/22 15:13: CORRECTION: Angelina Jensen has stated that precert will not until tomorrow and that patient should be fine to return tomorrow pending no setbacks. Original Note: Patient was SNF level of care at [facility] prior to hospital admission. Family is paying bedhold and prefer that patient return to [facility] at time of discharge. Updated patient information has been faxed to Angelina Jensen in preparation that patient could be ready to return tomorrow. Precert was started at end of last week but have : Angelina stated that she will request recert today. Patient will be ready for discharge later today or tomorrow pending setbacks.
--- NOTE | 2022-07-20 11:42 | PC.NURSE ---
Addendum entered by Stephy Dietrich RN 07/20/22 17:46: per homero, stop cbi. Original Note: pt has been pleasant this morning. alert x4. rectal temp at 1130 96.0. put pts clothes on, applied warm blankets. 3800ml uop from huertas bag. new bag of cbi hung at 0800. 1200 instilled so far.
--- NOTE | 2022-07-20 19:40 | EXP.PN ---
Subjective *Date: 07/20/22 *Time: 19:40 Interval history: Patient is awake and alert this morning. He is able to tolerate a full liquid diet without difficulty. Exam Data for Last 24 hours Vital signs and Labs for Last 24 Hours: Temp Pulse Resp BP Pulse Ox 97.4 F L 66 18 150/78 H 96 07/20/22 16:00 07/20/22 16:00 07/20/22 16:00 07/20/22 16:00 07/20/22 16:00 Laboratory Results - last 24 hr 07/20/22 06:55: WBC 7.0, RBC 3.31 L, Hgb 10.2 L, Hct 29.9 L, MCV 90.4, MCH 31.0, MCHC 34.3, RDW 15.7, Plt Count 217, MPV 8.4, Neut % (Auto) 68.5, Lymph % (Auto) 19.1, [place] % (Auto) 7.4, Eos % (Auto) 4.7, Baso % (Auto) 0.3, Neut # (Auto) 4.8, Lymph # (Auto) 1.4, [place] # (Auto) 0.5, Eos # (Auto) 0.3, Baso # (Auto) 0.0 07/20/22 06:55: Sodium 137, Potassium 2.8 L*, Chloride 108 H, Carbon Dioxide 24, Anion Gap 7.8, BUN 15, Creatinine 1.50 H D, Estimated Creat Clear 35, Estimated GFR 44 L, Est GFR ( Amer) 54 L D, Glucose 93, Calcium 8.4, Total Bilirubin 0.5, AST 32, ALT 29, Alkaline Phosphatase 106, Total Protein 5.3 L, Albumin 2.6 L D, Globulin 2.7, Albumin/Globulin Ratio 1.0 L 07/20/22 06:55: Magnesium 1.5 L I & O for Last 24 hours: Intake & Output 07/17/22 07/18/22 07/19/22 07/20/22 23:59 23:59 23:59 23:59 Intake Total 1252 / 1252 1474 / 1474 750 / 990 2996 / 2996 Output Total 0 / 0 4100 / 4100 7500 / 7500 8900 / 8900 Balance 1252 / 1252 -2626 / -2626 -6750 / -6510 -5904 / -5904 Weight 70.959 kg 72.348 kg 71.838 kg 70.845 kg Microbiology Reports for the Last 24 Hours: Microbiology 07/14/22 09:16 Urine,Catheterized Urine Culture - Preliminary Gram Positive Cocci Constitutional Constitutional: no acute distress, average body habitus, thin, chronically ill appearing and cooperative (Calm) *Routine HEENT Exam Head: Present normocephalic and atraumatic Eye: Present EOMI and PERRL ENT: Present mucous membranes dry *Routine Neck Exam Neck: Present supple; Absent lymphadenopathy *Routine Respiratory Exam Respiratory: Present CTA bilaterally, distant breath sounds and normal respiratory effort; Absent accessory muscle use, rhonchi, wheezes or crackles *Routine Cardiovascular Exam Cardiovascular: Present RRR; Absent murmur *Routine Abdominal Exam Abdominal: Present soft and normoactive bowel sounds; Absent tenderness, distended, rebound, guarding or firm *Routine Rectal Exam Patient deferred: visual exam *Routine Exam Patient deferred: penile exam *Routine Extremities Exam Extremities: Absent cyanosis, clubbing or edema *Routine Skin Exam Skin: Present intact, dry and pallor; Absent cyanosis, erythema or rash *Routine Neurological Exam Neurological: Present alert and moving all extremities; Absent altered mental status or normal tone (Decreased muscle tone) Routine Psychiatric Exam Psychiatric: Present normal affect, normal thought process and cooperative Assessment and Plan *Assessment and plan (1) HUGO (acute kidney injury): Status: Acute Category: Medical Code(s): N17.9 - Acute kidney failure, unspecified (2) Acute UTI: Status: Acute Category: Medical Code(s): N39.0 - Urinary tract infection, site not specified (3) Non-healing ulcer of right foot: Status: Acute Qualifiers: Non-pressure ulcer stage: unspecified non-pressure ulcer stage Qualified Code(s): L97.519 - Non-pressure chronic ulcer of other part of right foot with unspecified severity Category: Medical Code(s): L97.519 - Non-pressure chronic ulcer of other part of right foot with unspecified severity (4) Hypertension: Status: Acute Category: Medical Code(s): I10 - Essential (primary) hypertension (5) A-fib: Status: Acute Category: Medical Code(s): I48.91 - Unspecified atrial fibrillation (6) Mild cognitive impairment with memory loss: Problem Comment: At risk for vascular dementia Status: Chron
[2022-07-21] VITALS: TEMP 36.2
--- NOTE | 2022-07-21 03:09 | PC.NURSE ---
Pt resting in bed at this time, Has been A/O X 3 this shift. Pt has been laughing, states he is so excited that he is doing so well. Lungs have been clear, resp even and non labored. Brewster is secured to bed. IV is patent. Pt has been educated on scheduled medications and encouraged to call for any needs. Bed is locked in low position, side rails up x 2, call light in reach.
[2022-07-21 04:00] VITALS: BP 170/93; PULSE 89; TEMP 36.4; O2SAT 97; BMI 21.7
--- NOTE | 2022-07-21 07:27 | EXP.DC.SUM ---
General Admission date:: 07/14/22 Discharge date: 07/21/22 HPI HPI HPI: 86-year-old male with long history of chronic a. fib, mild dementia, HTN, right foot abscess s/p I&D on 06/25 who had recent back to back admissions for cellulitis/abscess of right foot followed by [facility], was sent from [facility] where he resides to ED for evaluation of mental status changes. Son at bedside reports significant change from Wednesday evening visit. He was alert and mostly oriented at that time. Last evening at [facility] he complained of abdomen pain, was more confused and pulled out his huertas catheter. Symptoms worsened through the night which led to his transfer to the ED. In the ED, found to have HUGO, creatinine 1.4, nitrate + UTI. WBC normal. CXR concern for worsening infiltrates, however patient recently finished empiric treatment of pneumonia with Augmentin and Bactrim, has no oxygen requirement and improved lung exam, likely resolving from previous infection. CT head unremarkble. Right foot dressing in place, xray in ED unremarkable. Dr. Gallego has been consulted for further recommendations. Admitted to [facility] for IVF's, rocephin for UTI and further evaluation. Hospital Course Hospital Course Hospital Course: Patient is an 86-year-old male admitted on 07/14 for altered mental status with grogginess and decreased level of consciousness, HUGO, and UTI. Clinically improved. At baseline mentation. Urine culture growing Globicatella sanguinous. Completed empiric course of antibiotics. Stable for discharge to intermediate. Problems addressed as follows: //Altered mental status -Confused on presentation. Cleared with clinical treatment of his HUGO and UTI. Back to baseline. Tolerating p.o. intake. On room air. Improved mobility. Stable for discharge to nursing facility. //UTI //Urinary retention - UCx from 07/14 is positive for > 100K gram-positive cocci. growing globicatella sanguinis. Has completed 8 days of IV antibiotics with vancomycin and Rocephin. This combo should cover. No sensitivities available as our lab does not proceed with sensitivities of this pathogen. Rare cause of infection. Given clinical improvement, will remove Huertas, treat for urinary retention with tamsulosin and finasteride, and monitor for recurrence clinically. //HUGO //Hypomagnesemia -Creatinine baseline approximately 1.1. Peaked at 2.9 during admission. Improved to 1.3 on day of discharge. Tolerating oral intake. Urine clear at this point. No further blood in urine. Huertas discontinued prior to discharge. Would benefit from repeat labs in a week to monitor kidney function and electrolytes. Magnesium 1.3 on day of discharge. Repleted before transferred back to [place]. //Acute blood loss - hgb dropped precipitously from 12.3 -> 8.9 -> 6.5 on 07/18. He was transfused 2 units and hgb responded very nicely from 6.5 -> 10.2. Has remained stable since stopping his blood thinner. We recommend continuing to hold Eliquis for 2-3 more days. Resume later this week given recent bleeding from urinary system. Monitor closely for hematuria. Blood loss likely secondary to trauma from Huertas catheter which is being removed prior to transfer back to facility. Right foot surgical wound -Follow-up later this week with Dr. Wolf as scheduled Stable for discharge back to [place]. Exam Data for Last 24 hours Vital signs and Labs for Last 24 Hours: Temp Pulse Resp BP Pulse Ox 97.5 F L 89 16 170/93 H 97 07/21/22 04:00 07/21/22 04:00 07/20/22 20:00 07/21/22 04:00 07/21/22 04:00 Laboratory Results - last 24 hr 07/20/22 06:55: Magnesium 1.5 L I & O for Last 24 hours: Intake & Output 07/18/22 07/19/22 07/20/22 07/21/22 23:59 23:59 23:59 23:59 Intake Total 1474 / 1474 750 / 990 2996 / 2996 Output Total 4100 / 4100 7500 / 7500 30843 / 67882 1000 / 1000 Balance -2626 / -2626 -6750 / -6510 -7704 / -7704 -1000 / -1000 Weight 72.348 kg 71.838
[2022-07-21 07:28] LABS: Basophils % 0.4 % (0.1-2.0); Chloride 107 mmol/L (98-107); Eosinophils # 0.3 K/mm3 (0.0-0.4); Hematocrit 28.8 % (42.0-52.0); Hemoglobin 9.6 g/dL (14.1-18.0); Lymphocytes # 1.3 K/mm3 (0.7-4.5); Lymphocytes % 15.9 % (10-50); Mean Corpuscular HGB Conc 33.2 g/dL (31.8-35.4); Mean Corpuscular Hemoglobin 29.9 pg (27.0-31.2); Mean Corpuscular Volume 90.1 fl (80-94); Mean Platelet Volume 8.5 fl (7.4-10.4); Monocytes # 0.6 K/mm3 (0.1-1.0); Monocytes % 7.1 % (1.7-9.3); Neutrophils % 72.6 % (37.0-80.0); Platelet Count 241 K/mm3 (142-424); Red Cell Distribution Width 15.6 % (11.5-17.5); Sodium 135 mmol/L (136-145); White Blood Count 8.2 K/mm3 (4.8-10.8)
[2022-07-21 07:31] LABS: Alanine Aminotransferase 28 U/L (12-78); Albumin Level 2.6 g/dl (3.5-5.0); Alkaline Phosphatase 106 U/L (38-126); Aspartate Amino Transferase 35 U/L (17-59); Bilirubin,Total 0.3 mg/dl (0.2-1.3); Blood Urea Nitrogen 12 mg/dl (9-20); Carbon Dioxide 23 mmol/L (22.0-30.0); Creatinine Clearance Estimated 41 mL/min (50-200); Estimated Glomerular Filt Rate 52 ml/min (>60); GFR (African American) 63 ML/MIN (>60); Globulin 2.7 g/dL (1.3-3.2); Total Protein,Serum 5.3 g/dl (6.3-8.2)
[2022-07-21 07:32] LABS: Anion Gap 8.3 mEq/L (5-15); Calcium 8.2 mg/dl (8.4-10.2); Glucose 103 mg/dl (74-100); Potassium 3.3 mmoL/L (3.5-5.1)
[2022-07-21 08:00] VITALS: BP 153/98; PULSE 81; RESP 16; TEMP 36.7; O2SAT 96
[2022-07-21 08:00] LABS: Magnesium 1.3 mg/dl (1.6-2.3)
[2022-07-21 09:20] LABS: Vancomycin,Trough 6.2 ug/mL (5.0-10.0)
[2022-07-21 10:18] LABS: Coronavirus 19, PCR Not Detected (NotDetected); Influenza A, PCR Not Detected (NotDetected); Influenza B, PCR Not Detected (NotDetected)
--- NOTE | 2022-07-21 10:24 | DIET.NUTRFU ---
Patient was up in chair today during rounds, noted to have consumed 75% of breakfast with family. Plan is to discharge today to [facility]. recommend he continue some kind of shakes or supplements high in protein at [facility]
--- NOTE | 2022-07-21 13:00 | PC.NURSE ---
Addendum entered by Stephy Dietrich RN 07/21/22 14:22: still waiting on transport Original Note: report given to taz lynne. waiting on pts iv mag to finish then pt will be ready for transport.
--- NOTE | 2022-07-22 14:05 | CARE MANAGER ---
Spoke with patient nurse, Pallavi at [facility] she states that patient is doing well and has no issues.
== END 2022-07-21 14:29 | DRG 683 ==
LOC: ER 11:20 → 2ND 07-15 00:32
PROVIDERS: Internal Medicine Adolescent Medicine; Admitting Provider Emergency Medicine; Emergency Provider Emergency Medicine; PCP Internal Medicine Adolescent Medicine; Visit Provider Emergency Medicine
DX: N17.9 Acute kidney failure, unspecified (principal); I48.20 Chronic atrial fibrillation, unspecified; N39.0 Urinary tract infection, site not specified; I96 Gangrene, not elsewhere classified; L97.519 Non-pressure chronic ulcer of other part of right foot with unspecified severity; L08.9 Local infection of the skin and subcutaneous tissue, unspecified; F03.90 Unspecified dementia, unspecified severity, without behavioral disturbance, psychotic disturbance, mood disturbance, and anxiety; R33.9 Retention of urine, unspecified; E83.42 Hypomagnesemia; N40.0 Benign prostatic hyperplasia without lower urinary tract symptoms; I10 Essential (primary) hypertension; B96.89 Other specified bacterial agents as the cause of diseases classified elsewhere
CPT/HCPCS: 36415; 70450; 71045; 73620; 74176; 80048; 80053; 80202; 81001; 82140; 82803; 83605; 83735; 85014; 85018; 85025; 85610; 85651; 86140; 86850; 87086; 87088; 87186; 97110; 97163; 97166; 97530; 99285; C9803; J0696; J3370; J3475; P9016; U0003; U0005

== ENCOUNTER 2022-08-06 08:42 | Inpatient (IN) | payer MEDICARE, SELFPAY ==
[2022-08-06] VITALS (11 sets, daily range): BP systolic 103–151; BP diastolic 65–90; PULSE 53–88; RESP 13–25; TEMP 34.9–36.4; O2SAT 88–96; BMI 25.0; BMI 26.2
--- NOTE | 2022-08-06 08:56 | XR_ITS ---
FINAL REPORT TECHNIQUE: Single view chest CLINICAL HISTORY: SOA, COPD vs CHF exacerbation COMPARISON: 07/14/2022 FINDINGS: A single view of the chest was obtained. The heart and mediastinum are within normal limits. There are bibasilar pulmonary opacities consistent with atelectasis or pneumonia. Improved right apical opacities are seen which may represent improving pneumonia. There is no pneumothorax. Osseous structures are unremarkable. IMPRESSION: Bibasilar atelectasis or pneumonia with improving right apical opacities which represent improving pneumonia in this region. Reviewed, Interpreted and Dictated by Jordy Bello III, MD Transcribed by Yenifer Sparrow Authenticated and [facility]
--- NOTE | 2022-08-06 08:58 | HMH.EDGENADL ---
Discharge Plan Disposition Patient Disposition: Admitted As Inpatient Condition: Fair Chief Complaint: Shortness of Breath/Dyspnea Prescriptions Prescriptions: No Action omega 6-lle-tui-fish oil [Fish Oil] 1,000 mg (120 mg-180 mg) capsule 1 cap PO DAILY vitamin B complex [B Complex-Vitamin B12] tablet 1 tab PO DAILY fluticasone propion-salmeterol [Advair Diskus] 250-50 mcg/dose blister with device 1 puff inhalation BIDRT latanoprost 0.005 % Drops 1 drp Eye-Both HS apixaban 5 MG tablet 5 mg PO BID Hold Instructions: pending eval for further bleeding as outpatient acetaminophen 500 mg Tablet 500 mg PO Q6H PRN (Reason: Pain) escitalopram oxalate 10 mg Tablet 10 mg PO DAILY amlodipine 5 mg tablet 5 mg PO DAILY lisinopril 20 mg Tablet 20 mg PO DAILY cholecalciferol (vitamin D3) 50 mcg (2,000 unit) Tablet 50 mcg PO DAILY ipratropium-albuterol 0.5 mg-3 mg(2.5 mg base)/3 mL Solution For Nebulization 3 ml inhalation Q6HP PRN (Reason: Wheezing) Qty: 0 0RF furosemide 20 mg tablet 20 mg PO DAILY Hold Instructions: re-evaluate need at [facility] metoprolol tartrate 25 mg Tablet 12.5 mg PO BID finasteride 5 mg tablet 5 mg PO DAILY Qty: 30 0RF tamsulosin 0.4 mg capsule 0.4 mg PO HS Qty: 30 0RF gabapentin 100 mg capsule 100 mg PO BID 30 Days Qty: 60 0RF Referrals Follow up/Referrals: Artis Krause MD [Primary Care Provider] - See instructions Clinical Impressions Clinical Impression: Acute exacerbation of CHF (congestive heart failure), Acute exacerbation of chronic obstructive pulmonary disease, Acute hypoxemic respiratory failure, Polypharmacy Discharge ED Provider: Brenden Newberry General Adult HPI General Chief complaint: Shortness of Breath/Dyspnea Stated complaint: Low oxygen, wheezing, cough, weakness Time Seen by Provider: 08/06/22 08:56 Mode of Arrival: Ambulatory Source of Information: Patient and Relative Limitations: No Limitations History of Present Illness HPI narrative: This is an 86-year-old male with history of A. fib not currently on anticoagulation, ACS, COPD presenting with generalized fatigue and concern for hypoxemia. Per patient's son, who accompanies him at the bedside, patient has been complaining of feeling like he is going to pass out, for the past 1 or 2 months. This morning he complained of needing to pass out, so patient's son placed a pulse oximeter on patient's finger and oxygen saturation was in the 70s, so patient was brought in by family on arrival, patient's initial saturation 91% on room air and 97% on 2 L nasal cannula. Patient complaining of shortness of breath, but denies chest pain, nausea, vomiting, fevers, chills, diarrhea, abdominal pain. Patient has been experiencing lower extremity swelling, PND/orthopnea, and progressively worsening shortness of breath and lightheadedness over the past 2 months. He states that he does not believe he is on his Eliquis any longer. Related Data Home Medications Medication Instructions Recorded Confirmed omega 5-elj-tmd-fish oil 1,000 mg 1 cap PO DAILY Cholesterol 09/05/18 07/30/22 (120 mg-180 mg) capsule (Fish Oil) vitamin B complex (B 1 tab PO DAILY Supplement 09/05/18 07/30/22 Complex-Vitamin B12 tablet) apixaban 5 mg tablet 5 mg PO BID Atrial fib/blood 03/18/22 07/30/22 thinner acetaminophen 500 mg tablet 500 mg PO Q6H PRN Pain 06/21/22 07/30/22 amlodipine 5 mg tablet 5 mg PO DAILY Hypertension 06/21/22 07/30/22 escitalopram oxalate 10 mg tablet 10 mg PO DAILY mood 06/21/22 07/30/22 cholecalciferol (vitamin D3) 50 50 mcg PO DAILY Supplement 06/22/22 07/30/22 mcg (2,000 unit) tablet lisinopril 20 mg tablet 20 mg PO DAILY Hypertension 06/22/22 07/30/22 fluticasone 250 mcg-salmeterol 50 1 puff inhalation BIDRT Asthma 06/30/22 07/30/22 mcg/dose blistr powdr for inhalation (Advair Diskus) latanoprost 0.005 % eye drops 1
[2022-08-06 09:06] LABS: Coronavirus 19, PCR Not Detected (NotDetected); Influenza A, PCR Not Detected (NotDetected); Influenza B, PCR Not Detected (NotDetected)
[2022-08-06 09:33] LABS: Basophils % 0.4 % (0.1-2.0); Eosinophils # 0.1 K/mm3 (0.0-0.4); Hematocrit 28.3 % (42.0-52.0); Hemoglobin 8.9 g/dL (14.1-18.0); Lymphocytes % 21.1 % (10-50); Mean Corpuscular HGB Conc 31.4 g/dL (31.8-35.4); Mean Corpuscular Hemoglobin 29.9 pg (27.0-31.2); Mean Corpuscular Volume 95.2 fl (80-94); Monocytes # 0.4 K/mm3 (0.1-1.0); Monocytes % 8.2 % (1.7-9.3); Neutrophils # 3.2 K/mm3 (1.8-7.8); Neutrophils % 68.2 % (37.0-80.0); Platelet Count 259 K/mm3 (142-424); Red Blood Count 2.97 M/mm3 (4.60-6.20); Red Cell Distribution Width 15.3 % (11.5-17.5); White Blood Count 4.7 K/mm3 (4.8-10.8)
--- NOTE | 2022-08-06 09:33 | ECG_ITS ---
APPROVED REPORT Exam: Resting ECG HR:52 bpm ECG Measurements Heart Rate 52 AXES QRSd 136 QRS 79 QT 483 T 70 QTc 462 Conclusion ATRIAL FIBRILLATION WITH SLOW VENTRICULAR RESPONSE RIGHT BUNDLE BRANCH BLOCK [120+ ms QRS DURATION, UPRIGHT V1, 40+ ms S IN I/aVL/V4/V5/V6] ABNORMAL ECG UNCONFIRMED REPORT Electronically signed by : Artis Krause MD 08/07/2022 10:08:52
[2022-08-06 09:39] LABS: Alanine Aminotransferase 36 U/L (12-78); Albumin Level 3.4 g/dl (3.5-5.0); Albumin/Globulin Ratio 1.1 (1.1-1.8); Alkaline Phosphatase 182 U/L (38-126); Anion Gap 10.8 mEq/L (5-15); Aspartate Amino Transferase 40 U/L (17-59); Bilirubin,Total 0.4 mg/dl (0.2-1.3); Blood Urea Nitrogen 21 mg/dl (9-20); Calcium 8.6 mg/dl (8.4-10.2); Carbon Dioxide 26 mmol/L (22.0-30.0); Chloride 104 mmol/L (98-107); Creatinine Clearance Estimated 42 mL/min (50-200); Estimated Glomerular Filt Rate 52 ml/min (>60); GFR (African American) 63 ML/MIN (>60); Globulin 3.1 g/dL (1.3-3.2); Glucose 94 mg/dl (74-100); Potassium 3.8 mmoL/L (3.5-5.1); Sodium 137 mmol/L (136-145); Total Protein,Serum 6.5 g/dl (6.3-8.2)
[2022-08-06 09:49] LABS: NT Pro Brain Natriuretic Pep. 2890 pg/mL (0-450)
[2022-08-06 09:49] LABS: VBG Base Excess 0.1 mmol/L (-2.4-2.3); VBG HCO3 24.9 mmol/L (23-30); VBG Oxygen Saturation 86.3 % (50-70); VBG PCO2 40.9 mmol/L (35-51); VBG PO2 53.3 mmol/L (28-40); VBG Total CO2 26.1 mmol/L (23-27)
[2022-08-06 09:57] LABS: Troponin I < 0.01 ng/ml (0.00-0.034)
--- NOTE | 2022-08-06 10:43 | EXP.HP ---
History of Present Illness *Admission Date: 08/06/22 *Reason for visit:: Dyspnea *History of present illness: Mr. Roach is an 86-year-old male with significant recent history of multiple hospitalizations. He has a medical history of atrial fibrillation, not on anticoagulation, ACS, COPD, recent right foot surgery due to abscess. Was recently discharged from [facility] a week ago to go home with family. Presents today from home via EMS where son (while in the ER) states the patient was feeling more short of breath and like he was going to pass out. They checked his oxygen at home and it was found to be in the 70s per report. Patient was placed on supplemental oxygen, EMS called to transport him to the hospital. On evaluation in the ER, patient states that he is feeling more weak and short of breath. Worse when he lays down and sits up. Denies any chest pain, nausea, vomiting. Does complain of improvement for a brief period of time with breathing treatments at home. Denies fever, nausea, vomiting, diarrhea. Does complain of some coughing fits. Has been experiencing lower extremity swelling, lightheadedness, shortness of breath for the past 2 months. Initial labs concerning for elevated BNP. Creatinine at baseline. Chronic anemia. New oxygen requirement as he does not wear oxygen at baseline at home. Patient admitted to medicine for further management. Treated with 1 dose of Lasix as his chest imaging is concerning for pulmonary edema versus bilateral pneumonia. On interview after arriving to the floor, patient is alone in the room with no family at bedside. States that he just cannot catch his breath. Feels like his voice is weak. Is able to give a decent history. Symptoms have been progressing since before his first hospitalization. Denies any pain in his right foot where he had previous abscess and has been debrided by podiatry. Noted to have significant eschar formation and necrosis of skin flaps on the wound of his foot. Currently stable on 2 L nasal cannula oxygen with sats in the low 90s. Feels the need to urinate, but cannot void. [facility] Disclaimer: The information contained in this section may have been updated after the patient was seen, as this information can be updated by other users. Medical History A-fib Acute respiratory failure with hypoxia Atrial fib/flutter, transient COPD (chronic obstructive pulmonary disease) HAP (hospital-acquired pneumonia) Heart palpitations History of BPH Hyperlipemia Hypertension Surgical History History of back surgery Family History Family history of cancer Family history of myocardial infarction Social History Smoking Status: Former smoker pack-years: 20 alcohol intake: never substance use type: denies use current occupational status: retired Travel in the last 8 weeks: None household members: family and children housing: house current occupational exposures/hazards: No caffeine: Yes Review of Systems Review of Systems Review of systems (narrative): 14 point review of systems performed, pertinent positives and negatives as per [facility] Meds Home Medications and Allergies Home Medications Medication Instructions Recorded Confirmed Type omega 5-owb-eqz-fish oil 1,000 mg 1 cap PO DAILY Cholesterol 09/05/18 07/30/22 History (120 mg-180 mg) capsule (Fish Oil) vitamin B complex (B 1 tab PO DAILY Supplement 09/05/18 07/30/22 History Complex-Vitamin B12 tablet) apixaban 5 mg tablet 5 mg PO BID Atrial fib/blood 03/18/22 07/30/22 History thinner acetaminophen 500 mg tablet 500 mg PO Q6H PRN Pain 06/21/22 07/30/22 History amlodipine 5 mg tablet 5 mg PO DAILY Hypertension 06/21/22 07/30/22 History escitalopram oxalate 10 mg tablet 10 mg PO DAILY m
--- NOTE | 2022-08-06 11:03 | PC.NURSE ---
called Care Management for admission on patient.
--- NOTE | 2022-08-06 12:32 | PC.NURSE ---
Report called to Floor, MAX Payne (sp?) on pt condition, diagnosis, eval and results, with plan of admission, care and pertinent case mgt needs. no further questions at this time, will transport pt to room 203
--- NOTE | 2022-08-06 12:42 | PC.NURSE ---
patient arrived by stretcher to floor from ED at 12:40
--- NOTE | 2022-08-06 13:31 | DIET.NUTRFU ---
This RD saw patient last on 07/16 was on MSOFT with ground meats and no straws. Will update order. He also likes strawberry milkshakes, will order with lunch and dinner. He has needed some assistance with meals in the past, family is often here
--- NOTE | 2022-08-06 14:29 | CT_ITS ---
FINAL REPORT TECHNIQUE: Postcontrast axial images of the chest were performed in a CTA protocol. This study was performed with techniques to keep radiation doses as low as reasonably achievable, (ALARA). Individualized dose reduction technique using automated exposure control or adjustment of mA and/or kV according to the patient's size were employed. CLINICAL HISTORY: dyspnea, immobility COMPARISON: 07/03/2022 FINDINGS: The heart is enlarged. No adenopathy is identified. No pleural or pericardial effusion is identified. The thoracic aorta is normal in caliber with no focal aneurysm or dissection identified. There is no filling defect to suggest pulmonary embolism. There is a large right and moderate left pleural effusion. Bilateral lower lobe atelectasis is seen. Bilateral opacities are favored to represent atelectasis or pneumonia. Limited imaging of the upper abdomen demonstrates cholelithiasis. There are small enhancing foci in the spleen which are nonspecific but could represent hemangiomas. IMPRESSION: No evidence for PE on this exam. Large right, moderate left pleural effusions. Bilateral opacities which may represent atelectasis or pneumonia. Reviewed, Interpreted and Dictated by Jordy Bello III, MD Transcribed by Yenifer Sparrow Authenticated and . [facility]
--- NOTE | 2022-08-06 15:44 | EXP.ORTH.CON ---
History of Present Illness *Admission Date: 08/06/22 *Reason for visit:: Right foot chronic ulcer *History of present illness: Mr. Roach is an 86-year-old male with significant recent history of multiple hospitalizations. He has a medical history of atrial fibrillation, not on anticoagulation, ACS, COPD, recent right foot surgery due to abscess. Was recently discharged from [facility] a week ago to go home with family. Presents today from home via EMS where son (while in the ER) states the patient was feeling more short of breath and like he was going to pass out. They checked his oxygen at home and it was found to be in the 70s per report. Patient was placed on supplemental oxygen, EMS called to transport him to the hospital. On evaluation in the ER, patient states that he is feeling more weak and short of breath. Worse when he lays down and sits up. Denies any chest pain, nausea, vomiting. Does complain of improvement for a brief period of time with breathing treatments at home. Denies fever, nausea, vomiting, diarrhea. Does complain of some coughing fits. Has been experiencing lower extremity swelling, lightheadedness, shortness of breath for the past 2 months. Initial labs concerning for elevated BNP. Creatinine at baseline. Chronic anemia. New oxygen requirement as he does not wear oxygen at baseline at home. Patient admitted to medicine for further management. Treated with 1 dose of Lasix as his chest imaging is concerning for pulmonary edema versus bilateral pneumonia. On interview after arriving to the floor, patient is alone in the room with no family at bedside. States that he just cannot catch his breath. Feels like his voice is weak. Is able to give a decent history. Symptoms have been progressing since before his first hospitalization. Denies any pain in his right foot where he had previous abscess and has been debrided by podiatry. Noted to have significant eschar formation and necrosis of skin flaps on the wound of his foot. Currently stable on 2 L nasal cannula oxygen with sats in the low 90s. Feels the need to urinate, but cannot void. Podiatry consult: And is well-known to the podiatry service. He was last seen outpatient in the office 07/30/2022 for right foot wound check. And patient has been doing Santyl daily dressing changes. He denies pain to the foot today. Reports his only complaints are respiratory. [facility] Disclaimer: The information contained in this section may have been updated after the patient was seen, as this information can be updated by other users. Medical History A-fib Acute respiratory failure with hypoxia Atrial fib/flutter, transient COPD (chronic obstructive pulmonary disease) HAP (hospital-acquired pneumonia) Heart palpitations History of BPH Hyperlipemia Hypertension Surgical History History of back surgery Family History Family history of cancer Family history of myocardial infarction Social History Smoking Status: Former smoker pack-years: 20 alcohol intake: never substance use type: denies use current occupational status: retired Travel in the last 8 weeks: None household members: family and children housing: house current occupational exposures/hazards: No caffeine: Yes Review of Systems Review of Systems Review of systems:: pertinent systems reviewed and negative unless documented below Review of systems (narrative): 14 point review of systems performed, pertinent positives and negatives as per HPI Constitutional Constitutional: Reports system reviewed and no additional complaints, except as documented and Reports lethargy Eyes Eyes: Reports system reviewed and no additional complaints, except as documented ENT Ears, Nose, Mouth, and Throat: Report
[2022-08-06 23:20] LABS: Microscopic,Cath URINE MICROSCOPIC (MICROSCOPIC)
[2022-08-06 23:22] LABS: Appearance,Urine/Cath CLEAR (Clear); Bilirubin,Cath Negative (Negative); Blood, Urine/Cath Negative (Negative); Color,Urine/Cath YELLOW (Yellow); Glucose,Urine/Cath (UA) Negative (Negative); Ketones,Urine/Cath Negative (Negative); Leukocyte Esterase,Cath 1+ (Negative); Nitrate,Cath Negative (Negative); Protein,Urine/Cath Negative (Negative); Specific Gravity, Urine/Cath 1.015 (1.005-1.030); Urobilinogen,Cath 0.2 EU/dl (0.2)
[2022-08-06 23:45] LABS: Yeast,Urine/Cath 4+
[2022-08-07] VITALS (9 sets, daily range): BP systolic 115–130; BP diastolic 56–74; PULSE 66–93; RESP 18–22; TEMP 36.2–36.3; O2SAT 91–96; BMI 25.7
--- NOTE | 2022-08-07 04:18 | PC.NURSE ---
PATIENT ORIENTED TO NAME. BIRTHDAY, AND YEAR. MILDLY CONFUSED. NOT SURE WHY HE IS HERE IN THE HOSPITAL. 02 AT 3LNC. VITAL SIGNS STABLE/AFEBRILE. BREATH SOUNDS DIMINISHED, FAINT WHEEZES NOTED. DRSG TO RIGHT FOOT WOUND C/D/I. FEET ELEVATED ON PILLOW. PATIENT TURNED AND REPOSITIONED Q 2 HRS. F/C PATENT AND INTACT TO BSD. DENIES PAIN.
--- NOTE | 2022-08-07 06:00 | US_ITS ---
FINAL REPORT CLINICAL HISTORY: Persistent right pleural effusion-- 770 ml-- jose dykes FINDINGS: ULTRASOUND-GUIDED THORACENTESIS HISTORY: . Right pleural effusion. ATTENDING PHYSICIAN: Dr. Bello PHYSICIAN HEAD OF HUMAN RESOURCES: Jose Pendleton PA-C TECHNIQUE: Informed consent was obtained from the patient. The indications and complications were discussed with the patient prior to beginning the procedure. This included, but was not limited to pain, bleeding, infection, and pneumothorax requiring chest tube placement. The right back was then prepped and draped in sterile fashion. 1% Lidocaine was used for local anesthesia. Utilizing sonographic guidance, a standard thoracentesis needle and sheath were inserted into the pleural space and approximately 770 mL of pleural fluid was successfully removed without complication. The patient tolerated the procedure well. IMPRESSION: Technically successful sonographic guided right-sided thoracentesis as above. Films reviewed , interpreted and dictated by Dr. Bello. Transcribed by Enmanuel Lopez PA-C. Reviewed, Interpreted and Dictated by Jordy Bello III, MD Transcribed by KIARA Sr Authenticated and [facility]
[2022-08-07 06:54] LABS: Basophils % 0.4 % (0.1-2.0); Hematocrit 31.1 % (42.0-52.0); Hemoglobin 9.5 g/dL (14.1-18.0); Lymphocytes # 0.7 K/mm3 (0.7-4.5); Lymphocytes % 15.8 % (10-50); Mean Corpuscular HGB Conc 30.6 g/dL (31.8-35.4); Mean Corpuscular Hemoglobin 29.7 pg (27.0-31.2); Mean Corpuscular Volume 96.9 fl (80-94); Mean Platelet Volume 8.8 fl (7.4-10.4); Monocytes # 0.2 K/mm3 (0.1-1.0); Monocytes % 4.2 % (1.7-9.3); Neutrophils # 3.7 K/mm3 (1.8-7.8); Neutrophils % 79.6 % (37.0-80.0); Platelet Count 276 K/mm3 (142-424); Red Blood Count 3.21 M/mm3 (4.60-6.20); Red Cell Distribution Width 15.4 % (11.5-17.5); White Blood Count 4.7 K/mm3 (4.8-10.8)
[2022-08-07 07:05] LABS: Alanine Aminotransferase 37 U/L (12-78); Albumin Level 3.4 g/dl (3.5-5.0); Alkaline Phosphatase 196 U/L (38-126); Aspartate Amino Transferase 35 U/L (17-59); Bilirubin,Total 0.3 mg/dl (0.2-1.3); Blood Urea Nitrogen 25 mg/dl (9-20); Calcium 8.7 mg/dl (8.4-10.2); Carbon Dioxide 25 mmol/L (22.0-30.0); Chloride 103 mmol/L (98-107); Creatinine Clearance Estimated 35 mL/min (50-200); Estimated Glomerular Filt Rate 41 ml/min (>60); GFR (African American) 50 ML/MIN (>60); Globulin 3.3 g/dL (1.3-3.2); Glucose 119 mg/dl (74-100); Magnesium 1.7 mg/dl (1.6-2.3); Sodium 136 mmol/L (136-145); Total Protein,Serum 6.7 g/dl (6.3-8.2)
[2022-08-07 07:58] LABS: Lactate Dehydrogenase 199 U/L (313-618)
--- NOTE | 2022-08-07 10:28 | XR_ITS ---
FINAL REPORT CLINICAL HISTORY: post thoracentesis COMPARISON: 08/06/2022 FINDINGS: SINGLE-VIEW CHEST There is cardiomegaly with mild pulmonary vascular congestion. The mediastinum is normal. There are persistent left base opacities, may represent atelectasis or pneumonia. There is no pneumothorax. IMPRESSION: Persistent left base atelectasis versus pneumonia. Reviewed, Interpreted and Dictated by Jordy Bello III, MD Transcribed by Mary Valdez Authenticated and [facility] [place]
--- NOTE | 2022-08-07 11:21 | CARE MANAGER ---
Addendum entered by Roberta Agee RN 08/07/22 13:39: Spoke with patient and family member at bedside, regarding discharge planning. Plan is for patient to return home with services. He had [facility] prior to admission, although they hadn't been to see him yet. He will need new orders once medically ready for discharge. Original Note: Plan if for patient to have a wound vac to right foot upon discharge. Dora in Dr. Galarza's office is ordering one through [facility]. I have spoke with Stephanie at [facility] today, who knows to be looking for oder and will plan to deliver when patient is ready for discharge. If patient discharges over the weekend, [facility] on-call service can deliver.
--- NOTE | 2022-08-07 11:22 | HMH.PTWOUND ---
Rehab Inpt Wound Evaluation Rehab IP Wound Evaluation Start: 08/06/22 17:47 Freq: ONCE Status: Active Protocol: Document 08/07/22 10:00 TIP (Rec: 08/07/22 11:22 PHOTAO [id number]) Rehab PT Wound Assessment Subjective Subjective 86 yowm adm to [facility] with CHF, COPD exac, and prior R foot wound requiring I&D. He lives with family, uses a walker for ambulation at baseline. He reports no pain in the R foot at this time. Wound Right Lateral Foot Wound Type S/P I&D Is This a Chronic Wound Yes Wound Length (cm) 12.8 Wound Width (cm) 6.0 Wound Depth (cm) 0.2 Wound Bed Appearance Beefy Red,Yellow Percentage Granulated (%) 75 Percentage of Slough (%) 25 Wound Margins Description Well Defined Surrounding Tissue Appearance [place] Wound Drainage Description Serosanguineous Drainage Amount Small Packing Type Woundvac Sponge Primary Dressing Transparent Drape Wound Secondary Dressing Type Elastic Bandage Wound Debridement Method Gauze Wound Debridement Amount of Tissue Minimal Removed Dressing Change Patient Tolerance Tolerated Well Plan/Recommendation Comment Will continue to need VAC dressing changes every 48-72 hours. Will follow as inpatient and prepare for home health wound treatment upon d /c. Eval Complexity Eval Charge Codes 38511 - Moderate Complexity PHYSICIAN CERTIFICATION: I certify the specified therapy services for Onur Roach are required, authorized, and reviewed every 30 days.
--- NOTE | 2022-08-07 11:23 | HMH.PTWOUND ---
Rehab Inpt Wound Evaluation Rehab IP Wound Evaluation Start: 08/06/22 17:47 Freq: ONCE Status: Active Protocol: Document 08/07/22 10:00 TIP (Rec: 08/07/22 11:22 PHOTAO [id number]) Rehab PT Wound Assessment Subjective Subjective 86 yowm adm to [facility] with CHF, COPD exac, and prior R foot wound requiring I&D. He lives with family, uses a walker for ambulation at baseline. He reports no pain in the R foot at this time. Wound Right Lateral Foot Wound Type S/P I&D Is This a Chronic Wound Yes Wound Length (cm) 12.8 Wound Width (cm) 6.0 Wound Depth (cm) 0.2 Wound Bed Appearance Beefy Red,Yellow Percentage Granulated (%) 75 Percentage of Slough (%) 25 Wound Margins Description Well Defined Surrounding Tissue Appearance [place] Wound Drainage Description Serosanguineous Drainage Amount Small Packing Type Woundvac Sponge Primary Dressing Transparent Drape Wound Secondary Dressing Type Elastic Bandage Wound Debridement Method Gauze Wound Debridement Amount of Tissue Minimal Removed Dressing Change Patient Tolerance Tolerated Well Plan/Recommendation Comment Will continue to need VAC dressing changes every 48-72 hours. Will follow as inpatient and prepare for home health wound treatment upon d /c. Eval Complexity Eval Charge Codes 98179 - Moderate Complexity PHYSICIAN CERTIFICATION: I certify the specified therapy services for Onur Roach are required, authorized, and reviewed every 30 days.
--- NOTE | 2022-08-07 11:27 | HMH.PTEV ---
Physical Therapy Evaluation Rehab PT IP Evaluation Start: 08/06/22 15:42 Freq: ONCE Status: Active Protocol: Document 08/07/22 10:00 PHORIDA (Rec: 08/07/22 11:27 PHORNE [id number]) Subjective/History History History 86 yowm adm to [facility] with CHF, COPD exac, and prior R foot wound requiring I&D. He lives with family, uses a walker for ambulation at baseline. He reports no pain in the R foot at this time. Subjective Subjective No c/o at this time. Rehab PT IP Eval Objective Appearance Patient Behavior Appropriate,Cooperative Patient Orientation Person,Place Difficulty following instructions none Speech Pattern Clear Ambulation Patient Able to Ambulate No Balance Ability to Arise Able, uses arms to help Sitting Balance Steady, safe Standing Balance Steady, wide stance Dynamic Sitting Balance Ability Good Dynamic Standing Balance Ability Poor Transfers Bed Transfer Ability Moderate x 2 (50% assist) Chair Transfer Ability Maximum x 1 (75% assist) Sit to Stand Bed Transfer Ability Maximum x 1 (75% assist) Sit to Stand Chair Transfer Ability Maximum x 1 (75% assist) Rehab PT IP prob,goals,plan Problems Date of Evaluation: 08/07/22 PT IP Problems Bed Mobility,Transfers,Gait Rehab Potential Rehab Potential Good Plan PT Intervention Plan Bed Mobility,Transfers,Gait PT Plan Frequency Daily Duration LOS Discharge Goals Bed Transfer Ability Moderate x 1 (50% assist) Sit to Stand Chair Transfer Ability Moderate x 1 (50% assist) Ambulation Assistive Device Rolling Walker Ambulation Distance (feet) 5 Discharge Plan PT Discharge Plan Pt is currently most appropriate for rehab placement, but could return home with 24 hr assist with family if unable to receive placement. Wound VAC dressing to R foot currently in place with good seal at this time. G -code Required No Eval Complexity Eval Charge Codes 79222 - Moderate Complexity PHYSICIAN CERTIFICATION: I certify the specified therapy services for Onur Rocah are required, authorized, and reviewed every 30 days.
--- NOTE | 2022-08-07 11:44 | HMH.PHAINT1 ---
Pharmacy Intervention Comments: MEDICATION RECONCILIATION COMPLETED ON PATIENT USING EXTERNAL FILL HISTORY FROM PHARMACY AND DISCHARGE SUMMARY FROM PREVIOUS ADMISSION. -BENJY SAHNI, WILLD
--- NOTE | 2022-08-07 16:42 | EXP.ACUTE.PN ---
Subjective *Date: 08/07/22 *Time: 16:44 Interval history: Patient states he feels better this morning. Still mildly dyspneic. Continues to require 2 L nasal cannula oxygen. No nausea or vomiting. No fever overnight. Blood pressure well controlled. Diuresed well with -1.7 L in the past 24 hours. Discussed thoracentesis again this morning with son and [id number] at bedside. Patient amenable to removing fluid to help with breathing. Medical Exam Vital signs and Labs for Last 24 Hours: Vital Signs Temp Pulse Pulse Resp BP Pulse Ox 08/07/22 11:05 70 08/07/22 11:05 72 08/07/22 11:05 96 08/07/22 08:00 83 94 L 08/07/22 08:00 97.4 F L 83 20 124/62 94 L 08/07/22 06:24 93 H 08/07/22 06:24 89 08/07/22 06:24 91 L 08/07/22 04:00 97.4 F L 81 20 128/74 96 08/06/22 23:55 95 08/07/22 00:04 66 08/07/22 00:04 70 08/07/22 00:04 94 L 08/06/22 20:00 95 08/06/22 20:00 97.6 F 68 20 131/67 95 Intake and Output 08/07/22 08/07/22 08/07/22 07:59 15:59 23:59 Intake Total 840 / 840 Output Total 620 / 620 0 / 620 0 / 620 Balance -620 / 220 840 / 220 0 / 220 Intake: Intake, Oral Amount 840 / 840 Output: Output, Urine Amount 620 / 620 0 / 620 0 / 620 Other: Number of Unmeasured Voids 0 0 Weight 76.839 kg 76.84 kg Patient Weight 08/07/22 23:59 Weight 76.84 kg Laboratory Results - last 24 hr 08/06/22 16:19: Urine Color Yellow, Urine Appearance Clear, Urine pH 6.0, Ur Specific [place] 1.015, Urine Protein Negative, Urine Glucose (UA) Negative, Urine Ketones Negative, Urine Blood Negative, Urine Nitrate Negative, Urine Bilirubin Negative, Urine Urobilinogen 0.2, Ur Leukocyte Esterase 1+ A, Urine WBC 10-20 A, Urine Bacteria None, Urine Yeast 4+ 08/07/22 06:31: WBC 4.7 L, RBC 3.21 L, Hgb 9.5 L, Hct 31.1 L, MCV 96.9 H, MCH 29.7, MCHC 30.6 L, RDW 15.4, Plt Count 276, MPV 8.8, Neut % (Auto) 79.6, Lymph % (Auto) 15.8, [place] % (Auto) 4.2, Eos % (Auto) 0.0 L, Baso % (Auto) 0.4, Neut # (Auto) 3.7, Lymph # (Auto) 0.7, [place] # (Auto) 0.2, Eos # (Auto) 0.0, Baso # (Auto) 0.0 08/07/22 06:31: Sodium 136, Potassium 4.0, Chloride 103, Carbon Dioxide 25, Anion Gap 12.0, BUN 25 H, Creatinine 1.60 H D, Estimated Creat Clear 35, Estimated GFR 41 L, Est GFR ( Amer) 50 L D, Glucose 119 H D, Calcium 8.7, Magnesium 1.7, Total Bilirubin 0.3, AST 35, ALT 37, Alkaline Phosphatase 196 H, Total Protein 6.7, Albumin 3.4 L, Globulin 3.3 H, Albumin/Globulin Ratio 1.0 L 08/07/22 06:31: Lactate Dehydrogenase 199 L I & O for Labs for Last 24 Hours: Intake & Output 08/04/22 08/05/22 08/06/22 08/07/22 23:59 23:59 23:59 23:59 Intake Total 240 / 240 840 / 840 Output Total 1350 / 1970 620 / 620 Balance -1110 / -1730 220 / 220 Weight 78.103 kg 76.84 kg Microbiology Reports for the Last 24 Hours: Microbiology 07/14/22 09:16 Urine,Catheterized Urine Culture - Preliminary Gram Positive Cocci Constitutional: Present no acute distress, average body habitus and chronically ill appearing Head: Present atraumatic and normocephalic ENT: Present normal exam Comment:: Alert when vigorous stimuli given. Lungs have good air movement. Heart rate irregular. Murmur as previously noted. Perfusion is good, pure wick catheter draining bloody urine Neck: Present normal inspection Respiratory: Present crackles, diminished air movement and normal respiratory effort; Absent rhonchi or wheezes Cardiac: Present Reg Rate and Rhythm GI: Present soft; Absent distention or tenderness Extremities: Present normal inspection; Absent edema Skin: Present intact; Absent cyanosis or erythema Neuro: Present Grossly Intact, alert, awake and moves all extremities Comment:: Oriented to person and place Assessment and Plan *Assessment and plan (1) Acute exacerbation of CHF (congestive heart failure): Status: Acute
--- NOTE | 2022-08-07 17:28 | PC.NURSE ---
pt has been up to chair for most of afternoon, is now on room air with O2 sats 93-94%, no complaints of SOA or pain, wound vac to right foot, huertas remains in place
[2022-08-07 19:25] LABS: Appearance,Body Fld. Hazy; Source, Body Fld. Thoracentesis Fluid; Volume,Body Fld. 770 mL
[2022-08-07 19:35] LABS: RBC,Body Fluid < 10 cells/uL (< 10 X 10^3); TNC,Body Fluid 71 cells/uL (< 1000)
[2022-08-07 20:03] LABS: Mononuclear WBCs,Body Fluid 100 %; Polynuclear WBC,Body Fluid 0 %
--- NOTE | 2022-08-08 02:49 | PC.NURSE ---
PATIENT PULLED IV OUT.
[2022-08-08 04:00] VITALS: BP 129/79; PULSE 81; RESP 24; TEMP 36.6; O2SAT 92; BMI 25.7
[2022-08-08 06:21] VITALS: PULSE 79; PULSE 83; O2SAT 93
--- NOTE | 2022-08-08 07:23 | EXP.DC.SUM ---
General Admission date:: 08/06/22 Discharge date: 08/08/22 HPI HPI HPI: Mr. Roach is an 86-year-old male with significant recent history of multiple hospitalizations. He has a medical history of atrial fibrillation, not on anticoagulation, ACS, COPD, recent right foot surgery due to abscess. Was recently discharged from [facility] a week ago to go home with family. Presents today from home via EMS where son (while in the ER) states the patient was feeling more short of breath and like he was going to pass out. They checked his oxygen at home and it was found to be in the 70s per report. Patient was placed on supplemental oxygen, EMS called to transport him to the hospital. On evaluation in the ER, patient states that he is feeling more weak and short of breath. Worse when he lays down and sits up. Denies any chest pain, nausea, vomiting. Does complain of improvement for a brief period of time with breathing treatments at home. Denies fever, nausea, vomiting, diarrhea. Does complain of some coughing fits. Has been experiencing lower extremity swelling, lightheadedness, shortness of breath for the past 2 months. Initial labs concerning for elevated BNP. Creatinine at baseline. Chronic anemia. New oxygen requirement as he does not wear oxygen at baseline at home. Patient admitted to medicine for further management. Treated with 1 dose of Lasix as his chest imaging is concerning for pulmonary edema versus bilateral pneumonia. On interview after arriving to the floor, patient is alone in the room with no family at bedside. States that he just cannot catch his breath. Feels like his voice is weak. Is able to give a decent history. Symptoms have been progressing since before his first hospitalization. Denies any pain in his right foot where he had previous abscess and has been debrided by podiatry. Noted to have significant eschar formation and necrosis of skin flaps on the wound of his foot. Currently stable on 2 L nasal cannula oxygen with sats in the low 90s. Feels the need to urinate, but cannot void. Podiatry consult: And is well-known to the podiatry service. He was last seen outpatient in the office 07/30/2022 for right foot wound check. And patient has been doing Santyl daily dressing changes. He denies pain to the foot today. Reports his only complaints are respiratory. Hospital Course Hospital Course Hospital Course: Mr. Roach is a pleasant 86-year-old male with unfortunate course of multiple readmissions over the past month.? Presents for worsening respiratory distress concerning for CHF exacerbation.? Previously noted effusions.? Obtaining CT of chest to evaluate for persistence or improved resolution.? Stable on 2 L nasal cannula oxygen at this time.? Agreeable to thoracentesis.? Afebrile overnight.Problems addressed as follows: Acute hypoxemic respiratory failure Acute CHF exacerbation, HFpEF COPD with exacerbation -Admitted for new oxygen requirement. Imaging showing persistent pleural effusions. Reviewed past charting that showed echo obtained in June with normal ejection fraction, concern for diastolic dysfunction. We will suspect heart failure and debility/nutrition are culprit in his pleural effusions. Thoracentesis performed Wednesday (08/07) with removal of approximately a liter of fluid. No concern for infection. Had improvement in breathing and was able to wean off oxygen at rest. Continue diuresis to assist with fluid management. Initially had a Brewster placed for strict I's and O's, removed prior to discharge. Has had an indwelling catheter previously that developed an infection. Patient would benefit from evaluation for in and out cathing daily to help with post void residuals. On day of discharge, patient qualified for oxygen with moving. As he transition from the bed to the bedside chair, O2 saturations dropped to 84%. Will send home with 2 L oxygen continuous. Recommend using nebulizer and inhalers as orde
[2022-08-08 08:00] VITALS: BP 122/76; PULSE 89; RESP 22; TEMP 35.9; O2SAT 93
[2022-08-08 08:21] LABS: Basophils % 0.2 % (0.1-2.0); Eosinophils % 0.2 % (0.1-12.0); Hematocrit 28.6 % (42.0-52.0); Hemoglobin 9.3 g/dL (14.1-18.0); Lymphocytes # 1.2 K/mm3 (0.7-4.5); Lymphocytes % 14.1 % (10-50); Mean Corpuscular HGB Conc 32.4 g/dL (31.8-35.4); Mean Corpuscular Hemoglobin 29.4 pg (27.0-31.2); Mean Corpuscular Volume 90.8 fl (80-94); Mean Platelet Volume 8.8 fl (7.4-10.4); Monocytes # 0.6 K/mm3 (0.1-1.0); Monocytes % 7.1 % (1.7-9.3); Neutrophils # 6.8 K/mm3 (1.8-7.8); Neutrophils % 78.3 % (37.0-80.0); Platelet Count 321 K/mm3 (142-424); Red Blood Count 3.15 M/mm3 (4.60-6.20); Red Cell Distribution Width 15.2 % (11.5-17.5); White Blood Count 8.7 K/mm3 (4.8-10.8)
[2022-08-08 08:29] LABS: Anion Gap 8.5 mEq/L (5-15); Blood Urea Nitrogen 26 mg/dl (9-20); Calcium 8.6 mg/dl (8.4-10.2); Carbon Dioxide 28 mmol/L (22.0-30.0); Chloride 103 mmol/L (98-107); Creatinine Clearance Estimated 38 mL/min (50-200); Estimated Glomerular Filt Rate 44 ml/min (>60); GFR (African American) 54 ML/MIN (>60); Glucose 82 mg/dl (74-100); Magnesium 1.7 mg/dl (1.6-2.3); Potassium 3.5 mmoL/L (3.5-5.1); Sodium 136 mmol/L (136-145)
[2022-08-08 11:41] VITALS: PULSE 66; PULSE 68; O2SAT 91
--- NOTE | 2022-08-08 13:29 | PC.NURSE ---
At rest, pt's RA is 84%
--- NOTE | 2022-08-08 14:23 | HMH.PHAINT1 ---
Pharmacy Intervention Comments: DISCHARGE MEDICATION COUNSELING PROVIDED. DISCUSSED THE FOLLOWING CHANGES: -STOP: LISINOPRIL, DOXAZOSIN, AMLODIPINE -START TAKING THE FOLLOWING: -CEFDINIR (ANTIBIOTIC, TWICE DAILY, WITH FOOD, N/V/D POSSIBLE) -PREDNISONE (STEROID, DAILY, IN THE MORNING WITH FOOD, INSOMNIA, UPSET STOMACH POSSIBLE) -PANTOPRAZOLE (REFLUX, DAILY, TAKE AT BEDTIME) -DUONEBS (CONTINUED, DR MEREDITH JUST SENT IN A NEW PRESCRIPTION) -FUROSEMIDE (FLUID, DAILY, TAKE IN THE MORNING, WILL INCREASE URINATION, MAY CAUSE LOW POTASSIUM) PATIENT AND SON VERBALIZED NO QUESTIONS AT THIS TIME.
--- NOTE | 2022-08-10 13:46 | CARE MANAGER ---
Spoke with patient son for post-discharge phone interview, no acute issues noted.
[2022-08-11 10:50] LABS: Albumin, Body Fluid 0.7 g/dL (Not Estab.); Glucose, Body Fluid 149 mg/dL (.); LD, Body Fluid 97 IU/L (.); Protein, Body Fluid 1.7 g/dL (.)
== END 2022-08-08 16:20 | disposition home health service (06) | DRG 291 ==
LOC: ER 10:53 → 2ND 13:09
PROVIDERS: Admitting Provider Internal Medicine Adolescent Medicine; Emergency Provider Emergency Medicine; PCP Internal Medicine Adolescent Medicine; Visit Provider Internal Medicine Adolescent Medicine
DX: I13.0 Hypertensive heart and chronic kidney disease with heart failure and stage 1 through stage 4 chronic kidney disease, or unspecified chronic kidney disease (principal); I50.23 Acute on chronic systolic (congestive) heart failure; J96.01 Acute respiratory failure with hypoxia; J44.1 Chronic obstructive pulmonary disease with (acute) exacerbation; N39.0 Urinary tract infection, site not specified; I48.91 Unspecified atrial fibrillation; E78.5 Hyperlipidemia, unspecified; N40.0 Benign prostatic hyperplasia without lower urinary tract symptoms; Z87.891 Personal history of nicotine dependence; G31.84 Mild cognitive impairment of uncertain or unknown etiology; G20 Parkinson's disease; N18.9 Chronic kidney disease, unspecified
CPT/HCPCS: 32555; 36415; 71045; 71275; 80048; 80053; 81001; 82042; 82803; 82945; 83615; 83735; 83880; 84155; 84484; 85025; 87070; 87077; 87086; 87088; 87186; 87205; 89051; 93005; 94640; 94761; 97162; 97530; 99285; C9803; J0696; Q9967; U0003; U0005

== ENCOUNTER 2022-08-11 10:03 | Emergency (ER) | payer MEDICARE, SELFPAY ==
--- NOTE | 2022-08-11 10:06 | XR_ITS ---
FINAL REPORT CLINICAL HISTORY: pain, chronic wound FINDINGS: AP, oblique and lateral views of the right foot were obtained. Comparison is made to an exam dated June 2022. Bones are osteopenic. There is no acute fracture or bony destruction. There is no fracture of the distal 4th metatarsal. There is subcutaneous air in the lateral hindfoot that could be related to the drain. Gangrene cannot be excluded based on this exam. Previously seen antibiotic beads have resorbed. IMPRESSION: Subcutaneous air in the lateral hindfoot. Gangrene cannot be excluded. No bony destruction. Reviewed, Interpreted and Dictated by Pinky England MD Transcribed by Kar Phipps Authenticated and [facility]
[2022-08-11 10:11] VITALS: BP 147/88; PULSE 75; RESP 14; TEMP 37.1; O2SAT 94; BMI 25.9
--- NOTE | 2022-08-11 10:11 | HMH.EDGENADL ---
Discharge Plan Disposition Patient Disposition: Xfer SNF Condition: Good Prescriptions Prescriptions: No Action omega 6-tyd-har-fish oil [Fish Oil] 1,000 mg (120 mg-180 mg) capsule 1 cap PO DAILY vitamin B complex [B Complex-Vitamin B12] tablet 1 tab PO DAILY fluticasone propion-salmeterol [Advair Diskus] 250-50 mcg/dose blister with device 1 puff inhalation BIDRT latanoprost 0.005 % Drops 1 drp Eye-Both HS acetaminophen 500 mg Tablet 500 mg PO Q6HP PRN (Reason: Pain) escitalopram oxalate 10 mg Tablet 10 mg PO DAILY cholecalciferol (vitamin D3) 50 mcg (2,000 unit) Tablet 50 mcg PO DAILY metoprolol tartrate 25 mg Tablet 12.5 mg PO BID finasteride 5 mg tablet 5 mg PO DAILY Qty: 30 0RF gabapentin 100 mg capsule 100 mg PO BID 30 Days Qty: 60 0RF tamsulosin 0.4 mg capsule 0.4 mg PO HS furosemide 40 mg Tablet 40 mg PO DAILY 30 Days Qty: 30 0RF ipratropium-albuterol 0.5 mg-3 mg(2.5 mg base)/3 mL Solution For Nebulization 3 ml inhalation Q6HP PRN (Reason: Shortness Of Breath) 30 Days Qty: 120 0RF pantoprazole 40 mg Tablet,Delayed Release (Dr/Ec) 40 mg PO DAILY 30 Days Qty: 30 0RF prednisone 20 mg tablet 40 mg PO DAILY 4 Days Qty: 8 0RF cefdinir 300 mg capsule 300 mg PO BID 3 Days Qty: 6 0RF Referrals Follow up/Referrals: Provider,Referral, MD [Primary Care Provider] - See instructions Activity Restrictions/Add. Instructions Additional Instructions/Restrictions: You were evaluated in the emergency department today. [facility] and overall care. Please see podiatry recommendations below. -Given his overall health, would avoid more surgery for foot if possible. Is still a great candidate for a wound vac. Vac measurements: ~15x7x0.3cm. -Discussed plan of care with [facility] Aakash soto. -Plan: continue local wound care with wound vac therapy to right foot @125mmHg medium continuous with vac changes 2-3 times per week. -Patient is being discharged from [facility] ER to [facility] Orders (SNF: [facility]):? -PWB in post op shoe, walker or wheelchair. -Will plan for right foot wound vac @125mmHg medium continuous, with vac changes 3 times per week via rehab nursing/wound care team. -Application of vac at SNF either tomorrow or 08/13/22. -Then SNF nurses to do wound vac changes on Mon, Wedn, Fri as above. -No plans for Podiatry surgery. -Podiatry will follow up in one week, Wedn 08/19/22 @1130 Clinical Impressions Clinical Impression: Dementia Open wound of right foot Qualifiers: Encounter type: subsequent encounter Qualified Code(s): S91.301D - Unspecified open wound, right foot, subsequent encounter Instructions Patient Instructions: DI for Debridement of a Wound, Infection, or Burn, DI for Alzheimer Disease, DI for Altered Mental Status Discharge ED Provider: Viviane Almonte General Adult HPI General Chief complaint: Altered Mental Status Stated complaint: AMS Time Seen by Provider: 08/11/22 10:06 Source of Information: Patient, Relative and EMS Limitations: Dementia History of Present Illness HPI narrative: This patient is an 86-year-old male with a history of COPD on 2 L nasal cannula, atrial fibrillation not on anticoagulation, dementia, 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 His son states that his dementia has progressively worsened and he has had continued cognitive decline over the last several months. He states that because of this, he is not able to keep his wound VAC on his foot and requests that he be placed until his foot has healed. No new concerns as of late. No fevers, chills, worsening of redness of his foot, or other issues. No acute changes in mental
--- NOTE | 2022-08-11 10:21 | PC.NURSE ---
care management contacted for consult
[2022-08-11 10:27] LABS: Chloride 100 mmol/L (98-107); Potassium 3.5 mmoL/L (3.5-5.1); Sodium 138 mmol/L (136-145)
[2022-08-11 10:29] LABS: Blood Urea Nitrogen 17 mg/dl (9-20); Creatinine Clearance Estimated 48 mL/min (50-200); Estimated Glomerular Filt Rate 57 ml/min (>60); GFR (African American) 69 ML/MIN (>60)
[2022-08-11 10:30] LABS: Alanine Aminotransferase 39 U/L (12-78); Albumin Level 3.6 g/dl (3.5-5.0); Albumin/Globulin Ratio 1.1 (1.1-1.8); Alkaline Phosphatase 169 U/L (38-126); Anion Gap 9.5 mEq/L (5-15); Aspartate Amino Transferase 39 U/L (17-59); Bilirubin,Total 0.7 mg/dl (0.2-1.3); Calcium 8.6 mg/dl (8.4-10.2); Carbon Dioxide 32 mmol/L (22.0-30.0); Globulin 3.3 g/dL (1.3-3.2); Glucose 100 mg/dl (74-100); Total Protein,Serum 6.9 g/dl (6.3-8.2)
[2022-08-11 10:31] LABS: Basophils % 0.4 % (0.1-2.0); Eosinophils # 0.2 K/mm3 (0.0-0.4); Eosinophils % 2.2 % (0.1-12.0); Hematocrit 29.1 % (42.0-52.0); Hemoglobin 9.7 g/dL (14.1-18.0); Lymphocytes # 1.2 K/mm3 (0.7-4.5); Lymphocytes % 13.3 % (10-50); Mean Corpuscular HGB Conc 33.3 g/dL (31.8-35.4); Mean Corpuscular Hemoglobin 29.7 pg (27.0-31.2); Mean Corpuscular Volume 89.2 fl (80-94); Mean Platelet Volume 9.1 fl (7.4-10.4); Monocytes # 0.6 K/mm3 (0.1-1.0); Monocytes % 6.9 % (1.7-9.3); Neutrophils # 6.9 K/mm3 (1.8-7.8); Neutrophils % 77.3 % (37.0-80.0); Platelet Count 315 K/mm3 (142-424); Red Blood Count 3.26 M/mm3 (4.60-6.20); Red Cell Distribution Width 15.3 % (11.5-17.5); White Blood Count 8.9 K/mm3 (4.8-10.8)
[2022-08-11 10:32] VITALS: BP 166/93; PULSE 72; RESP 20; O2SAT 96
[2022-08-11 10:36] LABS: C-Reactive Protein 17.6 mg/L (0-4)
--- NOTE | 2022-08-11 11:14 | SW/DCPLANNER ---
Addendum entered by Kizzy Foote 08/11/22 12:13: I have informed Ann palacio/ Diann that wound vac will be removed in ED today. Addendum entered by Kizzy Foote 08/11/22 11:58: Azul palacio/ [facility] can accept this patient today. I will update patients family and ED staff. Original Note: Patient's family (son/POA) stated from ED that they are interested in LTC placement understanding that they will need to be private pay then turn into [facility] pending. Family is agreeable to plan and is fine with any facility in [place] or surrounding [facility]. Patient information will be faxed to [facility], [facility], [facility], [facility] and [facility].
--- NOTE | 2022-08-11 11:51 | PC.NURSE ---
pt at bs
--- NOTE | 2022-08-11 11:53 | PC.NURSE ---
PT/OT at the bedside for eval
[2022-08-11 12:01] VITALS: BP 158/92; PULSE 78; RESP 21; O2SAT 96
--- NOTE | 2022-08-11 12:11 | EXP.ORTH.CON ---
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 His son states that his dementia has progressively worsened and he has had continued cognitive decline over the last several months.? He states that because of this, he is not able to keep his wound VAC on his foot and requests that he be placed until his foot has healed.? No new concerns as of late.? No fevers, chills, worsening of redness of his foot, or other issues.? No acute changes in mental status.? Patient is currently at his baseline.? Patient is without complaints at this time. Podiatry: Patient is an 86-year-old male who presented to the ER because his family could no longer care for him at home. There is no family at the bedside. But apparently patient keeps kicking and is not able to keep his wound VAC intact. Patient is awake and reports no pain to the right foot. He denies nausea, vomiting, fever, chills. Patient is at baseline. [facility] Disclaimer: The information contained in this section may have been updated after the patient was seen, as this information can be updated by other users. Medical History A-fib Acute respiratory failure with hypoxia Atrial fib/flutter, transient COPD (chronic obstructive pulmonary disease) HAP (hospital-acquired pneumonia) Heart palpitations History of BPH Hyperlipemia Hypertension Surgical History History of back surgery Family History Other Family history of cancer Family history of myocardial infarction Social History Smoking Status: Never smoker alcohol intake: never substance use type: denies use current occupational status: retired Travel in the last 8 weeks: None household members: family and children housing: house current occupational exposures/hazards: No caffeine: Yes Review of Systems Review of Systems Review of systems:: pertinent systems reviewed and negative unless documented below Review of systems (narrative): 14 point review of systems performed, pertinent positives and negatives as per HPI Constitutional Constitutional: Reports system reviewed and no additional complaints, except as documented and Reports lethargy Eyes Eyes: Reports system reviewed and no additional complaints, except as documented ENT Ears, Nose, Mouth, and Throat: Reports system reviewed and no additional complaints, except as documented *Cardiovascular Cardiovascular: Reports system reviewed and no additional complaints, except as documented, Reports dyspnea and Reports dyspnea on exertion *Respiratory Respiratory: Reports system reviewed and no additional complaints, except as documented, Reports dyspnea, Reports dyspnea on exertion and Reports wheezing *Gastrointestinal Gastrointestinal: Reports system reviewed and no additional complaints, except as documented *Genitourinary Genitourinary: Reports system reviewed and no additional complaints, except as documented *Musculoskeletal Musculoskeletal: Reports system reviewed and no additional complaints, except as documented and Reports muscle weakness Integumentary/Breasts Skin/Breast: Reports system reviewed and no additional complaints, except as documented *Neurologic Neurologic: Reports system reviewed and no additional complaints, except as documented Psychiatric Psychiatric: Reports system reviewed and no additional complaints, except as documented
[2022-08-11 12:12] LABS: Erythrocyte Sedimentation Rate 62 mm/hr (0-20)
--- NOTE | 2022-08-11 12:16 | HMH.PTEV ---
Physical Therapy Evaluation Rehab PT IP Evaluation Start: 08/11/22 11:39 Freq: ONCE Status: Active Protocol: Document 08/11/22 12:13 TIP (Rec: 08/11/22 12:15 PHOTAO [id number]) Subjective/History History History 86 yowm brought to ED with AMS and chronic R foot wound. He reports feeling muldly SOA this am. No family present at this time. Pt reports he requires significant assistance with all ADLs and he has been unable to ambulate over the past several days. Subjective Subjective Currently no c/o pain, only SOA. Rehab PT IP Eval Objective Appearance Patient Behavior Appropriate Patient Orientation Person,Place Difficulty following instructions none Speech Pattern Clear Ambulation Patient Able to Ambulate No Balance Ability to Arise Able, uses arms to help Sitting Balance Steady, safe Standing Balance Unsteady Dynamic Sitting Balance Ability Good Dynamic Standing Balance Ability Poor Transfers Bed Transfer Ability Moderate x 1 (50% assist) Chair Transfer Ability Maximum x 1 (75% assist) Sit to Stand Bed Transfer Ability Maximum x 1 (75% assist) Sit to Stand Chair Transfer Ability Maximum x 1 (75% assist) ROM All Extremities PT ROM Status WFL MMT All Extremities PT MMT WFL Abnormal MMT Grade except L foot drop Rehab PT IP prob,goals,plan Problems Date of Evaluation: 08/11/22 Discharge Plan PT Discharge Plan Pt is currently most appropriate for rehab placement once medically stable for d/c. G -code Required No Eval Complexity Eval Charge Codes 54556 - High Complexity PHYSICIAN CERTIFICATION: I certify the specified therapy services for Onur Roach are required, authorized, and reviewed every 30 days.
--- NOTE | 2022-08-11 12:20 | HMH.OTEV ---
OT Inpatient Evaluation Rehab OT IP Evaluation Start: 08/11/22 12:13 Freq: ONCE Status: Active Protocol: Document 08/11/22 12:13 SABINA (Rec: 08/11/22 12:20 [facility] [id number]) Rehab OT IP Assessment Subjective History Pt oriented x 2 on arrival. Pt agreeable to engage in therapy evaluation. Pt presents to ER today (08/11/22) due to altered mental status and concern because the family states that they are no longer able to care for him at home. His son states that his dementia has progressively worsened and he has had continued cognitive decline over the last several months. He states that because of this, he is not able to keep his wound VAC on his foot and requests that he be placed until his foot has healed. Prior to coming to ER, pt was requiring max assistance with all ADLs and requiring max assistance for functional transfers. Pt dependent upon family for completion of all IADLs. 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 Objective Patient Orientation Person,Birthday Upper Extremity Gross ROM Min Limitation <25% Shoulder ROM Limitations Muscle Weakness Elbow ROM Limitations Muscle Weakness Wrist Limitations of Range of Motion Muscle Weakness Bed Mobility bed mobility-scooting,bed mobility - supine/sit Assist Level Moderate x 2 (50% assist) Rehab OT IP prob,goals,plan Problems Date of Evaluation: 08/11/22 OT IP Problems Bed Mobility,Transfers,Balance ,Self care,Safety Rehab Potential Rehab Potential Good Discharge Plan OT Discharge Plan Pt would benefit most from short t
[2022-08-11 12:31] VITALS: BP 154/100; PULSE 76; RESP 22; O2SAT 96
[2022-08-11 12:59] LABS: Coronavirus 19, PCR Not Detected (NotDetected); Influenza A, PCR Not Detected (NotDetected); Influenza B, PCR Not Detected (NotDetected)
[2022-08-11 13:01] VITALS: BP 161/88; RESP 18; O2SAT 95
--- NOTE | 2022-08-11 13:12 | PC.NURSE ---
pt given meal tray
--- NOTE | 2022-08-11 13:49 | PC.NURSE ---
called report to [facility]
[2022-08-11 13:51] VITALS: BP 146/85; PULSE 78; RESP 20; TEMP 36.7; O2SAT 98
== END 2022-08-11 13:52 ==
PROVIDERS: Emergency Provider Emergency Medicine
DX: S91.301S Unspecified open wound, right foot, sequela (principal); L97.513 Non-pressure chronic ulcer of other part of right foot with necrosis of muscle; L03.115 Cellulitis of right lower limb; M79.671 Pain in right foot; F03.90 Unspecified dementia, unspecified severity, without behavioral disturbance, psychotic disturbance, mood disturbance, and anxiety; J44.9 Chronic obstructive pulmonary disease, unspecified; I48.91 Unspecified atrial fibrillation; Z79.01 Long term (current) use of anticoagulants; N18.9 Chronic kidney disease, unspecified; I12.9 Hypertensive chronic kidney disease with stage 1 through stage 4 chronic kidney disease, or unspecified chronic kidney disease; E78.5 Hyperlipidemia, unspecified; Z20.822 Contact with and (suspected) exposure to COVID-19
CPT/HCPCS: 73630; 80053; 85025; 85651; 86140; 99285; C9803; U0003; U0005